=== PATIENT | male | born 1930 | race Caucasian/White ===

== ENCOUNTER 2017-04-22 12:49 | Observation (INO) ==
[2017-04-22] MEDS ORDERED: Ondansetron 4 MG/2 ML VIAL IVP ONE (13:07)
[2017-04-22] MEDS ORDERED: Ibuprofen 600 MG TABLET PO ONE (13:23)
[2017-04-22 13:32] LABS: Bilirubin,Urine Negative (Negative); Blood,Urine Negative (Negative); Clarity,Urine Cloudy (Clear); Color,Urine Yellow (Yellow); Glucose,Urine (UA) Normal (Normal); Ketones,Urine Negative (Negative); Leukocyte Esterase,Urine Negative (Negative); Nitrite,Urine Negative (Negative); PH,Urine 6.5 pH Units (5.0-8.0); Protein,Urine 30 mg/dL (Neg-Trace); Specific Gravity,Urine 1.022 (1.010-1.025); Urobilinogen,Urine Normal (Normal)
[2017-04-22 13:35] LABS: WBC,Urine 0-3 per hpf (0-3)
[2017-04-22 13:43] LABS: Hematocrit 38.7 % (37.5-50.1); Hemoglobin 12.4 g/dL (12.9-16.9); Mean Corpuscular Hemoglobin 28.9 pg (28.0-33.3); Mean Corpuscular Volume 90.2 fL (83.0-100.0); Mean Platelet Volume 10.2 fL (9.4-12.4); Monocytes # 0.3 K/mcL (0.0-1.3); Platelet Count 183 K/mcL (140-400); Red Blood Count 4.29 M/mcL (4.19-5.50); Red Cell Distribution Width 14.5 % (11.5-14.5)
--- NOTE | 2017-04-22 13:50 | Emergency Department Note ---
Disposition Clinical Impression: Nausea and vomiting in adult, Transaminitis, Fever Disposition: Admitted As Inpatient Condition: Fair Referrals: NONE,PCP [Non-Partnered Physician] - Forms: ED Satisfaction Letter General Adult HPI - General Chief complaint: ED Nausea/Vomiting/Diarrhea Stated complaint: NAUSEA, FEVER Source: patient Limitations: no limitations Vital Signs Reviewed: Yes - History of Present Illness HPI Narrative: Patient is an 86-year-old male with a past medical history of lymphoma and congestive heart failure and hepatic stent placed presented to the with nausea, vomiting, fever, and cough. Patient's symptoms began this morning. Patient has not eaten anything since 8 AM and has had continuous nausea and vomiting without throwing up anything. Patient had a maximum temperature of 101F and took Tylenol at 10 AM. Patient was previously sick with similar symptoms couple weeks ago but felt better after vomiting once. has had a cold but no symptoms of nausea or vomiting. Patient is not doing chemotherapy, radiation , immunosuppressants. Patient denies dizziness, changes, diarrhea, rashes, falls. Pain Scale: 0 - Related Data Home Medications Medication Instructions Recorded Confirmed Cholecalciferol (Vitamin D3) 1,000 unit PO DAILY 05/01/15 04/16/17 [Vitamin D3] Cyanocobalamin (B-12) 1,000 mcg PO DAILY 05/01/15 04/16/17 Diltiazem HCl [Diltiazem 24Hr Cd] 180 mg PO QAM 05/01/15 04/16/17 Furosemide [Lasix] 40 mg PO QAM 05/01/15 04/16/17 Metoprolol [Lopressor] 25 mg PO BID 05/01/15 04/16/17 Multivit-Min/FA/Lycopen/Lutein 1 tab PO DAILY 05/01/15 04/16/17 [Centrum Silver Tablet] Omeprazole [PriLOSEC] 20 mg PO DAILY 05/01/15 04/16/17 Sodium Chloride/Aloe Nasal Gel 1 appl NS PRN PRN 02/18/17 04/16/17 [[place] Saline Nasal Gel] Montelukast [Singulair] 10 mg PO DAILY 03/19/17 04/16/17 Atorvastatin [Lipitor] 40 mg PO HS 04/22/17 04/22/17 Polyvinyl Alcohol [Artificial 2 drop OP QID PRN 04/22/17 04/22/17 Tears] Temazepam [Restoril] 7.5 mg PO HS PRN 04/22/17 04/22/17 Allergies Allergy/AdvReac Type Severity Reaction Status Date / Time No Known Allergies Allergy Verified 04/16/17 09:58 Review of Systems: ROS: constitutional fever, denies chills, weakness, dizziness HEENT: denies Headaches, changes in vision Resp: SOB, coughing CV: Denies chest pain, lower extremity edema GI: + nausea, Denies nausea, vomiting, diarrhea, constipation, hematochezia, abdominal pain Skin: rashes, new lesions All systems ED: reviewed and negative except as stated. Review of Systems: As Per HPI Past Medical History - Past Medical History Medical history: Reports: cancer, CHF, coronary artery disease, hyperlipidemia, hypertension, malignancy, RA, valvular heart disease, other Surgical history: Reports: coronary bypass (CABG), heart valve replacement ( Aortic valve), pacemaker/AICD, other (Pacemaker, biliary duct stent, cardiac cath x3 without stents, colonoscopy) Psychiatric history: Reports: no psych history - Social History Smoking Status: Never smoker Smokeless Tobacco Status: No Alcohol use: Reports: none Drug use: Reports: none Physical Exam Constitutional: Alert, in no acute distress, well nourished, well developed. Head: Normocephalic, atraumatic, normal contour and symmetric, no masses, Heart: Normal, regular rate and rhythm, + systolic murmur Lungs: Right basilar crackles, no wheezes, rales, or rhonchi Abdomen: Mild tenderness diffusely, Soft, nondistended and no masses palpable, bowel sounds present and normal, no guarding or rigidity. Extremities: No clubbing, cyanosis, or edema, Skin: Skin pale, warm and dry, no lesions, no rashes, no jaundice Neurologic: Constant tremor in handlesCranial nerves II through XII grossly intact, no focal deficits, strength within normal limits in all extremities Psych: Cooperative with exam, good eye contact, cognitive function intact, judgement good insight good, speech clear, thought process logical, and goal directed - General Limitations: no limitations General appearance: alert, in no apparent distress Course Course Narrative: Patient is an 86-year-old male with a past medical history of lymphoma and congestive heart failure and hepatic stent placed presented to the ED with nausea, vomiting, fever, and cough. Patient had a fever of 100.4F. CBC, BMP, lipase, hepatic panel, UA, CT of abdomen and pelvis, chest x-ray were all obtained. CBC showed a white count of 4.9 and elevated bands of 22. Hepatic panel showed transaminitis with an AST of 116, ALP of 62, alkaline phosphatase 376, total bili of 3.6. CT of the abdomen showed biliary stents in place with no significant change in biliary ductal dilation associated pneumobilia and small pleural effusion at lung bases that Superimposed pneumonia cannot be excluded. Other sources of infection were negative with a negative UA and chest x-ray. Dr. Raines, GI specialist, was called and informed about patient and agreed to consult. He reported that the patient be nothing by mouth and no MRCP at this time. He has decided to do an ERCP for possible obstruction of the hepatic stent. Blood cultures were drawn and Zosyn given. Dr. Ta, the hospitalist was called and admission was accepted. Vital Signs Temperature 100.4 F H 04/22/17 12:51 Pulse Rate 98 04/22/17 12:51 Respiratory Rate 20 04/22/17 12:51 Blood Pressure 157/83 04/22/17 12:51 O2 Sat by Pulse Oximetry 95 04/22/17 12:51 Temperature 100.4 F H 04/22/17 12:51 Pulse Rate 98 04/22/17 12:51 Respiratory Rate 20 04/22/17 12:51 Blood Pressure 157/83 04/22/17 12:51 O2 Sat by Pulse Oximetry 95 04/22/17 12:51 Oxygen Delivery Oxygen Delivery Room Air Medical Decision Making - [facility] Narrative Medical decision making narrative: Patient was found to have transaminitis and a fever. Dr. Raines was called and informed about patient. He is decided to do an ERCP for obstruction of the hepatic stent. Blood cultures were drawn and Zosyn given. Admitted to the hospitalist. - Lab Data Lab results narrative: All Lab Results (24 Hours) 04/22/17 04/22/17 04/22/17 Range/Units 13:20 13:34 13:34 WBC 4.9 (4.3-11.1) K/mcL RBC 4.29 (4.19-5.50) M/mcL Hgb 12.4 L (12.9-16.9) g/dL Hct 38.7 (37.5-50.1) % MCV 90.2 (83.0-100.0) fL MCH 28.9 (28.0-33.3) pg MCHC 32.0 (31.6-35.5) g/dL RDW 14.5 (11.5-14.5) % Plt Count 183 (140-400) K/mcL MPV 10.2 (9.4-12.4) fL Seg Neutrophils % 66.0 % Band Neutrophils % 22.0 H (0-4) % Lymphocytes % 4.0 % Monocytes % 6.0 % Eosinophils % 2.0 % Neutrophils # 4.3 (1.6-8.9) K/mcL Lymphocytes # 0.2 L (0.6-4.6) K/mcL Monocytes # 0.3 (0.0-1.3) K/mcL Eosinophils # 0.1 (0.0-0.6) K/mcL Platelet Estimate Normal (Normal) Immature Plt Fraction 5.0 (1.1-6.1) % Sodium 137 (136-145) mEq/L Potassium 4.2 (3.5-4.5) mEq/L Chloride 104 (98-109) mEq/L Carbon Dioxide 23 (19-29) mEq/L BUN 18 (8-26) mg/dL Creatinine 0.97 (0.72-1.25) mg/dL Est GFR ( Amer) > 60 (> 60) Est GFR (Non-Af Amer) > 60 (> 60) BUN/Creatinine Ratio 19 (6-26) Glucose 92 (70-99) mg/dL Calculated Osmolality 286 (280-300) Calcium 9.5 (8.6-10.8) mg/dL Total Bilirubin 3.6 H (0.2-1.2) mg/dL Direct Bilirubin 2.6 H (0.0-0.5) mg/dL Indirect Bilirubin 1.0 (0.0-1.2) mg/dL AST 116 H (5-34) Units/L ALT 62 H (0-55) Units/L Alkaline Phosphatase 376 H (38-126) Units/L Serum Total Protein 6.7 (6.0-8.3) g/dL Albumin 3.4 L (3.5-5.0) g/dL Globulin 3.3 (2.4-3.5) g/dL Albumin/Globulin Ratio 1.0 L (1.1-2.2) Lipase 54 (8-78) Units/L Urine Color Yellow (Yellow) Urine Clarity Cloudy A (Clear) Urine pH 6.5 (5.0-8.0) pH Units Ur Specific [place] 1.022 (1.010-1.025) Urine Protein 30 H (Neg-Trace) mg/dL Urine Glucose (UA) Normal (Normal) mg/dL Urine Ketones Negative (Negative) mg/dL Urine Blood Negative (Negative) Urine Nitrite Negative (Negative) Urine Bilirubin Negative (Negative) Urine Urobilinogen Normal (Normal) mg/dL Ur Leukocyte Esterase Negative (Negative) Urine Microscopic WBC 0-3 (0-3) per hpf Ur Culture Indicated? NO (NO) Lab Results 04/22/17 Range/Units 13:20 Urine Color Yellow (Yellow) Urine Clarity Cloudy A (Clear) Urine pH 6.5 (5.0-8.0) pH Units Ur Specific [place] 1.022 (1.010-1.025) Urine Protein 30 H (Neg-Trace) mg/dL Urine Glucose (UA) Normal (Normal) mg/dL Urine Ketones Negative (Negative) mg/dL Urine Blood Negative (Negative) Urine Nitrite Negative (Negative) Urine Bilirubin Negative (Negative) Urine Urobilinogen Normal (Normal) mg/dL Ur Leukocyte Esterase Negative (Negative) Urine Microscopic WBC 0-3 (0-3) per hpf Ur Culture Indicated? NO (NO) - Radiology Data Radiology results reviewed: Yes I reviewed the patient's radiology results. Abdomen/Pelvis CT 04/22/17 13:08 IMPRESSION: Biliary stents remain in place with no significant change in biliary ductal dilation associated pneumobilia. Persistent distention of the gallbladder with associated cholelithiasis. No significant inflammatory change appreciated. Pleural and parenchymal changes at the lung bases compatible with atelectasis and small pleural effusion. Superimposed pneumonia cannot be excluded. Large hiatal hernia with a paraesophageal component containing the majority of the stomach. No evidence of obstruction noted. D/ / 04/22/2017 14:22:05 Ken Bai MD / [facility] Interpreting Provider: Ken Bai MD Chest X-Ray 04/22/17 13:22 IMPRESSION: There is chronic blunting of both lateral costophrenic angles which may be related to chronic pleural thickening or effusions. No significant interval change compared to prior. Large hiatal hernia is again seen. D/ / Jaja Zuniga MD / Jaja Zuniga MD Interpreting Provider: Jaja Zuniga MD
[2017-04-22 14:05] LABS: Alanine Aminotransferase 62 Units/L (0-55); Albumin 3.4 g/dL (3.5-5.0); Alkaline Phosphatase 376 Units/L (38-126); Aspartate Amino Transferase 116 Units/L (5-34); BUN/Creatinine Ratio 19 (6-26); Bilirubin,Direct 2.6 mg/dL (0.0-0.5); Bilirubin,Total 3.6 mg/dL (0.2-1.2); Blood Urea Nitrogen 18 mg/dL (8-26); Calcium 9.5 mg/dL (8.6-10.8); Carbon Dioxide 23 mEq/L (19-29); Chloride 104 mEq/L (98-109); Globulin 3.3 g/dL (2.4-3.5); Glucose 92 mg/dL (70-99); Lipase 54 Units/L (8-78); Osmolality,Calculated 286 (280-300); Potassium 4.2 mEq/L (3.5-4.5); Sodium 137 mEq/L (136-145); Total Protein 6.7 g/dL (6.0-8.3); eGFR For African Americans > 60 (> 60); eGFR For Non-African Americans > 60 (> 60)
[2017-04-22 14:27] LABS: Eosinophils # 0.1 K/mcL (0.0-0.6); Lymphocytes # 0.2 K/mcL (0.6-4.6); Neutrophils # 4.3 K/mcL (1.6-8.9); Platelet Estimate Normal (Normal)
--- NOTE | 2017-04-22 14:42 | Emergency Department Note ---
START Narrative - START START: I examined this patient and my medical decision-making was reviewed with the Resident Physician. I agree with the documented findings, disposition and treatment plan as described except to the extent set forth below. 86-year-old male presents with intermittent fevers and chills times one week. History of liver stents secondary to an obstruction. His bilirubin and LFTs are elevated. CT shows some dilatation of the biliary ducts. We will consult with GI and proceed from there.
[2017-04-22] MEDS ORDERED: Piperacillin/Tazobactam 3.375 GM in D5% in Water (Mini-Bag+) 100 ML IVPB ONE (15:40)
[2017-04-22] MEDS ORDERED: Acetaminophen 325 MG TABLET PO PRN (16:52)
[2017-04-22] MEDS ORDERED: Ondansetron 4 MG/2 ML VIAL IVP PRN (16:52)
[2017-04-22] MEDS ORDERED: Naloxone 0.4 MG/ML INJ IVP PRN (16:52)
--- NOTE | 2017-04-22 17:10 | Internal Med History&Physical ---
Date of Encounter: 04/22/17 Time of Encounter: 16:59 Assessment and Plan (1) Obstructive jaundice Current visit: Yes Status: Acute Patient presented with fever, nausea, vomiting. Patient has history of biliary stent placement. Labs revealed elevated LFTs with tbili of 3.6, AST of 116, ALT of 62, and alk phos of 376. CT of abd/pelvis showed biliary stents in place with no change in biliary ductal dilation. Dr. Ruffin of gastroenterology was consulted and plans to take patient this evening for ERCP and stent exchange. Daily LFTs. (2) Nausea and vomiting in adult Current visit: Yes Status: Acute Patient presented with nausea, dry heaves, chills and fever. Reports he's had previous episodes of this that resolved on their own and had associated them with his chemo and or IVIG treatments. Patient has completed CHemo. He has obstructive jaundice and there is concern for possible cholangitis, which is likely cause of patient's N/V Dr. Ruffin plans ERCP with stent exchange. Zosyn IVPB zofran PRN (3) Fever Current visit: Yes Status: Acute Patient presents with nausea, vomiting, chills and fever, with elevated LFTs and history of biliary stent for obstructive jaundice. Patient likely with cholangitis secondary to biliary obstruction. Zosyn IVPB Dr. Ruffin consulted and plans ERCP for stent exchange. Qualifiers: Fever type: unspecified Qualified Code(s): R50.9 - Fever, unspecified (4) Lymphoma Current visit: Yes Status: Chronic Patient reports he has completed chemotherapy and was told he is in remission as of Wednesday. He still gets IVIG periodically. 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 Tripp is a 86 year old male with HTN, HLD, CAD s/p CABG, aortic valve repair , pacemaker, CHF, Lymphoma s/p chemo and now in remission, and biliary stent placement, who presented to the ED with complaints of nausea, vomiting, chills and fever. Patient reports that he's had similar episodes of chills and nausea over the last several weeks, but symptoms usually resolve. He reports today he ate breakfast and was feeling okay, when he had sudden onset of nausea, dry heaves, chills. He denies any dizziness or lightheadedness, chest pain, palpitations. He reports some shortness of breath and cough that has been going on for a week. Evaluation in the ED revealed fever of 100.4, elevated LFTs with AST of 116, ALT of 62, alk phos of 376, and tbili of 3.6. WBC was normal at 4.9 but bands were elevated. UA was negative for infection. CXR did not reveal anything acute. CT abd/pelvis showeed biliary stents in place with no change in biliary ductal dilation. Dr. Ruffin of gastroenterology was consulted and he plans an ERCP for this evening to exchange the biliary stent. He was started on zosyn. On exam, patient appeared mildly jaundiced. Heart had regular rate and rhythm, lungs were clear bilaterally to auscultation. Abdomen soft, non-tender with positive bowel sounds. Past Med Surg Social Fam HX - Past Medical History Medical history: cancer (lymphoma), CHF, coronary artery disease, hyperlipidemia , hypertension, malignancy, RA, valvular heart disease, other Psychiatric history: no psych history - Past Surgical History Surgical History: coronary bypass (CABG), heart valve replacement (Aortic valve) , other (Pacemaker, biliary duct stent, cardiac cath x3 without stents, colonoscopy), pacemaker - Social History Smoking Status: Never smoker Smokeless Tobacco Status: No Alcohol use: none Drug use: none - Family History Mother Adopted: No Family Member Ethnicity: Non- Living Status: Hx Family Cardiac Disorders: Yes Hx Family Cancer: Yes (breast) Hx Family Endocrine Disorder: Yes (DM) Father Living Status: Internal Medicine - H&P: Meds RX: Cholecalciferol (Vitamin D3) [Vitamin D3] 1,000 unit PO DAILY 05/01/15 [ History] RX: Cyanocobalamin (B-12) 1,000 mcg PO DAILY 05/01/15 [History] RX: Diltiazem HCl [Diltiazem 24Hr Cd] 180 mg PO QAM 05/01/15 [History] RX: Furosemide [Lasix] 40 mg PO QAM 05/01/15 [History] RX: Metoprolol [Lopressor] 25 mg PO BID 05/01/15 [History] RX: Multivit-Min/FA/Lycopen/Lutein [[place] Silver Tablet] 1 tab PO DAILY [History] RX: Omeprazole [PriLOSEC] 20 mg PO DAILY 05/01/15 [History] Sodium Chloride/Aloe Nasal Gel [[place] Saline Nasal Gel] 1 spray NS Q6H PRN [History] Montelukast [Singulair] 10 mg PO DAILY 03/19/17 [History] Atorvastatin [Lipitor] 40 mg PO HS 04/22/17 [History] Polyvinyl Alcohol [Artificial Tears] 2 drop OP QID PRN 04/22/17 [History] Temazepam [Restoril] 7.5 mg PO HS PRN 04/22/17 [History] Allergies No Known Allergies Allergy (Verified 04/16/17 09:58) All Systems PM: A 10-system review of systems was performed and is negative for pertinent findings except as documented above in the HPI. - Constitutional Constitutional: chills, fever(s), no night sweats - EENT Eyes: no change in vision, no discharge, no pain, no photophobia Ears: no ear discharge, no ear pain, no tinnitus Nose, mouth and throat: no dysphagia, no nasal discharge, no neck pain, no sore throat - Cardiovascular Cardiovascular ROS IM: dyspnea, no chest pain, no diaphoresis, no lightheadedness, no palpitations, no syncope - Respiratory Respiratory: cough, dyspnea, no wheezing, no excessive phlegm production - Gastrointestinal Gastrointestinal: nausea, vomiting, no abdominal pain, no diarrhea, no hematemesis, no hematochezia, no melena - Musculoskeletal Musculoskeletal ROS IM: no numbness, no tingling - Integumentary Integumentary IM: no rash, no unusual bruising - Neurological Neurological ROS: no confusion, no convulsions, no focal weakness, no numbness, no tingling, no tremor(s) - Hematologic/Lymphatic Hematologic/Lymphatic: no easy bruising - Constitutional Vitals: Temp Pulse Resp BP Pulse Ox 99.4 F 69 20 114/63 93 04/22/17 16:47 04/22/17 15:29 04/22/17 16:47 04/22/17 16:47 04/22/17 15:29 General appearance: Present: A&O X 3, pleasant, no acute distress - Head Head exam: Present: atraumatic, normocephalic - Eye Eye exam: Present: conjuntiva pink, sclera anicteric Additional comments: left pupil reactive. Patient keeps left eye closed mostly and left pupil non- reactive. 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 - Neck Neck exam general surgery: Present: supple, trachea midline. Absent: lymphadenopathy - Respiratory Respiratory exam: Present: CTAB. Absent: accessory muscle use, rales, rhonchi, wheezes - Cardiovascular Cardiovascular exam: Present: RRR, +S1, +S2, systolic murmur. Absent: diastolic murmur, gallop, rubs - GI/Abdominal GI/Abdominal exam: Present: normal bowel sounds, soft, no peritoneal signs. Absent: distended, tenderness - Extremities Exam Extremities exam: Present: warm, radial pulses palpable and symmetrical. Absent : calf tenderness, cyanotic, pedal edema - Neurological Exam Neurological exam: Present: CN II-XII intact, oriented X3, no focal deficits. Absent: facial droop, speech deficit - Skin Skin exam: Present: dry, intact Internal Med - H&P Results - Labs CBC & Chem 7: 04/22/17 13:34 04/22/17 13:34 Labs: All Lab Results (24 Hours) 04/22/17 04/22/17 04/22/17 Range/Units 13:20 13:34 13:34 WBC 4.9 (4.3-11.1) K/mcL RBC 4.29 (4.19-5.50) M/mcL Hgb 12.4 L (12.9-16.9) g/dL Hct 38.7 (37.5-50.1) % MCV 90.2 (83.0-100.0) fL MCH 28.9 (28.0-33.3) pg MCHC 32.0 (31.6-35.5) g/dL RDW 14.5 (11.5-14.5) % Plt Count 183 (140-400) K/mcL MPV 10.2 (9.4-12.4) fL Seg Neutrophils % 66.0 % Band Neutrophils % 22.0 H (0-4) % Lymphocytes % 4.0 % Monocytes % 6.0 % Eosinophils % 2.0 % Neutrophils # 4.3 (1.6-8.9) K/mcL Lymphocytes # 0.2 L (0.6-4.6) K/mcL Monocytes # 0.3 (0.0-1.3) K/mcL Eosinophils # 0.1 (0.0-0.6) K/mcL Platelet Estimate Normal (Normal) Immature Plt Fraction 5.0 (1.1-6.1) % Sodium 137 (136-145) mEq/L Potassium 4.2 (3.5-4.5) mEq/L Chloride 104 (98-109) mEq/L Carbon Dioxide 23 (19-29) mEq/L BUN 18 (8-26) mg/dL Creatinine 0.97 (0.72-1.25) mg/dL Est GFR ( Amer) > 60 (> 60) Est GFR (Non-Af Amer) > 60 (> 60) BUN/Creatinine Ratio 19 (6-26) Glucose 92 (70-99) mg/dL Calculated Osmolality 286 (280-300) Calcium 9.5 (8.6-10.8) mg/dL Total Bilirubin 3.6 H (0.2-1.2) mg/dL Direct Bilirubin 2.6 H (0.0-0.5) mg/dL Indirect Bilirubin 1.0 (0.0-1.2) mg/dL AST 116 H (5-34) Units/L ALT 62 H (0-55) Units/L Alkaline Phosphatase 376 H (38-126) Units/L Serum Total Protein 6.7 (6.0-8.3) g/dL Albumin 3.4 L (3.5-5.0) g/dL Globulin 3.3 (2.4-3.5) g/dL Albumin/Globulin Ratio 1.0 L (1.1-2.2) Lipase 54 (8-78) Units/L Urine Color Yellow (Yellow) Urine Clarity Cloudy A (Clear) Urine pH 6.5 (5.0-8.0) pH Units Ur Specific [place] 1.022 (1.010-1.025) Urine Protein 30 H (Neg-Trace) mg/dL Urine Glucose (UA) Normal (Normal) mg/dL Urine Ketones Negative (Negative) mg/dL Urine Blood Negative (Negative) Urine Nitrite Negative (Negative) Urine Bilirubin Negative (Negative) Urine Urobilinogen Normal (Normal) mg/dL Ur Leukocyte Esterase Negative (Negative) Urine Microscopic WBC 0-3 (0-3) per hpf Ur Culture Indicated? NO (NO) - Diagnostic Studies Chest x-ray Additional comments: Chest X-Ray 04/22/17 13:22 IMPRESSION: There is chronic blunting of both lateral costophrenic angles which may be related to chronic pleural thickening or effusions. No significant interval change compared to prior. Large hiatal hernia is again seen. D/ / Jaja Zuniga MD / Jaja Zuniga MD Interpreting Provider: Jaja Zuniga MD CT scan - abdomen Additional comments: Abdomen/Pelvis CT 04/22/17 13:08 IMPRESSION: Biliary stents remain in place with no significant change in biliary ductal dilation with associated pneumobilia. Persistent distention of the gallbladder with associated cholelithiasis. No significant inflammatory change appreciated. Pleural and parenchymal changes at the lung bases compatible with atelectasis and small pleural effusion. Superimposed pneumonia cannot be excluded. Large hiatal hernia with a paraesophageal component containing the majority of the stomach. No evidence of obstruction noted. D/ / 04/22/2017 14:22:05 Ken Bai MD / [facility] Interpreting Provider: Ken Bai MD
[2017-04-22] MEDS: 0.9 % Sodium Chloride 1,000 ML IVC SCH (17:20)
[2017-04-22] MEDS ORDERED: Ringers Solution, Lactated 1,000 ML IVC SCH (20:45)
--- NOTE | 2017-04-22 20:51 | Anesthesia Evaluation PreOp ---
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: Denies Any Significant HX Other Medical History: Other (Lymphoma....remission) Anesthesia History: No Prior Anesthetic Complications Alcohol Use: none Drug use: none Medications and Allergies Cholecalciferol (Vitamin D3) [Vitamin D3] 1,000 unit PO DAILY 05/01/15 [History] Cyanocobalamin (B-12) 1,000 mcg PO DAILY 05/01/15 [History] Diltiazem HCl [Diltiazem 24Hr Cd] 180 mg PO QAM 05/01/15 [History] Furosemide [Lasix] 40 mg PO QAM 05/01/15 [History] Metoprolol [Lopressor] 25 mg PO BID 05/01/15 [History] Multivit-Min/FA/Lycopen/Lutein [Centrum Silver Tablet] 1 tab PO DAILY 05/01/15 [ History] Omeprazole [PriLOSEC] 20 mg PO DAILY 05/01/15 [History] Sodium Chloride/Aloe Nasal Gel [[place] Saline Nasal Gel] 1 spray NS Q6H PRN [History] Montelukast [Singulair] 10 mg PO DAILY 03/19/17 [History] Atorvastatin [Lipitor] 40 mg PO HS 04/22/17 [History] Polyvinyl Alcohol [Artificial Tears] 2 drop OP QID PRN 04/22/17 [History] Temazepam [Restoril] 7.5 mg PO HS PRN 04/22/17 [History] Allergies No Known Allergies Allergy (Verified 04/16/17 09:58) - Meds/Allergy Pre-op Review Medications Reviewed: Yes Allergies Reviewed: Yes Beta Blockers on Current Med List: Yes Anesthesia Results - Labs 04/22/17 13:34 04/22/17 13:34 - Imaging EKG: report reviewed (AF) Additional studies: LVEF 60% Anesthesia Exam O2 Sat Height 1.7 m Height 1.7 m Weight 81.7 kg Weight 83.915 kg O2 Sat by Pulse Oximetry 94 O2 Sat by Pulse Oximetry 93 O2 Sat by Pulse Oximetry 93 O2 Sat by Pulse Oximetry 94 O2 Sat by Pulse Oximetry 95 Vital Signs Temp Pulse Resp BP Pulse Ox 100.4 F H 98 20 157/83 95 04/22/17 12:51 04/22/17 12:51 04/22/17 12:51 04/22/17 12:51 04/22/17 12:51 Height: 5'7 Weight: 180 lbs NPO (# of Hours): MN Pain Scale: 0 - HEENT Pupil (Motor): Pupils equal, EOMI Mallampati: III Oral Opening: Less than or equal to 3 - FIELD SERVICE TECHNICIAN POULTRY LOC: Oriented FIELD SERVICE TECHNICIAN [employer]LTRY Motor: Normal RUE, Normal LUE, Normal RLE, Normal LLE, Normal Face FIELD SERVICE TECHNICIAN [employer]LTRY Sensory: Normal: RUE, LUE, RLE, LLE, Face - Cardiac Rhythm: Regular Murmur: None JVD: No Carotid Bruit: No - Pulmonary Breath Sounds: bilateral Clear Respiratory Effort: Symmetrical Anesthesia Assess/Plan ASA Score: 3 Modified Gilman Scale for Level of Consciousness: Cooperative, oriented, and tranquil Anesthetic Plan: General Monitoring Plan: Standard Monitors Recovery Plan: PACU (Discussed GA, agrees to proceed)
[2017-04-22] MEDS ORDERED: Lidocaine -MPF 4% 5 ML AMPUL ONE (20:58)
[2017-04-22] MEDS ORDERED: Lidocaine -MPF 2% 2 ML VIAL ONE (20:58)
[2017-04-22] MEDS ORDERED: *HR* Propofol 200 MG/20 ML VIAL IVP ONE (20:58)
[2017-04-22] MEDS ORDERED: Ondansetron 4 MG/2 ML VIAL ONE (20:58)
[2017-04-22] MEDS ORDERED: *HR* FentaNYL (PF) 100 MCG/2 ML VIAL ONE ×2 (20:58→21:58)
[2017-04-22] MEDS ORDERED: *HR* Succinylcholine 200 MG/10 ML VIAL IVP ONE (20:58)
[2017-04-22] MEDS ORDERED: Acetaminophen IV 1,000 MG/100 ML INFUS..BTL ONE (22:14)
--- NOTE | 2017-04-22 23:31 | Anesthesia Evaluation Post Op ---
Date of Encounter: 04/22/17 Time of Encounter: 23:40 - Vital Signs Vital Signs: Vital Signs/O2 Sat/Glucose, Most Current Temp Pulse Resp BP Pulse Ox 04/22/17 23:25 72 16 129/68 94 04/22/17 23:15 81 16 129/80 100 04/22/17 20:20 97.5 F L 71 18 117/71 94 - Lungs Lungs: Clear Ascult./Percussion - Airway Airway: Non-obstructed - Cardiovascular Regular Rate - Mental Status Mental Status: Alert & Oriented, Answers Appropriately - Pain Pain Scale: 0 - Nausea Vomiting Nausea Vomiting: Not Present - Hydration Hydration: NPO - Discharge PostOp Status: Transfer Patient to floor
[2017-04-23] MEDS: Piperacillin/Tazobactam 3.375 GM in D5% in Water (Mini-Bag+) 100 ML IVPB SCH ×3 (00:17→16:06)
--- NOTE | 2017-04-23 00:29 | Event Note ---
Date of Encounter: 04/23/17 Time of Encounter: 00:24 Discussed case with GI Dr Ruffin s/p ERCP with old stent removable. 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 Unable to re-stent. Initial plan to transfer to [facility]. However , [facility] does not take [employer] insurance and patient would have to pay out of pocket - this would incur family huge medical debt. D/w Dr Ruffin again and family options include 1) trial of PTC in the morning and repeat attempt at [facility] vs. 2 ) transfer to [facility] were options presented but also acknowledging that [facility] isn't a tertiary center. Further management pending hospital course. NPO for possible PTC trial in the a.m
[2017-04-23] MEDS: *HR* Heparin 5,000 UNIT/ML VIAL SQ SCH ×2 (05:54→17:44)
[2017-04-23 05:55] LABS: Albumin 2.9 g/dL (3.5-5.0); Albumin/Globulin Ratio 0.9 (1.1-2.2); BUN/Creatinine Ratio 19 (6-26); Bilirubin,Direct 4.1 mg/dL (0.0-0.5); Bilirubin,Indirect 1.3 mg/dL (0.0-1.2); Bilirubin,Total 5.4 mg/dL (0.2-1.2); Blood Urea Nitrogen 20 mg/dL (8-26); Calcium 8.9 mg/dL (8.6-10.8); Carbon Dioxide 25 mEq/L (19-29); Chloride 105 mEq/L (98-109); Globulin 3.1 g/dL (2.4-3.5); Glucose 116 mg/dL (70-99); Osmolality,Calculated 288 (280-300); Potassium 4.2 mEq/L (3.5-4.5); Sodium 137 mEq/L (136-145); eGFR For African Americans > 60 (> 60); eGFR For Non-African Americans > 60 (> 60)
[2017-04-23 05:56] LABS: Basophils % 0.1 %; Eosinophils % 0.4 %; Hematocrit 33.4 % (37.5-50.1); Lymphocytes # 0.2 K/mcL (0.6-4.6); Lymphocytes % 2.8 %; Mean Corpuscular HGB Conc 31.7 g/dL (31.6-35.5); Mean Corpuscular Hemoglobin 28.7 pg (28.0-33.3); Mean Corpuscular Volume 90.5 fL (83.0-100.0); Mean Platelet Volume 11.4 fL (9.4-12.4); Monocytes # 0.9 K/mcL (0.0-1.3); Monocytes % 11.2 %; Platelet Count 158 K/mcL (140-400); Red Blood Count 3.69 M/mcL (4.19-5.50); Red Cell Distribution Width 14.8 % (11.5-14.5); Segmented Neutrophils % 84.5 %
[2017-04-23 06:01] LABS: Hemoglobin 10.6 g/dL (12.9-16.9)
[2017-04-23] MEDS: Cyanocobalamin (B-12) 1,000 MCG TABLET PO SCH (09:55)
[2017-04-23] MEDS: Diltiazem CD (24hr) 180 MG CAPSULE PO SCH (09:55)
[2017-04-23] MEDS: 0.9 % Sodium Chloride 1,000 ML IVC SCH ×2 (09:56→17:48)
--- NOTE | 2017-04-23 11:36 | Gastroenterology Consult Note ---
<Ari Figueroa Hetal - Last Filed: 04/23/17 11:33> Date of Encounter: 04/23/17 Time of Encounter: 10:45 - Assessment and plan (1) Obstructive jaundice Current Visit: Yes Status: Acute Assessment and plan: On admssion TB 3.6, AST 116, ALT 62, Alk phos 376. Today TB 5.4, AST 91, ALT 55 , Alk phos 320. CT A/P with biliary stent remain in place with no significant change in biliary ductal dilation with associated pneumobilia, persistent distention of the gallbladder with cholelithiasis, large hiatal hernia with paraesophageal component containing the majority of the stomach. ERCP completed overnight, biliary stent removed, but was unable to recannulate. Patient to have PTC completed today, then Dr. Ruffin to complete internalization of the stent. Patient will likely need to be referred to [place] for ampullectomy. (2) Nausea and vomiting in adult Current Visit: Yes Status: Acute Assessment and plan: Continue antiemetic and PPI. - Time Spent With Patient Total time spent is greater than 50% in coordination of care (as documented) at patient's floor/unit and/or counseling patient: GI History of Present Illness - Data of Consult Patient: known to practice within the last 3 years Consult date: 04/23/17 Requesting Physician: Bertha Thomason MD - Consult Narrative Reason for consult: Elevated LFTs, Hx biliary stent History of present illness: Mr. Squires is a 86 year old male with PMHx of lymphoma s/p chemo, CHF, CAD, HLD, HTN, and biliary stent placement who presented to the ED with complaints of nausea, vomiting, chills, and fever. Patient reports that he's had similar episodes of chills and nausea over the last several weeks, but symptoms usually resolve. Patient had sudden onset of nausea and dry heaves yesterday after eating breakfast. He denies chest pain, dizziness, lightheadedness melena, or hematochezia. On admssion TB 3.6, AST 116, ALT 62, Alk phos 376. CT A/P with biliary stent remain in place with no significant change in biliary ductal dilation with associated pneumobilia, persistent distention of the gallbladder with cholelithiasis, large hiatal hernia with paraesophageal component containing the majority of the stomach. Procedures: ERCP 07/19/2015 one stent removed in biliary tree to temporary stents were placed in the common bile duct. ERCP 07/02/2014: Localized biliary stricture, s/p dilation, brushings, and stenting. Upper EUS 07/07/2014: Area of heterogenous, hypoechoic parenchyma noted in the head region 2 cm x 2 cm in size, NSAIDs: None Anticoagulation: None Past Med Surg Social Fam HX - Past Medical History Medical history: cancer (lymphoma), CHF, coronary artery disease, hyperlipidemia , hypertension, malignancy, RA, valvular heart disease, other Psychiatric history: no psych history - Past Surgical History Surgical History: coronary bypass (CABG), heart valve replacement (Aortic valve) , other (Pacemaker, biliary duct stent, cardiac cath x3 without stents, colonoscopy), pacemaker - Social History Smoking Status: Never smoker Smokeless Tobacco Status: No Alcohol use: none Drug use: none - Family History Mother Adopted: [place]: cristiano squires Age: 80 Family Member Ethnicity: Non- Living Status: Age at : 80 Cause of : heart disease Hx Family Cardiac Disorders: Yes Hx Family Cancer: Yes (breast) Hx Family Endocrine Disorder: Yes (DM) Father Living Status: - Gastrointestinal Gastrointestinal: Present: as per HPI - Constitutional Constitutional: as per HPI - EENT Eyes: as per HPI Ears: Present: as per HPI Nose, mouth and throat: Present: as per HPI - Cardiovascular Cardiovascular ROS: Present: as per HPI - Respiratory Respiratory IM: Present: as per HPI - Genitourinary Genitourinary: Absent: change in color, Urinary frequency - Neurological ROS Neurological GI: Present: as per HPI - Hematologic/Lymphatic Hematologic/Lymphatic pediatric: Present: as per HPI - Musculoskeletal Musculoskeletal ROS GI: Present: as per HPI - Integumentary Integumentary GI: Present: as per HPI - Psychiatric ROS Psychiatric GI: Present: as per HPI - Endocrine Endocrine IM: Present: as per HPI - Constitutional Vitals: Temp Pulse Resp BP Pulse Ox 97.7 F 75 16 122/72 96 04/23/17 06:34 04/23/17 06:34 04/23/17 06:34 04/23/17 06:34 04/23/17 06:34 General appearance: Present: cooperative, A&O X 3, no acute distress, answers questions appropriately - Head Head exam: Present: atraumatic, normocephalic - Eye Eye exam: Present: normal appearance, sclera anicteric - ENT ENT exam: Present: mucous membranes dry - Neck Neck exam general surgery: Present: normal inspection, trachea midline - Respiratory Respiratory exam: Present: CTAB. Absent: rales, rhonchi - Cardiovascular Cardiovascular exam: Present: RRR, +S1, +S2 - GI/Abdominal GI/Abdominal exam: Present: soft, tenderness (upper abdominal tenderness), no peritoneal signs. Absent: distended, firm, guarding - Rectal Rectal exam: Present: deferred - Extremities Exam Extremities exam: Present: warm - Neurological Exam Neurological exam: Present: no focal deficits - Psychiatric Psychiatric exam: Present: normal affect, normal mood - Skin Skin exam: Present: dry, intact, normal color, warm Results - Labs CBC & Chem 7: 04/23/17 04:53 04/23/17 04:53 Labs: Last Result Calcium 8.9 mg/dL (8.6-10.8) 04/23/17 04:53 Entire Visit Hgb 10.6 g/dL (12.9-16.9) L D 04/23/17 04:53 Hct 33.4 % (37.5-50.1) L 04/23/17 04:53 Total Bilirubin 5.4 mg/dL (0.2-1.2) H 04/23/17 04:53 AST 91 Units/L (5-34) H 04/23/17 04:53 ALT 55 Units/L (0-55) 04/23/17 04:53 Lipase 54 Units/L (8-78) 04/22/17 13:34 - Impressions Impressions Fluoroscopy 04/22/17 21:15 IMPRESSION: Intraprocedural fluoroscopic spot images as above. See separate procedure report for more information. D/ / Korey Glover MD / Korey Glover MD Interpreting Provider: Korey Glover MD Consult Discharge Plan - Plan Referrals: Gissel Escamilla MD [Primary Care Provider] - <Manny Ruffin - Last Filed: 04/23/17 12:39> Date of Encounter: 04/23/17 Time of Encounter: 10:00 - Time Spent With Patient Total time spent is greater than 50% in coordination of care (as documented) at patient's floor/unit and/or counseling patient: GI History of Present Illness - Data of Consult Requesting Physician: Bertha Thomason MD - Consult Narrative History of present illness: Mr. Squires is a 86 year old male - Constitutional Vitals: Temp Pulse Resp BP Pulse Ox 97.8 F 71 16 135/72 96 04/23/17 12:06 04/23/17 12:06 04/23/17 12:06 04/23/17 12:06 04/23/17 12:06 Results - Labs CBC & Chem 7: 04/23/17 04:53 04/23/17 04:53 Labs: Last Result Calcium 8.9 mg/dL (8.6-10.8) 04/23/17 04:53 Entire Visit Hgb 10.6 g/dL (12.9-16.9) L D 04/23/17 04:53 Hct 33.4 % (37.5-50.1) L 04/23/17 04:53 PT 11.6 Seconds (9.4-12.1) 04/23/17 11:26 Total Bilirubin 5.4 mg/dL (0.2-1.2) H 04/23/17 04:53 AST 91 Units/L (5-34) H 04/23/17 04:53 ALT 55 Units/L (0-55) 04/23/17 04:53 Lipase 54 Units/L (8-78) 04/22/17 13:34 - ABG ABG results: PT/INR, D-dimer PT 11.6 Seconds (9.4-12.1) 04/23/17 11:26 - Impressions Impressions Fluoroscopy 04/22/17 21:15 IMPRESSION: Intraprocedural fluoroscopic spot images as above. See separate procedure report for more information. D/ / Korey Glover MD / Korey Glover MD Interpreting Provider: Korey Glover MD - Attending Attestation I examined this patient and my medical decision-making was reviewed with the Resident Physician. I agree with the documented findings, disposition and treatment plan as described except to the extent set forth below. Patient with history of CBD stricture now admitted with the occlusion of the plastic stent that he had placed more than 2 years ago. Per patient he lost follow-up because he had cardiac/cancer issues . 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 Discuss option with the patient including transferred to [facility], as he has Taniya. At this point the plan is to have a PTC done and then internalization of the stent and in the near future referral to [facility] for ampullectomy
[2017-04-23 11:47] LABS: INR 1.1; Prothrombin Time 11.6 Seconds (9.4-12.1)
[2017-04-23] MEDS ORDERED: Heparin 1,000 UNITS/500 mL NS 500 ML ONE (13:05)
[2017-04-23] MEDS ORDERED: 0.9 % Sodium Chloride 500 ML ONE (13:05)
[2017-04-23] MEDS ORDERED: *HR* Midazolam HCl 2 MG/2 ML VIAL IVP PRN (13:40)
[2017-04-23] MEDS: *HR* FentaNYL (PF) 100 MCG/2 ML VIAL IVP PRN ×2 (14:29→14:48)
--- NOTE | 2017-04-23 14:53 | Electrocardiograph Report ---
[address] [address] Test Date: 2017-04-22 Pat Name: Roc Tripp Department: 104 Room: 3A Gender: M [employer] Insulator: AM : 1930 Requested By: Radha Louise Order Number: [id number] Reading MD: Arlette Powell Measurements Intervals [place] Rate: 74 P: -71 CT: 312 QRS: -37 QRSD: 110 T: 79 QT: 399 QTc: 426 Interpretive Statements ELECTRONIC ATRIAL PACEMAKER MARKED LEFT AXIS DEVIATION NONSPECIFIC T-WAVE ABNORMALITY Electronically Signed On 04-23-2017 14:51:40 EDT by Arlette Powell
--- NOTE | 2017-04-23 15:03 | IR Procedure Note ---
Date of procedure: 04/23/17 Consent Obtained: Verbal consent, Written consent Timeout: Correct patient and procedure verified, Correct site verified, Time out performed, Skin prep completed Local anesthetic: Lidocaine 1% Indications: Biliary stricture Procedure Performed: PTC with Int/Ext drain placement Site/Technique: Transhepatic int/ext biliary drain placed Results/Findings: Mild biliary dilatation Estimated blood loss (cc): 2 Complications: None; Tolerated procedure well Post Procedure Treatment Plan: Continue inpatient care
--- NOTE | 2017-04-23 15:07 | Internal Med Progress Note ---
Date of Encounter: 04/23/17 Time of Encounter: 09:30 - Assessment and plan (1) Obstructive jaundice Current Visit: Yes Status: Acute Assessment and plan: ERCP done yesterday and biliary stent was retrieved. Was unable to be cannulated and gastroenterology recommends percutaneous cholecystostomy today. Moderate risk for complications. Continue current management with IV fluids and IV hydration. Pain control symptomatically. (2) Fever Current Visit: Yes Status: Acute Assessment and plan: Patient has not had any further episodes of fever since last night. Likely from obstructive jaundice. Qualifiers: Fever type: unspecified Qualified Code(s): R50.9 - Fever, unspecified (3) Large B-cell lymphoma Current Visit: No Status: Acute Assessment and plan: Continue outpatient follow-up with rheumatology. No acute issues from this condition at this time. (4) Nausea and vomiting in adult Current Visit: Yes Status: Resolved (5) DVT prophylaxis Current Visit: Yes Status: Acute Assessment and plan: Continue subcutaneous heparin - Subjective Interval history: Patient is feeling better today but does have some discomfort in his right upper quadrant. Awaiting percutaneous cholecystostomy that scheduled for later today. No nausea or vomiting. Has been nothing by mouth for pending procedure - Constitutional Vitals: Temp Pulse Resp BP Pulse Ox 97.8 F 69 15 116/62 97 04/23/17 12:06 04/23/17 14:56 04/23/17 14:56 04/23/17 14:56 04/23/17 14:56 General appearance: Present: A&O X 3, pleasant, no acute distress, answers questions appropriately - Eye Eye exam: Present: EOMI, PERRL, scleral icterus - Respiratory Respiratory exam: Present: CTAB. Absent: accessory muscle use, rales, rhonchi, wheezes - Cardiovascular Cardiovascular exam: Present: RRR, +S1, +S2. Absent: diastolic murmur, gallop, rubs, systolic murmur - GI/Abdominal GI/Abdominal exam: Present: normal bowel sounds, soft, tenderness (Right upper quadrant), no peritoneal signs. Absent: distended - Extremities Exam Extremities exam: Present: warm, radial pulses palpable and symmetrical. Absent : calf tenderness, cyanotic, pedal edema - Skin Skin exam: Present: dry, intact Internal Medicine: Result - Labs CBC & Chem 7: 04/23/17 04:53 04/23/17 04:53 Labs: Short CBC 04/23/17 Range/Units 04:53 WBC 8.3 D (4.3-11.1) K/mcL Hgb 10.6 L D (12.9-16.9) g/dL Hct 33.4 L (37.5-50.1) % Plt Count 158 (140-400) K/mcL Neutrophils # 7.0 (1.6-8.9) K/mcL BMP 04/23/17 04:53 Sodium 137 Potassium 4.2 Chloride 105 Carbon Dioxide 25 BUN 20 Creatinine 1.07 Glucose 116 H Calcium 8.9 Liver Function 04/23/17 Range/Units 04:53 Total Bilirubin 5.4 H (0.2-1.2) mg/dL Direct Bilirubin 4.1 H D (0.0-0.5) mg/dL AST 91 H (5-34) Units/L ALT 55 (0-55) Units/L Alkaline Phosphatase 320 H (38-126) Units/L Albumin 2.9 L (3.5-5.0) g/dL - ABG Interpretation ABG results: PT/INR, D-dimer PT 11.6 Seconds (9.4-12.1) 04/23/17 11:26 - Impressions Impressions Fluoroscopy 04/22/17 21:15 IMPRESSION: Intraprocedural fluoroscopic spot images as above. See separate procedure report for more information. D/ / Korey Glover MD / Korey Glover MD Interpreting Provider: Korey Glover MD - VTE Documentation of Mechanical Device: Intermittent pneumatic compression device Consult Discharge Plan - Plan Referrals: Gissel Escamilla MD [Primary Care Provider] -
[2017-04-24] MEDS: Piperacillin/Tazobactam 3.375 GM in D5% in Water (Mini-Bag+) 100 ML IVPB SCH ×3 (00:45→17:41)
[2017-04-24] MEDS: *HR* Heparin 5,000 UNIT/ML VIAL SQ SCH ×2 (06:14→17:41)
[2017-04-24] MEDS: Diltiazem CD (24hr) 180 MG CAPSULE PO SCH (07:33)
[2017-04-24 07:46] LABS: Alanine Aminotransferase 47 Units/L (0-55); Albumin 2.7 g/dL (3.5-5.0); Albumin/Globulin Ratio 0.8 (1.1-2.2); Alkaline Phosphatase 269 Units/L (38-126); Aspartate Amino Transferase 75 Units/L (5-34); BUN/Creatinine Ratio 21 (6-26); Bilirubin,Total 3.7 mg/dL (0.2-1.2); Blood Urea Nitrogen 21 mg/dL (8-26); Calcium 8.5 mg/dL (8.6-10.8); Carbon Dioxide 22 mEq/L (19-29); Chloride 108 mEq/L (98-109); Glucose 102 mg/dL (70-99); Osmolality,Calculated 287 (280-300); Sodium 137 mEq/L (136-145); eGFR For African Americans > 60 (> 60); eGFR For Non-African Americans > 60 (> 60)
[2017-04-24 07:47] LABS: Globulin 3.3 g/dL (2.4-3.5)
[2017-04-24 08:05] LABS: Basophils % 0.2 %; Eosinophils % 0.3 %; Hemoglobin 10.6 g/dL (12.9-16.9); Immature Granulocytes % 1.7 % (0-4)
[2017-04-24 08:11] LABS: Potassium 4.1 mEq/L (3.5-4.5)
[2017-04-24 08:19] LABS: Immature Platelets 7.2 % (1.1-6.1); Lymphocytes # 0.5 K/mcL (0.6-4.6); Lymphocytes % 3.5 %; Mean Corpuscular HGB Conc 32.1 g/dL (31.6-35.5); Mean Corpuscular Hemoglobin 29.4 pg (28.0-33.3); Mean Corpuscular Volume 91.4 fL (83.0-100.0); Mean Platelet Volume 11.6 fL (9.4-12.4); Monocytes % 7.7 %; Neutrophils # 11.1 K/mcL (1.6-8.9); Platelet Count 162 K/mcL (140-400); Red Blood Count 3.61 M/mcL (4.19-5.50); Red Cell Distribution Width 15.2 % (11.5-14.5); Segmented Neutrophils % 86.6 %
[2017-04-24] MEDS: Cyanocobalamin (B-12) 1,000 MCG TABLET PO SCH (09:59)
--- NOTE | 2017-04-24 11:17 | Internal Med Progress Note ---
Date of Encounter: 04/24/17 Time of Encounter: 09:10 - Assessment and plan (1) Obstructive jaundice Current Visit: Yes Status: Acute Assessment and plan: Status post PTC. Doing well currently. Continue supportive care. Will follow gastroenterology recommendations. Most likely patient will be taken for repeat ERCP on Wednesday. Continue IV antibiotics in the meantime. Moderate risk for complications. (2) Fever Current Visit: Yes Status: Acute Assessment and plan: Likely due to obstructive jaundice. Improving. Qualifiers: Fever type: unspecified Qualified Code(s): R50.9 - Fever, unspecified (3) Large B-cell lymphoma Current Visit: No Status: Chronic Assessment and plan: Follow-up outpatient with getting hematology for further management. Patient said to be in remission at this time. (4) Nausea and vomiting in adult Current Visit: Yes Status: Resolved (5) DVT prophylaxis Current Visit: Yes Status: Acute Assessment and plan: Continue subcutaneous heparin - Subjective Interval history: Patient is doing better today. No new episodes of fevers. He did have low- grade fever last evening after his procedure. Tolerating diet well so far. Pain is well controlled. - Constitutional Vitals: Temp Pulse Resp BP Pulse Ox 97.8 F 64 16 130/75 94 04/24/17 06:26 04/24/17 06:26 04/24/17 06:26 04/24/17 06:26 04/24/17 06:26 General appearance: Present: cooperative, A&O X 3, pleasant, no acute distress, answers questions appropriately - Neck Neck exam general surgery: Present: supple, trachea midline. Absent: lymphadenopathy - Respiratory Respiratory exam: Present: CTAB. Absent: accessory muscle use, rales, rhonchi, wheezes - Cardiovascular Cardiovascular exam: Present: RRR, +S1, +S2. Absent: diastolic murmur, gallop, rubs, systolic murmur - GI/Abdominal GI/Abdominal exam: Present: normal bowel sounds, soft, no peritoneal signs. Absent: distended, tenderness Additional comments: Percutaneous cholecystostomy drain in place. Draining biliary fluid. - Extremities Exam Extremities exam: Present: warm, radial pulses palpable and symmetrical. Absent : calf tenderness, cyanotic, pedal edema - Skin Skin exam: Present: dry, intact Additional comments: Jaundice Internal Medicine: Result - Labs CBC & Chem 7: 04/24/17 07:11 04/24/17 07:11 Labs: Short CBC 04/24/17 Range/Units 07:11 WBC 12.8 H D (4.3-11.1) K/mcL Hgb 10.6 L (12.9-16.9) g/dL Hct 33.0 L (37.5-50.1) % Plt Count 162 (140-400) K/mcL Neutrophils # 11.1 H (1.6-8.9) K/mcL BMP 04/24/17 07:11 Sodium 137 Potassium 4.1 Chloride 108 Carbon Dioxide 22 BUN 21 Creatinine 1.01 Glucose 102 H Calcium 8.5 L Liver Function 04/24/17 Range/Units 07:11 Total Bilirubin 3.7 H (0.2-1.2) mg/dL AST 75 H (5-34) Units/L ALT 47 (0-55) Units/L Alkaline Phosphatase 269 H (38-126) Units/L Albumin 2.7 L (3.5-5.0) g/dL - ABG Interpretation ABG results: PT/INR, D-dimer PT 11.6 Seconds (9.4-12.1) 04/23/17 11:26 - Impressions Impressions Catheter Placement 04/23/17 00:00 IMPRESSION: Successful ultrasound and fluoroscopy guided placement of an internal external transhepatic biliary drain through the right hepatic lobe. No immediate complications. D/ / Andrew Johnston MD / Andrew Johnston MD Interpreting Provider: Andrew Johnston MD Cholangiogram 04/23/17 00:00 IMPRESSION: Successful ultrasound and fluoroscopy guided placement of an internal external transhepatic biliary drain through the right hepatic lobe. No immediate complications. D/ / Andrew Johnston MD / Andrew Johnston MD Interpreting Provider: Andrew Johnston MD Guidance Needle Placement Ultrasound 04/23/17 00:00 IMPRESSION: Successful ultrasound and fluoroscopy guided placement of an internal external transhepatic biliary drain through the right hepatic lobe. No immediate complications. D/ / Andrew Johnston MD / Andrew Johnston MD Interpreting Provider: Andrew Johnston MD Percutaneous Drainage 04/23/17 00:00 IMPRESSION: Successful ultrasound and fluoroscopy guided placement of an internal external transhepatic biliary drain through the right hepatic lobe. No immediate complications. D/ / Andrew Johnston MD / Andrew Johnston MD Interpreting Provider: Andrew Johnston MD - VTE Documentation of Mechanical Device: Intermittent pneumatic compression device Consult Discharge Plan - Plan Referrals: Gissel Escamilla MD [Primary Care Provider] -
[2017-04-24] MEDS: 0.9 % Sodium Chloride 1,000 ML IVC SCH (15:00)
[2017-04-25] MEDS: Piperacillin/Tazobactam 3.375 GM in D5% in Water (Mini-Bag+) 100 ML IVPB SCH ×3 (00:33→16:53)
[2017-04-25] MEDS: 0.9 % Sodium Chloride 1,000 ML IVC SCH (03:53)
[2017-04-25] MEDS: *HR* Heparin 5,000 UNIT/ML VIAL SQ SCH ×2 (05:53→16:52)
[2017-04-25 08:52] LABS: Basophils % 0.3 %; Eosinophils # 0.1 K/mcL (0.0-0.6); Eosinophils % 1.6 %; Hematocrit 35.3 % (37.5-50.1); Hemoglobin 11.3 g/dL (12.9-16.9); Immature Granulocytes % 1.3 % (0-4); Lymphocytes # 0.3 K/mcL (0.6-4.6); Lymphocytes % 3.7 %; Mean Corpuscular Hemoglobin 29.6 pg (28.0-33.3); Mean Corpuscular Volume 92.4 fL (83.0-100.0); Mean Platelet Volume 11.1 fL (9.4-12.4); Monocytes # 0.7 K/mcL (0.0-1.3); Neutrophils # 7.6 K/mcL (1.6-8.9); Platelet Count 163 K/mcL (140-400); Red Blood Count 3.82 M/mcL (4.19-5.50); Red Cell Distribution Width 15.4 % (11.5-14.5); Segmented Neutrophils % 85.1 %
[2017-04-25 09:08] LABS: Alanine Aminotransferase 37 Units/L (0-55); Albumin 2.8 g/dL (3.5-5.0); Albumin/Globulin Ratio 0.8 (1.1-2.2); Alkaline Phosphatase 242 Units/L (38-126); Aspartate Amino Transferase 47 Units/L (5-34); BUN/Creatinine Ratio 19 (6-26); Bilirubin,Total 2.1 mg/dL (0.2-1.2); Blood Urea Nitrogen 16 mg/dL (8-26); Calcium 8.5 mg/dL (8.6-10.8); Carbon Dioxide 23 mEq/L (19-29); Chloride 109 mEq/L (98-109); Globulin 3.6 g/dL (2.4-3.5); Glucose 104 mg/dL (70-99); Osmolality,Calculated 289 (280-300); Potassium 4.2 mEq/L (3.5-4.5); Sodium 139 mEq/L (136-145); Total Protein 6.4 g/dL (6.0-8.3); eGFR For African Americans > 60 (> 60); eGFR For Non-African Americans > 60 (> 60)
[2017-04-25] MEDS: Cyanocobalamin (B-12) 1,000 MCG TABLET PO SCH (09:30)
[2017-04-25] MEDS: Diltiazem CD (24hr) 180 MG CAPSULE PO SCH (09:30)
--- NOTE | 2017-04-25 14:25 | Internal Med Progress Note ---
Date of Encounter: 04/25/17 Time of Encounter: 10:50 - Assessment and plan (1) Obstructive jaundice Current Visit: Yes Status: Acute Assessment and plan: Status post percutaneous cholecystostomy. Doing well overall. Bilirubin levels are coming down. Alkaline phosphatase is also coming down. GI following. Continue IV antibiotics. Keep nothing by mouth for planned procedure tomorrow to internalize the stent. (2) Fever Current Visit: Yes Status: Resolved Assessment and plan: Likely from obstructive jaundice and has now resolved Qualifiers: Fever type: unspecified Qualified Code(s): R50.9 - Fever, unspecified (3) Large B-cell lymphoma Current Visit: No Status: Chronic Assessment and plan: Follow-up outpatient with oncology (4) Nausea and vomiting in adult Current Visit: Yes Status: Resolved (5) DVT prophylaxis Current Visit: Yes Status: Acute - Subjective Interval history: Patient continues to improve. Sitting up in chair. Pain is well controlled. No new complaints at this time. - Constitutional Vitals: Temp Pulse Resp BP Pulse Ox 98.1 F 75 15 147/75 96 04/25/17 11:00 04/25/17 11:00 04/25/17 11:00 04/25/17 11:00 04/25/17 11:00 General appearance: Present: cooperative, A&O X 3, pleasant, no acute distress, answers questions appropriately - Eye Eye exam: Present: PERRL, scleral icterus, conjuntiva pink - Neck Neck exam general surgery: Present: supple, trachea midline. Absent: lymphadenopathy - Respiratory Respiratory exam: Present: CTAB. Absent: accessory muscle use, rales, rhonchi, wheezes - Cardiovascular Cardiovascular exam: Present: RRR, +S1, +S2. Absent: diastolic murmur, gallop, rubs, systolic murmur - GI/Abdominal GI/Abdominal exam: Present: normal bowel sounds, soft, no peritoneal signs. Absent: distended, tenderness Additional comments: Cholecystostomy with drain in place - Skin Skin exam: Present: dry, intact Additional comments: Jaundice Internal Medicine: Result - Labs CBC & Chem 7: 04/25/17 08:46 04/25/17 08:46 Labs: Short CBC 04/25/17 Range/Units 08:46 WBC 9.0 (4.3-11.1) K/mcL Hgb 11.3 L (12.9-16.9) g/dL Hct 35.3 L (37.5-50.1) % Plt Count 163 (140-400) K/mcL Neutrophils # 7.6 (1.6-8.9) K/mcL BMP 04/25/17 08:46 Sodium 139 Potassium 4.2 Chloride 109 Carbon Dioxide 23 BUN 16 Creatinine 0.84 Glucose 104 H Calcium 8.5 L Liver Function 04/25/17 Range/Units 08:46 Total Bilirubin 2.1 H (0.2-1.2) mg/dL AST 47 H (5-34) Units/L ALT 37 (0-55) Units/L Alkaline Phosphatase 242 H (38-126) Units/L Albumin 2.8 L (3.5-5.0) g/dL - ABG Interpretation ABG results: PT/INR, D-dimer PT 11.6 Seconds (9.4-12.1) 04/23/17 11:26 - VTE Documentation of Mechanical Device: Intermittent pneumatic compression device Consult Discharge Plan - Plan Referrals: Gissel Escamilla MD [Primary Care Provider] -
[2017-04-26] MEDS: Piperacillin/Tazobactam 3.375 GM in D5% in Water (Mini-Bag+) 100 ML IVPB SCH ×3 (00:13→17:37)
[2017-04-26] MEDS: *HR* Heparin 5,000 UNIT/ML VIAL SQ SCH (05:53)
[2017-04-26] MEDS: Diltiazem CD (24hr) 180 MG CAPSULE PO SCH (08:05)
[2017-04-26] MEDS: Cyanocobalamin (B-12) 1,000 MCG TABLET PO SCH (08:08)
[2017-04-26] MEDS ORDERED: *HR* Propofol 200 MG/20 ML VIAL IVP ONE (08:57)
[2017-04-26] MEDS ORDERED: *HR* Rocuronium Bromide 50 MG/5 ML VIAL IVC ONE (08:57)
[2017-04-26] MEDS ORDERED: Lidocaine -MPF 4% 5 ML AMPUL TP ONE (08:57)
--- NOTE | 2017-04-26 12:51 | Anesthesia Evaluation PreOp ---
Date of Encounter: 04/26/17 Time of Encounter: 12:49 - Past History Planned Operation: ERCP Cardiac History: ME, HTN, Hyperlipidemia, Cardiac Surgery (CABG AVR), Pacemaker/ ICD (Last checked 01/27) Pulmonary History: Denies Any Significant HX EAR SPECIALIST History: Denies Any Significant HX Other Medical History: Other (Lymphoma) Anesthesia History: No Prior Anesthetic Complications, Past Anesthesia (ERCP) Alcohol Use: none Drug use: none Medications and Allergies Cholecalciferol (Vitamin D3) [Vitamin D3] 1,000 unit PO DAILY 05/01/15 [History] Cyanocobalamin (B-12) 1,000 mcg PO DAILY 05/01/15 [History] Diltiazem HCl [Diltiazem 24Hr Cd] 180 mg PO QAM 05/01/15 [History] Furosemide [Lasix] 40 mg PO QAM 05/01/15 [History] Metoprolol [Lopressor] 25 mg PO BID 05/01/15 [History] Multivit-Min/FA/Lycopen/Lutein [Centrum Silver Tablet] 1 tab PO DAILY 05/01/15 [ History] Omeprazole [PriLOSEC] 20 mg PO DAILY 05/01/15 [History] Sodium Chloride/Aloe Nasal Gel [[place] Saline Nasal Gel] 1 spray NS Q6H PRN [History] Montelukast [Singulair] 10 mg PO DAILY 03/19/17 [History] Atorvastatin [Lipitor] 40 mg PO HS 04/22/17 [History] Polyvinyl Alcohol [Artificial Tears] 2 drop OP QID PRN 04/22/17 [History] Temazepam [Restoril] 7.5 mg PO HS PRN 04/22/17 [History] Allergies No Known Allergies Allergy (Verified 04/16/17 09:58) - Meds/Allergy Pre-op Review Medications Reviewed: Yes Allergies Reviewed: Yes Beta Blockers on Current Med List: Yes If Beta Blockers taken, Date/Time (Last Dose taken): 08:05 04/26/2017 Anesthesia Results - Labs 04/25/17 08:46 04/25/17 08:46 Echocardiogram Name: Roc Donny Tripp Date of Study: 07/10/2016 Indications: Evaluate aortic valve Impressions: LVEF 60-65%. Normal LV chamber size and function. Mild concentric left ventricular hypertrophy. Mild left ventricular diastolic dysfunction. Atypical septal motion consistent with post-operative status. Normal right ventricular structure and function. Severely dilated left atrium. Moderately dilated right atrium. Bioprosthetic aortic valve appears well seated in the LVOT. Leaflets were not well visualized. Mild aortic regurgitation. Unclear if valvular or perivalvular. Mean AV gradient 24 mmHg. Correlate with size and type of valve. Moderate mitral annular calcification. Mean MV gradient not obtained, but no apparent significant stenosis by 2D. Mild tricuspid regurgitation. Borderline mild pulmonary hypertension. Estimated RVSP is 35 mmHg. - Imaging EKG: image reviewed (Electronically paced rhythm) Anesthesia Exam O2 Sat Weight 82.2 kg O2 Sat by Pulse Oximetry 98 O2 Sat by Pulse Oximetry 95 O2 Sat by Pulse Oximetry 97 O2 Sat by Pulse Oximetry 96 O2 Sat by Pulse Oximetry 97 O2 Sat by Pulse Oximetry 94 Vital Signs Temp Pulse Resp BP Pulse Ox 100.4 F H 98 20 157/83 95 04/22/17 12:51 04/22/17 12:51 04/22/17 12:51 04/22/17 12:51 04/22/17 12:51 Vital Signs/O2 Sat, Most Current Temp Pulse Resp BP Pulse Ox 98.3 F 69 16 151/74 98 04/26/17 10:24 04/26/17 10:24 04/26/17 10:24 04/26/17 10:24 04/26/17 10:24 Height: 5'7'' Weight: 181# NPO (# of Hours): > 8 hrs Pain Scale: 0 Pain Scale Used: Numeric (1 - 10) - HEENT Pupil (Motor): Pupils equal, EOMI Mallampati: III Teeth: Edentulous Denture Type: Upper: Complete, Lower: Complete Oral Opening: Greater than 3 - EAR SPECIALIST LOC: Oriented EAR SPECIALIST Motor: Normal RUE, Normal LUE, Normal RLE, Normal LLE, Normal Face EAR SPECIALIST Sensory: Normal: RUE, LUE, RLE, LLE, Face - Cardiac Rhythm: Regular Murmur: None JVD: No Carotid Bruit: No - Pulmonary Breath Sounds: bilateral Clear Respiratory Effort: Symmetrical Anesthesia Assess/Plan ASA Score: 3 Modified [place] Scale for Level of Consciousness: Cooperative, oriented, and tranquil Anesthetic Plan: General Autologous Blood: Yes Monitoring Plan: Standard Monitors Recovery Plan: PACU
[2017-04-26] MEDS ORDERED: *HR* FentaNYL (PF) 100 MCG/2 ML VIAL ONE (14:07)
[2017-04-26] MEDS ORDERED: *HR* Promethazine 25 MG/ML VIAL IVP PRN (15:09)
[2017-04-26 15:53] VITALS: BP 155/86
--- NOTE | 2017-04-26 15:58 | Anesthesia Evaluation Post Op ---
Date of Encounter: 04/26/17 Time of Encounter: 15:55 - Vital Signs Vital Signs: Vital Signs/O2 Sat, Most Current Temp Pulse Resp BP Pulse Ox 97.2 F L 65 16 155/86 95 04/26/17 15:50 04/26/17 15:50 04/26/17 15:50 04/26/17 15:50 04/26/17 15:50 - Lungs Lungs: Clear Ascult./Percussion - Airway Airway: Non-obstructed - Cardiovascular Regular Rate, Baseline Rhythm - Mental Status Mental Status: Alert & Oriented, Answers Appropriately - Pain Pain Scale: 0 Pain Scale used: Numeric (1 - 10) - Nausea Vomiting Nausea Vomiting: Not Present - Hydration Hydration: Tolerates oral liquids, Ice chips - Discharge PostOp Status: Transfer Patient to floor
--- NOTE | 2017-04-26 16:09 | Internal Med Progress Note ---
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 Sitting up in chair. Pain is well controlled. No new complaints at this time. - Constitutional Vitals: Temp Pulse Resp BP Pulse Ox 97.2 F L 65 16 155/86 95 04/26/17 15:50 04/26/17 15:50 04/26/17 15:50 04/26/17 15:50 04/26/17 15:50 General appearance: Present: cooperative, A&O X 3, pleasant, no acute distress, answers questions appropriately Internal Medicine: Result - Labs CBC & Chem 7: 04/25/17 08:46 04/25/17 08:46 - ABG Interpretation ABG results: PT/INR, D-dimer PT 11.6 Seconds (9.4-12.1) 04/23/17 11:26 - Impressions Impressions Cath/Invasive Procedure 04/26/17 00:00 IMPRESSION: Unremarkable ERCP images. Please refer to the procedure report for further details. D/ / Jamil Kaminski MD / Jamil Kaminski MD Interpreting Provider: Jamil Kaminski MD - VTE Documentation of Mechanical Device: Intermittent pneumatic compression device Consult Discharge Plan - Plan Referrals: Gissel Escamilla MD [Primary Care Provider] -
--- NOTE | 2017-04-26 16:12 | Discharge Summary ---
Date of Encounter: 04/26/17 Time of Encounter: 16:09 - Discharge Diagnosis (1) Obstructive jaundice Priority: Primary Status: Acute (2) Fever Priority: Secondary Status: Resolved Qualifiers: Fever type: unspecified Qualified Code(s): R50.9 - Fever, unspecified (3) Large B-cell lymphoma Priority: Secondary Status: Chronic (4) Nausea and vomiting in adult Priority: Secondary Status: Resolved (5) DVT prophylaxis Priority: Secondary Status: Acute - Discharge Medications Prescriptions: Amoxicillin/Clavulanate [Augmentin] 875 mg PO BIDWM #14 tablet Home Medications: Cholecalciferol (Vitamin D3) [Vitamin D3] 1,000 unit PO DAILY 05/01/15 [History] Cyanocobalamin (B-12) 1,000 mcg PO DAILY 05/01/15 [History] Diltiazem HCl [Diltiazem 24Hr Cd] 180 mg PO QAM 05/01/15 [History] Furosemide [Lasix] 40 mg PO QAM 05/01/15 [History] Metoprolol [Lopressor] 25 mg PO BID 05/01/15 [History] Multivit-Min/FA/Lycopen/Lutein [Centrum Silver Tablet] 1 tab PO DAILY 05/01/15 [ History] Omeprazole [PriLOSEC] 20 mg PO DAILY 05/01/15 [History] Sodium Chloride/Aloe Nasal Gel [[place] Saline Nasal Gel] 1 spray NS Q6H PRN [History] Montelukast [Singulair] 10 mg PO DAILY 03/19/17 [History] Atorvastatin [Lipitor] 40 mg PO HS 04/22/17 [History] Polyvinyl Alcohol [Artificial Tears] 2 drop OP QID PRN 04/22/17 [History] Temazepam [Restoril] 7.5 mg PO HS PRN 04/22/17 [History] Amoxicillin/Clavulanate [Augmentin] 875 mg PO BIDWM #14 tablet 04/26/17 [Rx] Allergies/Adverse Reactions: Allergies No Known Allergies Allergy (Verified 04/16/17 09:58) Date of admission: 04/22/17 16:13 Primary care physician: Gissel Escamilla Consults: 04/23/17 09:15 Consult to Interventional Radiology [CONS] Routine Consulting Provider: Radiology Interventional Cols Reason for Consult: Recommended PTC by GI for obstructive jaundice / failed ERCP biliary restenting Call Completed: No Discharging clinician: Bertha Thomason Anticipated date of discharge: 04/26/17 - Patient Status Disposition: Home, Self-Care Condition: Good Functional capacity at discharge: independent ambulation Overall status at discharge: patient is back to baseline - Discharge Instructions Follow Up With: Gissel Escamilla MD [Primary Care Provider] - 05/07/17 10:45 am (in 1-2 weeks) Manny Ruffin MD [Partnered Physician] - (in 1-2 weeks WEB REQUEST - OFFICE WILL CALL WITH APPOINTMENT TIME.) - Diet and Activity Activity: increase activity as tolerated Hospital course: Mr. Tripp is a 86 year old male patient with history of lymphoma, hypertension, hyperlipidemia, coronary artery disease and prior biliary stent placement presented to the ER with complaints of nausea or vomiting chills and fever. He did have a signs and features suggestive of acute obstructive jaundice. He was evaluated by gastroenterology and recommended ERCP. During the procedure, his stent was removed but a new stent was unable to be placed. As such patient was recommended percutaneous cholecystostomy. Patient then underwent this procedure and since then he has been doing much better. His obstructive jaundice has completely resolved now. Patient then underwent ERCP again today with replacement of biliary stent. Patient is now stable to be discharged home. He will complete a short course of antibiotics. He will follow up with GI for further management. 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 He will follow up with gastroenterology for this and will be referred to tertiary care center for ampullectomy. - Time Spent with Patient Total time spent providing and/or coordinating discharge services: Greater than 30 minutes (35 min) - Constitutional Vitals: Temp Pulse Resp BP Pulse Ox 97.2 F L 65 16 155/86 95 04/26/17 15:50 04/26/17 15:50 04/26/17 15:50 04/26/17 15:50 04/26/17 15:50 General appearance: Present: cooperative, A&O X 3, pleasant, no acute distress, answers questions appropriately - Respiratory Respiratory exam: Present: CTAB. Absent: accessory muscle use, rales, rhonchi, wheezes - Cardiovascular Cardiovascular exam: Present: RRR, +S1, +S2. Absent: diastolic murmur, gallop, rubs, systolic murmur - GI/Abdominal GI/Abdominal exam: Present: normal bowel sounds, soft, no peritoneal signs. Absent: distended, tenderness - Extremities Exam Extremities exam: Present: warm, radial pulses palpable and symmetrical. Absent : calf tenderness, cyanotic, pedal edema - Neurological Exam Neurological exam: Present: CN II-XII intact, oriented X3, no focal deficits. Absent: facial droop, speech deficit - Skin Skin exam: Present: dry, intact - VTE Documentation of Mechanical Device: Intermittent pneumatic compression device
[2017-04-26] MEDS ORDERED: *HR* Succinylcholine 200 MG/10 ML VIAL IVP ONE (19:11)
[2017-04-26] MEDS ORDERED: Ondansetron 4 MG/2 ML VIAL IVP ONE (19:11)
[2017-04-26] MEDS ORDERED: Lidocaine -MPF 2% 5 ML VIAL INFILT ONE (19:11)
[2017-04-27] MEDS ORDERED: Furosemide 40 MG TABLET PO SCH (09:00)
== END 2017-04-26 19:12 | disposition home or self-care (01) ==
LOC: 3ANU 12:49 → EMEROO 12:49 → 3ANU 16:48
PROVIDERS: ADMIT Internal Medicine Endocrinology, Diabetes & Metabolism; ATTEND Internal Medicine

== ENCOUNTER 2017-05-06 13:39 | Inpatient (IN) ==
--- NOTE | 2017-05-06 13:51 | Emergency Department Note ---
Disposition Clinical Impression: Partial bowel obstruction Back pain Qualifiers: Back pain location: low back pain Chronicity: acute Back pain laterality: unspecified Sciatica presence: unspecified whether sciatica present Qualified Code(s): M54.5 - Low back pain Disposition: Admitted As Inpatient Condition: Good Referrals: Gissel Escamilla MD [Primary Care Provider] - Forms: ED Satisfaction Letter Time of Disposition: 18:32 General Adult HPI - General Chief complaint: ED Back Pain/Injury Stated complaint: BACK PAIN Time Seen by Provider: 05/06/17 13:43 Source: patient, EMS Mode of arrival: EMS Limitations: no limitations Nursing Notes Reviewed: Yes Vital Signs Reviewed: Yes - History of Present Illness HPI Narrative: 86-year-old who states he was hospitalized last week was found to have biliary obstruction with 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 Patient has a history of lymphoma. Bilirubin had climbed. Had a stent apparently it plugged they went and removed the stent and then placed a second stent. Patient states he's had some shaking and back pain and some abdominal pain. Patient states he got up doesn't know if he twisted and caused increased back pain has gotten progressively worse to the point he cannot get out of bed. Onset (ago): day(s) Location: back, abdomen Radiation: non-radiation Pain Severity: moderate Quality: aching Consistency: constant Improves with: nothing Worsens with: movement Associated symptoms: Reports: denies other symptoms Treatments Prior to Arrival: none - Related Data Home Medications Medication Instructions Recorded Confirmed Cholecalciferol (Vitamin D3) 1,000 unit PO DAILY 05/01/15 04/22/17 [Vitamin D3] Cyanocobalamin (B-12) 1,000 mcg PO DAILY 05/01/15 04/22/17 Diltiazem HCl [Diltiazem 24Hr Cd] 180 mg PO QAM 05/01/15 04/22/17 Furosemide [Lasix] 40 mg PO QAM 05/01/15 04/22/17 Metoprolol [Lopressor] 25 mg PO BID 05/01/15 04/22/17 Multivit-Min/FA/Lycopen/Lutein 1 tab PO DAILY 05/01/15 04/22/17 [Centrum Silver Tablet] Omeprazole [PriLOSEC] 20 mg PO DAILY 05/01/15 04/22/17 Sodium Chloride/Aloe Nasal Gel 1 spray NS Q6H PRN 02/18/17 04/22/17 [[place] Saline Nasal Gel] Montelukast [Singulair] 10 mg PO DAILY 03/19/17 04/22/17 Atorvastatin [Lipitor] 40 mg PO HS 04/22/17 04/22/17 Polyvinyl Alcohol [Artificial 2 drop OP QID PRN 04/22/17 04/22/17 Tears] Temazepam [Restoril] 7.5 mg PO HS PRN 04/22/17 04/22/17 Previous Rx's Medication Instructions Recorded Amoxicillin/Clavulanate [Augmentin] 875 mg PO BIDWM #14 tablet 04/26/17 Allergies Allergy/AdvReac Type Severity Reaction Status Date / Time No Known Allergies Allergy Verified 04/16/17 09:58 All systems ED: reviewed and negative except as stated. Constitutional: Denies: fever, chills, weakness, weight change Eyes: Denies: eye pain, eye discharge, vision change ENT ED: Denies: ear pain, throat pain, dental pain, hearing loss, epistaxis, congestion, dysphagia Cardiovascular: Denies: chest pain, palpitations, dyspnea on exertion, edema, syncope Respiratory: Denies: cough, dyspnea, wheezes, hemoptysis, stridor Gastrointestinal: Reports: abdominal pain. Denies: nausea, vomiting, diarrhea, constipation, hematemesis, melena, hematochezia Genitourinary: Denies: urgency, dysuria, frequency, hematuria Musculoskeletal: Reports: back pain. Denies: neck pain, arthralgia, myalgia Integumentary: Denies: rash, abrasion, lesions Neurological: Denies: headache, weakness, numbness, paresthesias, confusion, abnormal gait, vertigo Psychiatric: Denies: anxiety, depression, suicidal thoughts, homicidal thoughts , auditory hallucinations, visual hallucinations Endocrine: Denies: fatigue Hematological/Lymphatic: Denies: easy bleeding, easy bruising Allergic/Immunologic: Denies: facial swelling, urticaria Past Medical History - Past Medical History Medical history: Reports: cancer (lymphoma), CHF, coronary artery disease, hyperlipidemia, hypertension, malignancy, RA, valvular heart disease, other Surgical history: Reports: coronary bypass (CABG), heart valve replacement ( Aortic valve), other (Pacemaker, biliary duct stent, cardiac cath x3 without stents, colonoscopy), pacemaker Psychiatric history: Reports: no psych history - Social History Smoking Status: Never smoker Smokeless Tobacco Status: No Alcohol use: Reports: none Drug use: Reports: none Physical Exam - General Limitations: no limitations General appearance: alert, in no apparent distress - Head Head exam: atraumatic, normocephalic, normal inspection - Eye Eye exam: Present: normal appearance, PERRL, EOMI - ENT ENT exam: normal exam, normal oropharynx, mucous membranes moist - Neck Neck exam: Present: normal inspection, full ROM, trachea midline - Chest Chest inspection: Present: normal inspection, symmetric chest wall rise - Respiratory Respiratory exam: Present: normal lung sounds bilaterally - Cardiovascular Cardiovascular exam: Present: regular rate, normal rhythm, normal heart sounds - Abdominal Exam Abdominal exam: Present: tenderness. Absent: guarding, rebound - Extremities Exam Extremities exam: Present: normal inspection, full ROM. Absent: tenderness, pedal edema - Expanded Lower Extremity Exam Neurovascular/Tendon exam: Present: normal capillary refill. Absent: motor deficit, sensory deficit, tendon deficit Gait: not tested/not observed - Back Exam Back exam: Present: normal inspection, full ROM. Absent: tenderness - Neurological Exam Neurological exam: Present: alert, oriented X3 - Skin Skin exam: Present: warm, dry, intact, normal color Course - Reevaluation(s) Reevaluation #1: 86-year-old comes in with increasing back pain to the point he is having problems getting up and walking but also has some shaking chills and some abdominal discomfort that he had with the previous occlusion of a biliary stent. He admits patient follow his liver functions. He also had findings of a possible partial small bowel obstruction. Consultation obtained with general surgery. Time: 18:29 - Consultations Consultation #1: Discussed with Dr. Ruffin, admit. Time: 17:00 Consultation #2: Discussed with Dr. Pink will see the patient in consult Time: 18:29 Consultation #3: Discussed with Chantal Lopez nurse practitioner, admit Time: 18:32 Vital Signs Temperature 98.4 F 05/06/17 13:41 Pulse Rate 90 05/06/17 13:41 Respiratory Rate 16 05/06/17 13:41 Blood Pressure 156/87 05/06/17 13:41 O2 Sat by Pulse Oximetry 97 05/06/17 13:41 Temperature 98.4 F 05/06/17 13:41 Pulse Rate 83 05/06/17 18:21 Respiratory Rate 18 05/06/17 17:05 Blood Pressure 133/71 05/06/17 18:21 O2 Sat by Pulse Oximetry 95 05/06/17 18:21 Oxygen Delivery Oxygen Delivery Room Air Medical Decision Making - Lab Data Result diagrams: 05/06/17 13:57 05/06/17 13:57 Lab Results 05/06/17 05/06/17 05/06/17 Range/Units 13:57 13:57 13:57 WBC 8.3 (4.3-11.1) K/mcL RBC 4.04 L (4.19-5.50) M/mcL Hgb 11.6 L (12.9-16.9) g/dL Hct 35.8 L (37.5-50.1) % MCV 88.6 (83.0-100.0) fL MCH 28.7 (28.0-33.3) pg MCHC 32.4 (31.6-35.5) g/dL RDW 14.5 (11.5-14.5) % Plt Count 262 (140-400) K/mcL MPV 10.9 (9.4-12.4) fL Immature Gran % 0.4 (0-4) % Seg Neutrophils % 77.7 % Lymphocytes % 6.3 % Monocytes % 14.9 % Eosinophils % 0.5 % Basophils % 0.2 % Neutrophils # 6.4 (1.6-8.9) K/mcL Lymphocytes # 0.5 L (0.6-4.6) K/mcL Monocytes # 1.2 (0.0-1.3) K/mcL Eosinophils # 0.0 (0.0-0.6) K/mcL Basophils # 0.0 (0.0-0.2) K/mcL Sodium 137 (136-145) mEq/L Potassium 4.3 (3.5-4.5) mEq/L Chloride 103 (98-109) mEq/L Carbon Dioxide 24 (19-29) mEq/L BUN 13 (8-26) mg/dL Creatinine 0.85 (0.72-1.25) mg/dL Est GFR ( Amer) > 60 (> 60) Est GFR (Non-Af Amer) > 60 (> 60) BUN/Creatinine Ratio 15 (6-26) Glucose 103 H (70-99) mg/dL Calculated Osmolality 284 (280-300) Calcium 9.4 (8.6-10.8) mg/dL Total Bilirubin 1.2 (0.2-1.2) mg/dL Direct Bilirubin 0.7 H (0.0-0.5) mg/dL Indirect Bilirubin 0.5 (0.0-1.2) mg/dL AST 23 (5-34) Units/L ALT 16 (0-55) Units/L Alkaline Phosphatase 161 H (38-126) Units/L Troponin I 0.00 (0-0.03) ng/mL Serum Total Protein 7.1 (6.0-8.3) g/dL Albumin 3.5 (3.5-5.0) g/dL Globulin 3.6 H (2.4-3.5) g/dL Albumin/Globulin Ratio 1.0 L (1.1-2.2) Amylase 31 (25-125) Units/L Lipase 41 (8-78) Units/L Urine Color (Yellow) Urine Clarity (Clear) Urine pH (5.0-8.0) pH Units Ur Specific Peggs (1.010-1.025) Urine Protein (Neg-Trace) mg/dL Urine Glucose (UA) (Normal) mg/dL Urine Ketones (Negative) mg/dL Urine Blood (Negative) Urine Nitrite (Negative) Urine Bilirubin (Negative) Urine Urobilinogen (Normal) mg/dL Ur Leukocyte Esterase (Negative) Ur Culture Indicated? (NO) 05/06/17 Range/Units 17:10 WBC (4.3-11.1) K/mcL RBC (4.19-5.50) M/mcL Hgb (12.9-16.9) g/dL Hct (37.5-50.1) % MCV (83.0-100.0) fL MCH (28.0-33.3) pg MCHC (31.6-35.5) g/dL RDW (11.5-14.5) % Plt Count (140-400) K/mcL MPV (9.4-12.4) fL Immature Gran % (0-4) % Seg Neutrophils % % Lymphocytes % % Monocytes % % Eosinophils % % Basophils % % Neutrophils # (1.6-8.9) K/mcL Lymphocytes # (0.6-4.6) K/mcL Monocytes # (0.0-1.3) K/mcL Eosinophils # (0.0-0.6) K/mcL Basophils # (0.0-0.2) K/mcL Sodium (136-145) mEq/L Potassium (3.5-4.5) mEq/L Chloride (98-109) mEq/L Carbon Dioxide (19-29) mEq/L BUN (8-26) mg/dL Creatinine (0.72-1.25) mg/dL Est GFR ( Amer) (> 60) Est GFR (Non-Af Amer) (> 60) BUN/Creatinine Ratio (6-26) Glucose (70-99) mg/dL Calculated Osmolality (280-300) Calcium (8.6-10.8) mg/dL Total Bilirubin (0.2-1.2) mg/dL Direct Bilirubin (0.0-0.5) mg/dL Indirect Bilirubin (0.0-1.2) mg/dL AST (5-34) Units/L ALT (0-55) Units/L Alkaline Phosphatase (38-126) Units/L Troponin I (0-0.03) ng/mL Serum Total Protein (6.0-8.3) g/dL Albumin (3.5-5.0) g/dL Globulin (2.4-3.5) g/dL Albumin/Globulin Ratio (1.1-2.2) Amylase (25-125) Units/L Lipase (8-78) Units/L Urine Color Yellow (Yellow) Urine Clarity Clear (Clear) Urine pH 7.0 (5.0-8.0) pH Units Ur Specific Peggs 1.019 (1.010-1.025) Urine Protein Negative (Neg-Trace) mg/dL Urine Glucose (UA) Normal (Normal) mg/dL Urine Ketones Negative (Negative) mg/dL Urine Blood Negative (Negative) Urine Nitrite Negative (Negative) Urine Bilirubin Negative (Negative) Urine Urobilinogen Normal (Normal) mg/dL Ur Leukocyte Esterase Negative (Negative) Ur Culture Indicated? NO (NO) - EKG Data EKG #1 EKG attestation: Yes I reviewed and interpreted this EKG. EKG results narrative: EKG shows a paced rhythm.
[2017-05-06 14:19] LABS: Basophils % 0.2 %; Eosinophils % 0.5 %; Hematocrit 35.8 % (37.5-50.1); Hemoglobin 11.6 g/dL (12.9-16.9); Immature Granulocytes % 0.4 % (0-4); Lymphocytes # 0.5 K/mcL (0.6-4.6); Lymphocytes % 6.3 %; Mean Corpuscular HGB Conc 32.4 g/dL (31.6-35.5); Mean Corpuscular Hemoglobin 28.7 pg (28.0-33.3); Mean Corpuscular Volume 88.6 fL (83.0-100.0); Mean Platelet Volume 10.9 fL (9.4-12.4); Monocytes # 1.2 K/mcL (0.0-1.3); Monocytes % 14.9 %; Neutrophils # 6.4 K/mcL (1.6-8.9); Platelet Count 262 K/mcL (140-400); Red Blood Count 4.04 M/mcL (4.19-5.50); Red Cell Distribution Width 14.5 % (11.5-14.5); Segmented Neutrophils % 77.7 %
[2017-05-06 14:36] LABS: Alanine Aminotransferase 16 Units/L (0-55); Albumin 3.5 g/dL (3.5-5.0); Alkaline Phosphatase 161 Units/L (38-126); Amylase 31 Units/L (25-125); Aspartate Amino Transferase 23 Units/L (5-34); BUN/Creatinine Ratio 15 (6-26); Bilirubin,Direct 0.7 mg/dL (0.0-0.5); Bilirubin,Indirect 0.5 mg/dL (0.0-1.2); Bilirubin,Total 1.2 mg/dL (0.2-1.2); Blood Urea Nitrogen 13 mg/dL (8-26); Calcium 9.4 mg/dL (8.6-10.8); Carbon Dioxide 24 mEq/L (19-29); Chloride 103 mEq/L (98-109); Globulin 3.6 g/dL (2.4-3.5); Glucose 103 mg/dL (70-99); Lipase 41 Units/L (8-78); Osmolality,Calculated 284 (280-300); Potassium 4.3 mEq/L (3.5-4.5); Sodium 137 mEq/L (136-145); Total Protein 7.1 g/dL (6.0-8.3); eGFR For African Americans > 60 (> 60); eGFR For Non-African Americans > 60 (> 60)
[2017-05-06 17:19] LABS: Bilirubin,Urine Negative (Negative); Blood,Urine Negative (Negative); Clarity,Urine Clear (Clear); Color,Urine Yellow (Yellow); Glucose,Urine (UA) Normal (Normal); Ketones,Urine Negative (Negative); Leukocyte Esterase,Urine Negative (Negative); Nitrite,Urine Negative (Negative); Protein,Urine Negative (Neg-Trace); Specific Gravity,Urine 1.019 (1.010-1.025); Urobilinogen,Urine Normal (Normal)
[2017-05-06] MEDS ORDERED: Naloxone 0.4 MG/ML INJ IVP PRN (20:14)
[2017-05-06] MEDS ORDERED: Ondansetron 4 MG/2 ML VIAL IVP PRN (20:14)
--- NOTE | 2017-05-06 20:27 | Internal Med History&Physical ---
<Jean Claude Lassiter - Last Filed: 05/06/17 20:23> Date of Encounter: 05/06/17 Time of Encounter: 20:23 Assessment and Plan (1) Cholangitis Current visit: Yes Status: Suspected Suspected cholangitis. Patient has recent history of cholangitis and was here last week for common bile duct and placement with placement of multiple stents. He comes to [facility] today with chief complaint of low back pain with radiation to RLQ and chills which could be interpreted as rigors. CT of abdomen and pelvis redemonstration of cholelithiasis and pneumobilia. The stent is present in one of the common bile ducts in the normal position in the hepatic duct, however, the additional common bile duct stent has not found any likely dislodged. Consults Gen. 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 Patient denies any traumatic history. However, does admit some bilateral lower extremity weakness. Denies loss of bowel or bladder function. With presentation and recent history to lower back pink related to his likely diagnosis of cholangitis. Pain management includes 2 mg of morphine IV push every 4 hours when necessary. We will consider further imaging if pain worsens. Qualifiers: Back pain location: low back pain Chronicity: acute Back pain laterality : unspecified Sciatica presence: unspecified whether sciatica present Qualified Code(s): M54.5 - Low back pain (3) Partial bowel obstruction Current visit: Yes Status: Acute Some concern on imaging for potential partial bowel obstruction. It does not appear likely at this time. General surgery consult and as per ED report, and there is no immediate surgical concern at this time. The patient is having bowel movements. We will continue to monitor. (4) DVT prophylaxis Current visit: Yes Status: Acute Increased mobility and not stay patient is a high risk for DVT. We will place on Lovenox 40 mg subcutaneous daily. Internal Medicine - H&P: HPI Chief complaint: Low back pain, recent admission for cholangitis with stent placement Admitted From: Home Plans for Post Hospital Care: Home History of present illness: Mr. Tripp is a 86 year old male with a past medical history of lymphoma, CHF, CAD, HLD, HTN, rheumatoid arthritis, COPD, aortic valve replacement, pacer, and recent placement of hepatic and biliary stents one week ago. He presents [facility] with low back pain. He states his low back pain causing difficulty moving his bilateral lower extremity. The back pain began yesterday and is continuous with radiation to RLQ sharp burning pain 8/10. Denies any nausea, vomiting, diarrhea, fevers. Admits to chills, sweats, abdominal pain causing bilateral lower extremity weakness. There is concern for recurrence of cholangitis and CT of abdomen and pelvis in the ED showed redemonstration of cholelithiasis and pneumobilia. There is a common bile duct stent in normal position and movement hepatic duct. However, one of the common bile duct stents is not found and has not passed him about per CT. EGD has consult to Gen. surgery and gastroenterology. He is being admitted to [facility] for further workup, monitoring and evaluation. . Past Med Surg Social Fam HX - Past Medical History Medical history: cancer (lymphoma), CHF, coronary artery disease, hyperlipidemia , hypertension, malignancy, RA, valvular heart disease, other Psychiatric history: no psych history - Past Surgical History Surgical History: coronary bypass (CABG), heart valve replacement (Aortic valve) , other (Pacemaker, biliary duct stent, cardiac cath x3 without stents, colonoscopy), pacemaker - Social History Smoking Status: Never smoker Smokeless Tobacco Status: No Alcohol use: none Drug use: none - Family History Mother Adopted: No Family Member Ethnicity: Non- Living Status: Hx Family Cardiac Disorders: Yes Hx Family Cancer: Yes (breast) Hx Family Endocrine Disorder: Yes (DM) Father Living Status: Internal Medicine - H&P: Meds Cholecalciferol (Vitamin D3) [Vitamin D3] 1,000 unit PO DAILY 05/01/15 [History] Cyanocobalamin (B-12) 1,000 mcg PO DAILY 05/01/15 [History] Diltiazem HCl [Diltiazem 24Hr Cd] 180 mg PO QAM 05/01/15 [History] Furosemide [Lasix] 20 mg PO QAM 05/01/15 [History] Metoprolol [Lopressor] 25 mg PO BID 05/01/15 [History] Multivit-Min/FA/Lycopen/Lutein [Centrum Silver Tablet] 1 tab PO DAILY 05/01/15 [ History] Omeprazole [PriLOSEC] 20 mg PO DAILY 05/01/15 [History] Sodium Chloride/Aloe Nasal Gel [[place] Saline Nasal Gel] 1 spray NS Q6H PRN [History] Atorvastatin [Lipitor] 40 mg PO HS 04/22/17 [History] Polyvinyl Alcohol [Artificial Tears] 2 drop OP QID PRN 04/22/17 [History] 3 Allergy/AdvReac Type Severity Reaction Status Date / Time No Known Allergies Allergy Verified 04/16/17 09:58 All Systems PM: A 10-system review of systems was performed and is negative for pertinent findings except as documented above in the HPI. - Constitutional Constitutional: chills (Began yesterday and has intermittently continued throughout this admission), excessive sweating, weakness (Bilateral lower extremity weakness, associated with back pain began yesterday and continues throughout this admission), no fever(s), no night sweats - EENT Eyes: no change in vision, no discharge, no pain, no photophobia Ears: no ear discharge, no ear pain, no tinnitus Nose, mouth and throat: no dysphagia, no nasal discharge, no neck pain, no sore throat - Cardiovascular Cardiovascular ROS IM: no chest pain, no diaphoresis, no dyspnea, no edema, no lightheadedness, no palpitations, no syncope - Respiratory Respiratory: no cough, no dyspnea, no wheezing, no excessive phlegm production - Gastrointestinal Gastrointestinal: abdominal pain ( right lower quadrant abdominal pain), change in bowel habits (History change in bowel habit, is now having multiple small firm bowel movements daily since original CBD stent placement), no belching, no bloating, no constipation, no diarrhea, no dyspepsia, no hematemesis, no hematochezia, no loose stools, no melena, no nausea, no vomiting - Genitourinary Genitourinary ROS male: no dysuria, no flank pain, no hematuria - Musculoskeletal Musculoskeletal ROS IM: back pain (Lower back pain with radiation around to RLQ) , no numbness, no tingling - Integumentary Integumentary IM: no rash, no unusual bruising - Neurological Neurological ROS: no confusion, no convulsions, no focal weakness, no numbness, no tingling, no tremor(s) - Hematologic/Lymphatic Hematologic/Lymphatic: no easy bruising - Constitutional Vitals: Temp Pulse Resp BP Pulse Ox 98.8 F 75 16 117/71 93 05/06/17 20:21 05/06/17 20:21 05/06/17 20:21 05/06/17 20:21 05/06/17 20:21 General appearance: Present: cooperative, mild distress, A&O X 3, answers questions appropriately - Head Head exam: Present: atraumatic, normocephalic - Eye Eye exam: Present: EOMI, PERRL, conjuntiva pink, sclera anicteric Pupils: Present: PERRL - Neck Neck exam general surgery: Present: supple, trachea midline. Absent: lymphadenopathy - Respiratory Respiratory exam: Present: CTAB. Absent: accessory muscle use, rales, rhonchi, wheezes - Cardiovascular Cardiovascular exam: Present: clicks, RRR, +S1. Absent: diastolic murmur, gallop, rubs, systolic murmur - GI/Abdominal GI/Abdominal exam: Present: normal bowel sounds, soft, no peritoneal signs. Absent: distended, firm, guarding, hepatomegaly, rigid, tenderness Additional comments: Diffuse abdominal pain noted to palpation without rebound in bilateral lower quadrants - Extremities Exam Extremities exam: Present: normal capillary refill, warm, radial pulses palpable and symmetrical. Absent: calf tenderness, cyanotic, pedal edema - Expanded Upper Extremities Exam Upper Arm exam: Present: deformity (As the result of RA in left upper extremity) - Back Exam Back exam: Absent: CVA tenderness (L), CVA tenderness (R), tenderness - Neurological Exam Neurological exam: Present: CN II-XII intact, oriented X3, no focal deficits. Absent: pronater drift, facial droop, speech deficit - Skin Skin exam: Present: dry, intact Internal Med - H&P Results - Labs CBC & Chem 7: 05/06/17 13:57 08/24/17 13:57 - Diagnostic Studies CT scan - abdomen Additional comments: CT abdomen and pelvis exhibits redemonstration of cholelithiasis and pneumobilia. The stent is noted in one of the common bile ducts are normal position and hepatic duct. However, one CBD stent was dislodged and not found. <Mark Cannon - Last Filed: 05/06/17 21:22> Date of Encounter: 05/06/17 Internal Medicine - H&P: HPI History of present illness: Mr. Tripp is a 86 year old male All Systems PM: A 10-system review of systems was performed and is negative for pertinent findings except as documented above in the HPI. - Constitutional Vitals: Temp Pulse Resp BP Pulse Ox 98.8 F 75 16 117/71 93 05/06/17 20:21 05/06/17 20:21 05/06/17 20:21 05/06/17 20:21 05/06/17 20:21 Internal Med - H&P Results - Labs CBC & Chem 7: 05/06/17 13:57 05/06/17 13:57 - Attending Attestation I have personally performed a face to face evaluation on this patient. I have reviewed and agree with the care plan. History and Exam by me shows: 86-year-old gentleman with recent history of biliary obstruction known to Dr. Ruffin of GI status post biliary stenting who presents with chills, rigors, right sided abdominal and back pain. He had biliary interventions recently and had been on PO antibiotics until wednesday. Since after completion of antibiotics he noted acute onset of chills and rigors since in the last 1-2 days with increased back pain along the lower thoracic , lumbar region. The pain was so severe that he had difficulty walking. He denies any trauma to the back and initially thought that he had slept wrong. His lower extremity function is limited by his back pain. Pain described as sharp in quality radiating down to the back. In the ER CT abdomen and pelvis suggests a possible dislodgment/migration of the stents. There was also some concerns for possible small bowel obstruction that occur and he does not appear to exhibit clinical evidence of that. ROS 14 point review of systems reviewed as best as possible given presentation. Pertinent positive or negative as per HPI or otherwise reviewed as negative General - AAO x 3 Psych - Appropriate affect/speech. No agitation Heart - Sinus. RRR. S1 and S2 present. No added HS/murmurs appreciated. No elevated JVD appreciated. Lung - Adequate air entry b/l, No crackes/wheezes appreciated GI - Right side abdominal tenderness. No hepatosplenomegaly/ascites. BS+ - No CVA/suprapubic tenderness or palpable bladder distension Skin - Intact. No rash/petechiae/ecchymosis. Warm extremities MSK - Joints with normal ROM. No joint swellings Neuro - LE power 4/5, limited by back pain. No sensory deficit A/P Possible Biliary Sepsis, suspect subacute cholangitis - early antibiotics and fluids with IV flagyl, cipro - IVF - consult Dr Ruffin given complicated pancreato-biliary course - check LFT, lactate Lower back pain with LE dysfunction 2/2 pain - uncertain but severity concerning if he does not improve while inpatient. CT A /P w/o significant findings to explain severity of symptoms - further assessment pending inpatient course Possible SBO ? Clinically does not appear like SBO - clears for now, monitor for symptoms - AXR in the morning Hold lasix, statin Continue rate agents as able
[2017-05-06] MEDS: *HR* Morphine 2 MG/ML SYRINGE IVP PRN (20:59)
[2017-05-06] MEDS: 0.9 % Sodium Chloride 1,000 ML IVC SCH ×2 (22:35→23:36)
[2017-05-06] MEDS: MetroNIDAZOLE 500 MG/100 ML 500 MG/100 ML BAG IVPB SCH (23:09)
[2017-05-07] MEDS ORDERED: *HR* Morphine 2 MG/ML SYRINGE IVP ONE (00:21)
[2017-05-07 05:04] LABS: Basophils % 0.4 %; Eosinophils # 0.1 K/mcL (0.0-0.6); Eosinophils % 1.6 %; Hematocrit 32.7 % (37.5-50.1); Hemoglobin 10.5 g/dL (12.9-16.9); Immature Granulocytes % 0.5 % (0-4); Lymphocytes # 0.5 K/mcL (0.6-4.6); Mean Corpuscular HGB Conc 32.1 g/dL (31.6-35.5); Mean Corpuscular Hemoglobin 29.2 pg (28.0-33.3); Mean Corpuscular Volume 90.8 fL (83.0-100.0); Mean Platelet Volume 10.6 fL (9.4-12.4); Monocytes % 17.6 %; Platelet Count 212 K/mcL (140-400); Red Cell Distribution Width 14.4 % (11.5-14.5); Segmented Neutrophils % 70.9 %
[2017-05-07 05:21] LABS: Alanine Aminotransferase 10 Units/L (0-55); Albumin 2.8 g/dL (3.5-5.0); Alkaline Phosphatase 133 Units/L (38-126); Amylase 25 Units/L (25-125); Aspartate Amino Transferase 18 Units/L (5-34); BUN/Creatinine Ratio 12 (6-26); Blood Urea Nitrogen 9 mg/dL (8-26); Calcium 8.4 mg/dL (8.6-10.8); Carbon Dioxide 21 mEq/L (19-29); Chloride 109 mEq/L (98-109); Chol/HDL Ratio 4.7 (0-4.9); Cholesterol 131 mg/dL (< 200); Globulin 2.8 g/dL (2.4-3.5); Glucose 93 mg/dL (70-99); HDL Cholesterol 28 mg/dL (40-59); LDL Cholesterol,Calculated 84 mg/dL (0-99); Lipase 26 Units/L (8-78); Osmolality,Calculated 282 (280-300); Potassium 3.7 mEq/L (3.5-4.5); Sodium 137 mEq/L (136-145); Triglycerides 97 mg/dL (< 150); eGFR For African Americans > 60 (> 60); eGFR For Non-African Americans > 60 (> 60)
[2017-05-07 05:22] LABS: Total Protein 5.6 g/dL (6.0-8.3)
[2017-05-07] MEDS: *HR* Enoxaparin 40 MG/0.4 ML SYRINGE SQ SCH (06:35)
[2017-05-07] MEDS: *HR* Morphine 2 MG/ML SYRINGE IVP PRN ×4 (06:36→21:26)
[2017-05-07] MEDS: MetroNIDAZOLE 500 MG/100 ML 500 MG/100 ML BAG IVPB SCH ×3 (06:37→21:26)
[2017-05-07] MEDS: Diltiazem CD (24hr) 180 MG CAPSULE PO SCH (10:06)
--- NOTE | 2017-05-07 11:37 | General Surgery Consult Note ---
Date of Encounter: 05/07/17 Time of Encounter: 10:00 History of Present Illness Consult date: 05/07/17 Reason for consult: hernia (hiatal, with questionable partial obstruction) History of present illness: Roc Tripp is a 86 yo male with recent history of acute obstructive jaundice with placement of hepatic and biliary stents [address] Ruffin, as well as lymphoma, CHF, CAD, COPD, HLD, HTN, RA, aortic valve replacement, and pacemaker. 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 He presented to [facility] with severe back pain, chills, and sweats. He denies nausea , vomiting, diarrhea, anorexia, and fever. He has been tolerating clear liquids since admission. He does state that his last few BMs have been loose, but not diarrhea. His back pain is mostly in the R thoracolumbar region. By the time he decided to come to the hospital (the evening of the day it started) he was unable to bend over to get in the car, so instead had to call an ambulance. He describes the pain as 9/10 in intensity, worsened by movement, and sharp in quality. CT abd/pelv redemonstrated cholelithiasis and pneumobilia with loss of 1 of the 2 biliary stents.. There was decompression of his hiatal hernia with persistent involvement of the proximal to mid duodenum. Contrast was seen to extend into the small bowel. Past Med Surg Social Fam HX - Past Medical History Medical history: cancer (lymphoma), CHF, coronary artery disease, hyperlipidemia , hypertension, malignancy, RA, valvular heart disease, other Psychiatric history: no psych history - Past Surgical History Surgical History: coronary bypass (CABG), heart valve replacement (Aortic valve) , other (Pacemaker, biliary duct stent, cardiac cath x3 without stents, colonoscopy), pacemaker - Social History Smoking Status: Never smoker Smokeless Tobacco Status: No Alcohol use: none Drug use: none - Family History Mother Adopted: No Family Member Ethnicity: Non- Living Status: Age at : 80 Cause of : heart problems Hx Family Cardiac Disorders: Yes Hx Family Cancer: Yes (breast) Hx Family Endocrine Disorder: Yes (DM) Father Living Status: Age at : 98 Medications and Allergies Cholecalciferol (Vitamin D3) [Vitamin D3] 1,000 unit PO DAILY 05/01/15 [History] Cyanocobalamin (B-12) 1,000 mcg PO DAILY 05/01/15 [History] Diltiazem HCl [Diltiazem 24Hr Cd] 180 mg PO QAM 05/01/15 [History] Furosemide [Lasix] 20 mg PO QAM 05/01/15 [History] Metoprolol [Lopressor] 25 mg PO BID 05/01/15 [History] Multivit-Min/FA/Lycopen/Lutein [Centrum Silver Tablet] 1 tab PO DAILY 05/01/15 [ History] Omeprazole [PriLOSEC] 20 mg PO DAILY 05/01/15 [History] Sodium Chloride/Aloe Nasal Gel [[place] Saline Nasal Gel] 1 spray NS Q6H PRN [History] Atorvastatin [Lipitor] 40 mg PO HS 04/22/17 [History] Polyvinyl Alcohol [Artificial Tears] 2 drop OP QID PRN 04/22/17 [History] 3 Allergy/AdvReac Type Severity Reaction Status Date / Time No Known Allergies Allergy Verified 04/16/17 09:58 Review of Systems All systems PM: A 10-system review of systems was performed and is negative for pertinent findings except as documented above in the HPI. - Constitutional as per HPI, chills, excessive sweating, no anorexia, no fever(s) - Gastrointestinal abdominal pain, no constipation, no diarrhea, no dyspepsia, no nausea, no vomiting General Surgery Exam Initial Vital Signs Temp Pulse Resp BP Pulse Ox 98.4 F 90 16 156/87 97 05/06/17 13:41 05/06/17 13:41 05/06/17 13:41 05/06/17 13:41 05/06/17 13:41 - General physical appearance well developed, well nourished, moderate pain, other (shaking chills) - Eyes normal ocular movement - ENT atraumatic, normocephalic - Neck trachea midline - Respiratory normal expansion, normal respiratory effort wheezing: bilateral - Cardiovascular Cardiovascular exam: Present: RRR - Abdomen Abdomen general surgery: Present: bowel sounds present, soft, tender. Absent: guarding, rebound Abdominal Tenderness: Present: diffusely (most of pain is in back) - Musculoskeletal Present: normal posture - Psychiatric Psychiatric general surgery: Present: appropriate, speech is normal Exam Initial Vital Signs Temp Pulse Resp BP Pulse Ox 98.4 F 90 16 156/87 97 05/06/17 13:41 05/06/17 13:41 05/06/17 13:41 05/06/17 13:41 05/06/17 13:41 Results - Labs 05/07/17 04:54 05/07/17 04:54 Abnormal lab results RBC 3.60 M/mcL (4.19-5.50) L 05/07/17 04:54 Hgb 10.5 g/dL (12.9-16.9) L 05/07/17 04:54 Hct 32.7 % (37.5-50.1) L 05/07/17 04:54 Lymphocytes # 0.5 K/mcL (0.6-4.6) L 05/07/17 04:54 POC Glucose 96 (58-89) H 05/07/17 05:30 Calcium 8.4 mg/dL (8.6-10.8) L 05/07/17 04:54 Direct Bilirubin 0.7 mg/dL (0.0-0.5) H 05/06/17 13:57 Alkaline Phosphatase 133 Units/L (38-126) H 05/07/17 04:54 Serum Total Protein 5.6 g/dL (6.0-8.3) L D 05/07/17 04:54 Albumin 2.8 g/dL (3.5-5.0) L 05/07/17 04:54 Albumin/Globulin Ratio 1.0 (1.1-2.2) L 05/07/17 04:54 HDL Cholesterol 28 mg/dL (40-59) L 05/07/17 04:54 Diabetes panel 05/07/17 Range/Units 04:54 Sodium 137 (136-145) mEq/L Potassium 3.7 (3.5-4.5) mEq/L Chloride 109 (98-109) mEq/L Carbon Dioxide 21 (19-29) mEq/L BUN 9 (8-26) mg/dL Creatinine 0.74 (0.72-1.25) mg/dL Glucose 93 (70-99) mg/dL Calcium 8.4 L (8.6-10.8) mg/dL AST 18 (5-34) Units/L ALT 10 (0-55) Units/L Alkaline Phosphatase 133 H (38-126) Units/L Albumin 2.8 L (3.5-5.0) g/dL Triglycerides 97 (< 150) mg/dL HDL Cholesterol 28 L (40-59) mg/dL Calcium panel 05/07/17 Range/Units 04:54 Calcium 8.4 L (8.6-10.8) mg/dL Albumin 2.8 L (3.5-5.0) g/dL Pituitary panel 05/07/17 Range/Units 04:54 Sodium 137 (136-145) mEq/L Potassium 3.7 (3.5-4.5) mEq/L Chloride 109 (98-109) mEq/L Carbon Dioxide 21 (19-29) mEq/L BUN 9 (8-26) mg/dL Creatinine 0.74 (0.72-1.25) mg/dL Glucose 93 (70-99) mg/dL Calcium 8.4 L (8.6-10.8) mg/dL Adrenal panel 05/07/17 Range/Units 04:54 Sodium 137 (136-145) mEq/L Potassium 3.7 (3.5-4.5) mEq/L Chloride 109 (98-109) mEq/L Carbon Dioxide 21 (19-29) mEq/L BUN 9 (8-26) mg/dL Creatinine 0.74 (0.72-1.25) mg/dL Glucose 93 (70-99) mg/dL Calcium 8.4 L (8.6-10.8) mg/dL Total Bilirubin 1.0 (0.2-1.2) mg/dL AST 18 (5-34) Units/L ALT 10 (0-55) Units/L Alkaline Phosphatase 133 H (38-126) Units/L Albumin 2.8 L (3.5-5.0) g/dL All other labs normal. - Imaging CT scan - abdomen: report reviewed ( CT/CT abd pelvis w iv and oral IMPRESSION: 1. Redemonstration of cholelithiasis and pneumobilia. One of the common bile duct stents is in normal position extending into the left hepatic duct. One of the common bile duct stents has been passed and is not identified in the bowel. 2. Interval gastric decompression of the moderate hiatal hernia with persistent hernia involvement of the proximal to mid duodenum with findings that may relate to a low-grade partial obstruction with contrast passing distally into the small bowel. There is mild contrast distention of the distal esophagus. 3. No evidence of complete obstruction, perforation, or abscess. 4. Stable moderate bladder distention with findings that may represent outlet obstruction. D/ / 05/06/2017 17:00:02 Bubba Patton MD / tangela Interpreting Provider: Bubba Patton MD ), image reviewed CT scan - pelvis: report reviewed, image reviewed Consult Discharge Plan - Plan Referrals: Gissel Escamilla MD [Primary Care Provider] -
--- NOTE | 2017-05-07 12:27 | Gastroenterology Consult Note ---
Addendum entered and electronically signed by Ari Figueroa CNP 05/07/17 12 :43: Patient has been referred to Dr. Hopson at [facility] for ampullectomy. Original Note: <Ari Figueroa - Last Filed: 05/07/17 12:24> Date of Encounter: 05/07/17 Time of Encounter: 11:20 - Assessment and plan (1) Cholangitis Current Visit: Yes Status: Suspected Assessment and plan: Not likely cholangitis. LFTs are within normal limits. During last ERCP, only one stent was placed in the CBD . Dr. Ruffin and Dr. Gamez both reviewed imaging. CT A/P mentions the stent in the normal position, and one possible dislodged stent. (2) Back pain Current Visit: Yes Status: Acute Assessment and plan: Management per primary team. Qualifiers: Back pain location: low back pain Chronicity: acute Back pain laterality : unspecified Sciatica presence: unspecified whether sciatica present Qualified Code(s): M54.5 - Low back pain (3) Partial bowel obstruction Current Visit: Yes Status: Acute Assessment and plan: Surgery has been consulted. - Time Spent With Patient Total time spent is greater than 50% in coordination of care (as documented) at patient's floor/unit and/or counseling patient: GI History of Present Illness - Data of Consult Patient: known to practice within the last 3 years Consult date: 05/07/17 Requesting Physician: Bertha Thomason MD - Consult Narrative Reason for consult: CBD stricture with stent History of present illness: Mr. Tripp is a 86 year old male with PMHx of lymphoma s/p chemo, CHF, CAD, HLD, HTN, and biliary stent placement who presented with severe back pain, chills, and sweats. He denies fever, abdominal pain, nausea, vomiting, diarrhea, or constipation. He complains of pain in the lumbar region. CT A/P shows cholelithiasis and pneumobilia, one of the CBD stents in normal position extending into the left hepatic duct. His LFTs are normal. Procedures: ERCP 04/26/2017 Dr. Ruffin: Biliary tree swept and sludge found, PTC catheter was removed, one temporary stent placed in the CBD. Patient to be referred for ampullectomy. ERCP 04/22/2017 with 2 stents removed from the biliary tree, medium-sized periampullary adenoma. ERCP 07/19/2015 one stent removed in biliary tree to temporary stents were placed in the common bile duct. ERCP 07/02/2014: Localized biliary stricture, s/p dilation, brushings, and stenting. Upper EUS 07/07/2014: Area of heterogenous, hypoechoic parenchyma noted in the head region 2 cm x 2 cm in size, NSAIDs: None Anticoagulation: None Past Med Surg Social Fam HX - Past Medical History Medical history: cancer (lymphoma), CHF, coronary artery disease, hyperlipidemia , hypertension, malignancy, RA, valvular heart disease, other Psychiatric history: no psych history - Past Surgical History Surgical History: coronary bypass (CABG), heart valve replacement (Aortic valve) , other (Pacemaker, biliary duct stent, cardiac cath x3 without stents, colonoscopy), pacemaker - Social History Smoking Status: Never smoker Smokeless Tobacco Status: No Alcohol use: none Drug use: none - Family History Mother Adopted: No Family Member Ethnicity: Non- Living Status: Age at : 80 Cause of : heart problems Hx Family Cardiac Disorders: Yes Hx Family Cancer: Yes (breast) Hx Family Endocrine Disorder: Yes (DM) Father Living Status: Age at : 98 - Gastrointestinal Gastrointestinal: Present: as per HPI - Constitutional Constitutional: as per HPI - EENT Eyes: as per HPI Ears: Present: as per HPI Nose, mouth and throat: Present: as per HPI - Cardiovascular Cardiovascular ROS: Present: as per HPI - Respiratory Respiratory IM: Present: as per HPI - Genitourinary Genitourinary: Absent: change in color, Urinary frequency - Neurological ROS Neurological GI: Present: as per HPI - Hematologic/Lymphatic Hematologic/Lymphatic pediatric: Present: as per HPI - Musculoskeletal Musculoskeletal ROS GI: Present: as per HPI - Integumentary Integumentary GI: Present: as per HPI - Psychiatric ROS Psychiatric GI: Present: as per HPI - Endocrine Endocrine IM: Present: as per HPI - Constitutional Vitals: Temp Pulse Resp BP Pulse Ox 97.9 F 98 16 164/75 100 05/07/17 10:29 05/07/17 10:29 05/07/17 10:29 05/07/17 10:29 05/07/17 10:29 General appearance: Present: cooperative, A&O X 3, no acute distress, answers questions appropriately - Head Head exam: Present: atraumatic, normocephalic - Eye Eye exam: Present: normal appearance, sclera anicteric - ENT ENT exam: Present: mucous membranes dry - Neck Neck exam general surgery: Present: normal inspection, trachea midline - Respiratory Respiratory exam: Present: decreased breath sounds, CTAB - Cardiovascular Cardiovascular exam: Present: RRR, +S1, +S2 - GI/Abdominal GI/Abdominal exam: Present: soft, no peritoneal signs. Absent: distended, firm , guarding, tenderness - Rectal Rectal exam: Present: deferred - Extremities Exam Extremities exam: Present: warm - Neurological Exam Neurological exam: Present: no focal deficits - Psychiatric Psychiatric exam: Present: normal affect, normal mood - Skin Skin exam: Present: dry, intact, normal color, warm Results - Labs CBC & Chem 7: 05/07/17 04:54 05/07/17 04:54 Labs: Last Result Calcium 8.4 mg/dL (8.6-10.8) L 05/07/17 04:54 Troponin I 0.00 ng/mL (0-0.03) 05/06/17 13:57 Triglycerides 97 mg/dL (< 150) 05/07/17 04:54 Entire Visit Hgb 10.5 g/dL (12.9-16.9) L 05/07/17 04:54 Hct 32.7 % (37.5-50.1) L 05/07/17 04:54 Total Bilirubin 1.0 mg/dL (0.2-1.2) 05/07/17 04:54 AST 18 Units/L (5-34) 05/07/17 04:54 ALT 10 Units/L (0-55) 05/07/17 04:54 Amylase 25 Units/L (25-125) 05/07/17 04:54 Lipase 26 Units/L (8-78) 05/07/17 04:54 - Impressions Impressions Chest/Abdomen X-ray 05/07/17 06:00 IMPRESSION: Findings suggestive of mild edema with atelectasis versus pneumonia in the right lower lung. There are multiple dilated gas-filled loops of small bowel in the left upper abdomen, likely related to ileus. Contrast from yesterday's study has progressed to the proximal colon. No free air. D/ / Jaja Zuniga MD / Jaja Zuniga MD Interpreting Provider: Jaja Zuniga MD Consult Discharge Plan - Plan Referrals: Gissel Escamilla MD [Primary Care Provider] - <FrancoTellyMichael - Last Filed: 05/07/17 13:27> Date of Encounter: 05/07/17 - Time Spent With Patient Total time spent is greater than 50% in coordination of care (as documented) at patient's floor/unit and/or counseling patient: Mr Tripp comes in complaining of lumbar back pain. His liver enzymes are normal. Had a stent exchanged a couple of days ago without difficulty. Feel back pain is secondary to DJD and not secondary to any GI cause. Please reconsult us prn Thank you very much for allowing us to participate in the care of this patient. Michael Gamez MD 25 - 35 minutes GI History of Present Illness - Data of Consult Requesting Physician: Bertha Thomason MD - Consult Narrative History of present illness: Mr. Tripp is a 86 year old male - Constitutional Vitals: Temp Pulse Resp BP Pulse Ox 97.9 F 98 16 164/75 100 05/07/17 10:29 05/07/17 10:29 05/07/17 10:29 05/07/17 10:29 05/07/17 10:29 Results - Labs CBC & Chem 7: 05/07/17 04:54 05/07/17 04:54 Labs: Last Result Calcium 8.4 mg/dL (8.6-10.8) L 05/07/17 04:54 Troponin I 0.00 ng/mL (0-0.03) 05/06/17 13:57 Triglycerides 97 mg/dL (< 150) 05/07/17 04:54 Entire Visit Hgb 10.5 g/dL (12.9-16.9) L 05/07/17 04:54 Hct 32.7 % (37.5-50.1) L 05/07/17 04:54 Total Bilirubin 1.0 mg/dL (0.2-1.2) 05/07/17 04:54 AST 18 Units/L (5-34) 05/07/17 04:54 ALT 10 Units/L (0-55) 05/07/17 04:54 Amylase 25 Units/L (25-125) 05/07/17 04:54 Lipase 26 Units/L (8-78) 05/07/17 04:54 - Impressions Impressions Chest/Abdomen X-ray 05/07/17 06:00
--- NOTE | 2017-05-07 14:35 | Internal Med Progress Note ---
Date of Encounter: 05/07/17 Time of Encounter: 14:32 - Assessment and plan (1) Acute low back pain Current Visit: Yes Status: Acute Assessment and plan: Patient with severe acute low back pain. Unable to do MRI due to presence of incompatible pacemaker. Lumbar spine CT done and this shows significant scoliosis with diffuse degenerative disc and joint disease and multilevel spondylolisthesis without any acute fracture. There is also severe vertebral canal stenosis at L3-L4 level and multilevel right neural foraminal stenosis. Discussed with pain management and we will evaluate the patient for recommendations. Continue supportive care and pain control. High risk for complications due to use of intravenous narcotic medications. Qualifiers: Back pain laterality: midline Sciatica presence: without sciatica Qualified Code(s): M54.5 - Low back pain (2) CAD (coronary artery disease) Current Visit: No Status: Chronic Assessment and plan: No chest pain. On beta meaghan and statin. Qualifiers: Coronary Disease-Associated Artery/Lesion type: [place] artery [place] vs. transplanted heart: [place] heart Associated angina: without angina Qualified Code(s): I25.10 - Atherosclerotic heart disease of [place] coronary artery without angina pectoris (3) Cholangitis Current Visit: Yes Status: Suspected Assessment and plan: Patient does not have any clinical signs of acute cholangitis. Alkaline phosphatase continues to trend down. Currently on IV antibiotics. Had he has not had any new episodes of fever. If he remains asymptomatic, we will discontinue all antibiotics. Although the CT scan report suggests the loss of one biliary stent, the patient had actually undergone ERCP with removal of both biliary stents followed by percutaneous cholecystostomy. He then underwent repeat ERCP and and removal of cholecystostomy with replacement of single biliary stent during his last hospitalization. (4) Partial bowel obstruction Current Visit: Yes Status: Acute Assessment and plan: Surgery has been consulted and will follow recommendations. Patient does not appear to be having obstruction but rather a ileus. - Subjective Interval history: Patient continues to have severe pain in his lower back that improves after he gets pain medications. Denies any lower extremity weakness or numbness. No bowel or bladder incontinence. No abdominal pain nausea or vomiting. He has not had any further episodes of chills, rigors or fever. - Constitutional Vitals: Temp Pulse Resp BP Pulse Ox 97.9 F 98 16 164/75 100 05/07/17 10:29 05/07/17 10:29 05/07/17 10:29 05/07/17 10:29 05/07/17 10:29 General appearance: Present: cooperative, mild distress, A&O X 3, answers questions appropriately - Respiratory Respiratory exam: Present: CTAB. Absent: accessory muscle use, rales, rhonchi, wheezes - Cardiovascular Cardiovascular exam: Present: RRR, +S1, +S2. Absent: diastolic murmur, gallop, rubs, systolic murmur - GI/Abdominal GI/Abdominal exam: Present: normal bowel sounds, soft, no peritoneal signs. Absent: distended, tenderness - Extremities Exam Extremities exam: Present: warm, radial pulses palpable and symmetrical. Absent : calf tenderness, cyanotic, pedal edema Additional comments: Patient having back pain with straight leg raise on both sides. - Neurological Exam Neurological exam: Present: alert, CN II-XII intact, no focal deficits, strengths equal and symetr throughout. Absent: facial droop, speech deficit - Skin Skin exam: Present: dry, intact Internal Medicine: Result - Labs CBC & Chem 7: 05/07/17 04:54 05/07/17 04:54 Labs: Short CBC 05/07/17 Range/Units 04:54 WBC 5.7 (4.3-11.1) K/mcL Hgb 10.5 L (12.9-16.9) g/dL Hct 32.7 L (37.5-50.1) % Plt Count 212 (140-400) K/mcL Neutrophils # 4.0 (1.6-8.9) K/mcL BMP 05/07/17 04:54 Sodium 137 Potassium 3.7 Chloride 109 Carbon Dioxide 21 BUN 9 Creatinine 0.74 Glucose 93 Calcium 8.4 L Liver Function 05/07/17 Range/Units 04:54 Total Bilirubin 1.0 (0.2-1.2) mg/dL AST 18 (5-34) Units/L ALT 10 (0-55) Units/L Alkaline Phosphatase 133 H (38-126) Units/L Albumin 2.8 L (3.5-5.0) g/dL - Impressions Impressions Chest/Abdomen X-ray 05/07/17 06:00 IMPRESSION: Findings suggestive of mild edema with atelectasis versus pneumonia in the right lower lung. There are multiple dilated gas-filled loops of small bowel in the left upper abdomen, likely related to ileus. Contrast from yesterday's study has progressed to the proximal colon. No free air. D/ / Jaja Zuniga MD / Jaja Zuniga MD Interpreting Provider: Jaja Zuniga MD Lumbar Spine CT 05/07/17 13:00 IMPRESSION: 1. Decreased bone mineral density. 2. Significant scoliosis with diffuse degenerative disc and joint disease and right lateral grade 1 multilevel spondylolisthesis. 3. No acute fracture. 4. Severe multifactorial vertebral canal stenosis at the L3/4 level. 5. Severe multilevel right neural foraminal stenosis. D/ / 05/07/2017 14:10:57 Bubba Patton MD / [place] Interpreting Provider: Bubba Patton MD Consult Discharge Plan - Plan Referrals: Gissel Escamilla MD [Primary Care Provider] -
--- NOTE | 2017-05-07 15:32 | Pain Management Consultation ---
Date of Encounter: 05/07/17 Time of Encounter: 16:07 Assessment and Plan (1) Scoliosis Current Visit: Yes Status: Chronic The patient is having an acute flare of chronic low back pain secondary to long- standing scoliosis, rheumatoid arthritis, and degenerative disc and facet disease. Recommend treating the patient's acute pain symptoms with oral opioid rather than IV formulations of opioid. Recommend low-dose Tylenol with Codeine or hydrocodone formulations as needed. Consider using muscle relaxant along with oral opioid with careful attention to side effects of both opioids and muscle relaxants which are common in this age group. Recommend low doses. I would also recommend that anti-rheumatologic drugs be considered now that he is several months removed from chemotherapy as a treatment for lymphoma. During chemotherapy, the patient's rheumatoid arthritis symptoms were well controlled probably due to the impact on his immune system. The patient should follow up in the [facility] for consideration of treatment for chronic pain. Recommend lumbar and thoracic radiographs in preparation for potential intrathecal pump trial and placement. The patient is not yet aware of intrathecal pump treatment, but this is something that I would like to discuss with him more in-depth in an outpatient setting. The assessment and plan as outlined above was discussed with the patient and/or family members who expressed understanding and agreement. All questions were answered. Qualifiers: Scoliosis type: idiopathic Idiopathic scoliosis type: other Spinal region : thoracolumbar Qualified Code(s): M41.25 - Other idiopathic scoliosis, thoracolumbar region History of Present Illness Chief complaint: back pain HPI: Mr. Tripp is a 86 year old male suffering with pain in the lower back. The pain began approximately 4 or 5 days ago and was so severe that he had to call the ambulance because he was unable to walk. He denies pain in his legs now or in the past. The pain in his back has been present at a low-grade level for the past 30 years. He has long-standing rheumatoid arthritis. He was also recently treated for lymphoma with chemotherapy that precluded him from taking other anti-rheumatologic drugs. He feels the pain in his back now is typically 7/10 while laying in bed and increases to 10/10 with any sort of movement. Again he denies pain in the legs. The pain is described as deep, aching and stabbing. He has not had procedures or taking pain medication much in the past. He states that he is used to pain and takes occasional acetaminophen while at home. He is able to ambulate on his own in his home. He lives with his in their own home. Past Med Surg Social Fam HX - Past Medical History Medical history: cancer (lymphoma), CHF, coronary artery disease, hyperlipidemia , hypertension, malignancy, RA, valvular heart disease, other Psychiatric history: no psych history - Past Surgical History Surgical History: coronary bypass (CABG), heart valve replacement (Aortic valve) , other (Pacemaker, biliary duct stent, cardiac cath x3 without stents, colonoscopy), pacemaker - Social History Smoking Status: Never smoker Smokeless Tobacco Status: No Alcohol use: none Drug use: none - Family History Mother Adopted: No Family Member Ethnicity: Non- Living Status: Age at : 80 Cause of : heart problems Hx Family Cardiac Disorders: Yes Hx Family Cancer: Yes (breast) Hx Family Endocrine Disorder: Yes (DM) Father Living Status: Age at : 98 Medications and Allergies Cholecalciferol (Vitamin D3) [Vitamin D3] 1,000 unit PO DAILY 05/01/15 [History] Cyanocobalamin (B-12) 1,000 mcg PO DAILY 05/01/15 [History] Diltiazem HCl [Diltiazem 24Hr Cd] 180 mg PO QAM 05/01/15 [History] Furosemide [Lasix] 20 mg PO QAM 05/01/15 [History] Metoprolol [Lopressor] 25 mg PO BID 05/01/15 [History] Multivit-Min/FA/Lycopen/Lutein [Centrum Silver Tablet] 1 tab PO DAILY 05/01/15 [ History] Omeprazole [PriLOSEC] 20 mg PO DAILY 05/01/15 [History] Sodium Chloride/Aloe Nasal Gel [[place] Saline Nasal Gel] 1 spray NS Q6H PRN [History] Atorvastatin [Lipitor] 40 mg PO HS 04/22/17 [History] Polyvinyl Alcohol [Artificial Tears] 2 drop OP QID PRN 04/22/17 [History] 3 Allergy/AdvReac Type Severity Reaction Status Date / Time No Known Allergies Allergy Verified 04/16/17 09:58 Review of Systems - Constitutional Constitutional ROS IM: no photophobia, no phonophobia, no daytime sleepiness, no fever(s), no stops breathing during sleep - EENT Nose, mouth and throat: no headache(s), no neck pain, no neck trauma - Cardiovascular Cardiovascular ROS: no chest pain, no leg edema, no lightheadedness - Respiratory Respiratory: no pain on inspiration, no pain with cough - Gastrointestinal Gastrointestinal: no abdominal pain, no constipation, no diarrhea, no heartburn - Genitourinary Genitourinary ROS: no difficulty urinating, no flank pain, no urinary hesitancy - Musculoskeletal Musculoskeletal ROS: no muscle weakness, no numbness, no radiating pain into limb, no tingling - Integumentary Integumentary: no erythema, no lesions, no swelling - Neurological Neurological ROS: no abnormal gait, no behavioral changes, no focal weakness, no radicular pain - Psychiatric Psychiatric general: no anxiety, no confusion, no depression - Hematologic/Lymphatic Hematologic/Lymphatic pediatric: no easy bleeding, no easy bruising Physical Exam Initial Vital Signs Temp Pulse Resp BP Pulse Ox 98.4 F 90 16 156/87 97 05/06/17 13:41 05/06/17 13:41 05/06/17 13:41 05/06/17 13:41 05/06/17 13:41 - Additional Findings EYES:: pupils equal and round, no myosis. SKIN:: no areas of echymoses or petechiae. Rheumatoid nodules positive, large present in left ulnar area. CARDIOVASCULAR:: regular rate and rhythm, no murmurs PULMONARY:: lung hernandez clear to auscultation bilaterally. Quiet, normal respiratory pattern. GASTROINTESTINAL:: active bowel sounds. MUSCULOSKELETAL GAIT:: antalgic. PALPATION:: paraspinous musculature is tender to deep palpation in the lumbar area bilaterally. ROM:: Active flexion and extension are reduced in the lumbar area. Active Rotation is reduced in the lumbar area. STRENGTH:: RIGHT hip flexors: 5/5 :: LEFT hip flexors: 5/5 RIGHT hip adduction 5/5 :: LEFT hip adduction 5/5 RIGHT hip abduction 5/5 :: LEFT hip abduction 5/5 RIGHT knee extension 5/5 :: LEFT knee extension 5/5 RIGHT knee flexion 5/5 :: LEFT knee flexion 5/5 RIGHT ankle dorsiflexion 5/5 :: LEFT ankle dorsiflexion 5/5 RIGHT ankle plantarflexion 5/5 :: LEFT ankle plantarflexion 5/5 RIGHT great toe dorsiflexion 5/5 :: LEFT great toe dorsiflexion 5/5 RIGHT great toe plantarflexion 5/5 :: LEFT great toe plantarflexion 5/5 STRAIGHT LEG RAISE:: LLE is negative at 90 degrees. RLE is negative at 90 degrees. NEUROLOGIC SENSATION:: hypesthesia is not noted in lower extremity dermatomes. SIGNS OF NEUROVASCULAR COMPRESSION Spasticity:: none Atrophy:: not present in UE or LE musculature Fasciculation:: not present in UE or LE musculature PSYCHIATRIC:: ORIENTATION:: awake and alert. INSIGHT:: good awareness of illness. AFFECT:: pleasant. Radiology Images Viewed By Me:: CT scan from 05/07/2017 shows severe scoliosis with although a little degenerative disc disease throughout the lumbar neuraxis. There is diffuse spondylosis. No compression fractures are seen. I have reviewed and agree with information documented in the scribed documentation, ROS, patient medications, allergies, medical history, surgical history, social history, and family history. Results - Labs 05/07/17 04:54 05/07/17 04:54 Abnormal lab results RBC 3.60 M/mcL (4.19-5.50) L 05/07/17 04:54 Hgb 10.5 g/dL (12.9-16.9) L 05/07/17 04:54 Hct 32.7 % (37.5-50.1) L 05/07/17 04:54 Lymphocytes # 0.5 K/mcL (0.6-4.6) L 05/07/17 04:54 POC Glucose 96 (58-89) H 05/07/17 05:30 Calcium 8.4 mg/dL (8.6-10.8) L 05/07/17 04:54 Direct Bilirubin 0.7 mg/dL (0.0-0.5) H 05/06/17 13:57 Alkaline Phosphatase 133 Units/L (38-126) H 05/07/17 04:54 Serum Total Protein 5.6 g/dL (6.0-8.3) L D 05/07/17 04:54 Albumin 2.8 g/dL (3.5-5.0) L 05/07/17 04:54 Albumin/Globulin Ratio 1.0 (1.1-2.2) L 05/07/17 04:54 HDL Cholesterol 28 mg/dL (40-59) L 05/07/17 04:54 Diabetes panel 05/07/17 Range/Units 04:54 Sodium 137 (136-145) mEq/L Potassium 3.7 (3.5-4.5) mEq/L Chloride 109 (98-109) mEq/L Carbon Dioxide 21 (19-29) mEq/L BUN 9 (8-26) mg/dL Creatinine 0.74 (0.72-1.25) mg/dL Glucose 93 (70-99) mg/dL Calcium 8.4 L (8.6-10.8) mg/dL AST 18 (5-34) Units/L ALT 10 (0-55) Units/L Alkaline Phosphatase 133 H (38-126) Units/L Albumin 2.8 L (3.5-5.0) g/dL Triglycerides 97 (< 150) mg/dL HDL Cholesterol 28 L (40-59) mg/dL Calcium panel 05/07/17 Range/Units 04:54 Calcium 8.4 L (8.6-10.8) mg/dL Albumin 2.8 L (3.5-5.0) g/dL Pituitary panel 05/07/17 Range/Units 04:54 Sodium 137 (136-145) mEq/L Potassium 3.7 (3.5-4.5) mEq/L Chloride 109 (98-109) mEq/L Carbon Dioxide 21 (19-29) mEq/L BUN 9 (8-26) mg/dL Creatinine 0.74 (0.72-1.25) mg/dL Glucose 93 (70-99) mg/dL Calcium 8.4 L (8.6-10.8) mg/dL Adrenal panel 05/07/17 Range/Units 04:54 Sodium 137 (136-145) mEq/L Potassium 3.7 (3.5-4.5) mEq/L Chloride 109 (98-109) mEq/L Carbon Dioxide 21 (19-29) mEq/L BUN 9 (8-26) mg/dL Creatinine 0.74 (0.72-1.25) mg/dL Glucose 93 (70-99) mg/dL Calcium 8.4 L (8.6-10.8) mg/dL Total Bilirubin 1.0 (0.2-1.2) mg/dL AST 18 (5-34) Units/L ALT 10 (0-55) Units/L Alkaline Phosphatase 133 H (38-126) Units/L Albumin 2.8 L (3.5-5.0) g/dL All other labs normal. Consult Discharge Plan - Plan Referrals: Gissel Escamilla MD [Primary Care Provider] -
[2017-05-07] MEDS ORDERED: *HR* Acetaminophen w/Cod 300-30 mg 1 TAB TABLET PO PRN (17:00)
[2017-05-07] MEDS: predniSONE 20 MG TABLET PO SCH (19:27)
[2017-05-08] MEDS: *HR* Enoxaparin 40 MG/0.4 ML SYRINGE SQ SCH (05:06)
[2017-05-08] MEDS: MetroNIDAZOLE 500 MG/100 ML 500 MG/100 ML BAG IVPB SCH (05:07)
[2017-05-08] MEDS: *HR* Morphine 2 MG/ML SYRINGE IVP PRN ×3 (05:08→21:26)
[2017-05-08] MEDS: predniSONE 20 MG TABLET PO SCH (09:22)
[2017-05-08] MEDS: Diltiazem CD (24hr) 180 MG CAPSULE PO SCH (09:23)
--- NOTE | 2017-05-08 11:39 | Internal Med Progress Note ---
Date of Encounter: 05/08/17 Time of Encounter: 10:20 - Assessment and plan (1) Acute low back pain Current Visit: Yes Status: Acute Assessment and plan: Acute flare on chronic low back pain related to scoliosis, spondylolisthesis and lumbar spine stenosis along with the rheumatoid arthritis. Patient has been started on prednisone and physical therapy. Recommended placement to inpatient rehabilitation. pressroom worker has been consulted for discharge planning. Continue supportive care. Pain control. Qualifiers: Back pain laterality: midline Sciatica presence: without sciatica Qualified Code(s): M54.5 - Low back pain (2) CAD (coronary artery disease) Current Visit: No Status: Chronic Assessment and plan: Continue current management. No changes to medication regimen Qualifiers: Coronary Disease-Associated Artery/Lesion type: [place] artery [place] vs. transplanted heart: [place] heart Associated angina: without angina Qualified Code(s): I25.10 - Atherosclerotic heart disease of [place] coronary artery without angina pectoris (3) Cholangitis Current Visit: Yes Status: Ruled-out Assessment and plan: No signs of cholangitis. We will stop antibiotics. (4) Partial bowel obstruction Current Visit: Yes Status: Resolved Assessment and plan: No nausea or vomiting. Tolerating diet well. No abdominal pain. - Subjective Interval history: Patient is awake and alert. Sitting up in chair. Was able to ambulate a little with the help of physical therapy. Pain remains significant tenderness lower back. No bowel or bladder incontinence. No lower extremity numbness or weakness. - Constitutional Vitals: Temp Pulse Resp BP Pulse Ox 97.6 F 88 15 146/78 99 05/08/17 07:34 05/08/17 07:34 05/08/17 07:34 05/08/17 07:34 05/08/17 07:34 General appearance: Present: cooperative, mild distress, A&O X 3, answers questions appropriately - Neck Neck exam general surgery: Present: supple, trachea midline. Absent: lymphadenopathy - Respiratory Respiratory exam: Present: CTAB. Absent: accessory muscle use, rales, rhonchi, wheezes - Cardiovascular Cardiovascular exam: Present: RRR, +S1, +S2. Absent: diastolic murmur, gallop, rubs, systolic murmur - Extremities Exam Extremities exam: Present: warm, radial pulses palpable and symmetrical. Absent : calf tenderness, cyanotic, pedal edema - Back Exam Back exam: Present: paraspinal tenderness (Lumbar) - Neurological Exam Neurological exam: Present: alert, oriented X3, no focal deficits, strengths equal and symetr throughout. Absent: facial droop, speech deficit Internal Medicine: Result - Labs CBC & Chem 7: 05/07/17 04:54 05/07/17 04:54 - Impressions Impressions Lumbar Spine CT 05/07/17 13:00 IMPRESSION: 1. Decreased bone mineral density. 2. Significant scoliosis with diffuse degenerative disc and joint disease and right lateral grade 1 multilevel spondylolisthesis. 3. No acute fracture. 4. Severe multifactorial vertebral canal stenosis at the L3/4 level. 5. Severe multilevel right neural foraminal stenosis. D/ / 05/07/2017 14:10:57 Bubba Patton MD / [place] Interpreting Provider: Bubba Patton MD Consult Discharge Plan - Plan Referrals: Gissel Escamilla MD [Primary Care Provider] -
[2017-05-09] MEDS: *HR* Enoxaparin 40 MG/0.4 ML SYRINGE SQ SCH (05:02)
[2017-05-09] MEDS: *HR* Morphine 2 MG/ML SYRINGE IVP PRN (07:39)
[2017-05-09] MEDS: predniSONE 20 MG TABLET PO SCH (08:46)
[2017-05-09] MEDS: Diltiazem CD (24hr) 180 MG CAPSULE PO SCH (08:47)
[2017-05-09] MEDS ORDERED: Ibuprofen 400 MG TABLET PO SCH (10:18)
[2017-05-09] MEDS ORDERED: traMADol 50 MG TABLET PO SCH (11:30)
--- NOTE | 2017-05-09 11:57 | Internal Med Progress Note ---
Date of Encounter: 05/09/17 Time of Encounter: 08:15 - Assessment and plan (1) Acute low back pain Current Visit: Yes Status: Acute Assessment and plan: Improving. We will start patient on scheduled tramadol. He is unable to take NSAIDs because of prior history of epistaxis with NSAIDs. Continue physical therapy. Continue prednisone. We will begin tapering prednisone dosage. Follow up outpatient with rheumatology and pain management. Qualifiers: Back pain laterality: midline Sciatica presence: without sciatica Qualified Code(s): M54.5 - Low back pain (2) CAD (coronary artery disease) Current Visit: No Status: Chronic Assessment and plan: No acute issues. Continue home medications Qualifiers: Coronary Disease-Associated Artery/Lesion type: [place] artery [place] vs. transplanted heart: [place] heart Associated angina: without angina Qualified Code(s): I25.10 - Atherosclerotic heart disease of [place] coronary artery without angina pectoris (3) Partial bowel obstruction Current Visit: Yes Status: Resolved Assessment and plan: Patient has had a bowel movement - Subjective Interval history: Patient is currently sitting up in chair. His pain has improved considerably from when he first came to the hospital. However he does get bouts of intermittently severe low back pain. He has been able to ambulate with help of physical therapy. Denies any other complaints at this time. - Constitutional Vitals: Temp Pulse Resp BP Pulse Ox 98.1 F 83 16 127/86 97 05/09/17 10:04 05/09/17 10:04 05/09/17 10:04 05/09/17 10:04 05/09/17 10:04 General appearance: Present: cooperative, mild distress, A&O X 3, answers questions appropriately - Respiratory Respiratory exam: Present: CTAB. Absent: accessory muscle use, rales, rhonchi, wheezes - Cardiovascular Cardiovascular exam: Present: RRR, +S1, +S2. Absent: diastolic murmur, gallop, rubs, systolic murmur - GI/Abdominal GI/Abdominal exam: Present: normal bowel sounds, soft, no peritoneal signs. Absent: distended, tenderness - Back Exam Back exam: Present: paraspinal tenderness - Neurological Exam Neurological exam: Present: alert, oriented X3, no focal deficits, strengths equal and symetr throughout. Absent: facial droop, speech deficit Internal Medicine: Result - Labs CBC & Chem 7: 05/07/17 04:54 05/07/17 04:54 - Impressions Impressions Lumbar Spine X-Ray 05/08/17 08:12 IMPRESSION: 1. Significant decreased bone mineral density. 2. Stable normal thoracic spine alignment with no acute abnormality. 3. Stable sigmoid scoliotic curvature with significant diffuse degenerative changes. No acute osseous abnormality. D/ / 05/08/2017 12:28:47 Bubba Patton MD / adan Interpreting Provider: Bubba Patton MD Thoracic Spine X-Ray 05/08/17 08:12 IMPRESSION: 1. Significant decreased bone mineral density. 2. Stable normal thoracic spine alignment with no acute abnormality. 3. Stable sigmoid scoliotic curvature with significant diffuse degenerative changes. No acute osseous abnormality. D/ / 05/08/2017 12:28:47 Bubba Patton MD / adan Interpreting Provider: Bubba Patton MD Consult Discharge Plan - Plan Referrals: Gissel Escamilla MD [Primary Care Provider] -
[2017-05-09] MEDS: traMADol 50 MG TABLET PO SCH ×2 (15:56→21:30)
[2017-05-09] MEDS ORDERED: Dextrose Gel 15 GM PO PRN ×2 (19:36)
[2017-05-09] MEDS ORDERED: D5% in Water 1,000 ML IVC PRN (19:36)
[2017-05-09] MEDS ORDERED: *HR* Dextrose 50 % in Water (Syg) 50 ML SYRINGE IVP PRN (19:36)
[2017-05-09] MEDS ORDERED: Insulin LISPRO 300 UNITS/3 ML VIAL SQ SCH (21:00)
[2017-05-09] MEDS: Famotidine 20 MG TABLET PO SCH (21:30)
[2017-05-10] MEDS: *HR* Enoxaparin 40 MG/0.4 ML SYRINGE SQ SCH (05:37)
[2017-05-10] MEDS: Insulin LISPRO 300 UNITS/3 ML VIAL SQ SCH ×2 (07:37→11:40)
[2017-05-10] MEDS: traMADol 50 MG TABLET PO SCH ×2 (07:38→14:11)
[2017-05-10] MEDS: predniSONE 20 MG TABLET PO SCH (07:38)
[2017-05-10] MEDS: Diltiazem CD (24hr) 180 MG CAPSULE PO SCH (07:39)
[2017-05-10] MEDS: Famotidine 20 MG TABLET PO SCH (07:39)
[2017-05-10] MEDS ORDERED: Cholecalciferol (D-3) 1,000 UNIT TABLET PO SCH (09:00)
[2017-05-10] MEDS ORDERED: Furosemide 20 MG TABLET PO SCH (09:00)
[2017-05-10] MEDS ORDERED: Cyanocobalamin (B-12) 1,000 MCG TABLET PO SCH (09:00)
--- NOTE | 2017-05-10 09:02 | Electrocardiograph Report ---
[address] [address] Test Date: 2017-05-06 Pat Name: Webster Qasim Department: [place] Room: [facility] Gender: M Upholstery Tech: : 1930 Requested By: Bertha Thomason Order Number: [id number] Reading MD: Pipe Greer MD Measurements Intervals [place] Rate: 72 P: 241 MT: 332 QRS: -42 QRSD: 110 T: -1 QT: 379 QTc: 403 Interpretive Statements ELECTRONIC ATRIAL PACEMAKER MARKED LEFT AXIS DEVIATION BASELINE ARTIFACT Electronically Signed On 05-10-2017 9:00:43 EDT by Pipe Greer MD
[2017-05-10] MEDS: *HR* Morphine 2 MG/ML SYRINGE IVP PRN (09:03)
[2017-05-10 11:35] VITALS: BP 136/74
--- NOTE | 2017-05-10 12:44 | Discharge Summary ---
Date of Encounter: 05/10/17 Time of Encounter: 12:39 - Discharge Diagnosis (1) Acute low back pain Priority: Primary Status: Acute Qualifiers: Back pain laterality: midline Sciatica presence: without sciatica Qualified Code(s): M54.5 - Low back pain (2) CAD (coronary artery disease) Priority: Secondary Status: Chronic Qualifiers: Coronary Disease-Associated Artery/Lesion type: [place] artery [place] vs. transplanted heart: [place] heart Associated angina: without angina Qualified Code(s): I25.10 - Atherosclerotic heart disease of [place] coronary artery without angina pectoris (3) Partial bowel obstruction Priority: Secondary Status: Resolved - Discharge Medications Prescriptions: Acetaminophen w/Cod 300-30 mg [Tylenol w/Codeine #3] 1 tab PO Q4HR PRN #14 tab PRN Reason: Moderate pain predniSONE [PredniSONE] 50 mg PO DAILY 15 Days Tramadol HCl [Ultram] 50 mg PO TID #30 tab Home Medications: Cholecalciferol (Vitamin D3) [Vitamin D3] 1,000 unit PO DAILY 05/01/15 [History] Cyanocobalamin (B-12) 1,000 mcg PO DAILY 05/01/15 [History] Diltiazem HCl [Diltiazem 24Hr Cd] 180 mg PO QAM 05/01/15 [History] Furosemide [Lasix] 20 mg PO QAM 05/01/15 [History] Metoprolol [Lopressor] 25 mg PO BID 05/01/15 [History] Multivit-Min/FA/Lycopen/Lutein [Centrum Silver Tablet] 1 tab PO DAILY 05/01/15 [ History] Omeprazole [PriLOSEC] 20 mg PO DAILY 05/01/15 [History] Sodium Chloride/Aloe Nasal Gel [[place] Saline Nasal Gel] 1 spray NS Q6H PRN [History] Atorvastatin [Lipitor] 40 mg PO HS 04/22/17 [History] Polyvinyl Alcohol [Artificial Tears] 2 drop OP QID PRN 04/22/17 [History] Acetaminophen w/Cod 300-30 mg [Tylenol w/Codeine #3] 1 tab PO Q4HR PRN #14 tab 05/10/17 [Rx] Docusate [Colace] 100 mg PO BID PRN 05/10/17 [Rx] Tramadol HCl [Ultram] 50 mg PO TID #30 tab 05/10/17 [Rx] predniSONE [PredniSONE] 50 mg PO DAILY 15 Days 05/10/17 [Rx] Allergies/Adverse Reactions: 3 Allergy/AdvReac Type Severity Reaction Status Date / Time No Known Allergies Allergy Verified 04/16/17 09:58 Procedures/tests Complete & Pending: Procedures Performed prior 72 hours Category Date Time Status CT lumbar spine wo con [CT] Routine Cat Scan 05/07/17 13:00 Completed Date of admission: 05/06/17 20:14 Primary care physician: Gissel Escamilla Consults: 05/07/17 14:34 Consult to Pain Management [CONS] Routine Consulting Provider: Pain Mgt Interventional [place] Reason for Consult: Severe Low back pain Time Notified: 14:35 Call Completed: Yes 05/08/17 08:11 Consult to Occupational Therapy [CONS] Routine Comment: Evaluate, develop and implement POC Reason for Consult: Severe back pain Consult to Physical Therapy [CONS] Routine Comment: Evaluate, develop and implement POC Reason for Consult: Severe back pain 05/08/17 08:12 Consult to Chair And Couch Maker [CONS] Routine Reason for SW Consult: DC planning Discharging clinician: Bertha Thomason Anticipated date of discharge: 05/10/17 - Patient Status Disposition: Transfer SNF Condition: Good Functional capacity at discharge: independent ambulation Overall status at discharge: patient is progressing back to baseline - Discharge Instructions Follow Up With: Ottoniel Pink DO [Partnered Physician] - Wes Cohen DO [Partnered Physician] - (QUIRINO) Gissel Escamilla MD [Primary Care Provider] - (in 1-2 weeks) Sonny Reynolds DO [Partnered Physician] - (in 1-2 weeks) - Diet and Activity Activity: increase activity as tolerated Diet: low fat, low cholesterol, low salt diet Hospital course: Mr. 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 The pain was severe enough that he was not able to ambulate. He did not have any focal weakness or numbness in his legs. No bowel or bladder incontinence. He was hospitalized here and treated with pain medications to control his pain better. He then underwent CT scan of the lumbar spine which showed significant scoliosis with diffuse degenerative disc and joint disease with multi-factorial vertebral canal stenosis and multilevel right neural foraminal stenosis. Pain management was consulted for recommendations to treat the patient's pain. They recommended outpatient evaluation for possible intrathecal pain pump. In the meantime recommended treating his rheumatoid arthritis. Patient had been treated for rheumatoid arthritis but had stopped taking medications for it when he started and Rituxan for lymphoma. He completed his last treatment with Rituxan in December or January. Since then he has not been on any medication for his rheumatoid arthritis. As such he was started on prednisone here. He will complete a prednisone taper and will follow up with rheumatology as outpatient for further management of his rheumatoid arthritis. Initially there was also concern for cholangitis but this was ruled out. CT scan of the abdomen and pelvis also showed some features suggestive of partial small bowel obstruction. However with this was most likely ileus as patient did not have any abdominal pain and has been passing flatus and has had bowel movements without any issues. He was evaluated by physical therapy and recommended placement to skilled rehabilitation. Patient will be discharged today and will follow up with his primary care provider in addition to pain management and rheumatology as outpatient. - Time Spent with Patient Total time spent providing and/or coordinating discharge services: Greater than 30 minutes (40 min) - Constitutional Vitals: Temp Pulse Resp BP Pulse Ox 97.3 F L 74 18 136/74 98 05/10/17 11:32 05/10/17 11:32 05/10/17 11:32 05/10/17 11:32 05/10/17 11:32 General appearance: Present: cooperative, mild distress, A&O X 3, answers questions appropriately - Respiratory Respiratory exam: Present: CTAB. Absent: accessory muscle use, rales, rhonchi, wheezes - Cardiovascular Cardiovascular exam: Present: RRR, +S1, +S2. Absent: diastolic murmur, gallop, rubs, systolic murmur - GI/Abdominal GI/Abdominal exam: Present: normal bowel sounds, soft, no peritoneal signs. Absent: distended, tenderness - Back Exam Back exam: Present: paraspinal tenderness
--- NOTE | 2017-05-10 12:47 | Physician Discharge Referral ---
ExtendedCare Referral Info Provider in Charge after Transfer: PCP Institutional Level of Care: Skilled - Diagnosis (1) Acute low back pain Priority: Primary Status: Acute (2) CAD (coronary artery disease) Priority: Secondary Status: Chronic (3) Partial bowel obstruction Priority: Secondary Status: Resolved Prognosis: Fair Aware of Diagnosis: Patient Aware of Prognosis: Patient - Transfer Medications Prescriptions: Acetaminophen w/Cod 300-30 mg [Tylenol w/Codeine #3] 1 tab PO Q4HR PRN #14 tab PRN Reason: Moderate pain predniSONE [PredniSONE] 50 mg PO DAILY 15 Days Tramadol HCl [Ultram] 50 mg PO TID #30 tab Home Medications: Cholecalciferol (Vitamin D3) [Vitamin D3] 1,000 unit PO DAILY 05/01/15 [History] Cyanocobalamin (B-12) 1,000 mcg PO DAILY 05/01/15 [History] Diltiazem HCl [Diltiazem 24Hr Cd] 180 mg PO QAM 05/01/15 [History] Furosemide [Lasix] 20 mg PO QAM 05/01/15 [History] Metoprolol [Lopressor] 25 mg PO BID 05/01/15 [History] Multivit-Min/FA/Lycopen/Lutein [Centrum Silver Tablet] 1 tab PO DAILY 05/01/15 [ History] Omeprazole [PriLOSEC] 20 mg PO DAILY 05/01/15 [History] Sodium Chloride/Aloe Nasal Gel [[place] Saline Nasal Gel] 1 spray NS Q6H PRN [History] Atorvastatin [Lipitor] 40 mg PO HS 04/22/17 [History] Polyvinyl Alcohol [Artificial Tears] 2 drop OP QID PRN 04/22/17 [History] Acetaminophen w/Cod 300-30 mg [Tylenol w/Codeine #3] 1 tab PO Q4HR PRN #14 tab 05/10/17 [Rx] Docusate [Colace] 100 mg PO BID PRN 05/10/17 [Rx] Tramadol HCl [Ultram] 50 mg PO TID #30 tab 05/10/17 [Rx] predniSONE [PredniSONE] 50 mg PO DAILY 15 Days 05/10/17 [Rx] Allergies/Adverse Reactions: 3 Allergy/AdvReac Type Severity Reaction Status Date / Time No Known Allergies Allergy Verified 04/16/17 09:58 - Respiratory Orders Smoking Cessation: Smoking cessation has been advised. For more information, call the [place] Tobacco Quit Line at 4-212-MUMP-NOW. - Ancillary Orders May consult with Dentist, Environmental Control Administrator, Process Safety Engineering Technologist PRN - Advance Directives Code Status: Full Code - Mobility Orders Ambulate (per PT) - Rehabiliation Orders Rehab Potential: Fair Rehab Orders: Evaluation for Physical Therapy, Evaluation for Occupational Therapy CERTIFICATION: I certify that the transfer of the above named patient to an Extended Care Facility is necessary for the continuing treatment of the diagnosis listed. The above information is true and accurate reflection of patient's current condition. Confidential - Redisclosure prohibited without a patient's written consent.
== END 2017-05-10 16:37 | DRG 392 ==
LOC: EMEROO 13:39 → 3NENU 13:39
PROVIDERS: ADMIT Nurse Practitioner; ATTEND Internal Medicine

== ENCOUNTER 2017-06-03 15:54 | Inpatient (IN) ==
[2017-06-03] MEDS ORDERED: Ondansetron 4 MG/2 ML VIAL IVP ONE (16:29)
[2017-06-03] MEDS ORDERED: *HR* HYDROmorphone (PF) 1 MG/ML SYRINGE IVP ONE (16:29)
--- NOTE | 2017-06-03 16:32 | Emergency Department Note ---
Disposition Clinical Impression: Frail elderly, Lumbago with sciatica, DJD (degenerative joint disease), lumbar , UTI (urinary tract infection), Ataxia, Anemia, Uncontrolled pain Disposition: Admitted As Inpatient Referrals: Gissel Escamilla MD [Primary Care Provider] - Forms: ED Satisfaction Letter General Adult HPI - General Chief complaint: ED Back Pain/Injury Stated complaint: Back Pain X 4 weeks Source: EMS Limitations: age - History of Present Illness HPI Narrative: 86-year-old male reports emergency department complaining of lower back pain worse on the left. The patient has known lumbar disease and has been admitted to the hospital recently and recently placed in a rehabilitation center for pain control and general rehabilitation. The patient states he was in the hospital and morphine was very helpful for him. In the rehabilitation facility he was given a prescription for oxycodone 5 mg 2 tablets every 4 hours as needed. He reports he discharged from from the rehabilitation facility because they did not know what to do. The patient had a recent spinal injection complains of persistent lower back pain. There is an element of constipation reported. The patient denies abdominal pain or vomiting. No trauma no weakness or numbness legs no acute bowel or bladder dysfunction apart from constipated complaints. The patient has sciatica on the left side. He denies chest pain or shortness of breath is currently not anticoagulated. The patient has a history of lymphoma but no history of spinal cancer. Recent CT abdomen and pelvis and lumbar spine were obtained. The patient's recently been evaluated for cholangitis and was in the hospital about a month ago. There is no history of jaundice and icterus or acute abdominal pain. The patient is unable to get up and ambulate ambulate secondary to his pain. Pain Scale: 8 - Related Data Home Medications Medication Instructions Recorded Confirmed Cholecalciferol (Vitamin D3) 1,000 unit PO DAILY 05/01/15 05/06/17 [Vitamin D3] Cyanocobalamin (B-12) 1,000 mcg PO DAILY 05/01/15 05/06/17 Diltiazem HCl [Diltiazem 24Hr Cd] 180 mg PO QAM 05/01/15 05/06/17 Furosemide [Lasix] 20 mg PO QAM 05/01/15 05/06/17 Metoprolol [Lopressor] 25 mg PO BID 05/01/15 05/06/17 Multivit-Min/FA/Lycopen/Lutein 1 tab PO DAILY 05/01/15 05/06/17 [Centrum Silver Tablet] Omeprazole [PriLOSEC] 20 mg PO DAILY 05/01/15 05/06/17 Sodium Chloride/Aloe Nasal Gel 1 spray NS Q6H PRN 02/18/17 05/06/17 [[place] Saline Nasal Gel] Atorvastatin [Lipitor] 40 mg PO HS 04/22/17 05/06/17 Polyvinyl Alcohol [Artificial 2 drop OP QID PRN 04/22/17 05/06/17 Tears] Previous Rx's Medication Instructions Recorded Acetaminophen w/Cod 300-30 mg 1 tab PO Q4HR PRN #14 tab 05/10/17 [Tylenol w/Codeine #3] Docusate [Colace] 100 mg PO BID PRN 05/10/17 Tramadol HCl [Ultram] 50 mg PO TID #30 tab 05/10/17 predniSONE [PredniSONE] 50 mg PO DAILY 15 Days tab 05/10/17 Allergies Allergy/AdvReac Type Severity Reaction Status Date / Time No Known Allergies Allergy Verified 04/16/17 09:58 All systems ED: reviewed and negative except as stated. Past Medical History - Past Medical History Medical history: Reports: cancer, CHF, coronary artery disease, hyperlipidemia, hypertension, malignancy, RA, valvular heart disease, other Surgical history: Reports: coronary bypass (CABG), heart valve replacement ( Aortic valve), other (Pacemaker, biliary duct stent, cardiac cath x3 without stents, colonoscopy), pacemaker Psychiatric history: Reports: no psych history - Social History Smoking Status: Never smoker Smokeless Tobacco Status: No Alcohol use: Reports: none Drug use: Reports: none Physical Exam - General Limitations: age General appearance: alert, in no apparent distress - Head Head exam: atraumatic, normocephalic, normal inspection - Eye Eye exam: Present: normal appearance, PERRL, EOMI. Absent: scleral icterus, conjunctival injection, nystagmus, miosis, mydriasis, periorbital swelling - ENT ENT exam: normal exam, normal oropharynx, mucous membranes moist, TM's normal bilaterally, normal external ear exam - Neck Neck exam: Present: normal inspection, full ROM, trachea midline. Absent: tenderness, meningismus - Chest Chest inspection: Present: symmetric chest wall rise. Absent: tenderness - Respiratory Respiratory exam: Present: normal lung sounds bilaterally. Absent: respiratory distress, wheezes, accessory muscle use, prolonged expiratory phase - Cardiovascular Cardiovascular exam: Present: regular rate, normal rhythm, normal heart sounds - Abdominal Exam Abdominal exam: Present: soft, Non-Tender, normal bowel sounds. Absent: tenderness, distention, guarding, rebound, rigidity, trauma, pulsatile mass - Extremities Exam Extremities exam: Present: normal inspection, full ROM, normal capillary refill. Absent: tenderness, pedal edema, joint swelling, calf tenderness - Expanded Lower Extremity Exam Neurovascular/Tendon exam: Present: normal capillary refill. Absent: motor deficit, sensory deficit, tendon deficit, extremity cold to touch, pallor - Back Exam Back exam: Present: normal inspection, full ROM, tenderness, straight leg raise (L). Absent: CVA tenderness (L), vertebral tenderness, straight leg raise (R) - Neurological Exam Neurological exam: Present: alert, oriented X3, CN II-XII intact. Absent: motor sensory deficit - Psychiatric Psychiatric exam: Present: normal affect, normal mood - Skin Skin exam: Present: warm, dry, intact, normal color. Absent: rash, cyanosis, diaphoresis, erythema, pallor, mottled Course Vital Signs Temperature 97.6 F 06/03/17 15:57 Pulse Rate 77 06/03/17 15:57 Respiratory Rate 18 06/03/17 15:57 Blood Pressure 123/67 06/03/17 15:57 O2 Sat by Pulse Oximetry 98 06/03/17 15:57 Temperature 97.6 F 06/03/17 15:57 Pulse Rate 64 06/03/17 18:40 Respiratory Rate 18 06/03/17 18:40 Blood Pressure 142/63 06/03/17 18:40 O2 Sat by Pulse Oximetry 98 06/03/17 18:40 Oxygen Delivery Oxygen Delivery Room Air Medical Decision Making - [facility] Narrative Medical decision making narrative: The patient is elderly, has had recent injections for his back pain, and demonstrates an element of sciatica and lumbago, he has been taking oxycodone 10 mg every 4 hours and has uncontrolled pain. The patient's recent CT scan of the abdomen pelvis demonstrated no aneurysm. Recent CT lumbar spine demonstrate degenerative changes. The patient had a straight catheter urine in the ED which showed marked abnormalities, he also has a notably elevated CRP. The patient has been weak and unable to walk at home and his reports she cannot take care of him in this condition. Based on the patient's uncontrolled pain, as well as apparent significant UTI, age, and ataxia secondary to pain, with notable lumbar disc disease, I thought it would be appropriate to admit the patient to the hospital. I discussed the case with the hospitalist on-call who is accepted the patient to their care. Pain therapy and antibiotics were given in the ED. The patient is currently stable pending admission. - Lab Data Lab results reviewed: Yes I reviewed the patient's lab results. Result diagrams: 06/03/17 16:54 06/03/17 16:54 Lab Results 06/03/17 06/03/17 06/03/17 Range/Units 16:47 16:54 16:54 WBC 7.3 (4.3-11.1) K/mcL RBC 4.09 L (4.19-5.50) M/mcL Hgb 11.8 L (12.9-16.9) g/dL Hct 35.6 L (37.5-50.1) % MCV 87.0 (83.0-100.0) fL MCH 28.9 (28.0-33.3) pg MCHC 33.1 (31.6-35.5) g/dL RDW 14.6 H (11.5-14.5) % Plt Count 161 (140-400) K/mcL MPV 9.7 (9.4-12.4) fL Immature Gran % 0.7 (0-4) % Seg Neutrophils % 81.5 % Lymphocytes % 3.6 % Monocytes % 13.8 % Eosinophils % 0.4 % Basophils % 0.0 % Neutrophils # 5.9 (1.6-8.9) K/mcL Lymphocytes # 0.3 L (0.6-4.6) K/mcL Monocytes # 1.0 (0.0-1.3) K/mcL Eosinophils # 0.0 (0.0-0.6) K/mcL Basophils # 0.0 (0.0-0.2) K/mcL Sodium 136 (136-145) mEq/L Potassium 3.6 (3.5-4.5) mEq/L Chloride 104 (98-109) mEq/L Carbon Dioxide 21 (19-29) mEq/L BUN 16 (8-26) mg/dL Creatinine 0.87 (0.72-1.25) mg/dL Est GFR ( Amer) > 60 (> 60) Est GFR (Non-Af Amer) > 60 (> 60) BUN/Creatinine Ratio 18 (6-26) Glucose 129 H (70-99) mg/dL Calculated Osmolality 285 (280-300) Lactic Acid 2.3 H (0.5-2.2) mmol/L Calcium 9.3 (8.6-10.8) mg/dL Total Bilirubin 1.0 (0.2-1.2) mg/dL Direct Bilirubin 0.5 (0.0-0.5) mg/dL Indirect Bilirubin 0.5 (0.0-1.2) mg/dL AST 12 (5-34) Units/L ALT 11 (0-55) Units/L Alkaline Phosphatase 72 (38-126) Units/L C-Reactive Protein (Less than 5) mg/L Serum Total Protein 5.7 L (6.0-8.3) g/dL Albumin 2.8 L (3.5-5.0) g/dL Globulin 2.9 (2.4-3.5) g/dL Albumin/Globulin Ratio 1.0 L (1.1-2.2) Lipase 27 (8-78) Units/L Urine Color (Yellow) Urine Clarity (Clear) Urine pH (5.0-8.0) pH Units Ur Specific [place] (1.010-1.025) Urine Protein (Neg-Trace) mg/dL Urine Glucose (UA) (Normal) mg/dL Urine Ketones (Negative) mg/dL Urine Blood (Negative) Urine Nitrite (Negative) Urine Bilirubin (Negative) Urine Urobilinogen (Normal) mg/dL Ur Leukocyte Esterase (Negative) Urine Microscopic RBC (0-3) per hpf Urine Microscopic WBC (0-3) per hpf Ur Squamous Epith Cells (None-Few) per lpf Urine Bacteria (None-Few) per hpf Ur Culture Indicated? (NO) 06/03/17 06/03/17 Range/Units 16:54 17:43 WBC (4.3-11.1) K/mcL RBC (4.19-5.50) M/mcL Hgb (12.9-16.9) g/dL Hct (37.5-50.1) % MCV (83.0-100.0) fL MCH (28.0-33.3) pg MCHC (31.6-35.5) g/dL RDW (11.5-14.5) % Plt Count (140-400) K/mcL MPV (9.4-12.4) fL Immature Gran % (0-4) % Seg Neutrophils % % Lymphocytes % % Monocytes % % Eosinophils % % Basophils % % Neutrophils # (1.6-8.9) K/mcL Lymphocytes # (0.6-4.6) K/mcL Monocytes # (0.0-1.3) K/mcL Eosinophils # (0.0-0.6) K/mcL Basophils # (0.0-0.2) K/mcL Sodium (136-145) mEq/L Potassium (3.5-4.5) mEq/L Chloride (98-109) mEq/L Carbon Dioxide (19-29) mEq/L BUN (8-26) mg/dL Creatinine (0.72-1.25) mg/dL Est GFR ( Amer) (> 60) Est GFR (Non-Af Amer) (> 60) BUN/Creatinine Ratio (6-26) Glucose (70-99) mg/dL Calculated Osmolality (280-300) Lactic Acid (0.5-2.2) mmol/L Calcium (8.6-10.8) mg/dL Total Bilirubin (0.2-1.2) mg/dL Direct Bilirubin (0.0-0.5) mg/dL Indirect Bilirubin (0.0-1.2) mg/dL AST (5-34) Units/L ALT (0-55) Units/L Alkaline Phosphatase (38-126) Units/L C-Reactive Protein 49 H (Less than 5) mg/L Serum Total Protein (6.0-8.3) g/dL Albumin (3.5-5.0) g/dL Globulin (2.4-3.5) g/dL Albumin/Globulin Ratio (1.1-2.2) Lipase (8-78) Units/L Urine Color Yellow (Yellow) Urine Clarity Turbid A (Clear) Urine pH 7.5 (5.0-8.0) pH Units Ur Specific [place] 1.012 (1.010-1.025) Urine Protein Negative (Neg-Trace) mg/dL Urine Glucose (UA) Normal (Normal) mg/dL Urine Ketones Negative (Negative) mg/dL Urine Blood Small H (Negative) Urine Nitrite Positive A (Negative) Urine Bilirubin Negative (Negative) Urine Urobilinogen Normal (Normal) mg/dL Ur Leukocyte Esterase Large H (Negative) Urine Microscopic RBC 0-3 (0-3) per hpf Urine Microscopic WBC TNTC H (0-3) per hpf Ur Squamous Epith Cells Few (None-Few) per lpf Urine Bacteria Moderate H (None-Few) per hpf Ur Culture Indicated? YES A (NO) - Radiology Data Radiology results reviewed: Yes I reviewed the patient's radiology results.
[2017-06-03 17:00] LABS: Eosinophils % 0.4 %; Hematocrit 35.6 % (37.5-50.1); Hemoglobin 11.8 g/dL (12.9-16.9); Immature Granulocytes % 0.7 % (0-4); Lymphocytes # 0.3 K/mcL (0.6-4.6); Lymphocytes % 3.6 %; Mean Corpuscular HGB Conc 33.1 g/dL (31.6-35.5); Mean Corpuscular Hemoglobin 28.9 pg (28.0-33.3); Mean Platelet Volume 9.7 fL (9.4-12.4); Monocytes % 13.8 %; Neutrophils # 5.9 K/mcL (1.6-8.9); Platelet Count 161 K/mcL (140-400); Red Blood Count 4.09 M/mcL (4.19-5.50); Red Cell Distribution Width 14.6 % (11.5-14.5); Segmented Neutrophils % 81.5 %
[2017-06-03 17:22] LABS: Alanine Aminotransferase 11 Units/L (0-55); Albumin 2.8 g/dL (3.5-5.0); Alkaline Phosphatase 72 Units/L (38-126); Aspartate Amino Transferase 12 Units/L (5-34); BUN/Creatinine Ratio 18 (6-26); Bilirubin,Direct 0.5 mg/dL (0.0-0.5); Bilirubin,Indirect 0.5 mg/dL (0.0-1.2); Blood Urea Nitrogen 16 mg/dL (8-26); Calcium 9.3 mg/dL (8.6-10.8); Carbon Dioxide 21 mEq/L (19-29); Chloride 104 mEq/L (98-109); Globulin 2.9 g/dL (2.4-3.5); Glucose 129 mg/dL (70-99); Lipase 27 Units/L (8-78); Osmolality,Calculated 285 (280-300); Potassium 3.6 mEq/L (3.5-4.5); Sodium 136 mEq/L (136-145); Total Protein 5.7 g/dL (6.0-8.3); eGFR For African Americans > 60 (> 60); eGFR For Non-African Americans > 60 (> 60)
[2017-06-03 17:53] LABS: Bilirubin,Urine Negative (Negative); Blood,Urine Small (Negative); Clarity,Urine Turbid (Clear); Color,Urine Yellow (Yellow); Glucose,Urine (UA) Normal (Normal); Ketones,Urine Negative (Negative); Leukocyte Esterase,Urine Large (Negative); Nitrite,Urine Positive (Negative); PH,Urine 7.5 pH Units (5.0-8.0); Protein,Urine Negative (Neg-Trace); Specific Gravity,Urine 1.012 (1.010-1.025); Urobilinogen,Urine Normal (Normal)
[2017-06-03 18:00] LABS: Squamous Epithelial Cell,Urine Few per lpf (None-Few); WBC,Urine TNTC per hpf (0-3)
[2017-06-03 18:01] LABS: Bacteria,Urine Moderate per hpf (None-Few); RBC,Urine 0-3 per hpf (0-3)
[2017-06-03] MEDS ORDERED: 0.9 % Sodium Chloride 1,000 ML IVC ONE ×2 (18:27→19:20)
[2017-06-03] MEDS ORDERED: diazePAM 5 MG TABLET PO PRN (21:33)
[2017-06-03] MEDS ORDERED: Naloxone 0.4 MG/ML INJ IVP PRN (21:33)
[2017-06-03] MEDS ORDERED: Ondansetron 4 MG/2 ML VIAL IVP PRN (21:33)
[2017-06-03] MEDS ORDERED: *HR* HYDROmorphone (PF) 1 MG/ML SYRINGE IVP PRN (21:33)
[2017-06-03] MEDS ORDERED: Artificial Tears SOLN 15 ML BOTTLE OP PRN (21:35)
[2017-06-03] MEDS: Sennosides/Docusate Sodium TABLET PO SCH (22:09)
--- NOTE | 2017-06-03 22:09 | Internal Med History&Physical ---
Date of Encounter: 06/03/17 Time of Encounter: 21:03 Assessment and Plan (1) Intractable low back pain Current visit: Yes Status: Acute CT L-spine from 05/07/17: 1. Decreased bone mineral density. 2. Significant scoliosis with diffuse degenerative disc and joint disease and right lateral grade 1 multilevel spondylolisthesis. 3. No acute fracture. 4. Severe multifactorial vertebral canal stenosis at the L3/4 level. 5. Severe multilevel right neural foraminal stenosis. Continue pain control Valium prn Consult with Dr. Cobb requested PT/OT when able pt reported of constipation, added laxative support Unable to obtain MRI due to PPM (2) UTI (urinary tract infection) Current visit: Yes Status: Acute continue IV Ceftriaxone f/u urine culture Qualifiers: Urinary tract infection type: site unspecified Hematuria presence: without hematuria Qualified Code(s): N39.0 - Urinary tract infection, site not specified (3) CAD (coronary artery disease) Current visit: No Status: Chronic no signs of acute angina present continue home medications Qualifiers: Coronary Disease-Associated Artery/Lesion type: [place] artery [place] vs. transplanted heart: [place] heart Associated angina: without angina Qualified Code(s): I25.10 - Atherosclerotic heart disease of [place] coronary artery without angina pectoris (4) HTN (hypertension) Current visit: No Status: Chronic BP within acceptable range continue home medications Qualifiers: Hypertension type: essential hypertension Qualified Code(s): I10 - Essential (primary) hypertension (5) Hyperlipidemia Current visit: No Status: Chronic continue home meds Qualifiers: Hyperlipidemia type: unspecified Qualified Code(s): E78.5 - Hyperlipidemia , unspecified (6) Rheumatoid arthritis Current visit: No Status: Chronic continue home meds Qualifiers: Rheumatoid arthritis location: multiple sites Rheumatoid factor presence: unspecified presence Qualified Code(s): M06.9 - Rheumatoid arthritis, unspecified (7) DVT prophylaxis Current visit: No Status: Acute Heparin SQ Internal Medicine - H&P: HPI Chief complaint: back pain Admitted From: Home Plans for Post Hospital Care: Home History of present illness: Mr. 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 He states he has had this lower back pain for the last 6 weeks and is undergoing outpatient management with Dr. Reynolds, however he woke up this morning with excruciating lower back pain due to which he was unable to even walk which prompted his visit to the ER. He has been taking pain medications as per Dr. Reynolds's recommendations but has not had any relief. Denies any neurological deficits, no loss of bladder or bowel function reported. He is resting in bed and states he is comfortable if he lays flat on his back and does not move, however even with the slightest movement, he is in excruciating pain. Denies any urinary symptoms however noted to have positive UA concerning for UTI. Denies any recent falls or trauma. Denies any headache, chest pain, sob, abd pain, n/v, fever, or chills. Social history: Never smoker, denies any alcohol use Code status: Full code Past Med Surg Social Fam HX - Past Medical History Medical history: cancer, CHF, coronary artery disease, hyperlipidemia, hypertension, malignancy, RA, valvular heart disease, other Psychiatric history: no psych history - Past Surgical History Surgical History: coronary bypass (CABG), heart valve replacement, other, pacemaker - Social History Smoking Status: Never smoker Smokeless Tobacco Status: No Alcohol use: none Drug use: none - Family History Mother Adopted: No Family Member Ethnicity: Non- Living Status: Hx Family Cardiac Disorders: Yes Hx Family Cancer: Yes (breast) Hx Family Endocrine Disorder: Yes (DM) Father Living Status: Internal Medicine - H&P: Meds Cholecalciferol (Vitamin D3) [Vitamin D3] 1,000 unit PO DAILY 05/01/15 [History] Cyanocobalamin (B-12) 1,000 mcg PO DAILY 05/01/15 [History] Diltiazem HCl [Diltiazem 24Hr Cd] 180 mg PO QAM 05/01/15 [History] Furosemide [Lasix] 40 mg PO QAM 05/01/15 [History] Metoprolol [Lopressor] 25 mg PO BID 05/01/15 [History] Multivit-Min/FA/Lycopen/Lutein [[place] Silver Tablet] 1 tab PO DAILY 05/01/15 [ History] Omeprazole [PriLOSEC] 20 mg PO DAILY 05/01/15 [History] Sodium Chloride/Aloe Nasal Gel [[place] Saline Nasal Gel] 1 spray NS Q6H PRN [History] Atorvastatin [Lipitor] 40 mg PO HS 04/22/17 [History] Polyvinyl Alcohol [Artificial Tears] 2 drop OP QID PRN 04/22/17 [History] Docusate [Colace] 100 mg PO BID PRN 05/10/17 [Rx] Lactulose [Lactulose] 30 gm PO DAILY 06/03/17 [History] OxyCODONE Immed Rel [Roxicodone 5 MG] 10 mg PO Q4H PRN 06/03/17 [History] 3 Allergy/AdvReac Type Severity Reaction Status Date / Time No Known Allergies Allergy Verified 04/16/17 09:58 All Systems PM: A 10-system review of systems was performed and is negative for pertinent findings except as documented above in the HPI. - Constitutional Constitutional: as per HPI - Constitutional Vitals: Temp Pulse Resp BP Pulse Ox 97.7 F 94 17 139/79 99 06/03/17 21:34 06/03/17 21:34 06/03/17 21:34 06/03/17 21:34 06/03/17 21:34 General appearance: Present: cooperative, A&O X 3, pleasant, no acute distress, answers questions appropriately - Head Head exam: Present: atraumatic, normocephalic - Eye Eye exam: Present: conjuntiva pink, sclera anicteric Additional comments: ptosis of right eye right eye blindness - Respiratory Respiratory exam: Present: CTAB. Absent: respiratory distress, wheezes - Cardiovascular Cardiovascular exam: Present: RRR, +S1, +S2. Absent: diastolic murmur, gallop, rubs, systolic murmur - GI/Abdominal GI/Abdominal exam: Present: normal bowel sounds, soft, no peritoneal signs. Absent: distended, tenderness - Extremities Exam Extremities exam: Present: warm, radial pulses palpable and symmetrical. 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
[2017-06-03] MEDS: MethylPREDNISolone 40 MG/ML VIAL IVP SCH (22:11)
[2017-06-04] MEDS: *HR* Morphine 2 MG/ML SYRINGE IVP PRN ×4 (00:19→22:56)
[2017-06-04] MEDS: *HR* Heparin 5,000 UNIT/ML VIAL SQ SCH ×2 (06:51→17:17)
[2017-06-04 06:54] LABS: Hematocrit 38.1 % (37.5-50.1); Hemoglobin 12.7 g/dL (12.9-16.9); Lymphocytes # 0.2 K/mcL (0.6-4.6); Mean Corpuscular HGB Conc 33.3 g/dL (31.6-35.5); Mean Corpuscular Hemoglobin 29.2 pg (28.0-33.3); Mean Corpuscular Volume 87.6 fL (83.0-100.0); Platelet Count 157 K/mcL (140-400); Red Blood Count 4.35 M/mcL (4.19-5.50); Red Cell Distribution Width 14.6 % (11.5-14.5)
[2017-06-04 07:08] LABS: BUN/Creatinine Ratio 19 (6-26); Blood Urea Nitrogen 16 mg/dL (8-26); Carbon Dioxide 19 mEq/L (19-29); Chloride 105 mEq/L (98-109); Glucose 159 mg/dL (70-99); Magnesium 1.9 mg/dL (1.6-2.6); Osmolality,Calculated 291 (280-300); Phosphorous 2.9 mg/dL (2.3-4.7); Sodium 138 mEq/L (136-145); eGFR For African Americans > 60 (> 60); eGFR For Non-African Americans > 60 (> 60)
[2017-06-04 08:07] LABS: Monocytes # 0.3 K/mcL (0.0-1.3)
[2017-06-04 08:08] LABS: Platelet Estimate Normal (Normal)
[2017-06-04] MEDS ORDERED: Lactulose 200 GM/300 ML (for enema) RC SCH (09:00)
[2017-06-04] MEDS: Cyanocobalamin (B-12) 1,000 MCG TABLET PO SCH (09:02)
[2017-06-04] MEDS: Diltiazem CD (24hr) 180 MG CAPSULE PO SCH (09:02)
[2017-06-04] MEDS: Cholecalciferol (D-3) 1,000 UNIT TABLET PO SCH (09:02)
[2017-06-04] MEDS: Furosemide 40 MG TABLET PO SCH (09:02)
[2017-06-04] MEDS: MethylPREDNISolone 40 MG/ML VIAL IVP SCH ×2 (09:02→22:01)
[2017-06-04] MEDS: Sennosides/Docusate Sodium TABLET PO SCH ×2 (09:02→20:37)
[2017-06-04] MEDS: Lactulose Oral Soln 20 GM/30 ML UDC PO SCH (09:02)
--- NOTE | 2017-06-04 14:36 | Pain Management Consultation ---
Date of Encounter: 06/04/17 Time of Encounter: 14:34 Assessment and Plan (1) Scoliosis Current Visit: No Status: Chronic It seems that the patient is having an acute on chronic exacerbation of chronic low back pain most likely related to a myofascial cascade of pain that is probably related to the needle insertion for the lateral branch blocks. While the patient does not have julio spasm on examination, he is having intense pain across the lumbar region. Recommend transitioning from IV opioid to oral opioid. Recommend low-dose tramadol or Vicodin on an as-needed basis. Also strongly recommend Flexeril 10 mg 3 times a day when necessary to control low back pain. Strongly recommend physical therapy consultation and continued physical therapy and ambulation as a primary treatment to control low back pain. Do not recommend discharge on oral opioid as long as pain in low back is declining as it should after this exacerbation for the past few days. No evidence to suggest that any other intervention should be attempted at this point. The assessment and plan as outlined above was discussed with the patient and/or family members who expressed understanding and agreement. All questions were answered. Qualifiers: Scoliosis type: idiopathic Idiopathic scoliosis type: other Spinal region : thoracolumbar Qualified Code(s): M41.25 - Other idiopathic scoliosis, thoracolumbar region History of Present Illness Chief complaint: low back pain HPI: Mr. Tripp is a 86 year old male who is having acute on chronic low back pain. The pain is centered in his lumbar area. He is pointing to that area. The injection site is below this area. He describes the pain as a sharp 10/10 sensation that does not radiate into the lower limbs. It has been this intense for the past 4 days. The injection did not alleviate pain in any way for even a short amount of time. The severe pain began the day that he had the diagnostic lateral branch block. He has been having increased pain with standing and walking. Lying down flat causes the pain to reduce. He started to have bowel movements both last night and this morning which were significant. He denies constipation at this point, but the past 3 days did involve an element of constipation. He also understands that he is being treated for a urinary tract infection. Past Med Surg Social Fam HX - Past Medical History Medical history: cancer, CHF, coronary artery disease, hyperlipidemia, hypertension, malignancy, RA, valvular heart disease, other Psychiatric history: no psych history - Past Surgical History Surgical History: coronary bypass (CABG), heart valve replacement, other, pacemaker - Social History Smoking Status: Never smoker Smokeless Tobacco Status: No Alcohol use: none Drug use: none - Family History Mother Adopted: No Family Member Ethnicity: Non- Living Status: Hx Family Cardiac Disorders: Yes Hx Family Cancer: Yes (breast) Hx Family Endocrine Disorder: Yes (DM) Father Living Status: Medications and Allergies Cholecalciferol (Vitamin D3) [Vitamin D3] 1,000 unit PO DAILY 05/01/15 [History] Cyanocobalamin (B-12) 1,000 mcg PO DAILY 05/01/15 [History] Diltiazem HCl [Diltiazem 24Hr Cd] 180 mg PO QAM 05/01/15 [History] Furosemide [Lasix] 40 mg PO QAM 05/01/15 [History] Metoprolol [Lopressor] 25 mg PO BID 05/01/15 [History] Multivit-Min/FA/Lycopen/Lutein [Centrum Silver Tablet] 1 tab PO DAILY 05/01/15 [ History] Omeprazole [PriLOSEC] 20 mg PO DAILY 05/01/15 [History] Sodium Chloride/Aloe Nasal Gel [[place] Saline Nasal Gel] 1 spray NS Q6H PRN [History] Atorvastatin [Lipitor] 40 mg PO HS 04/22/17 [History] Polyvinyl Alcohol [Artificial Tears] 2 drop OP QID PRN 04/22/17 [History] Docusate [Colace] 100 mg PO BID PRN 05/10/17 [Rx] Lactulose [Lactulose] 30 gm PO DAILY 06/03/17 [History] OxyCODONE Immed Rel [Roxicodone 5 MG] 10 mg PO Q4H PRN 06/03/17 [History] 3 Allergy/AdvReac Type Severity Reaction Status Date / Time No Known Allergies Allergy Verified 04/16/17 09:58 Review of Systems - Constitutional Constitutional ROS IM: no photophobia, no phonophobia, no daytime sleepiness, no fever(s), no stops breathing during sleep - EENT Nose, mouth and throat: no headache(s), no neck pain, no neck trauma - Cardiovascular Cardiovascular ROS: no chest pain, no leg edema, no lightheadedness - Respiratory Respiratory: no pain on inspiration, no pain with cough - Gastrointestinal Gastrointestinal: constipation, no abdominal pain, no diarrhea, no heartburn - Genitourinary Genitourinary ROS: no difficulty urinating, no flank pain, no urinary hesitancy - Musculoskeletal Musculoskeletal ROS: no muscle weakness, no numbness, no radiating pain into limb, no tingling left: elbow pain - Integumentary Integumentary: no erythema, no lesions, no swelling - Neurological Neurological ROS: no abnormal gait, no behavioral changes, no focal weakness, no radicular pain - Psychiatric Psychiatric general: no anxiety, no confusion, no depression - Hematologic/Lymphatic Hematologic/Lymphatic pediatric: no easy bleeding, no easy bruising Physical Exam Initial Vital Signs Temp Pulse Resp BP Pulse Ox 97.6 F 77 18 123/67 98 06/03/17 15:57 06/03/17 15:57 06/03/17 15:57 06/03/17 15:57 06/03/17 15:57 - Additional Findings EYES:: pupils equal and round, no myosis. SKIN:: no areas of echymoses or petechiae CARDIOVASCULAR:: regular rate and rhythm, no murmurs PULMONARY:: lung hernandez clear to auscultation bilaterally. Quiet, normal respiratory pattern. GASTROINTESTINAL:: active bowel sounds. MUSCULOSKELETAL GAIT:: antalgic, but able INSPECTION:: no erythema or swelling at the injection site over the posterior sacrum PALPATION:: paraspinous musculature is tender to deep palpation in the lumbar area bilaterally. ROM:: Active flexion and extension are reduced in the lumbar area. Active Rotation is reduced in the lumbar area. Facet loading positions (extension with sidebending and rotation) are positive in the lumbar area. STRENGTH:: RIGHT hip flexors: 5/5 :: LEFT hip flexors: 5/5 RIGHT hip adduction 5/5 :: LEFT hip adduction 5/5 RIGHT hip abduction 5/5 :: LEFT hip abduction 5/5 RIGHT knee extension 5/5 :: LEFT knee extension 5/5 RIGHT knee flexion 5/5 :: LEFT knee flexion 5/5 RIGHT ankle dorsiflexion 5/5 :: LEFT ankle dorsiflexion 5/5 RIGHT ankle plantarflexion 5/5 :: LEFT ankle plantarflexion 5/5 RIGHT great toe dorsiflexion 5/5 :: LEFT great toe dorsiflexion 5/5 RIGHT great toe plantarflexion 5/5 :: LEFT great toe plantarflexion 5/5 STRAIGHT LEG RAISE:: LLE is negative at 120 degrees. RLE is negative at 120 degrees. NEUROLOGIC SENSATION:: hypesthesia is not noted in lower extremity dermatomes. SIGNS OF NEUROVASCULAR COMPRESSION Clonus: none found bilateral with passive ROM at ankle joint Spasticity:: none Atrophy:: not present in UE or LE musculature Fasciculation:: not present in UE or LE musculature PSYCHIATRIC:: ORIENTATION:: awake and alert. INSIGHT:: good awareness of illness. AFFECT:: pleasant. Radiology Images Viewed By Me:: April 2017 lumbar radiograph shows severe scoliosis and advanced spondylosis at all lumbar levels. I have reviewed and agree with information documented in the scribed documentation, ROS, patient medications, allergies, medical history, surgical history, social history, and family history. Results - Labs 06/04/17 06:46 06/04/17 06:46 Abnormal lab results Hgb 12.7 g/dL (12.9-16.9) L 06/04/17 06:46 RDW 14.6 % (11.5-14.5) H 06/04/17 06:46 Lymphocytes # 0.2 K/mcL (0.6-4.6) L 06/04/17 06:46 Glucose 159 mg/dL (70-99) H 06/04/17 06:46 C-Reactive Protein 49 mg/L (Less than 5) H 06/03/17 16:54 Serum Total Protein 5.7 g/dL (6.0-8.3) L 06/03/17 16:54 Albumin 2.8 g/dL (3.5-5.0) L 06/03/17 16:54 Albumin/Globulin Ratio 1.0 (1.1-2.2) L 06/03/17 16:54 Urine Clarity Turbid (Clear) A 06/03/17 17:43 Urine Blood Small (Negative) H 06/03/17 17:43 Urine Nitrite Positive (Negative) A 06/03/17 17:43 Ur Leukocyte Esterase Large (Negative) H 06/03/17 17:43 Urine Microscopic WBC TNTC per hpf (0-3) H 06/03/17 17:43 Urine Bacteria Moderate per hpf (None-Few) H 06/03/17 17:43 Ur Culture Indicated? YES (NO) A 06/03/17 17:43 Diabetes panel 06/04/17 Range/Units 06:46 Sodium 138 (136-145) mEq/L Potassium 4.0 (3.5-4.5) mEq/L Chloride 105 (98-109) mEq/L Carbon Dioxide 19 (19-29) mEq/L BUN 16 (8-26) mg/dL Creatinine 0.84 (0.72-1.25) mg/dL Glucose 159 H (70-99) mg/dL Calcium 9.0 (8.6-10.8) mg/dL Calcium panel 06/04/17 Range/Units 06:46 Calcium 9.0 (8.6-10.8) mg/dL Phosphorus 2.9 (2.3-4.7) mg/dL Pituitary panel 06/04/17 Range/Units 06:46 Sodium 138 (136-145) mEq/L Potassium 4.0 (3.5-4.5) mEq/L Chloride 105 (98-109) mEq/L Carbon Dioxide 19 (19-29) mEq/L BUN 16 (8-26) mg/dL Creatinine 0.84 (0.72-1.25) mg/dL Glucose 159 H (70-99) mg/dL Calcium 9.0 (8.6-10.8) mg/dL Adrenal panel 06/04/17 Range/Units 06:46 Sodium 138 (136-145) mEq/L Potassium 4.0 (3.5-4.5) mEq/L Chloride 105 (98-109) mEq/L Carbon Dioxide 19 (19-29) mEq/L BUN 16 (8-26) mg/dL Creatinine 0.84 (0.72-1.25) mg/dL Glucose 159 H (70-99) mg/dL Calcium 9.0 (8.6-10.8) mg/dL All other labs normal. Consult Discharge Plan - Plan Referrals: Gissel Escamilla MD [Primary Care Provider] -
--- NOTE | 2017-06-04 16:47 | Internal Med Progress Note ---
Date of Encounter: 06/04/17 Time of Encounter: 09:10 - Assessment and plan (1) Intractable low back pain Current Visit: Yes Status: Acute Assessment and plan: Acute on chronic low back pain. Discussed and consulted pain management. We will follow their recommendations. Also consult physical therapy. Pain control. Moderate risk for complications (2) CAD (coronary artery disease) Current Visit: No Status: Chronic Qualifiers: Coronary Disease-Associated Artery/Lesion type: [place] artery [place] vs. transplanted heart: [place] heart Associated angina: without angina Qualified Code(s): I25.10 - Atherosclerotic heart disease of [place] coronary artery without angina pectoris (3) DVT prophylaxis Current Visit: No Status: Acute (4) HTN (hypertension) Current Visit: No Status: Chronic Assessment and plan: Continue Cardizem and Lopressor. Well controlled this morning Qualifiers: Hypertension type: essential hypertension Qualified Code(s): I10 - Essential (primary) hypertension (5) Rheumatoid arthritis Current Visit: No Status: Chronic Assessment and plan: Not on any disease modifying agents at this time. Would recommend follow-up with rheumatology as outpatient. Started on intravenous steroids for pain management. Qualifiers: Rheumatoid arthritis location: multiple sites Rheumatoid factor presence: unspecified presence Qualified Code(s): M06.9 - Rheumatoid arthritis, unspecified (6) UTI (urinary tract infection) Current Visit: Yes Status: Acute Assessment and plan: Urine positive for WBC and leukocyte esterase. Will follow culture results. Continue ceftriaxone Qualifiers: Urinary tract infection type: site unspecified Hematuria presence: without hematuria Qualified Code(s): N39.0 - Urinary tract infection, site not specified (7) Chronic congestive heart failure Current Visit: No Status: Chronic Assessment and plan: Patient with history of diastolic dysfunction. Continue Lasix. Not in acute exacerbation. Qualifiers: Congestive heart failure type: diastolic Qualified Code(s): I50.32 - Chronic diastolic (congestive) heart failure - Subjective Interval history: Patient sitting up in bed. Complains of low back pain which is gets worse with any kind of movement. Denies any bowel or bladder incontinence. No focal weakness or numbness in lower extremities. - Constitutional Vitals: Temp Pulse Resp BP Pulse Ox 98.6 F 79 16 141/75 96 06/04/17 15:39 06/04/17 15:39 06/04/17 15:39 06/04/17 15:39 06/04/17 15:39 General appearance: Present: cooperative, A&O X 3, pleasant, no acute distress, answers questions appropriately - Eye Eye exam: Present: EOMI, PERRL, conjuntiva pink, sclera anicteric - Neck Neck exam general surgery: Present: supple, trachea midline. Absent: lymphadenopathy - Respiratory Respiratory exam: Present: CTAB. Absent: accessory muscle use, rales, rhonchi, wheezes - Cardiovascular Cardiovascular exam: Present: RRR, +S1, +S2. Absent: diastolic murmur, gallop, rubs, systolic murmur - GI/Abdominal GI/Abdominal exam: Present: normal bowel sounds, soft, no peritoneal signs. Absent: distended, tenderness - Extremities Exam Extremities exam: Present: warm, radial pulses palpable and symmetrical. Absent : calf tenderness, cyanotic, pedal edema - Back Exam Back exam: Present: normal inspection, paraspinal tenderness. Absent: tenderness, vertebral tenderness - Neurological Exam Neurological exam: Present: alert, oriented X3, no focal deficits. Absent: facial droop, speech deficit - Skin Skin exam: Present: dry, intact Internal Medicine: Result - Labs CBC & Chem 7: 06/04/17 06:46 06/04/17 06:46 Labs: Short CBC 06/04/17 Range/Units 06:46 WBC 5.5 (4.3-11.1) K/mcL Hgb 12.7 L (12.9-16.9) g/dL Hct 38.1 (37.5-50.1) % Plt Count 157 (140-400) K/mcL Neutrophils # 5.0 (1.6-8.9) K/mcL BMP 06/04/17 06:46 Sodium 138 Potassium 4.0 Chloride 105 Carbon Dioxide 19 BUN 16 Creatinine 0.84 Glucose 159 H Calcium 9.0 Consult Discharge Plan - Plan Referrals: Gissel Escamilla MD [Primary Care Provider] -
[2017-06-05] MEDS: *HR* Heparin 5,000 UNIT/ML VIAL SQ SCH ×2 (05:33→16:28)
[2017-06-05] MEDS: Sennosides/Docusate Sodium TABLET PO SCH ×2 (08:00→20:51)
[2017-06-05] MEDS: Cyanocobalamin (B-12) 1,000 MCG TABLET PO SCH (08:00)
[2017-06-05] MEDS: Cholecalciferol (D-3) 1,000 UNIT TABLET PO SCH (08:00)
[2017-06-05] MEDS: Diltiazem CD (24hr) 180 MG CAPSULE PO SCH (08:00)
[2017-06-05] MEDS: traMADol 50 MG TABLET PO PRN ×2 (08:00→16:28)
[2017-06-05] MEDS: Furosemide 40 MG TABLET PO SCH (08:00)
[2017-06-05] MEDS: Lactulose Oral Soln 20 GM/30 ML UDC PO SCH ×2 (08:02→13:32)
[2017-06-05] MEDS: MethylPREDNISolone 40 MG/ML VIAL IVP SCH ×2 (08:43→20:51)
[2017-06-05] MEDS: *HR* Morphine 2 MG/ML SYRINGE IVP PRN (08:46)
--- NOTE | 2017-06-05 12:52 | Internal Med Progress Note ---
Date of Encounter: 06/05/17 Time of Encounter: 11:35 - Assessment and plan (1) Intractable low back pain Current Visit: Yes Status: Acute Assessment and plan: Appreciate pain management input. Pain believed to be due to myofascial cascade of pain most likely related to needle insertion for lateral branch blocks. We will continue current pain medication regimen as patient has not had any significant improvement since coming in. Has been placed on Flexeril and tramadol orally. High risk for complications due to intravenous narcotic pain medication use. (2) CAD (coronary artery disease) Current Visit: No Status: Chronic Assessment and plan: Continue home medications. No chest pain Qualifiers: Coronary Disease-Associated Artery/Lesion type: [place] artery [place] vs. transplanted heart: [place] heart Associated angina: without angina Qualified Code(s): I25.10 - Atherosclerotic heart disease of [place] coronary artery without angina pectoris (3) HTN (hypertension) Current Visit: No Status: Chronic Qualifiers: Hypertension type: essential hypertension Qualified Code(s): I10 - Essential (primary) hypertension (4) Rheumatoid arthritis Current Visit: No Status: Chronic Qualifiers: Rheumatoid arthritis location: multiple sites Rheumatoid factor presence: unspecified presence Qualified Code(s): M06.9 - Rheumatoid arthritis, unspecified (5) UTI (urinary tract infection) Current Visit: Yes Status: Acute Assessment and plan: No positive cultures yet. Continue ceftriaxone. Qualifiers: Urinary tract infection type: site unspecified Hematuria presence: without hematuria Qualified Code(s): N39.0 - Urinary tract infection, site not specified (6) Chronic congestive heart failure Current Visit: No Status: Chronic Assessment and plan: No acute issues. Continue oral Lasix Qualifiers: Congestive heart failure type: diastolic Qualified Code(s): I50.32 - Chronic diastolic (congestive) heart failure (7) DVT prophylaxis Current Visit: No Status: Acute Assessment and plan: On subcutaneous heparin - Subjective Interval history: Patient is currently lying in bed. He does have significant low back pain with any kind of movement. Symptoms have not really improved much. Denies any bowel or bladder incontinence or focal lower extremity weakness or numbness. - Constitutional Vitals: Temp Pulse Resp BP Pulse Ox 98.4 F 78 16 152/70 98 06/05/17 12:07 06/05/17 12:07 06/05/17 12:07 06/05/17 12:07 06/05/17 12:07 General appearance: Present: cooperative, A&O X 3, pleasant, no acute distress, answers questions appropriately - Neck Neck exam general surgery: Present: supple, trachea midline. Absent: lymphadenopathy - Respiratory Respiratory exam: Present: CTAB. Absent: accessory muscle use, rales, rhonchi, wheezes - Cardiovascular Cardiovascular exam: Present: RRR, +S1, +S2. Absent: diastolic murmur, gallop, rubs, systolic murmur - GI/Abdominal GI/Abdominal exam: Present: normal bowel sounds, soft, no peritoneal signs. Absent: distended, tenderness - Neurological Exam Neurological exam: Present: alert, CN II-XII intact, oriented X3, no focal deficits. Absent: facial droop, speech deficit - Skin Skin exam: Present: dry, intact Internal Medicine: Result - Labs CBC & Chem 7: 06/04/17 06:46 06/04/17 06:46 Consult Discharge Plan - Plan Referrals: Gissel Escamilla MD [Primary Care Provider] -
[2017-06-06] MEDS: traMADol 50 MG TABLET PO PRN ×2 (05:07→16:17)
[2017-06-06] MEDS: *HR* Heparin 5,000 UNIT/ML VIAL SQ SCH ×2 (05:07→16:18)
[2017-06-06] MEDS: Furosemide 40 MG TABLET PO SCH (09:40)
[2017-06-06] MEDS: Diltiazem CD (24hr) 180 MG CAPSULE PO SCH (09:40)
[2017-06-06] MEDS: Sennosides/Docusate Sodium TABLET PO SCH ×2 (09:40→19:59)
[2017-06-06] MEDS: Cyanocobalamin (B-12) 1,000 MCG TABLET PO SCH (09:40)
[2017-06-06] MEDS: Cholecalciferol (D-3) 1,000 UNIT TABLET PO SCH (09:40)
[2017-06-06] MEDS: MethylPREDNISolone 40 MG/ML VIAL IVP SCH (09:40)
[2017-06-06] MEDS: Lactulose Oral Soln 20 GM/30 ML UDC PO SCH (09:42)
[2017-06-06] MEDS: *HR* Morphine 2 MG/ML SYRINGE IVP PRN ×3 (09:53→19:05)
--- NOTE | 2017-06-06 14:44 | Internal Med Progress Note ---
Date of Encounter: 06/06/17 Time of Encounter: 11:30 - Assessment and plan (1) Intractable low back pain Current Visit: Yes Status: Acute Assessment and plan: Appears to be slightly improved today. Will continue current pain management. Encouraged use of oral medications and use intravenous narcotic medications only when pain is not controlled with oral medications. Continue physical therapy. Physical therapy recommends patient go to inpatient rehabilitation. We will consult social studies department chair to make arrangements for this. (2) CAD (coronary artery disease) Current Visit: No Status: Chronic Assessment and plan: No chest pain at this time. Qualifiers: Coronary Disease-Associated Artery/Lesion type: [place] artery [place] vs. transplanted heart: [place] heart Associated angina: without angina Qualified Code(s): I25.10 - Atherosclerotic heart disease of [place] coronary artery without angina pectoris (3) HTN (hypertension) Current Visit: Yes Status: Chronic Assessment and plan: Blood pressure is currently elevated. Continue Cardizem and metoprolol. We will increase metoprolol dosage. Qualifiers: Hypertension type: essential hypertension Qualified Code(s): I10 - Essential (primary) hypertension (4) Rheumatoid arthritis Current Visit: No Status: Chronic Assessment and plan: Follow-up with rheumatology. Qualifiers: Rheumatoid arthritis location: multiple sites Rheumatoid factor presence: unspecified presence Qualified Code(s): M06.9 - Rheumatoid arthritis, unspecified (5) UTI (urinary tract infection) Current Visit: Yes Status: Acute Assessment and plan: Urine culture positive for staph epidermidis. Most likely contaminant. Complete 5 day antibiotic course. Qualifiers: Urinary tract infection type: site unspecified Hematuria presence: without hematuria Qualified Code(s): N39.0 - Urinary tract infection, site not specified (6) Chronic congestive heart failure Current Visit: No Status: Chronic Assessment and plan: Continue Lasix Qualifiers: Congestive heart failure type: diastolic Qualified Code(s): I50.32 - Chronic diastolic (congestive) heart failure (7) DVT prophylaxis Current Visit: No Status: Acute Assessment and plan: On subcutaneous heparin - Subjective Interval history: Patient reports that the pain in his low back is somewhat better today. He has not required intravenous narcotic medications since last night. Currently working with physical therapy in bed. Ambulated with the help of the therapist earlier. - Constitutional Vitals: Temp Pulse Resp BP Pulse Ox 97.8 F 82 16 154/82 95 06/06/17 13:51 06/06/17 13:51 06/06/17 13:51 06/06/17 13:51 06/06/17 13:51 General appearance: Present: cooperative, mild distress, A&O X 3, pleasant, answers questions appropriately - Respiratory Respiratory exam: Present: CTAB. Absent: accessory muscle use, rales, rhonchi, wheezes - Cardiovascular Cardiovascular exam: Present: RRR, +S1, +S2. Absent: diastolic murmur, gallop, rubs, systolic murmur - GI/Abdominal GI/Abdominal exam: Present: normal bowel sounds, soft, no peritoneal signs. Absent: distended, tenderness - Extremities Exam Extremities exam: Present: warm, radial pulses palpable and symmetrical. Absent : calf tenderness, cyanotic, pedal edema - Skin Skin exam: Present: dry, intact Internal Medicine: Result - Labs CBC & Chem 7: 06/04/17 06:46 06/04/17 06:46 Consult Discharge Plan - Plan Referrals: Gissel Escamilla MD [Primary Care Provider] -
[2017-06-06] MEDS: Nitrofurantoin (BID) 100 MG CAPSULE PO SCH (16:17)
[2017-06-07] MEDS: *HR* Heparin 5,000 UNIT/ML VIAL SQ SCH ×2 (05:35→18:17)
[2017-06-07] MEDS: traMADol 50 MG TABLET PO PRN ×2 (07:48→14:24)
[2017-06-07] MEDS: Lactulose Oral Soln 20 GM/30 ML UDC PO SCH (07:49)
[2017-06-07] MEDS: Sennosides/Docusate Sodium TABLET PO SCH ×2 (07:49→20:45)
[2017-06-07] MEDS: Nitrofurantoin (BID) 100 MG CAPSULE PO SCH ×2 (07:49→18:14)
[2017-06-07] MEDS: Cyanocobalamin (B-12) 1,000 MCG TABLET PO SCH (07:49)
[2017-06-07] MEDS: Diltiazem CD (24hr) 180 MG CAPSULE PO SCH (07:49)
[2017-06-07] MEDS: Cholecalciferol (D-3) 1,000 UNIT TABLET PO SCH (07:49)
[2017-06-07] MEDS: Furosemide 40 MG TABLET PO SCH (07:49)
[2017-06-07] MEDS ORDERED: predniSONE 20 MG TABLET PO SCH (09:00)
--- NOTE | 2017-06-07 17:29 | Rheumatology Consult Note ---
Date of Encounter: 06/07/17 Time of Encounter: 12:30 Rheumatology Assess and Plan (1) Rheumatoid arthritis of multiple sites without rheumatoid factor Current Visit: Yes Status: Acute This patient has a history of CCP positive, nodular rheumatoid arthritis. His disease has been in clinical remission due to frequent infusions of Rituximab for his underlying B-cell lymphoma. Last infusion 04/29 per oncology note. - His exam today is negative for synovitis - He has Rituximab likely in his system for 6-12 months - I do not see evidence of active rheumatoid arthritis today; his back pain is doubtful to be related to rheumatoid arthritis both by location and symptoms. - From a rheumatology perspective, no need for prednisone for RA; history of recent lymphoma may prohibit certain DMARDS - Would reevaluate as an outpatient for further management; patient questions answered and he was in agreement. - I am seeing him in a month and he is aware of how to get in touch with the office if needed (2) Intractable low back pain Current Visit: Yes Status: Acute Continues to have very severe back pain affecting his ambulation. Imaging shows multiple abnormalities though not responsive to medications or procedures he reports. He has worked with pain management and plans are to go to inpatient rehabilition. I do not believe this is due to an inflammatory arthritis. 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 Tripp is a 86 year old male with PMH of seropositive, nodular RA, B cell lymphoma, hypertension, diastolic heart failure, secondary sjogrens who presents to [facility] with intractable back pain. This patient states that he has been having 5 or so weeks of severe back pain from his low abdomen radiating down to his back. He has had a series of GI and interventional radiology procedures that have not altered his pain. He states the pain is constant, worse with movement and has improved with nothing. He has had evaluation and interentions by pain management without any response. He has been placed on pain medication without a response. He has been placed on prednisone without a response. Lumbar CT showed degenerative disc disease, severe canal stenosis and foraminal stenosis. In regards to his rheumatoid arthritis, he has been in clinical remission now due to his repeated rituximab infusions. His last infusion by oncology for his lymphoma was ~ 3 months ago. He reports he has had no return to peripheral joint pain and denies any swelling. Reports oncology is going to be giving him IVIG. Treated for UTI. CRP 49. Past Med Surg Social Fam HX - Past Medical History Medical history: cancer, CHF, coronary artery disease, hyperlipidemia, hypertension, malignancy, RA, valvular heart disease, other Psychiatric history: no psych history - Past Surgical History Surgical History: coronary bypass (CABG), heart valve replacement, other, pacemaker - Social History Smoking Status: Never smoker Smokeless Tobacco Status: No Alcohol use: none Drug use: none - Family History Mother Adopted: No Family Member Ethnicity: Non- Living Status: Hx Family Cardiac Disorders: Yes Hx Family Cancer: Yes (breast) Hx Family Endocrine Disorder: Yes (DM) Father Living Status: Medications and Allergies Cholecalciferol (Vitamin D3) [Vitamin D3] 1,000 unit PO DAILY 05/01/15 [History] Cyanocobalamin (B-12) 1,000 mcg PO DAILY 05/01/15 [History] Diltiazem HCl [Diltiazem 24Hr Cd] 180 mg PO QAM 05/01/15 [History] Furosemide [Lasix] 40 mg PO QAM 05/01/15 [History] Metoprolol [Lopressor] 25 mg PO BID 05/01/15 [History] Multivit-Min/FA/Lycopen/Lutein [Centrum Silver Tablet] 1 tab PO DAILY 05/01/15 [ History] Omeprazole [PriLOSEC] 20 mg PO DAILY 05/01/15 [History] Sodium Chloride/Aloe Nasal Gel [[place] Saline Nasal Gel] 1 spray NS Q6H PRN [History] Atorvastatin [Lipitor] 40 mg PO HS 04/22/17 [History] Polyvinyl Alcohol [Artificial Tears] 2 drop OP QID PRN 04/22/17 [History] Docusate [Colace] 100 mg PO BID PRN 05/10/17 [Rx] Lactulose [Lactulose] 30 gm PO DAILY 06/03/17 [History] OxyCODONE Immed Rel [Roxicodone 5 MG] 10 mg PO Q4H PRN 06/03/17 [History] 3 Allergy/AdvReac Type Severity Reaction Status Date / Time No Known Allergies Allergy Verified 04/16/17 09:58 All Systems Review: General - no recent weight loss, weight gain, fatigue or fevers Eyes - no redness, loss of vision, dryness/itching/foreign body sensation ENT - no dryness of mouth, oral ulcerations, nasal ulcerations, sore throat Cardiovascular - no chest pain, palpitations, lightheadedness, syncope Respiratory - no shortness of breath, difficulty breathing at night, pleuritic chest pain and no cough Gastrointestinal - no nausea, vomiting, diarrhea, bloating, black/tarry stools, blood in stools or heartburn Genitourinary - no pain on urination, hematuria, frothy urine or ulcerations. Musculoskeletal - no morning stiffness, joint swelling, muscle aches, tendon/ ligament swelling or tenderness and+ severe back pain Integumentary - no easy bruising, rashes, hives, photosensitivity, skin thickening, alopecia, color changes of hands. + nodules. Neurological - no muscle weakness or paresthesias Hematologic/lymphatic - no tender or swollen glands, history of anemia or blood clots Rheumatology Exam Vital Signs, Last 4 Hours Temp Pulse Resp BP Pulse Ox 06/07/17 16:19 97.9 F 78 18 133/82 97 Exam: General - Alert and oriented x 3, no acute distress and appears in mild distress HEENT - Conjunctiva clear, Male patterned hair thinning, no facial rash, no nasal or oral mucosal lesions/ulcerations Heme/Lymph - No cervical or supraclavicular lymph node enlargement or tenderness. No pallor. Heart - S1S2 regular in rate and rhythm without murmurs, clicks or rubs. No peripheral edema. Radial pulses equal and strong Lungs - Unlabored breathing, clear to auscultation bilaterally without wheezes or crackles; no decrease in chest expansion Abdomen - Soft, nontender, nondistended. Unable to palpate any hepatosplenomegaly Skin - No clubbing, erythema, petichiae, malar rash, telangiectasias, digital ulcers. Large nodules on extensor surface of elbows. Neurological - Gait antalgic and using a walker, muscle strength 5/5 in all four extremities but exam limited due to back pain Musculoskeletal - ROM limited due to back pain, no synovitis, no joint tenderness, Rheumatology Results 06/04/17 06:46 06/04/17 06:46 All other labs normal. Consult Discharge Plan - Plan Referrals: Gissel Escamilla MD [Primary Care Provider] -
--- NOTE | 2017-06-07 17:47 | Internal Med Progress Note ---
Date of Encounter: 06/07/17 Time of Encounter: 16:00 - Assessment and plan (1) Intractable low back pain Current Visit: Yes Status: Acute Assessment and plan: Continues to have intractable low back pain. Will stop tramadol place patient on Roxicodone. His medication to be used short-term pain. Continues IV morphine if this does not control his pain. Continue physical therapy. Recommend placement to inpatient rehabilitation. attraction worker looking into this. Discussed about further imaging options with radiology. They did not recommend doing a CT myelogram. Will obtain lumbar spine CT instead to look for any acute process that is contributing to worsening pain. (2) CAD (coronary artery disease) Current Visit: No Status: Chronic Qualifiers: Coronary Disease-Associated Artery/Lesion type: [place] artery [place] vs. transplanted heart: [place] heart Associated angina: without angina Qualified Code(s): I25.10 - Atherosclerotic heart disease of [place] coronary artery without angina pectoris (3) HTN (hypertension) Current Visit: Yes Status: Chronic Assessment and plan: Intermittently elevated likely due to pain. Metoprolol dosage increased to 50 mg by mouth twice a day. Qualifiers: Hypertension type: essential hypertension Qualified Code(s): I10 - Essential (primary) hypertension (4) Rheumatoid arthritis Current Visit: No Status: Chronic Assessment and plan: Consulted rheumatology. We will follow the recommendations. Per discussion with rheumatology they do not believe the patient's low back pain is related to his rheumatoid arthritis. Qualifiers: Rheumatoid arthritis location: multiple sites Rheumatoid factor presence: unspecified presence Qualified Code(s): M06.9 - Rheumatoid arthritis, unspecified (5) UTI (urinary tract infection) Current Visit: Yes Status: Acute Assessment and plan: Urine culture growing staph epidermidis. Although this is most likely contaminant, given his age, we will treat with short 3 day course of Macrobid to which it is sensitive per microbiology results. Qualifiers: Urinary tract infection type: site unspecified Hematuria presence: without hematuria Qualified Code(s): N39.0 - Urinary tract infection, site not specified (6) Chronic congestive heart failure Current Visit: No Status: Chronic Assessment and plan: Continue Lasix. Not in acute exacerbation Qualifiers: Congestive heart failure type: diastolic Qualified Code(s): I50.32 - Chronic diastolic (congestive) heart failure (7) DVT prophylaxis Current Visit: No Status: Acute - Subjective Interval history: Patient continues to have low back pain which seemed to improve last night but has not worsened since this morning. No bowel or bladder incontinence. No lower extremity weakness. He does report some radiation down to his right hip. No loss of sensation. - Constitutional Vitals: Temp Pulse Resp BP Pulse Ox 97.9 F 78 18 133/82 97 06/07/17 16:19 06/07/17 16:19 06/07/17 16:19 06/07/17 16:19 06/07/17 16:19 General appearance: Present: cooperative, mild distress, A&O X 3, pleasant, answers questions appropriately - Neck Neck exam general surgery: Present: supple, trachea midline. Absent: lymphadenopathy - Respiratory Respiratory exam: Present: CTAB. Absent: accessory muscle use, rales, rhonchi, wheezes - Cardiovascular Cardiovascular exam: Present: RRR, +S1, +S2. Absent: diastolic murmur, gallop, rubs, systolic murmur - GI/Abdominal GI/Abdominal exam: Present: normal bowel sounds, soft, no peritoneal signs. Absent: distended, tenderness - Extremities Exam Extremities exam: Present: full ROM, warm, radial pulses palpable and symmetrical. Absent: calf tenderness, cyanotic, pedal edema - Neurological Exam Neurological exam: Present: alert, CN II-XII intact, oriented X3, no focal deficits, strengths equal and symetr throughout. Absent: facial droop, speech deficit Internal Medicine: Result - Labs CBC & Chem 7: 06/04/17 06:46 06/04/17 06:46 Consult Discharge Plan - Plan Referrals: Gissel Escamilla MD [Primary Care Provider] -
[2017-06-07] MEDS: *HR* OxyCODONE Immed Rel 5 MG TABLET PO PRN (18:13)
[2017-06-08] MEDS: *HR* OxyCODONE Immed Rel 5 MG TABLET PO PRN ×5 (00:19→21:45)
[2017-06-08] MEDS: *HR* Heparin 5,000 UNIT/ML VIAL SQ SCH ×2 (04:49→17:37)
[2017-06-08] MEDS: Furosemide 40 MG TABLET PO SCH (09:29)
[2017-06-08] MEDS: Cholecalciferol (D-3) 1,000 UNIT TABLET PO SCH (09:29)
[2017-06-08] MEDS: Cyanocobalamin (B-12) 1,000 MCG TABLET PO SCH (09:30)
[2017-06-08] MEDS: Diltiazem CD (24hr) 180 MG CAPSULE PO SCH (09:31)
[2017-06-08] MEDS: Lactulose Oral Soln 20 GM/30 ML UDC PO SCH (09:31)
[2017-06-08] MEDS: Nitrofurantoin (BID) 100 MG CAPSULE PO SCH ×2 (09:34→16:39)
[2017-06-08] MEDS: Sennosides/Docusate Sodium TABLET PO SCH (09:34)
[2017-06-08] MEDS ORDERED: Ketorolac 30 MG/ML VIAL IVP ONE (16:17)
[2017-06-09] MEDS: *HR* Morphine 2 MG/ML SYRINGE IVP PRN ×2 (05:11→17:41)
[2017-06-09] MEDS: *HR* Heparin 5,000 UNIT/ML VIAL SQ SCH ×2 (06:34→19:40)
[2017-06-09] MEDS: Diltiazem CD (24hr) 180 MG CAPSULE PO SCH (09:48)
[2017-06-09] MEDS: Cyanocobalamin (B-12) 1,000 MCG TABLET PO SCH (09:48)
[2017-06-09] MEDS: Cholecalciferol (D-3) 1,000 UNIT TABLET PO SCH (09:49)
[2017-06-09] MEDS: Lactulose Oral Soln 20 GM/30 ML UDC PO SCH (09:49)
[2017-06-09] MEDS: *HR* OxyCODONE Immed Rel 5 MG TABLET PO PRN ×2 (09:49→14:59)
[2017-06-09] MEDS: Nitrofurantoin (BID) 100 MG CAPSULE PO SCH ×2 (09:49→17:40)
[2017-06-09] MEDS: Furosemide 40 MG TABLET PO SCH (09:49)
--- NOTE | 2017-06-09 19:37 | Internal Med Progress Note ---
Date of Encounter: 06/09/17 Time of Encounter: 13:30 - Assessment and plan (1) Intractable low back pain Current Visit: Yes Status: Acute Assessment and plan: Pain adjusted by Pain Management,currently in pain but tolerable. Discussed with patient complexity of his back problems make complete pain resolution highly unlikely. Plan is to continue PT and possibly inpatient rehab (2) Lumbago with sciatica Current Visit: Yes Status: Acute Assessment and plan: as above Qualifiers: Chronicity: acute Back pain laterality: midline Sciatica laterality: bilateral sciatica Qualified Code(s): M54.42 - Lumbago with sciatica, left side; M54.41 - Lumbago with sciatica, right side (3) Rheumatoid arthritis of multiple sites without rheumatoid factor Current Visit: Yes Status: Chronic Assessment and plan: evaluated by Rheumatology. Less likely source of patient's intractable acute on chronic back pain. - Subjective Interval history: Able to sit up in chair today. Evaluated by Ortho today. Continuing plan of PT - Constitutional Vitals: Temp Pulse Resp BP Pulse Ox 97.6 F 75 20 101/67 98 06/09/17 19:00 06/09/17 19:00 06/09/17 19:00 06/09/17 19:00 06/09/17 19:00 General appearance: Present: cooperative, mild distress, A&O X 3, pleasant, answers questions appropriately Exam: - Neck Neck exam general surgery: Present: supple, trachea midline. Absent: lymphadenopathy - Respiratory Respiratory exam: Present: CTAB. Absent: accessory muscle use, rales, rhonchi, wheezes - Cardiovascular Cardiovascular exam: Present: RRR, +S1, +S2. Absent: diastolic murmur, gallop, rubs, systolic murmur - GI/Abdominal GI/Abdominal exam: Present: normal bowel sounds, soft, no peritoneal signs. Absent: distended, tenderness - Extremities Exam Extremities exam: Present: full ROM, warm, radial pulses palpable and symmetrical. Absent: calf tenderness, cyanotic, pedal edema - Neurological Exam Neurological exam: Present: alert, CN II-XII intact, oriented X3, no focal deficits, strengths equal and symetr throughout. Absent: facial droop, speech deficit Internal Medicine: Result - Labs CBC & Chem 7: 06/04/17 06:46 06/04/17 06:46 - Impressions Impressions Lumbar Spine CT 06/07/17 16:00 IMPRESSION: Severe dextroconvex scoliosis of the lumbar spine with severe multilevel disc degenerative changes. Moderate to severe canal narrowing at L3-4 with bilateral foraminal narrowing. Multilevel facet arthritis. D/ / 06/07/2017 18:26:56 Carlton Martines MD / froy Interpreting Provider: Carlton Martines MD Consult Discharge Plan - Plan Referrals: Gissel Escamilla MD [Primary Care Provider] -
[2017-06-10] MEDS: *HR* OxyCODONE Immed Rel 5 MG TABLET PO PRN ×2 (06:12→17:25)
[2017-06-10] MEDS: *HR* Heparin 5,000 UNIT/ML VIAL SQ SCH ×3 (06:13→17:31)
[2017-06-10] MEDS: Diltiazem CD (24hr) 180 MG CAPSULE PO SCH (09:54)
[2017-06-10] MEDS: Nitrofurantoin (BID) 100 MG CAPSULE PO SCH ×2 (09:54→17:25)
[2017-06-10] MEDS: Cholecalciferol (D-3) 1,000 UNIT TABLET PO SCH (09:54)
[2017-06-10] MEDS: Lactulose Oral Soln 20 GM/30 ML UDC PO SCH (09:54)
[2017-06-10] MEDS: Cyanocobalamin (B-12) 1,000 MCG TABLET PO SCH (09:54)
[2017-06-10] MEDS: Furosemide 40 MG TABLET PO SCH (09:54)
[2017-06-10 11:27] VITALS: BP 108/70
--- NOTE | 2017-06-10 12:48 | Spine Progress Note ---
Date of Encounter: 06/10/17 Time of Encounter: 08:05 - Assessment and Plan (1) Degenerative scoliosis in adult patient Current Visit: Yes Status: Chronic On examination the patient is lying in bed in some distress secondary to back pain. He is neurovascularly intact with regard to his bilateral upper and lower extremities. His hips move symmetrically. He has no clonus. He has limitation with forward flexion and extension of his lumbar spine. CT scan of the lumbar spine dated 06/07/2017 reveals a severe dextroscoliosis of the lumbar spine. There is multilevel severe degenerative changes including disc space height loss, lateral listhesis, and [id number] proximal mentation of some vertebrae. There is at least moderate stenosis at L3-4. Assessment: 1) lumbar degenerative scoliosis 2) lumbar stenosis Plan: The patient has no interest in surgical intervention which would require a long lumbar decompressive instrumented fusion. He is on a continuous nonoperative treatments as outlined by Dr. Reynolds on an outpatient basis. He is going to continue analgesics and mobilization as tolerated with physical therapy. Subjective Principal diagnosis: Degenerative scoliosis, back pain Interval history: Mr. clarke is an 86-year-old gentleman has had a one-week history of severe low back pain. There is no significant radicular component into the lower extremities. Pain is worsened with activities. He denies any bowel bladder symptomatology, focal weakness in the lower extremity, fevers or chills. He was admitted for control of his intractable pain. We are asked to see regarding additional treatment options. He is being followed by Dr. Sonny Reynolds in interventional pain management who recently did an ablation procedure which exacerbated patient symptomatology. There were no further recommendations besides supportive and analgesic care by Dr. Reynolds. Objective Vital signs: Vital Signs Temp Pulse Resp BP Pulse Ox 06/10/17 11:26 98.9 F 80 15 108/70 95 06/10/17 07:45 99.2 F 74 15 100/67 98 06/09/17 23:24 98.0 F 83 18 123/71 96 06/09/17 19:00 97.6 F 75 20 101/67 98 06/09/17 16:07 99.4 F 76 15 128/63 97 Intake and Output 06/09/17 06/10/17 06/10/17 23:59 07:59 15:59 Intake Total 800 / 800 300 / 300 840 / 840 Balance 800 / 800 300 / 300 840 / 840 Intake: Oral 800 / 800 300 / 300 840 / 840 Other: Meal Breakfast Percent of Meal Consumed 100% # Voids 2 2 - Labs CBC & BMP: 06/04/17 06:46 06/04/17 06:46 Labs: Abnormal lab results Hgb 12.7 g/dL (12.9-16.9) L 06/04/17 06:46 RDW 14.6 % (11.5-14.5) H 06/04/17 06:46 Lymphocytes # 0.2 K/mcL (0.6-4.6) L 06/04/17 06:46 Glucose 159 mg/dL (70-99) H 06/04/17 06:46 C-Reactive Protein 49 mg/L (Less than 5) H 06/03/17 16:54 Serum Total Protein 5.7 g/dL (6.0-8.3) L 06/03/17 16:54 Albumin 2.8 g/dL (3.5-5.0) L 06/03/17 16:54 Albumin/Globulin Ratio 1.0 (1.1-2.2) L 06/03/17 16:54 Urine Clarity Turbid (Clear) A 06/03/17 17:43 Urine Blood Small (Negative) H 06/03/17 17:43 Urine Nitrite Positive (Negative) A 06/03/17 17:43 Ur Leukocyte Esterase Large (Negative) H 06/03/17 17:43 Urine Microscopic WBC TNTC per hpf (0-3) H 06/03/17 17:43 Urine Bacteria Moderate per hpf (None-Few) H 06/03/17 17:43 Ur Culture Indicated? YES (NO) A 06/03/17 17:43 Consult Discharge Plan - Plan Additional Instructions: Please go to nearest emergency room for chest pain, shortness of breath, any new or worsening symptoms. Followup with Dr. Reynolds in pain management on Wednesday June 14, 2017 @ 2:20pm. Referrals: Sonny Reynolds DO [Partnered Physician] - 06/14/17 2:20 pm Gissel Escamilla MD [Primary Care Provider] -
--- NOTE | 2017-06-10 16:38 | Discharge Summary ---
Date of Encounter: 06/11/17 Time of Encounter: 16:29 - Discharge Diagnosis (1) Intractable low back pain Priority: Primary Status: Acute (2) Lumbago with sciatica Priority: Secondary Status: Acute Qualifiers: Chronicity: acute Back pain laterality: midline Sciatica laterality: bilateral sciatica Qualified Code(s): M54.42 - Lumbago with sciatica, left side; M54.41 - Lumbago with sciatica, right side (3) Rheumatoid arthritis of multiple sites without rheumatoid factor Priority: Secondary Status: Chronic - Discharge Medications Prescriptions: RX: Cyclobenzaprine [Flexeril] 10 mg PO TID PRN #90 tablet PRN Reason: Spasms RX: Sennosides/Docusate Sodium [Senna Plus] 2 each PO BID #60 tablet Home Medications: RX: Cholecalciferol (Vitamin D3) [Vitamin D3] 1,000 unit PO DAILY 05/01/15 [ History] RX: Cyanocobalamin (B-12) 1,000 mcg PO DAILY 05/01/15 [History] RX: Diltiazem HCl [Diltiazem 24Hr Cd] 180 mg PO QAM 05/01/15 [History] RX: Furosemide [Lasix] 40 mg PO QAM 05/01/15 [History] RX: Metoprolol [Lopressor] 25 mg PO BID 05/01/15 [History] RX: Multivit-Min/FA/Lycopen/Lutein [[place] Silver Tablet] 1 tab PO DAILY [History] RX: Omeprazole [PriLOSEC] 20 mg PO DAILY 05/01/15 [History] RX: Sodium Chloride/Aloe Nasal Gel [[place] Saline Nasal Gel] 1 spray NS Q6H PRN 04/29 [History] RX: Atorvastatin [Lipitor] 40 mg PO HS 04/22/17 [History] RX: Polyvinyl Alcohol [Artificial Tears] 2 drop OP QID PRN 04/22/17 [History] RX: Lactulose 30 gm PO DAILY 06/03/17 [History] RX: OxyCODONE Immed Rel [Roxicodone 5 MG] 10 mg PO Q4H PRN 06/03/17 [History] RX: Cholecalciferol (D-3) [Vitamin D] 1,000 unit PO DAILY tablet 06/10/17 [Rx] RX: Cyclobenzaprine [Flexeril] 10 mg PO TID PRN #90 tablet 06/10/17 [Rx] RX: Sennosides/Docusate Sodium [Senna Plus] 2 each PO BID #60 tablet 06/10/17 [ Rx] Allergies/Adverse Reactions: 3 Allergy/AdvReac Type Severity Reaction Status Date / Time No Known Allergies Allergy Verified 04/16/17 09:58 Procedures/tests Complete & Pending: Procedures Performed prior 72 hours Category Date Time Status CT lumbar spine wo con [CT] Stat Cat Scan 06/07/17 16:00 Completed Date of admission: 06/05/17 12:50 Primary care physician: Gissel Escamilla Consults: 06/06/17 10:53 Consult to Field Counsel [CONS] Routine Reason for SW Consult: evaluate for discharge needs. 06/07/17 08:29 Consult to Physician [CONS] Routine Consulting Provider: Wes Cohen Reason for Consult: RA Time Notified: 08:29 Call Completed: Yes 06/09/17 07:19 Consult to Orthopedic Surgery [CONS] Routine Consulting Provider: Justin Cobb Jr Reason for Consult: Intractible back pain Call Completed: Yes Discharging clinician: Nasra Whitfield - Patient Status Disposition: Home Health Service Condition: Fair Functional capacity at discharge: uses cane/walker Overall status at discharge: patient is progressing back to baseline - Discharge Instructions Follow Up With: Sonny Reynolds DO [Partnered Physician] - 06/14/17 2:20 pm Gissel Escamilla MD [Primary Care Provider] - Additional Instructions: Please go to nearest emergency room for chest pain, shortness of breath, any new or worsening symptoms. Followup with Dr. Reynolds in pain management on Wednesday June 14, 2017 @ 2:20pm. - Diet and Activity Activity: as per physical therapy Diet: advance to your usual diet Interval History: Mr. 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 He states he has had this lower back pain for the last 6 weeks and is undergoing outpatient management with Dr. Reynolds, however he woke up this morning with excruciating lower back pain due to which he was unable to even walk which prompted his visit to the ER. He has been taking pain medications as per Dr. Reynolds's recommendations but has not had any relief. Denies any neurological deficits, no loss of bladder or bowel function reported. He is resting in bed and states he is comfortable if he lays flat on his back and does not move, however even with the slightest movement, he is in excruciating pain. Denies any urinary symptoms however noted to have positive UA concerning for UTI. Denies any recent falls or trauma. Denies any headache, chest pain, sob, abd pain, n/v, fever, or chills. Hospital course: PT/OT was consulted for therapy. He was given morphine for breakthrough pain. Pain Management was consulted for medication adjustment. Flexeril was added for back spasms. Patient feels his pain was not controlled despite this. Ortho Surg was consulted and noted physical therapy and current treatment is best option given his situation. He did complain of constipation from opiates. It was noted by nursing that he did have BM. A digital rectal exam was done at bedside and no impaction was found. A KUB showed gas patterns but no stool burdens. He was continued on Lactulose and Docusate was changed to Senna plus. He was discharged home with home health. - Time Spent with Patient Total time spent providing and/or coordinating discharge services: - Constitutional Vitals: Temp Pulse Resp BP Pulse Ox 98.9 F 80 15 108/70 95 06/10/17 11:26 06/10/17 11:26 06/10/17 11:26 06/10/17 11:26 06/10/17 11:26 Exam: General appearance: Present: cooperative, mild distress, A&O X 3, pleasant, answers questions appropriately - Respiratory Respiratory exam: Present: CTAB. Absent: accessory muscle use, rales, rhonchi, wheezes - Cardiovascular Cardiovascular exam: Present: RRR, +S1, +S2. Absent: diastolic murmur, gallop, rubs, systolic murmur - GI/Abdominal GI/Abdominal exam: Present: normal bowel sounds, soft, no peritoneal signs. Absent: distended, tenderness - Extremities Exam Extremities exam: Present: warm, radial pulses palpable and symmetrical. Absent : calf tenderness, cyanotic, pedal edema - Skin Skin exam: Present: dry, intact
--- NOTE | 2017-06-10 16:53 | Physician Discharge Referral ---
Home Health/Hosp Referral Info Transfer to: Home Health Provider in Charge Post Discharge: PCP - Diagnosis (1) Intractable low back pain Priority: Primary Status: Acute (2) Lumbago with sciatica Priority: Secondary Status: Acute (3) Rheumatoid arthritis of multiple sites without rheumatoid factor Priority: Secondary Status: Chronic - Respiratory Orders None Smoking Cessation: Smoking cessation has been advised. For more information, call the [place] Tobacco Quit Line at 6-115-OFZM-NOW. - Diet/Nutrition Diet/Nutrition Orders: Regular, Cardiac - Activity Activity Orders: Walker - Services Needed Following services are medically necessary services: Nursing, Home Health Aide, Physical Therapy, Occupational Therapy, Med Social Work - Transfer Medications Prescriptions: Cyclobenzaprine [Flexeril] 10 mg PO TID PRN #90 tablet PRN Reason: Spasms Sennosides/Docusate Sodium [Senna Plus] 2 each PO BID #60 tablet Home Medications: Cholecalciferol (Vitamin D3) [Vitamin D3] 1,000 unit PO DAILY 05/01/15 [History] Cyanocobalamin (B-12) 1,000 mcg PO DAILY 05/01/15 [History] Diltiazem HCl [Diltiazem 24Hr Cd] 180 mg PO QAM 05/01/15 [History] Furosemide [Lasix] 40 mg PO QAM 05/01/15 [History] Metoprolol [Lopressor] 25 mg PO BID 05/01/15 [History] Multivit-Min/FA/Lycopen/Lutein [Centrum Silver Tablet] 1 tab PO DAILY 05/01/15 [ History] Omeprazole [PriLOSEC] 20 mg PO DAILY 05/01/15 [History] Sodium Chloride/Aloe Nasal Gel [[place] Saline Nasal Gel] 1 spray NS Q6H PRN [History] Atorvastatin [Lipitor] 40 mg PO HS 04/22/17 [History] Polyvinyl Alcohol [Artificial Tears] 2 drop OP QID PRN 04/22/17 [History] Lactulose 30 gm PO DAILY 06/03/17 [History] OxyCODONE Immed Rel [Roxicodone 5 MG] 10 mg PO Q4H PRN 06/03/17 [History] Cholecalciferol (D-3) [Vitamin D] 1,000 unit PO DAILY tablet 06/10/17 [Rx] Cyanocobalamin (B-12) [Vitamin B12] 1,000 mcg PO DAILY tablet 06/10/17 [Rx] Cyclobenzaprine [Flexeril] 10 mg PO TID PRN #90 tablet 06/10/17 [Rx] Sennosides/Docusate Sodium [Senna Plus] 2 each PO BID #60 tablet 06/10/17 [Rx] Allergies/Adverse Reactions: 3 Allergy/AdvReac Type Severity Reaction Status Date / Time No Known Allergies Allergy Verified 04/16/17 09:58 Certification: Further, I certify that my clinical findings support that this patient is homebound (i.e. absences from home require considerable and taxing effort and are for medical reasons or yarsani services or infrequently or short duration when for other reasons) because: Homebound Reason: Patient requires assistance of a person or device to safely leave home, Leaving home requires considerable and taxing effort due to condition Attestation: My signature below is to certify that this patient is under my care and that I, or nurse practitioner, or a physician's cataloging assistant working with me, has a face-to -face encounter with this patient.
== END 2017-06-10 18:35 | disposition home health service (06) | DRG 552 ==
LOC: 3NENU 15:54 → EMEROO 15:54 → 3NENU 20:23 → SUATTDRO 06-05 12:50
PROVIDERS: ADMIT Internal Medicine; ATTEND Student in an Organized Health Care Education/Training Program

== ENCOUNTER 2017-12-11 15:16 | Observation (INO) ==
[2017-12-11] MEDS ORDERED: Phenylephrine Nasal 0.5% 15 ML BOTTLE NS ONE (15:31)
[2017-12-11 15:53] LABS: Bilirubin,Urine Negative (Negative); Blood,Urine Negative (Negative); Clarity,Urine Clear (Clear); Color,Urine Yellow (Yellow); Glucose,Urine (UA) Normal (Normal); Ketones,Urine Negative (Negative); Leukocyte Esterase,Urine Negative (Negative); Nitrite,Urine Negative (Negative); Protein,Urine Negative (Neg-Trace); Specific Gravity,Urine 1.012 (1.010-1.025); Urobilinogen,Urine Normal (Normal)
[2017-12-11 15:56] LABS: Hematocrit 35.3 % (37.5-50.1); Hemoglobin 11.3 g/dL (12.9-16.9); Immature Platelets 2.5 % (1.1-6.1); Mean Corpuscular Hemoglobin 28.5 pg (28.0-33.3); Mean Corpuscular Volume 88.9 fL (83.0-100.0); Mean Platelet Volume 9.9 fL (9.4-12.4); Platelet Count 305 K/mcL (140-400); Red Blood Count 3.97 M/mcL (4.19-5.50); Red Cell Distribution Width 14.9 % (11.5-14.5)
[2017-12-11 16:21] LABS: Basophils # 0.1 K/mcL (0.0-0.2); Lymphocytes # 0.8 K/mcL (0.6-4.6); Monocytes # 0.6 K/mcL (0.0-1.3); Neutrophils # 3.4 K/mcL (1.6-8.9); Platelet Estimate Normal (Normal); Reactive Lymphocytes Present (Not Present); Troponin I < 0.03 ng/mL (< 0.04)
[2017-12-11 16:36] LABS: Alanine Aminotransferase 7 Units/L (7-52); Albumin 3.7 g/dL (3.5-5.7); Albumin/Globulin Ratio 1.4 (1.1-2.2); Alkaline Phosphatase 99 Units/L (34-104); Aspartate Amino Transferase 20 Units/L (13-39); BUN/Creatinine Ratio 21 (6-26); Bilirubin,Total 0.5 mg/dL (0.3-1.0); Blood Urea Nitrogen 16 mg/dL (8-23); Calcium 9.2 mg/dL (8.6-10.3); Carbon Dioxide 27 mEq/L (23-29); Chloride 100 mEq/L (98-107); Globulin 2.7 g/dL (2.4-3.5); Glucose 101 mg/dL (70-105); Osmolality,Calculated 279 (280-300); Potassium 3.9 mEq/L (3.5-5.1); Sodium 134 mEq/L (136-145); Total Protein 6.4 g/dL (6.4-8.9); eGFR For African Americans > 60 (> 60); eGFR For Non-African Americans > 60 (> 60)
[2017-12-11] MEDS ORDERED: Furosemide 40 MG/4 ML VIAL IVP ONE (16:51)
[2017-12-11] MEDS ORDERED: Acetaminophen 325 MG TABLET PO PRN (21:20)
[2017-12-11] MEDS ORDERED: Naloxone 0.4 MG/ML INJ IVP PRN (21:20)
[2017-12-11] MEDS: *HR* OxyCODONE Immed Rel 5 MG TABLET PO PRN (22:22)
--- NOTE | 2017-12-12 00:56 | Internal Med History&Physical ---
Date of Encounter: 12/11/17 Time of Encounter: 19:00 Assessment and Plan (1) CHF exacerbation Current visit: Yes Status: Acute Previous echo shows LVEF 60-65%. Patient has elevated BNP, shortness of breath , exertional intolerance, chest x-ray shows pulmonary edema. Consider CHF exacerbation, diastolic. - Continue cardiac monitoring - Place patient on Lasix 40 mg IV daily - Fluid restriction - Repeat echo Qualifiers: Heart failure type: diastolic Qualified Code(s): I50.33 - Acute on chronic diastolic (congestive) heart failure (2) Weakness Current visit: Yes Status: Acute Patient reported weakness. Etiology is undetermined. Probably due to CHF. - Consul PTOT for evaluation (3) Excessive body weight loss Current visit: Yes Status: Acute Patient reported 40 pounds weight loss over last 4 months. Etiology is undetermined. Patient has history of lymphoma. Patient also complained decreased appetite. - Plan CT scan for chest and abdominal - Consul oncology - Consul dietitian for nutrition evaluation and the supplement (4) Hearing loss Current visit: Yes Status: Acute Patient was referred to ENT by PCP. Continue follow-up as outpatient Qualifiers: Hearing loss type: unspecified Laterality: left Qualified Code(s): H91.92 - Unspecified hearing loss, left ear (5) DVT prophylaxis Current visit: Yes Status: Acute Heparin subcutaneously (6) Lymphoma Current visit: No Status: Chronic Patient has finished the chemotherapy. 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 Tripp is a 87 year old male with a history of rheumatoid arthritis, hypertension, S/P aortic valve replacement, lymphoma, right eye blind, presented to ER for generalized weakness and the shortness of breath for about 1 week. Patient denies a chest pain. Patient denies a fever, cough, nausea, diarrhea, or urination symptoms. Patient complaining of left sided hearing loss for about 2 weeks. Patient has lost about 40 pounds over last 4 months. Patient has decreased appetite for several months. Patient denies night sweating. Patient can lay flat for sleep but does have exertional intolerance. In the emergency room, patient was found elevated BNP, chest x-ray shows pulmonary congestion. Patient was admitted for CHF exacerbation. Past Med Surg Social Fam HX - Past Medical History Medical history: cancer, CHF, coronary artery disease, hyperlipidemia, hypertension, malignancy, RA, valvular heart disease, other Psychiatric history: no psych history - Past Surgical History Surgical History: coronary bypass (CABG), heart valve replacement, other, pacemaker - Social History Smoking Status: Never smoker Smokeless Tobacco Status: No Alcohol use: none Drug use: none - Family History Mother Adopted: No Family Member Ethnicity: Non- Living Status: Hx Family Cardiac Disorders: Yes Hx Family Cancer: Yes Hx Family Endocrine Disorder: Yes (DM) Father Living Status: Internal Medicine - H&P: Meds Cholecalciferol (Vitamin D3) [Vitamin D3] 1,000 unit PO DAILY 05/01/15 [History] Cyanocobalamin (B-12) 1,000 mcg PO DAILY 05/01/15 [History] Diltiazem HCl [Diltiazem 24Hr Cd] 180 mg PO QAM 05/01/15 [History] Furosemide [Lasix] 40 mg PO QAM 05/01/15 [History] Metoprolol [Lopressor] 50 mg PO BID 05/01/15 [History] Multivit-Min/FA/Lycopen/Lutein [Centrum Silver Tablet] 1 tab PO DAILY 05/01/15 [ History] Omeprazole [PriLOSEC] 20 mg PO DAILY 05/01/15 [History] Atorvastatin [Lipitor] 40 mg PO HS 04/22/17 [History] OxyCODONE Immed Rel [Roxicodone 5 MG] 20 mg PO Q4H PRN 06/03/17 [History] fentaNYL [Fentanyl] 100 mcg TP Q72H 12/11/17 [History] 3 Allergy/AdvReac Type Severity Reaction Status Date / Time No Known Allergies Allergy Verified 12/11/17 17:16 All Systems PM: A 10-system review of systems was performed and is negative for pertinent findings except as documented above in the HPI. - Constitutional Vitals: Temp Pulse Resp BP Pulse Ox 97.9 F 80 17 119/67 95 12/12/17 00:16 12/12/17 00:16 12/12/17 00:16 12/12/17 00:16 12/12/17 00:16 General appearance: Present: A&O X 3, no acute distress, answers questions appropriately - Head Head exam: Present: atraumatic, normocephalic - Eye Eye exam: Present: PERRL, conjuntiva pink, sclera anicteric Pupils: Present: PERRL - Neck Neck exam general surgery: Present: supple, trachea midline. Absent: lymphadenopathy - Respiratory Respiratory exam: Present: CTAB. Absent: accessory muscle use, rales, rhonchi, wheezes - Cardiovascular Cardiovascular exam: Present: RRR, +S1, +S2. Absent: diastolic murmur, gallop, rubs, systolic murmur - GI/Abdominal GI/Abdominal exam: Present: normal bowel sounds, soft, no peritoneal signs. Absent: distended, tenderness - Extremities Exam Extremities exam: Present: warm, radial pulses palpable and symmetrical. Absent : calf tenderness, cyanotic, pedal edema - Neurological Exam Neurological exam: Present: CN II-XII intact, oriented X3, no focal deficits. Absent: pronater drift, facial droop, speech deficit - Skin Skin exam: Present: dry, intact Internal Med - H&P Results - Labs CBC & Chem 7: 12/11/17 15:45 12/11/17 15:45
[2017-12-12] MEDS: *HR* Heparin 5,000 UNIT/ML VIAL SQ SCH ×2 (05:08→18:37)
[2017-12-12 05:29] LABS: Basophils % 0.2 %; Eosinophils # 0.1 K/mcL (0.0-0.6); Eosinophils % 2.7 %; Hematocrit 31.7 % (37.5-50.1); Hemoglobin 10.2 g/dL (12.9-16.9); Immature Granulocytes % 0.2 % (0-4); Lymphocytes # 0.8 K/mcL (0.6-4.6); Lymphocytes % 18.3 %; Mean Corpuscular HGB Conc 32.2 g/dL (31.6-35.5); Mean Corpuscular Hemoglobin 27.9 pg (28.0-33.3); Mean Corpuscular Volume 86.6 fL (83.0-100.0); Mean Platelet Volume 10.5 fL (9.4-12.4); Monocytes % 22.5 %; Neutrophils # 2.5 K/mcL (1.6-8.9); Platelet Count 227 K/mcL (140-400); Red Blood Count 3.66 M/mcL (4.19-5.50); Red Cell Distribution Width 15.2 % (11.5-14.5); Segmented Neutrophils % 56.1 %
[2017-12-12 05:48] LABS: BUN/Creatinine Ratio 23 (6-26); Blood Urea Nitrogen 16 mg/dL (8-23); Carbon Dioxide 30 mEq/L (23-29); Chloride 100 mEq/L (98-107); Glucose 95 mg/dL (70-105); Magnesium 1.8 mg/dL (1.6-2.6); Osmolality,Calculated 285 (280-300); Potassium 3.4 mEq/L (3.5-5.1); Sodium 137 mEq/L (136-145); eGFR For African Americans > 60 (> 60); eGFR For Non-African Americans > 60 (> 60)
[2017-12-12 05:57] LABS: Platelet Estimate Normal (Normal)
[2017-12-12] MEDS ORDERED: *HR* FentaNYL PATCH 100 MCG PATCH TD SCH (09:00)
[2017-12-12] MEDS: Multivit/Ca/Min/Fe/FA 1 TAB TABLET PO SCH (11:37)
[2017-12-12] MEDS: Cholecalciferol (D-3) 1,000 UNIT TABLET PO SCH (11:37)
[2017-12-12] MEDS: Diltiazem CD (24hr) 180 MG CAPSULE PO SCH (11:37)
[2017-12-12] MEDS: Cyanocobalamin (B-12) 1,000 MCG TABLET PO SCH (11:37)
[2017-12-12] MEDS: Furosemide 40 MG/4 ML VIAL IVP SCH (11:37)
--- NOTE | 2017-12-12 14:33 | Internal Med Progress Note ---
Date of Encounter: 12/12/17 Time of Encounter: 12:25 - Assessment and plan (1) CHF exacerbation Current Visit: Yes Status: Acute Assessment and plan: Clinically improving will continue IV lasix 40 q daily monitor I/Os fluid restriction diet f/u 2D echo will continue to closely monitor Qualifiers: Heart failure type: diastolic Qualified Code(s): I50.33 - Acute on chronic diastolic (congestive) heart failure (2) Hypokalemia Current Visit: Yes Status: Acute Assessment and plan: K supplemented will continue to monitor electrolytes and replace as needed (3) Acute sinusitis Current Visit: Yes Status: Acute Assessment and plan: CT head findings concerning for Acute sinusitis Pt currently undergoing treatment as outpatient for the above, will continue ( Augmentin) Qualifiers: Sinusitis location: unspecified location Recurrence: not specified as recurrent Qualified Code(s): J01.90 - Acute sinusitis, unspecified (4) DVT prophylaxis Current Visit: Yes Status: Acute Assessment and plan: Heparin SQ (5) Excessive body weight loss Current Visit: Yes Status: Acute Assessment and plan: Given history of lymphoma, concern for underlying malignancy given weight loss history will obtain oncology evaluation CT abd pelvis reported distended gallbladder and biliary stent in place, pt denies any abd pain or discomfort, will defer GI consult as outpatient (6) Lymphoma Current Visit: No Status: Chronic Qualifiers: Lymphoma type: non-Hodgkin Non-Hodgkin lymphoma type: B-cell B-cell lymphoma type: diffuse large B-cell Lymphoma site: multiple regions Qualified Code(s): 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 Resting in bed and reports of improvement in breathing compared to previous day. States he has had unintentional weight loss of 40 lbs over the last four months despite having a good appetite. He has history of lymphoma and has finished chemotherapy. Denies any chest pain, palpitations at this time. - Constitutional Vitals: Temp Pulse Resp BP Pulse Ox 97.4 F L 82 18 146/71 98 12/12/17 11:25 12/12/17 11:25 12/12/17 11:25 12/12/17 11:25 12/12/17 11:25 General appearance: Present: A&O X 3, no acute distress, answers questions appropriately - Head Head exam: Present: atraumatic, normocephalic - Eye Eye exam: Present: conjuntiva pink, sclera anicteric - Respiratory Respiratory exam: Absent: respiratory distress, wheezes (bibasilar crackles ) - Cardiovascular Cardiovascular exam: Present: RRR, +S1, +S2. Absent: diastolic murmur, gallop, rubs, systolic murmur - GI/Abdominal GI/Abdominal exam: Present: normal bowel sounds, soft, no peritoneal signs. Absent: distended, tenderness - Extremities Exam Extremities exam: Present: warm, radial pulses palpable and symmetrical. Absent : calf tenderness, pedal edema - Neurological Exam Neurological exam: Present: alert, oriented X3 - Psychiatric Psychiatric exam: Present: normal affect, normal mood Internal Medicine: Result - Labs CBC & Chem 7: 12/12/17 04:17 12/12/17 04:17 Labs: Short CBC 12/12/17 Range/Units 04:17 WBC 4.5 (4.3-11.1) K/mcL Hgb 10.2 L (12.9-16.9) g/dL Hct 31.7 L (37.5-50.1) % Plt Count 227 (140-400) K/mcL Neutrophils # 2.5 (1.6-8.9) K/mcL BMP 12/12/17 04:17 Sodium 137 Potassium 3.4 L Chloride 100 Carbon Dioxide 30 H BUN 16 Creatinine 0.71 Glucose 95 Calcium 9.0 - Impressions Impressions Abdomen/Pelvis CT 12/11/17 21:28 IMPRESSION: No significant change since prior study. Massively distended urinary bladder. Distended gallbladder. Biliary stent in place. Large hiatal hernia. D/ / Ari Díaz MD / Ari Díaz MD Interpreting Provider: Ari Díaz MD Chest CT 12/11/17 21:28 IMPRESSION: No acute process or evidence to suggest recurrent lymphoma. D/ / Mike Swenson MD / Mike Swenson MD Interpreting Provider: Mike Swenson MD Consult Discharge Plan - Plan Referrals: Gissel Escamilla MD [Primary Care Provider] -
[2017-12-12] MEDS: *HR* OxyCODONE Immed Rel 5 MG TABLET PO PRN (18:36)
--- NOTE | 2017-12-12 20:34 | Emergency Department Note ---
Disposition Clinical Impression: Congestive heart failure Qualifiers: Heart failure type: unspecified Heart failure chronicity: acute on chronic Qualified Code(s): I50.9 - Heart failure, unspecified Disposition: Admitted As Inpatient General Adult HPI - General Chief complaint: ED Shortness of Breath/Dyspnea Stated complaint: VIKY Time Seen by Provider: 12/11/17 15:21 Source: patient, EMS Limitations: no limitations Nursing Notes Reviewed: Yes Vital Signs Reviewed: Yes - History of Present Illness HPI Narrative: 87-year-old male presents with concern for dyspnea as well as increasing abdominal girth. History of congestive heart failure. Reports increasing weight gain as well as difficulty buckling his belt over the past several days. He is not hypoxic and has no overt tachypnea on arrival. Presents in no acute distress. General: No acute distress HEENT: Pupils equal and reactive to light, extraoccular muscle movement is normal, TMS are clear bilaterally. Heart: RRR, No murmor rub or gallop Lungs: Diminished and some dysuria for with Rales bibasilar ABD: Soft with concern for underlying ascites Extremities: No cyanosis, clubbing or edema Neuro: CN 2-12 in tact, no focal deficit. strength 5/5. Medical decision making Findings consistent with congestive heart failure exacerbation. We will met for possible paracentesis as well as ongoing diuresis and medical maximization. Pain Scale: 0 - Related Data Home Medications Medication Instructions Recorded Confirmed Cholecalciferol (Vitamin D3) 1,000 unit PO DAILY 05/01/15 12/11/17 [Vitamin D3] Cyanocobalamin (B-12) 1,000 mcg PO DAILY 05/01/15 12/11/17 Diltiazem HCl [Diltiazem 24Hr Cd] 180 mg PO QAM 05/01/15 12/11/17 Furosemide [Lasix] 40 mg PO QAM 05/01/15 12/11/17 Metoprolol [Lopressor] 50 mg PO BID 05/01/15 12/11/17 Multivit-Min/FA/Lycopen/Lutein 1 tab PO DAILY 05/01/15 12/11/17 [Centrum Silver Tablet] Omeprazole [PriLOSEC] 20 mg PO DAILY 05/01/15 12/11/17 Atorvastatin [Lipitor] 40 mg PO HS 04/22/17 12/11/17 fentaNYL [Fentanyl] 100 mcg TP Q72H 12/11/17 12/11/17 OxyCODONE Immed Rel [Roxicodone 30 30 mg PO Q6H PRN 12/12/17 12/12/17 MG] Allergies Allergy/AdvReac Type Severity Reaction Status Date / Time No Known Allergies Allergy Verified 12/11/17 17:16 All systems ED: reviewed and negative except as stated. Past Medical History - Past Medical History Medical history: Reports: cancer, CHF, coronary artery disease, hyperlipidemia, hypertension, malignancy, RA, valvular heart disease, other Surgical history: Reports: coronary bypass (CABG), heart valve replacement, other, pacemaker Psychiatric history: Reports: no psych history - Social History Smoking Status: Never smoker Smokeless Tobacco Status: No Alcohol use: Reports: none Drug use: Reports: none Physical Exam - General Limitations: no limitations General appearance: alert, in no apparent distress Course Vital Signs Temperature 97.4 F L 12/11/17 15:22 Pulse Rate 84 12/11/17 15:22 Respiratory Rate 16 12/11/17 15:22 Blood Pressure 139/81 12/11/17 15:22 O2 Sat by Pulse Oximetry 100 12/11/17 15:22 Temperature 98.3 F 12/12/17 19:36 Pulse Rate 81 12/12/17 19:36 Respiratory Rate 17 12/12/17 19:36 Blood Pressure 121/70 12/12/17 19:36 O2 Sat by Pulse Oximetry 96 12/12/17 19:36 Oxygen Delivery Oxygen Delivery Room Air Medical Decision Making - Lab Data Result diagrams: 12/12/17 04:17 12/12/17 04:17 Lab Results 12/11/17 12/11/17 12/11/17 Range/Units 15:44 15:45 15:45 WBC 4.9 (4.3-11.1) K/mcL RBC 3.97 L (4.19-5.50) M/mcL Hgb 11.3 L (12.9-16.9) g/dL Hct 35.3 L (37.5-50.1) % MCV 88.9 (83.0-100.0) fL MCH 28.5 (28.0-33.3) pg MCHC 32.0 (31.6-35.5) g/dL RDW 14.9 H (11.5-14.5) % Plt Count 305 (140-400) K/mcL MPV 9.9 (9.4-12.4) fL Seg Neutrophils % 70.0 % Lymphocytes % 16.0 % Monocytes % 12.0 % Basophils % 2.0 % Neutrophils # 3.4 (1.6-8.9) K/mcL Lymphocytes # 0.8 (0.6-4.6) K/mcL Monocytes # 0.6 (0.0-1.3) K/mcL Basophils # 0.1 (0.0-0.2) K/mcL Reactive Lymphocytes Present A (Not Present) Platelet Estimate Normal (Normal) Immature Plt Fraction 2.5 (1.1-6.1) % Sodium 134 L (136-145) mEq/L Potassium 3.9 (3.5-5.1) mEq/L Chloride 100 (98-107) mEq/L Carbon Dioxide 27 (23-29) mEq/L BUN 16 (8-23) mg/dL Creatinine 0.78 (0.70-1.30) mg/dL Est GFR ( Amer) > 60 (> 60) Est GFR (Non-Af Amer) > 60 (> 60) BUN/Creatinine Ratio 21 (6-26) Glucose 101 (70-105) mg/dL Calculated Osmolality 279 L (280-300) Calcium 9.2 (8.6-10.3) mg/dL Total Bilirubin 0.5 (0.3-1.0) mg/dL AST 20 (13-39) Units/L ALT 7 (7-52) Units/L Alkaline Phosphatase 99 (34-104) Units/L Troponin I < 0.03 (< 0.04) ng/mL B-Natriuretic Peptide (Less than 100) pg/mL Serum Total Protein 6.4 (6.4-8.9) g/dL Albumin 3.7 (3.5-5.7) g/dL Globulin 2.7 (2.4-3.5) g/dL Albumin/Globulin Ratio 1.4 (1.1-2.2) Urine Color Yellow (Yellow) Urine Clarity Clear (Clear) Urine pH 7.0 (5.0-8.0) pH Units Ur Specific Gould 1.012 (1.010-1.025) Urine Protein Negative (Neg-Trace) mg/dL Urine Glucose (UA) Normal (Normal) mg/dL Urine Ketones Negative (Negative) mg/dL Urine Blood Negative (Negative) Urine Nitrite Negative (Negative) Urine Bilirubin Negative (Negative) Urine Urobilinogen Normal (Normal) mg/dL Ur Leukocyte Esterase Negative (Negative) Ur Culture Indicated? NO (NO) 12/11/17 Range/Units 15:45 WBC (4.3-11.1) K/mcL RBC (4.19-5.50) M/mcL Hgb (12.9-16.9) g/dL Hct (37.5-50.1) % MCV (83.0-100.0) fL MCH (28.0-33.3) pg MCHC (31.6-35.5) g/dL RDW (11.5-14.5) % Plt Count (140-400) K/mcL MPV (9.4-12.4) fL Seg Neutrophils % % Lymphocytes % % Monocytes % % Basophils % % Neutrophils # (1.6-8.9) K/mcL Lymphocytes # (0.6-4.6) K/mcL Monocytes # (0.0-1.3) K/mcL Basophils # (0.0-0.2) K/mcL Reactive Lymphocytes (Not Present) Platelet Estimate (Normal) Immature Plt Fraction (1.1-6.1) % Sodium (136-145) mEq/L Potassium (3.5-5.1) mEq/L Chloride (98-107) mEq/L Carbon Dioxide (23-29) mEq/L BUN (8-23) mg/dL Creatinine (0.70-1.30) mg/dL Est GFR ( Amer) (> 60) Est GFR (Non-Af Amer) (> 60) BUN/Creatinine Ratio (6-26) Glucose (70-105) mg/dL Calculated Osmolality (280-300) Calcium (8.6-10.3) mg/dL Total Bilirubin (0.3-1.0) mg/dL AST (13-39) Units/L ALT (7-52) Units/L Alkaline Phosphatase (34-104) Units/L Troponin I (< 0.04) ng/mL B-Natriuretic Peptide 413 H (Less than 100) pg/mL Serum Total Protein (6.4-8.9) g/dL Albumin (3.5-5.7) g/dL Globulin (2.4-3.5) g/dL Albumin/Globulin Ratio (1.1-2.2) Urine Color (Yellow) Urine Clarity (Clear) Urine pH (5.0-8.0) pH Units Ur Specific Gould (1.010-1.025) Urine Protein (Neg-Trace) mg/dL Urine Glucose (UA) (Normal) mg/dL Urine Ketones (Negative) mg/dL Urine Blood (Negative) Urine Nitrite (Negative) Urine Bilirubin (Negative) Urine Urobilinogen (Normal) mg/dL Ur Leukocyte Esterase (Negative) Ur Culture Indicated? (NO)
[2017-12-13 03:59] LABS: Basophils % 0.2 %; Eosinophils # 0.1 K/mcL (0.0-0.6); Eosinophils % 2.8 %; Hematocrit 32.2 % (37.5-50.1); Hemoglobin 10.4 g/dL (12.9-16.9); Immature Granulocytes % 0.5 % (0-4); Lymphocytes # 0.8 K/mcL (0.6-4.6); Lymphocytes % 18.7 %; Mean Corpuscular HGB Conc 32.3 g/dL (31.6-35.5); Mean Corpuscular Hemoglobin 28.4 pg (28.0-33.3); Mean Platelet Volume 10.6 fL (9.4-12.4); Monocytes % 24.6 %; Platelet Count 219 K/mcL (140-400); Red Blood Count 3.66 M/mcL (4.19-5.50); Red Cell Distribution Width 15.1 % (11.5-14.5); Segmented Neutrophils % 53.2 %
[2017-12-13 04:07] LABS: Neutrophils # 2.2 K/mcL (1.6-8.9)
[2017-12-13 04:19] LABS: BUN/Creatinine Ratio 20 (6-26); Blood Urea Nitrogen 16 mg/dL (8-23); Carbon Dioxide 29 mEq/L (23-29); Chloride 101 mEq/L (98-107); Glucose 97 mg/dL (70-105); Magnesium 1.9 mg/dL (1.6-2.6); Osmolality,Calculated 283 (280-300); Phosphorous 3.6 mg/dL (2.7-4.5); Potassium 4.1 mEq/L (3.5-5.1); Sodium 136 mEq/L (136-145); eGFR For African Americans > 60 (> 60); eGFR For Non-African Americans > 60 (> 60)
[2017-12-13 04:26] LABS: Platelet Estimate Normal (Normal)
[2017-12-13] MEDS: *HR* OxyCODONE Immed Rel 5 MG TABLET PO PRN (05:56)
[2017-12-13] MEDS: *HR* Heparin 5,000 UNIT/ML VIAL SQ SCH ×2 (05:57→18:13)
[2017-12-13] MEDS: Cholecalciferol (D-3) 1,000 UNIT TABLET PO SCH (09:05)
[2017-12-13] MEDS: Multivit/Ca/Min/Fe/FA 1 TAB TABLET PO SCH (09:05)
[2017-12-13] MEDS: Diltiazem CD (24hr) 180 MG CAPSULE PO SCH (09:05)
[2017-12-13] MEDS: Cyanocobalamin (B-12) 1,000 MCG TABLET PO SCH (09:05)
[2017-12-13] MEDS: Furosemide 40 MG/4 ML VIAL IVP SCH (09:05)
--- NOTE | 2017-12-13 12:49 | Internal Med Progress Note ---
Date of Encounter: 12/13/17 Time of Encounter: 12:47 - Assessment and plan (1) CHF exacerbation Current Visit: Yes Status: Acute Assessment and plan: Clinically improving will continue IV lasix 40 q daily monitor I/Os, daily weights fluid restriction diet 2D echo reported LVEF of 60-65%, indeterminate diastolic function, mild concentric LVH, mild bioprosthetic aortic regurgitation, borderline evidence for aortic valve prosthetic stenosis, mild mitral regurgitation, moderate mitral stenosis, moderate tricuspid regurgitation, mild pulmonary hypertension will continue to closely monitor Qualifiers: Heart failure type: diastolic Qualified Code(s): I50.33 - Acute on chronic diastolic (congestive) heart failure (2) Hypokalemia Current Visit: Yes Status: Resolved Assessment and plan: resolved will continue to monitor electrolytes and replace as needed (3) Acute sinusitis Current Visit: Yes Status: Acute Assessment and plan: CT head findings concerning for Acute sinusitis Pt currently undergoing treatment as outpatient for the above, will continue ( Augmentin) Qualifiers: Sinusitis location: unspecified location Recurrence: not specified as recurrent Qualified Code(s): J01.90 - Acute sinusitis, unspecified (4) DVT prophylaxis Current Visit: Yes Status: Acute Assessment and plan: Heparin SQ (5) Excessive body weight loss Current Visit: Yes Status: Acute Assessment and plan: Given history of lymphoma, concern for underlying malignancy given weight loss history awaiting oncology evaluation CT abd pelvis reported distended gallbladder and biliary stent in place, pt denies any abd pain or discomfort, will defer GI consult as outpatient (6) Lymphoma Current Visit: No Status: Chronic Qualifiers: Lymphoma type: non-Hodgkin Non-Hodgkin lymphoma type: B-cell B-cell lymphoma type: diffuse large B-cell Lymphoma site: multiple regions Qualified Code(s): 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 Pt reports of feeling very weak, improvement in respiratory status but continues to feel short of breath with exertion. States he feels congested in both of his ears which is consistent with CT head findings of acute sinusitis. Pt requiring assistance to get out of bed to chair. Awaiting physical therapy evaluation. Awaiting oncology evaluation. - Constitutional Vitals: Temp Pulse Resp BP Pulse Ox 98.1 F 67 16 115/72 96 12/13/17 11:03 12/13/17 11:03 12/13/17 11:03 12/13/17 11:03 12/13/17 11:03 General appearance: Present: A&O X 3, no acute distress, answers questions appropriately - Head Head exam: Present: atraumatic, normocephalic - Eye Eye exam: Present: conjuntiva pink, sclera anicteric - Respiratory Respiratory exam: Absent: respiratory distress, wheezes (scattered rales) - Cardiovascular Cardiovascular exam: Present: RRR, +S1, +S2. Absent: diastolic murmur, gallop, rubs, systolic murmur - GI/Abdominal GI/Abdominal exam: Present: normal bowel sounds, soft, no peritoneal signs. Absent: distended, tenderness - Extremities Exam Extremities exam: Present: warm, radial pulses palpable and symmetrical. Absent : calf tenderness, pedal edema, tenderness - Neurological Exam Neurological exam: Present: alert, oriented X3 Internal Medicine: Result - Labs CBC & Chem 7: 12/13/17 02:47 12/13/17 02:47 Labs: Short CBC 12/13/17 Range/Units 02:47 WBC 4.2 L (4.3-11.1) K/mcL Hgb 10.4 L (12.9-16.9) g/dL Hct 32.2 L (37.5-50.1) % Plt Count 219 (140-400) K/mcL Neutrophils # 2.2 (1.6-8.9) K/mcL BMP 12/13/17 02:47 Sodium 136 Potassium 4.1 Chloride 101 Carbon Dioxide 29 BUN 16 Creatinine 0.79 Glucose 97 Calcium 9.0 - Impressions Impressions Echocardiogram 12/12/17 21:29 Impressions: LVEF 60-65%. Indeterminate diastolic function. Mild concentric left ventricular hypertrophy. Atypical septal motion consistent with post-operative status. RV is mildly dilated with normal function. Mild bioprosthetic aortic regurgitation, possibly paravalvular. Borderline evidence for aortic valve prosthetic stenosis. Mild mitral regurgitation. Moderate mitral stenosis. Moderate tricuspid regurgitation. Mild pulmonary hypertension by TR gradient, 39 mmHg. IVC is not well visualized. Left Ventricular Wall Motion: Rest Echo Findings All wall segments showed normal motion. Findings: Study Quality * Technically adequate exam. ECG Findings * Paced rhythm. Intermittent [place] conduction. Left Ventricle * LVEF 60-65%. * Indeterminate diastolic function. * Mild concentric left ventricular hypertrophy. * Atypical septal motion consistent with post-operative status. Right Ventricle * RV is mildly dilated with normal function. Left Atrium * Severely dilated left atrium. Right Atrium * Moderately dilated right atrium. Aortic Valve * Bioprosthetic valve not well visualized. * Mild aortic regurgitation, possibly paravalvular. * Borderline evidence for prosthetic stenosis. PV 3m/s, MG 18 mmHg, DVI 0.3, EOA 1.2cm2 Mitral Valve * Leaflet morphology not well visualized. * Dense mitral annular calcification * Mild mitral regurgitation. * Moderate mitral stenosis. MG 5 mmHg at 80 bpm Tricuspid Valve * Tricuspid valve not well visualized. * Moderate tricuspid regurgitation. Pulmonic Valve * Pulmonic valve is not well visualized. * No pulmonic stenosis. * Trace pulmonic regurgitation. Pulmonary Artery * Pulmonary artery not well visualized. Aorta * Not well visualized. Pericardium * There is no pericardial effusion present. Device lead * A device lead was visualized in the right atrium and right ventricle. Interatrial Septum * No evidence of PFO by color Doppler. IVC * The IVC is not well evaluated. Consult Discharge Plan - Plan Referrals: Gissel Escamilla MD [Primary Care Provider] - (web request sent on 12/13/17)
--- NOTE | 2017-12-13 14:11 | Oncology Inp Consult Note ---
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 IPI score:4 which is associated with an overall adverse prognosis.) Received Rituxan maintenance May 2015 to February 2017. He received 4 cycles of R mini-CHOP combination regimen from 02/15-04/19/15. Stopped after 4 cycles due to intolerance. MUGA scans 05/07/15 showed EF 53%. He has had no prior evidence of lymphoma recurrence. He has had a stable right middle lobe nodule since 01/07/2016, reviewed in tumor board in August 2017, recommended to continue to monitor. This nodule appears to continue to be stable on most recent CT chest exam. Admitted with CHF exacerbation and generalized weakness. 2D echo reported LVEF of 60-65%, indeterminate diastolic function, mild concentric LVH, mild bioprosthetic aortic regurgitation, borderline evidence for aortic valve prosthetic stenosis, mild mitral regurgitation, moderate mitral stenosis, moderate tricuspid regurgitation, mild pulmonary hypertension. He does follow with cardiology. He does report recent unintended weight loss despite normal appetite of about 40 pounds over the past 4-6 months. He denies other B symptoms such as fever, chills or night sweats. CT chest/abdomen/pelvis 12/11/2017 with no sign of lymphoma recurrence. No significant change since prior study. CBC unremarkable, mild anemia. Recommend RD consult and continued monitoring with [facility]. He was given an appointment card today for follow up with Dr. Franklin and OPERATIONS REPRESENTATIVE in about 3 weeks. Massively distended urinary bladder as shown on abdominal CT-recommend outpatient urology follow up. 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 IPI score:4 which is associated with an overall adverse prognosis.) He received 4 cycles of R mini-CHOP combination regimen from 02/15-04/19/15. Stopped after 4 cycles due to intolerance. MUGA scans 05/07/15 showed EF 53%. He has most recently been admitted for CHF exacerbation. He has severe valvular heart disease and is established with a cardiology. He had a percutaneous repair of cardiac septal defect. He is being diuresed and on strict I&O. Oncology consulted due to concern over report of recent weight loss. Past Med Surg Social Fam HX - Past Medical History Medical history: cancer, CHF, coronary artery disease, hyperlipidemia, hypertension, malignancy, RA, valvular heart disease, other Psychiatric history: no psych history - Past Surgical History Surgical History: coronary bypass (CABG), heart valve replacement, other, pacemaker - Social History Smoking Status: Never smoker Smokeless Tobacco Status: No Alcohol use: none Drug use: none - Family History Mother Adopted: No Family Member Ethnicity: Non- Living Status: Hx Family Cardiac Disorders: Yes Hx Family Cancer: Yes Hx Family Endocrine Disorder: Yes (DM) Father Living Status: Medications and Allergies Cholecalciferol (Vitamin D3) [Vitamin D3] 1,000 unit PO DAILY 05/01/15 [History] Cyanocobalamin (B-12) 1,000 mcg PO DAILY 05/01/15 [History] Diltiazem HCl [Diltiazem 24Hr Cd] 180 mg PO QAM 05/01/15 [History] Furosemide [Lasix] 40 mg PO QAM 05/01/15 [History] Metoprolol [Lopressor] 50 mg PO BID 05/01/15 [History] Multivit-Min/FA/Lycopen/Lutein [Centrum Silver Tablet] 1 tab PO DAILY 05/01/15 [ History] Omeprazole [PriLOSEC] 20 mg PO DAILY 05/01/15 [History] Atorvastatin [Lipitor] 40 mg PO HS 04/22/17 [History] fentaNYL [Fentanyl] 100 mcg TP Q72H 12/11/17 [History] OxyCODONE Immed Rel [Roxicodone 30 MG] 30 mg PO Q6H PRN 12/12/17 [History] Amoxicillin/Clavulanate [Augmentin] 875 mg PO BIDWM #13 tablet 12/14/17 [Rx] 3 Allergy/AdvReac Type Severity Reaction Status Date / Time No Known Allergies Allergy Verified 12/11/17 17:16 Constitutional: Present: fatigue, weakness, weight loss. Absent: anorexia, chills, fever(s), frequent falls, headache(s), night sweats Eyes: Absent: change in vision Nose, mouth and throat: Present: dysphagia Cardiovascular: Absent: chest pain, irregular heart rhythm Respiratory: Present: dyspnea on exertion. Absent: cough Gastrointestinal: Absent: abdominal pain, hematemesis, hematochezia, melena, nausea, vomiting Additional comments: denies urgency, hesitancy or frequency, denies hematuria Musculoskeletal: Present: muscle weakness Integumentary: Absent: wounds Neurological: Absent: focal weakness, frequent falls Hematologic/Lymphatic: Present: as per HPI Oncology - Exam - Constitutional Vitals: Temp Pulse Resp BP Pulse Ox 98.1 F 67 16 115/72 96 12/13/17 11:03 12/13/17 11:03 12/13/17 11:03 12/13/17 11:03 12/13/17 11:03 General appearance: cooperative, no acute distress, no febrile - Head Head exam: Present: atraumatic - ENT ENT exam: Present: mucous membranes moist - Respiratory Respiratory exam: Present: CTAB. Absent: respiratory distress - Cardiovascular Cardiovascular exam: Present: RRR, +S1, +S2 - GI/Abdominal GI/Abdominal exam: Present: normal bowel sounds, soft. Absent: tenderness - Extremities Exam Extremities exam: Present: normal inspection. Absent: calf tenderness - Neurological Exam Neurological exam: Present: alert, oriented X3, no focal deficits, strengths equal and symetr throughout - Psychiatric Psychiatric exam: Present: normal affect, normal mood - Skin Skin exam: Present: dry, normal color, warm Oncology - Results Labs: Short CBC 12/13/17 Range/Units 02:47 WBC 4.2 L (4.3-11.1) K/mcL Hgb 10.4 L (12.9-16.9) g/dL Hct 32.2 L (37.5-50.1) % Plt Count 219 (140-400) K/mcL Neutrophils # 2.2 (1.6-8.9) K/mcL BMP 12/13/17 02:47 Sodium 136 Potassium 4.1 Chloride 101 Carbon Dioxide 29 BUN 16 Creatinine 0.79 Glucose 97 Calcium 9.0 Consult Discharge Plan - Plan Instructions: Heart Failure (DC) Additional Instructions: Please follow up with your primary care physician within five days after your discharge from the hospital. Please follow up with cardiology and oncology within two to three weeks after your discharge from the hospital. Please continue lasix 40mg once a day. Please continue oral antibiotics (Augmentin) twice a day as prescribed for 6 more days. Please resume all other home medications as prescribed by your primary care physician. Please keep your ENT appointment as scheduled and follow up with them as per your scheduled appointment time Referrals: Barry Henriquez Jr, CNP [Advanced Practice Nurse] - 01/03/18 9:30 am Adam Romero CNP [Advanced Practice Nurse] - 12/28/17 7:45 am Gissel Escamilla MD [Primary Care Provider] - 12/20/17 1:45 pm () Prescriptions: Amoxicillin/Clavulanate [Augmentin] 875 mg PO BIDWM #13 tablet
--- NOTE | 2017-12-13 14:42 | Electrocardiograph Report ---
[address] [address] Test Date: 2017-12-11 Pat Name: [place] Qasim Department: 102 Room: 2A12 Gender: M Portrait Artist: [facility] : 1930 Requested By: Angeli Kingston Order Number: [id number] Reading MD: iPpe Greer Measurements Intervals [place] Rate: 80 P: 264 VA: 148 QRS: -75 QRSD: 179 T: 97 QT: 441 QTc: 476 Interpretive Statements ELECTRONIC ATRIAL PACEMAKER ELECTRONIC VENTRICULAR PACEMAKER Electronically Signed On 12-13-2017 14:40:47 EDT by Pipe Greer
[2017-12-14] MEDS: *HR* OxyCODONE Immed Rel 15 MG TABLET PO PRN ×2 (00:40→08:24)
[2017-12-14 04:25] LABS: Basophils % 0.2 %; Eosinophils # 0.1 K/mcL (0.0-0.6); Eosinophils % 2.5 %; Hemoglobin 10.3 g/dL (12.9-16.9); Immature Granulocytes % 0.5 % (0-4); Lymphocytes # 0.8 K/mcL (0.6-4.6); Lymphocytes % 17.7 %; Mean Corpuscular HGB Conc 32.2 g/dL (31.6-35.5); Mean Corpuscular Hemoglobin 28.3 pg (28.0-33.3); Mean Corpuscular Volume 87.9 fL (83.0-100.0); Monocytes % 22.3 %; Neutrophils # 2.5 K/mcL (1.6-8.9); Nucleated Red Blood Cells 1.1 /100 WBC (0); Platelet Count 221 K/mcL (140-400); Red Blood Count 3.64 M/mcL (4.19-5.50); Red Cell Distribution Width 15.1 % (11.5-14.5); Segmented Neutrophils % 56.8 %
[2017-12-14 04:44] LABS: BUN/Creatinine Ratio 30 (6-26); Blood Urea Nitrogen 26 mg/dL (8-23); Calcium 9.1 mg/dL (8.6-10.3); Carbon Dioxide 29 mEq/L (23-29); Chloride 103 mEq/L (98-107); Glucose 108 mg/dL (70-105); Magnesium 1.8 mg/dL (1.6-2.6); Osmolality,Calculated 291 (280-300); Phosphorous 4.3 mg/dL (2.7-4.5); Potassium 4.3 mEq/L (3.5-5.1); Sodium 138 mEq/L (136-145); eGFR For African Americans > 60 (> 60); eGFR For Non-African Americans > 60 (> 60)
[2017-12-14 05:20] LABS: Platelet Estimate Normal (Normal)
[2017-12-14] MEDS: *HR* Heparin 5,000 UNIT/ML VIAL SQ SCH (05:33)
[2017-12-14] MEDS: Cholecalciferol (D-3) 1,000 UNIT TABLET PO SCH (08:21)
[2017-12-14] MEDS: Diltiazem CD (24hr) 180 MG CAPSULE PO SCH (08:21)
[2017-12-14] MEDS: Cyanocobalamin (B-12) 1,000 MCG TABLET PO SCH (08:21)
[2017-12-14] MEDS: Multivit/Ca/Min/Fe/FA 1 TAB TABLET PO SCH (08:21)
[2017-12-14] MEDS ORDERED: Furosemide 40 MG TABLET PO SCH (09:00)
--- NOTE | 2017-12-14 10:51 | Discharge Summary ---
- NOTES TO OUTPATIENT PROVIDER Notes to Outpatient Provider: Pt will need outpatient work up for unintentional weight loss with oncology. Date of Encounter: 12/14/17 Time of Encounter: 10:35 - Discharge Diagnosis (1) CHF exacerbation Priority: Primary Status: Acute Qualifiers: Heart failure type: diastolic Qualified Code(s): I50.33 - Acute on chronic diastolic (congestive) heart failure (2) Hypokalemia Priority: Secondary Status: Resolved (3) Acute sinusitis Priority: Secondary Status: Acute Qualifiers: Sinusitis location: unspecified location Recurrence: not specified as recurrent Qualified Code(s): J01.90 - Acute sinusitis, unspecified (4) DVT prophylaxis Priority: Secondary Status: Acute (5) Excessive body weight loss Priority: Secondary Status: Acute (6) Lymphoma Priority: Secondary Status: Chronic Qualifiers: Lymphoma type: non-Hodgkin Non-Hodgkin lymphoma type: B-cell B-cell lymphoma type: diffuse large B-cell Lymphoma site: multiple regions Qualified Code(s): 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 Tripp is a 87 year old male with PMH of rheumatoid arthritis, CHF, HTN, s/p aortic valve replacement, lymphoma, right eye blindness who was admitted for shortness of breath secondary to CHF exacerbation. He also reported of unintentional weight loss of 40lbs due to which oncology evaluation was requested. He was started on IV diuresis to which he responded well. He also reported of difficulty with his hearing and headache with congestion, imaging studies were consistent with acute sinusitis, for which he was started on Augmentin. He was evaluated by oncology and no inpatient work up was recommended. He was evaluated by physical therapy and home health was recommended. At this time pt is back to his baseline respiratory status. Denies any shortness of breath and reports of improvement of his symptoms since hospitalization. He will be discharged to home with follow up with pcp, oncology , and cardiology. Pt demonstrates understanding of his diagnosis and agrees with this discharge care and plan. Discharge discussed with: patient, nurse, case management - Time Spent with Patient Total time spent providing and/or coordinating discharge services: - Discharge Medications Prescriptions: Amoxicillin/Clavulanate [Augmentin] 875 mg PO BIDWM #13 tablet Home Medications: Cholecalciferol (Vitamin D3) [Vitamin D3] 1,000 unit PO DAILY 05/01/15 [History] Cyanocobalamin (B-12) 1,000 mcg PO DAILY 05/01/15 [History] Diltiazem HCl [Diltiazem 24Hr Cd] 180 mg PO QAM 05/01/15 [History] Furosemide [Lasix] 40 mg PO QAM 05/01/15 [History] Metoprolol [Lopressor] 50 mg PO BID 05/01/15 [History] Multivit-Min/FA/Lycopen/Lutein [Centrum Silver Tablet] 1 tab PO DAILY 05/01/15 [ History] Omeprazole [PriLOSEC] 20 mg PO DAILY 05/01/15 [History] Atorvastatin [Lipitor] 40 mg PO HS 04/22/17 [History] fentaNYL [Fentanyl] 100 mcg TP Q72H 12/11/17 [History] OxyCODONE Immed Rel [Roxicodone 30 MG] 30 mg PO Q6H PRN 12/12/17 [History] Amoxicillin/Clavulanate [Augmentin] 875 mg PO BIDWM #13 tablet 12/14/17 [Rx] Allergies/Adverse Reactions: 3 Allergy/AdvReac Type Severity Reaction Status Date / Time No Known Allergies Allergy Verified 12/11/17 17:16 Date of admission: 12/11/17 17:16 Primary care physician: Gissel Escamilla Consults: 12/11/17 21:23 Consult to Physical Therapy [CONS] Routine Comment: Evaluate, develop and implement POC Reason for Consult: weakness Does patient have active BEDREST order?: No Is patient medically & hemodynamically stable?: Yes 12/11/17 21:26 Consult to Nutrition [CONS] Routine Comment: Consulting Provider: NUTRITION Reason for Dietary Consult: PO Supplementation 12/11/17 21:27 Consult to Oncology [CONS] Routine Consulting Provider: [facility] Reason for Consult: Hx of lymphoma. Weight loss Call Completed: Yes Discharging clinician: Angeli Kingston Anticipated date of discharge: 12/14/17 - Constitutional Vitals: Temp Pulse Resp BP Pulse Ox 97.8 F 72 17 116/58 100 12/14/17 07:06 12/14/17 07:06 12/14/17 07:06 12/14/17 07:06 12/14/17 08:27 General appearance: Present: A&O X 3, no acute distress, answers questions appropriately - Head Head exam: Present: atraumatic, normocephalic - Respiratory Respiratory exam: Absent: rales, respiratory distress, wheezes (equal air entry bilaterally ) - Cardiovascular Cardiovascular exam: Present: RRR, +S1, +S2. Absent: diastolic murmur, gallop, rubs, systolic murmur - GI/Abdominal GI/Abdominal exam: Present: normal bowel sounds, soft, no peritoneal signs. Absent: distended, tenderness - Extremities Exam Extremities exam: Present: warm, radial pulses palpable and symmetrical. Absent : calf tenderness, pedal edema - Neurological Exam Neurological exam: Present: oriented X3 - Psychiatric Psychiatric exam: Present: normal affect, normal mood - Patient Status Disposition: Home Health Service Condition: Good Functional capacity at discharge: uses cane/walker Overall status at discharge: patient is back to baseline - Discharge Instructions Follow Up With: Gissel Escamilla MD [Primary Care Provider] - 12/20/17 1:45 pm () Forms: ED Satisfaction Letter Additional Instructions: Please follow up with your primary care physician within five days after your discharge from the hospital. Please follow up with cardiology and oncology within two to three weeks after your discharge from the hospital. Please continue lasix 40mg once a day. Please continue oral antibiotics (Augmentin) twice a day as prescribed for 6 more days. Please resume all other home medications as prescribed by your primary care physician. Please keep your ENT appointment as scheduled and follow up with them as per your scheduled appointment time - Diet and Activity Activity: as per physical therapy Diet: low fat, low cholesterol, low salt diet
--- NOTE | 2017-12-14 11:09 | Physician Discharge Referral ---
Home Health/Hosp Referral Info Transfer to: Home Health Provider in Charge Post Discharge: PCP - Diagnosis (1) CHF exacerbation Priority: Primary Status: Acute (2) Hypokalemia Priority: Secondary Status: Resolved (3) Acute sinusitis Priority: Secondary Status: Acute (4) DVT prophylaxis Priority: Secondary Status: Acute (5) Excessive body weight loss Priority: Secondary Status: Acute (6) Lymphoma Priority: Secondary Status: Chronic (7) Rheumatoid arthritis Priority: Secondary Status: Chronic (8) Weakness Priority: Secondary Status: Acute - Respiratory Orders Smoking Cessation: Smoking cessation has been advised. For more information, call the [place] Tobacco Quit Line at 7-882-WAQH-NOW. - Services Needed Following services are medically necessary services: Nursing, Home Health Aide, Physical Therapy, Occupational Therapy - Transfer Medications Prescriptions: Amoxicillin/Clavulanate [Augmentin] 875 mg PO BIDWM #13 tablet Home Medications: Cholecalciferol (Vitamin D3) [Vitamin D3] 1,000 unit PO DAILY 05/01/15 [History] Cyanocobalamin (B-12) 1,000 mcg PO DAILY 05/01/15 [History] Diltiazem HCl [Diltiazem 24Hr Cd] 180 mg PO QAM 05/01/15 [History] Furosemide [Lasix] 40 mg PO QAM 05/01/15 [History] Metoprolol [Lopressor] 50 mg PO BID 05/01/15 [History] Multivit-Min/FA/Lycopen/Lutein [Centrum Silver Tablet] 1 tab PO DAILY 05/01/15 [ History] Omeprazole [PriLOSEC] 20 mg PO DAILY 05/01/15 [History] Atorvastatin [Lipitor] 40 mg PO HS 04/22/17 [History] fentaNYL [Fentanyl] 100 mcg TP Q72H 12/11/17 [History] OxyCODONE Immed Rel [Roxicodone 30 MG] 30 mg PO Q6H PRN 12/12/17 [History] Amoxicillin/Clavulanate [Augmentin] 875 mg PO BIDWM #13 tablet 12/14/17 [Rx] Allergies/Adverse Reactions: 3 Allergy/AdvReac Type Severity Reaction Status Date / Time No Known Allergies Allergy Verified 12/11/17 17:16 Certification: Further, I certify that my clinical findings support that this patient is homebound (i.e. absences from home require considerable and taxing effort and are for medical reasons or spiritism services or infrequently or short duration when for other reasons) because: Homebound Reason: Patient requires assistance of a person or device to safely leave home Attestation: My signature below is to certify that this patient is under my care and that I, or nurse practitioner, or a physician's social science research assistant working with me, has a face-to -face encounter with this patient.
[2017-12-14 11:13] VITALS: BP 112/61
== END 2017-12-14 14:10 | disposition home health service (06) ==
LOC: 2ANU 15:16 → EMEROO 15:16 → 2ANU 17:50 → SUATTDRO 21:20
PROVIDERS: ADMIT Internal Medicine; ATTEND Internal Medicine

== ENCOUNTER 2018-07-02 07:00 | Observation (INO) ==
--- NOTE | 2018-07-02 07:12 | Emergency Department Note ---
Disposition Clinical Impression: Congestive heart failure Qualifiers: Heart failure type: unspecified Heart failure chronicity: unspecified Qualified Code(s): I50.9 - Heart failure, unspecified Dyspnea Qualifiers: Dyspnea type: unspecified Qualified Code(s): R06.00 - Dyspnea, unspecified Disposition: Admitted As Inpatient Condition: Fair General Adult HPI - General Stated complaint: Breathing Problem Time Seen by Provider: 07/02/18 07:07 Source: patient, EMS Limitations: no limitations Nursing Notes Reviewed: Yes Vital Signs Reviewed: Yes - History of Present Illness HPI Narrative: 87-year-old male with a history of lymphoma, CAD with stents and pacemaker, CHF presents with shortness breath. Patient stated he woke up this morning with severe shortness of breath. No chest pain. No cough. His O2 sat was 90 in room air when ambulance came. Patient reported similar episodes twice a couple weeks ago. Patient was giving 2 breath treatment in ambulance. Patient stated the symptoms are not getting any better. Pt is on Lasix. Patient never smoked. No history of COPD. Onset (ago): hour(s) (4) Location: chest - Related Data Home Medications Medication Instructions Recorded Confirmed Diltiazem HCl [Diltiazem 24Hr Cd] 180 mg PO QAM 05/01/15 07/02/18 fentaNYL [Fentanyl] 100 mcg TP Q72H 12/11/17 07/02/18 OxyCODONE Immed Rel [Roxicodone 30 30 mg PO Q6H PRN 12/12/17 07/02/18 MG] Cholecalciferol (Vitamin D3) 1,000 unit PO DAILY 07/02/18 07/02/18 [Vitamin D] Cyanocobalamin (Vitamin B-12) 1,000 mcg PO DAILY 07/02/18 07/02/18 [Vitamin B-12] Docusate [Colace] 100 mg PO BID PRN 07/02/18 07/02/18 Furosemide [Lasix] 20 mg PO DAILY 07/02/18 07/02/18 Lactulose 15 - 45 ml PO DAILY 07/02/18 07/02/18 Metoprolol Tartrate 50 mg PO BID 07/02/18 07/02/18 Omeprazole [PriLOSEC] 20 mg PO DAILY 07/02/18 07/02/18 predniSONE [PredniSONE] 10 mg PO DAILY 07/02/18 07/02/18 Allergies Allergy/AdvReac Type Severity Reaction Status Date / Time No Known Allergies Allergy Verified 04/06/18 11:04 Constitutional: Denies: fever, chills Eyes: Denies: eye pain, eye discharge ENT ED: Denies: ear pain Cardiovascular: Denies: chest pain Respiratory: Reports: dyspnea Gastrointestinal: Denies: abdominal pain, nausea Genitourinary: Denies: urgency, dysuria Musculoskeletal: Denies: back pain, neck pain Integumentary: Denies: rash, abrasion Neurological: Denies: headache, weakness Psychiatric: Denies: anxiety, depression Endocrine: Denies: fatigue, heat or cold intolerance Hematological/Lymphatic: Denies: easy bleeding, easy bruising Allergic/Immunologic: Denies: facial swelling, urticaria Past Medical History - Past Medical History Medical history: Reports: cancer, CHF, coronary artery disease, hyperlipidemia, hypertension, malignancy, RA, valvular heart disease, other Surgical history: Reports: coronary bypass (CABG), heart valve replacement, other, pacemaker Psychiatric history: Reports: no psych history - Social History Smoking Status: Never smoker Smokeless Tobacco Status: No Alcohol use: Reports: none Drug use: Reports: none Physical Exam - General Limitations: no limitations General appearance: alert - Head Head exam: atraumatic - Eye Eye exam: Present: normal appearance. Absent: scleral icterus, conjunctival injection - ENT ENT exam: normal exam - Neck Neck exam: Present: normal inspection, full ROM, trachea midline - Chest Chest inspection: Present: normal inspection - Respiratory Respiratory exam: Present: wheezes - Cardiovascular Cardiovascular exam: Present: regular rate - Abdominal Exam Abdominal exam: Present: soft - Expanded Lower Extremity Exam Ankle exam: Present: swelling (mild bilateral ankle swelling) Neurovascular/Tendon exam: Present: normal capillary refill - Back Exam Back exam: Present: normal inspection, full ROM - Neurological Exam Neurological exam: Present: alert, oriented X3 - Psychiatric Psychiatric exam: Present: normal affect, normal mood - Skin Skin exam: Present: warm, dry Course Vital Signs Temperature 98.4 F 07/02/18 07:13 Pulse Rate 71 07/02/18 07:13 Respiratory Rate 22 07/02/18 07:13 Blood Pressure 162/88 07/02/18 07:13 O2 Sat by Pulse Oximetry 95 07/02/18 07:13 Temperature 97.7 F 07/02/18 11:08 Pulse Rate 78 07/02/18 11:08 Respiratory Rate 16 07/02/18 11:08 Blood Pressure 161/78 07/02/18 11:08 O2 Sat by Pulse Oximetry 91 07/02/18 11:08 Oxygen Delivery Oxygen Delivery Nasal Cannula Medical Decision Making - [facility] Narrative Medical decision making narrative: 87 year old male with history of lymphoma, CHF, CAD with stents and pacemaker presents with shortness of breath since this morning. Pt's O2 sat was 90 in room air. No improvement with two set of breath treatment. Physical exam: Afebrile, on oxygen 2 L, mild wheezing in left upper lung, mild bilateral ankle swelling. D-dimer 1644 elevated, Chest x-ray: Pulmonary edema with small pleural effusions. CTA ruled out PE. Impression: dyspnea, congestive heart failure. Pt is given diuretics in ER. Spoke with Hospitalist. Pt is accepted for observa tion. Dr. Ceja saw the patient and agrees the above plan. - Lab Data Result diagrams: 07/02/18 07:35 07/02/18 07:35 Lab Results 07/02/18 07/02/18 07/02/18 Range/Units 07:35 07:35 07:35 WBC 6.6 (4.3-11.1) K/mcL RBC 3.99 L (4.19-5.50) M/mcL Hgb 11.2 L (12.9-16.9) g/dL Hct 34.0 L (37.5-50.1) % MCV 85.2 (83.0-100.0) fL MCH 28.1 (28.0-33.3) pg MCHC 32.9 (31.6-35.5) g/dL RDW 14.0 (11.5-14.5) % Plt Count 207 (140-400) K/mcL MPV 10.0 (9.4-12.4) fL Immature Gran % 0.5 (0-4) % Seg Neutrophils % 72.5 % Lymphocytes % 10.2 % Monocytes % 16.0 % Eosinophils % 0.6 % Basophils % 0.2 % Neutrophils # 4.8 (1.6-8.9) K/mcL Lymphocytes # 0.7 (0.6-4.6) K/mcL Monocytes # 1.1 (0.0-1.3) K/mcL Eosinophils # 0.0 (0.0-0.6) K/mcL Basophils # 0.0 (0.0-0.2) K/mcL D-Dimer 1644 H (0-500) ng/mLFEU Sodium 135 L (136-145) mEq/L Potassium 4.2 (3.5-5.1) mEq/L Chloride 104 (98-107) mEq/L Carbon Dioxide 23 (23-29) mEq/L BUN 13 (8-23) mg/dL Creatinine 0.86 (0.70-1.30) mg/dL Est GFR ( Amer) > 60 (> 60) Est GFR (Non-Af Amer) > 60 (> 60) BUN/Creatinine Ratio 15 (6-26) Glucose 116 H (70-105) mg/dL Calculated Osmolality 281 (280-300) Calcium 9.0 (8.6-10.3) mg/dL Total Bilirubin 0.9 (0.3-1.0) mg/dL AST 33 (13-39) Units/L ALT 11 (7-52) Units/L Alkaline Phosphatase 77 (34-104) Units/L Troponin I < 0.03 (< 0.04) ng/mL B-Natriuretic Peptide (Less than 100) pg/mL Serum Total Protein 6.0 L (6.4-8.9) g/dL Albumin 3.7 (3.5-5.7) g/dL Globulin 2.3 L (2.4-3.5) g/dL Albumin/Globulin Ratio 1.6 (1.1-2.2) 07/02/18 Range/Units 07:35 WBC (4.3-11.1) K/mcL RBC (4.19-5.50) M/mcL Hgb (12.9-16.9) g/dL Hct (37.5-50.1) % MCV (83.0-100.0) fL MCH (28.0-33.3) pg MCHC (31.6-35.5) g/dL RDW (11.5-14.5) % Plt Count (140-400) K/mcL MPV (9.4-12.4) fL Immature Gran % (0-4) % Seg Neutrophils % % Lymphocytes % % Monocytes % % Eosinophils % % Basophils % % Neutrophils # (1.6-8.9) K/mcL Lymphocytes # (0.6-4.6) K/mcL Monocytes # (0.0-1.3) K/mcL Eosinophils # (0.0-0.6) K/mcL Basophils # (0.0-0.2) K/mcL D-Dimer (0-500) ng/mLFEU Sodium (136-145) mEq/L Potassium (3.5-5.1) mEq/L Chloride (98-107) mEq/L Carbon Dioxide (23-29) mEq/L BUN (8-23) mg/dL Creatinine (0.70-1.30) mg/dL Est GFR ( Amer) (> 60) Est GFR (Non-Af Amer) (> 60) BUN/Creatinine Ratio (6-26) Glucose (70-105) mg/dL Calculated Osmolality (280-300) Calcium (8.6-10.3) mg/dL Total Bilirubin (0.3-1.0) mg/dL AST (13-39) Units/L ALT (7-52) Units/L Alkaline Phosphatase (34-104) Units/L Troponin I (< 0.04) ng/mL B-Natriuretic Peptide 588 H (Less than 100) pg/mL Serum Total Protein (6.4-8.9) g/dL Albumin (3.5-5.7) g/dL Globulin (2.4-3.5) g/dL Albumin/Globulin Ratio (1.1-2.2) - Radiology Data Radiology results reviewed: Yes I reviewed the patient's radiology results. CT/CT angio chest IMPRESSION: 1. No findings of pulmonary embolism. 2. Interstitial pulmonary edema in the setting of mild to moderate cardiomegaly and increased trace bilateral pleural effusions, suggesting congestive heart failure. 3. New patchy peribronchovascular groundglass in the right upper and right middle lobes likely representing alveolar edema. Pneumonia could appear similar. 4. Suspected right heart dysfunction given reflux of the contrast bolus. 5. Moderate to severe bronchial wall thickening most likely due to pulmonary vascular congestion. Superimposed reactive airways disease or bronchitis are not excluded. D/ / Ari Lomeli MD / Ari Lomeli MD Interpreting Provider: Ari Lomeli MD
[2018-07-02 07:50] LABS: Basophils % 0.2 %; Eosinophils % 0.6 %; Hemoglobin 11.2 g/dL (12.9-16.9); Immature Granulocytes % 0.5 % (0-4); Lymphocytes # 0.7 K/mcL (0.6-4.6); Lymphocytes % 10.2 %; Mean Corpuscular HGB Conc 32.9 g/dL (31.6-35.5); Mean Corpuscular Hemoglobin 28.1 pg (28.0-33.3); Mean Corpuscular Volume 85.2 fL (83.0-100.0); Monocytes # 1.1 K/mcL (0.0-1.3); Neutrophils # 4.8 K/mcL (1.6-8.9); Platelet Count 207 K/mcL (140-400); Red Blood Count 3.99 M/mcL (4.19-5.50); Segmented Neutrophils % 72.5 %
[2018-07-02 08:11] LABS: Troponin I < 0.03 ng/mL (< 0.04)
[2018-07-02 08:12] LABS: Alanine Aminotransferase 11 Units/L (7-52); Albumin 3.7 g/dL (3.5-5.7); Albumin/Globulin Ratio 1.6 (1.1-2.2); Alkaline Phosphatase 77 Units/L (34-104); Aspartate Amino Transferase 33 Units/L (13-39); BUN/Creatinine Ratio 15 (6-26); Bilirubin,Total 0.9 mg/dL (0.3-1.0); Blood Urea Nitrogen 13 mg/dL (8-23); Carbon Dioxide 23 mEq/L (23-29); Chloride 104 mEq/L (98-107); Globulin 2.3 g/dL (2.4-3.5); Glucose 116 mg/dL (70-105); Osmolality,Calculated 281 (280-300); Potassium 4.2 mEq/L (3.5-5.1); Sodium 135 mEq/L (136-145); eGFR For Non-African Americans > 60 (> 60)
[2018-07-02] MEDS ORDERED: Isovue-370 500 ML INFUS..BTL IV ONE (08:19)
--- NOTE | 2018-07-02 08:28 | Emergency Department Note ---
Disposition Clinical Impression: Congestive heart failure Qualifiers: Heart failure type: unspecified Heart failure chronicity: acute on chronic Qualified Code(s): I50.9 - Heart failure, unspecified Dyspnea Qualifiers: Dyspnea type: unspecified dyspnea Qualified Code(s): R06.00 - Dyspnea, uns pecified Disposition: Admitted As Inpatient Condition: Fair Time of Disposition: 12:57 General Adult HPI - General Chief complaint: ED Shortness of Breath/Dyspnea Stated complaint: Breathing Problem Time Seen by Provider: 07/02/18 07:07 Source: patient, EMS Limitations: no limitations - History of Present Illness Location: chest - Related Data Home Medications Medication Instructions Recorded Confirmed Diltiazem HCl [Diltiazem 24Hr Cd] 180 mg PO QAM 05/01/15 04/06/18 fentaNYL [Fentanyl] 100 mcg TP Q72H 12/11/17 04/06/18 OxyCODONE Immed Rel [Roxicodone 30 30 mg PO Q6H PRN 12/12/17 04/06/18 MG] Cholecalciferol (Vitamin D3) 1,000 unit PO DAILY 07/02/18 07/02/18 [Vitamin D] Cyanocobalamin (Vitamin B-12) 1,000 mcg PO DAILY 07/02/18 07/02/18 [Vitamin B-12] Docusate [Colace] 100 mg PO BID PRN 07/02/18 07/02/18 Furosemide [Lasix] 20 mg PO DAILY 07/02/18 07/02/18 Lactulose 15 - 45 ml PO DAILY 07/02/18 07/02/18 Metoprolol Tartrate 50 mg PO BID 07/02/18 07/02/18 Omeprazole [PriLOSEC] 20 mg PO DAILY 07/02/18 07/02/18 predniSONE [PredniSONE] 10 mg PO DAILY 07/02/18 07/02/18 Allergies Allergy/AdvReac Type Severity Reaction Status Date / Time No Known Allergies Allergy Verified 04/06/18 11:04 Past Medical History - Past Medical History Medical history: Reports: cancer, CHF, coronary artery disease, hyperlipidemia, hypertension, malignancy, RA, valvular heart disease, other Surgical history: Reports: coronary bypass (CABG), heart valve replacement, other, pacemaker Psychiatric history: Reports: no psych history - Social History Smoking Status: Never smoker Smokeless Tobacco Status: No Alcohol use: Reports: none Drug use: Reports: none Physical Exam - General Limitations: no limitations Course Vital Signs Temperature 98.4 F 07/02/18 07:13 Pulse Rate 71 07/02/18 07:13 Respiratory Rate 22 07/02/18 07:13 Blood Pressure 162/88 07/02/18 07:13 O2 Sat by Pulse Oximetry 95 07/02/18 07:13 Temperature 97.7 F 07/02/18 11:08 Pulse Rate 78 07/02/18 11:08 Respiratory Rate 16 07/02/18 11:08 Blood Pressure 161/78 07/02/18 11:08 O2 Sat by Pulse Oximetry 91 07/02/18 11:08 Oxygen Delivery Oxygen Delivery Nasal Cannula Medical Decision Making - Lab Data Result diagrams: 07/02/18 07:35 07/02/18 07:35 Lab Results 07/02/18 07/02/18 07/02/18 Range/Units 07:35 07:35 07:35 WBC 6.6 (4.3-11.1) K/mcL RBC 3.99 L (4.19-5.50) M/mcL Hgb 11.2 L (12.9-16.9) g/dL Hct 34.0 L (37.5-50.1) % MCV 85.2 (83.0-100.0) fL MCH 28.1 (28.0-33.3) pg MCHC 32.9 (31.6-35.5) g/dL RDW 14.0 (11.5-14.5) % Plt Count 207 (140-400) K/mcL MPV 10.0 (9.4-12.4) fL Immature Gran % 0.5 (0-4) % Seg Neutrophils % 72.5 % Lymphocytes % 10.2 % Monocytes % 16.0 % Eosinophils % 0.6 % Basophils % 0.2 % Neutrophils # 4.8 (1.6-8.9) K/mcL Lymphocytes # 0.7 (0.6-4.6) K/mcL Monocytes # 1.1 (0.0-1.3) K/mcL Eosinophils # 0.0 (0.0-0.6) K/mcL Basophils # 0.0 (0.0-0.2) K/mcL D-Dimer 1644 H (0-500) ng/mLFEU Sodium 135 L (136-145) mEq/L Potassium 4.2 (3.5-5.1) mEq/L Chloride 104 (98-107) mEq/L Carbon Dioxide 23 (23-29) mEq/L BUN 13 (8-23) mg/dL Creatinine 0.86 (0.70-1.30) mg/dL Est GFR ( Amer) > 60 (> 60) Est GFR (Non-Af Amer) > 60 (> 60) BUN/Creatinine Ratio 15 (6-26) Glucose 116 H (70-105) mg/dL Calculated Osmolality 281 (280-300) Calcium 9.0 (8.6-10.3) mg/dL Phosphorus (2.7-4.5) mg/dL Magnesium (1.6-2.6) mg/dL Total Bilirubin 0.9 (0.3-1.0) mg/dL AST 33 (13-39) Units/L ALT 11 (7-52) Units/L Alkaline Phosphatase 77 (34-104) Units/L Troponin I < 0.03 (< 0.04) ng/mL B-Natriuretic Peptide (Less than 100) pg/mL Serum Total Protein 6.0 L (6.4-8.9) g/dL Albumin 3.7 (3.5-5.7) g/dL Globulin 2.3 L (2.4-3.5) g/dL Albumin/Globulin Ratio 1.6 (1.1-2.2) 07/02/18 07/02/18 07/02/18 Range/Units 07:35 10:59 10:59 WBC (4.3-11.1) K/mcL RBC (4.19-5.50) M/mcL Hgb (12.9-16.9) g/dL Hct (37.5-50.1) % MCV (83.0-100.0) fL MCH (28.0-33.3) pg MCHC (31.6-35.5) g/dL RDW (11.5-14.5) % Plt Count (140-400) K/mcL MPV (9.4-12.4) fL Immature Gran % (0-4) % Seg Neutrophils % % Lymphocytes % % Monocytes % % Eosinophils % % Basophils % % Neutrophils # (1.6-8.9) K/mcL Lymphocytes # (0.6-4.6) K/mcL Monocytes # (0.0-1.3) K/mcL Eosinophils # (0.0-0.6) K/mcL Basophils # (0.0-0.2) K/mcL D-Dimer (0-500) ng/mLFEU Sodium (136-145) mEq/L Potassium (3.5-5.1) mEq/L Chloride (98-107) mEq/L Carbon Dioxide (23-29) mEq/L BUN (8-23) mg/dL Creatinine (0.70-1.30) mg/dL Est GFR ( Amer) (> 60) Est GFR (Non-Af Amer) (> 60) BUN/Creatinine Ratio (6-26) Glucose (70-105) mg/dL Calculated Osmolality (280-300) Calcium (8.6-10.3) mg/dL Phosphorus 3.3 (2.7-4.5) mg/dL Magnesium 2.0 (1.6-2.6) mg/dL Total Bilirubin (0.3-1.0) mg/dL AST (13-39) Units/L ALT (7-52) Units/L Alkaline Phosphatase (34-104) Units/L Troponin I < 0.03 (< 0.04) ng/mL B-Natriuretic Peptide 588 H (Less than 100) pg/mL Serum Total Protein (6.4-8.9) g/dL Albumin (3.5-5.7) g/dL Globulin (2.4-3.5) g/dL Albumin/Globulin Ratio (1.1-2.2) Critical Care Time Critical Care Time: Yes Total Critical Care Time: 35 Attestation: Critical care performed: Time is exclusive of separately billable procedures. Time includes: direct patient care, patient reassessment, coordination of patient care, interpretation of data (laboratory data, radiology data, and respiratory data), review of patient's medical records, medical consultation and documentation of patient care. Procedures included in critical care time: Procedures excluded from critical care time: Attestation Statement - Attestation Attestation: For this encounter, I have reviewed the DIRECTOR STYLE or PA documentation, treatment plan, and medical decision making; and I have had face to face time with this patient. Patient presents to the etiology complaint shortness of breath and leg pain. He arrives from home. Complains of leg swelling extensive cardiac history. On exam he is in no distress. He is satting 90 on room air. Rails. Symmetric 1- 2+ lower extremity edema. Plan. Patient presented in CHF. Labs troponin and BNP. Diuresis and likely admission. Pulmonary edema. Diuresis and admission.. Chest X-Ray 07/02/18 07:22 IMPRESSION: Pulmonary edema with small pleural effusions. D/ / Davidson Mckeon MD / Davidson Mckeon MD Interpreting Provider: Davidson Mckeon MD Chest CTA 07/02/18 08:19 IMPRESSION: 1. No findings of pulmonary embolism. 2. Interstitial pulmonary edema in the setting of mild to moderate cardiomegaly and increased trace bilateral pleural effusions, suggesting congestive heart failure. 3. New patchy peribronchovascular groundglass in the right upper and right middle lobes likely representing alveolar edema. Pneumonia could appear similar. 4. Suspected right heart dysfunction given reflux of the contrast bolus. 5. Moderate to severe bronchial wall thickening most likely due to pulmonary vascular congestion. Superimposed reactive airways disease or bronchitis are not excluded. D/ / Ari Lomeli MD / Ari Lomeli MD Interpreting Provider: Ari Lomeli MD
[2018-07-02] MEDS ORDERED: Furosemide 20 MG/2 ML VIAL IVP ONE (09:24)
[2018-07-02] MEDS ORDERED: Furosemide 40 MG/4 ML VIAL IVP ONE (09:29)
[2018-07-02] MEDS ORDERED: Naloxone 0.4 MG/ML INJ IVP PRN (10:04)
[2018-07-02] MEDS ORDERED: Furosemide 40 MG/4 ML VIAL IVP SCH (10:15)
[2018-07-02 11:44] LABS: Phosphorous 3.3 mg/dL (2.7-4.5)
[2018-07-02] MEDS: traMADol 50 MG TABLET PO PRN (12:16)
[2018-07-02] MEDS ORDERED: predniSONE 20 MG TABLET PO SCH (12:30)
[2018-07-02] MEDS ORDERED: *HR* FentaNYL PATCH 75 MCG PATCH TD SCH (12:45)
--- NOTE | 2018-07-02 12:51 | Internal Med History&Physical ---
Addendum entered and electronically signed by Nancy Dunbar CNP 07/02/18 20:15: Addendum entered and electronically signed by Orlin Turner MD 16:53: Patient seen and evaluated at bedside. He reported generalized pain. reports that the shortness of breath has improved. denies chest pain, nausea or vomiting. Reported feeling cold. Physical exam: General: AAOx4, mild distress due to cold and generalized body aches. Heart: RRR, normal S2S2, no murmur, rubs or gallops Chest: minimal crackles and rales at the bases b/l, no wheezing. Abd: Soft, non distended or tender. NABS in all 4 quadrants Extr: no edema, strength 5/5 in the upper and lower extr Neuro: CN II-XII intact. rest of the physical exam unremarkable Assessment and Plan 1. CHF exacerbation 2. Pneumonia 3. CAD s/p stent 4. Hx of lymphoma. 5. VTE prophylaxis 6. HTN Plan will start patient on empiric antibiotics patient with possible pneumonia on CTA PE r/o doppler US of the lower extr to r/o DVT Nebs PRN started on Soul-medrol 40mg/IV BID will give one dose of vancomycin blood culture Hem&Onc consult stand by [facility] will repeat TTE as patient with Hx of Aortic valve replacement. heparin 5000 units SubQ BID Serial trops. Tramadol 50mg/PO Q6HR PRN for pain control. rapid flu test furosemide 40mg/IV BID fluid restriction to 1.5 litters a day daily weight. strict intake and output. Addendum entered and electronically signed by Nancy Dunbar CNP 07/02/18 14:00: Assessment and Plan: CHF: will start on Lasix 40 mg IVP daily, continue with oxygen @ 2 LMP/NC, continue home medications for lipids, hypertension Monitor VS , Continue to monitor with telemetry Obtain Cardiology consult Obtain BLOSSOM and Venous doppler bilat lower ext . Fluid restriction of 1.5 L daily Pneumonia: Start on IVBP ATB of Azithromycin and Rocephin daily Pulmonolgy consult Obtain POC rapid flu test Lymphoma: Oncology consult Chronic pain Continue current home pain medications of Fentanyl and Oxycodone Original Note: Date of Encounter: 07/02/18 Time of Encounter: 12:10 Internal Medicine - H&P: HPI Chief complaint: shotness of breath, worsing , unable to breath. Admitted From: Emergency Dept Plans for Post Hospital Care: Home History of present illness: Mr. Tripp is a 87 year old male whom was admitted from the emergency room for increased dyspnea, shortness of breath, from home. Reports he lives at home, and was becoming harder and harder to get his breath over the past few days. PMX is positive for Lymphoma, with most recent chemo therapy through the cancer center. He states that he is to follow up with the center next wednesday for review of his most recent bone scan and CT scan to see if he is to continue with treatments. Positive hx for for CHF, pneumonia, CAD, with pacemaker and stents , RA, Anemia, HTN, and chronic back pain. ROS: continues with severe dyspnea with oxygen on @ 2LPM/NC, CC of chronic back pain, and "hurting all over". Currently has Fentanyl patch in place of mid back. Placed at home yesterday. Changes every 72 hours . Mild abdominal pain, reports last BM 2 days ago, uses laxatives, stool softners, and Lactulose on daily basis Denies current chest pain, nausea, vomiting, constipation or diarrhea, swelling of feet or legs. Current home medications include: Cardizem, Docusate, Lasix, Omeprazole, Metoprolol, prednisone (most recently decreased from 20 mg daily to 10 mg daily), Lactulose, Percocet 5/325mg , and Fentanyl 75mg q72h patch. Chest x-ray was reviewed and positive for pulominary edema with small pleural effusions. CT Chest : IMPRESSION: 1. No findings of pulmonary embolism. 2. Interstitial pulmonary edema in the setting of mild to moderate cardiomegaly and increased trace bilateral pleural effusions, suggesting congestive heart failure. 3. New patchy peribronchovascular groundglass in the right upper and right middle lobes likely representing alveolar edema. Pneumonia could appear similar. 4. Suspected right heart dysfunction given reflux of the contrast bolus. 5. Moderate to severe bronchial wall thickening most likely due to pulmonary vascular congestion. Superimposed reactive airways disease or bronchitis are not excluded. It was decided to admit this patient for treatment of CHF, and penumonia. Past Med Surg Social Fam HX - Past Medical History Source: patient Medical history: cancer, CHF, coronary artery disease, hyperlipidemia, hypertension, malignancy, RA, valvular heart disease, other Additional medical history: lymphoma Psychiatric history: no psych history - Past Surgical History Surgical History: coronary bypass (CABG), heart valve replacement, other, pacemaker Additional surgical history: aortic valve replacement - Social History Smoking Status: Never smoker Smokeless Tobacco Status: No Alcohol use: none Drug use: none - Family History Mother Adopted: No Family Member Ethnicity: Non- Living Status: Hx Family Cardiac Disorders: Yes Hx Family Cancer: Yes Hx Family Endocrine Disorder: Yes (DM) Father Living Status: Internal Medicine - H&P: Meds Diltiazem HCl [Diltiazem 24Hr Cd] 180 mg PO QAM 05/01/15 [History] fentaNYL [Fentanyl] 100 mcg TP Q72H 12/11/17 [History] OxyCODONE Immed Rel [Roxicodone 30 MG] 30 mg PO Q6H PRN 12/12/17 [History] Cholecalciferol (Vitamin D3) [Vitamin D] 1,000 unit PO DAILY 07/02/18 [History] Cyanocobalamin (Vitamin B-12) [Vitamin B-12] 1,000 mcg PO DAILY 07/02/18 [History] Docusate [Colace] 100 mg PO BID PRN 07/02/18 [History] Furosemide [Lasix] 20 mg PO DAILY 07/02/18 [History] Lactulose 15 - 45 ml PO DAILY 07/02/18 [History] Metoprolol Tartrate 50 mg PO BID 07/02/18 [History] Omeprazole [PriLOSEC] 20 mg PO DAILY 07/02/18 [History] predniSONE [PredniSONE] 10 mg PO DAILY 07/02/18 [History] Allergy/AdvReac Type Severity Reaction Status Date / Time No Known Allergies Allergy Verified 04/06/18 11:04 All Systems PM: A 10-system review of systems was performed and is negative for pertinent findings except as documented above in the HPI. - Constitutional Constitutional: weakness Additional comments: uses walker to ambulate at home - EENT Additional comments: right eye lid with proptosis and remains closed Ears: decreased hearing Nose, mouth and throat: no dysphagia, no nasal discharge, no neck pain, no sore throat - Breasts Breasts: as per HPI - Cardiovascular Cardiovascular ROS IM: as per HPI - Respiratory Respiratory: dyspnea, dyspnea on exertion, wheezing, pain on inspiration, chest congestion - Gastrointestinal Gastrointestinal: bloating - Genitourinary Genitourinary ROS male: as per HPI - Musculoskeletal Musculoskeletal ROS IM: arthralgias, back pain, joint swelling, myalgias, stiffness Additional comments: large deformity of soft tissue swelling left elbow - Neurological Neurological ROS: as per HPI - Psychiatric Psychiatric: as per HPI - Endocrine Endocrine IM: as per HPI - Hematologic/Lymphatic Hematologic/Lymphatic: as per HPI - Allergic/Immunologic Allergic/Immunologic: as per HPI - Constitutional Vitals: Temp Pulse Resp BP Pulse Ox 97.7 F 78 16 161/78 91 07/02/18 11:08 07/02/18 11:08 07/02/18 11:08 07/02/18 11:08 07/02/18 11:08 General appearance: Present: cooperative, mild distress, A&O X 3, pleasant, answers questions appropriately Exam: as above - Head Head exam: Present: atraumatic, normocephalic - Eye Additional comments: right eye lid proptosis remains closed, - Neck Neck exam general surgery: Present: supple, trachea midline. Absent: lymphadenopathy - Respiratory Respiratory exam: Present: accessory muscle use, prolonged expiratory phase, rales, rhonchi, wheezes Additional comments: diminished breath sounds all hernandez - Cardiovascular Cardiovascular exam: Present: RRR Additional comments: pacemaker left upper chest wall - GI/Abdominal GI/Abdominal exam: Present: diminished bowel sounds, distended, firm - Extremities Exam Extremities exam: Present: warm, radial pulses palpable and symmetrical. Absent: calf tenderness, cyanotic, pedal edema - Back Exam Back exam: Present: normal inspection (pain patch present mid thoracic spine ) - Neurological Exam Neurological exam: Present: CN II-XII intact, oriented X3, strengths equal and symetr throughout - Psychiatric Psychiatric exam: Present: normal affect, normal mood - Skin Skin exam: Present: warm (old brusing anterior tibia well healing ) Internal Med - H&P Results - Labs CBC & Chem 7: 07/02/18 07:35 07/02/18 07:35 Labs: Short CBC 07/02/18 Range/Units 07:35 WBC 6.6 (4.3-11.1) K/mcL Hgb 11.2 L (12.9-16.9) g/dL Hct 34.0 L (37.5-50.1) % Plt Count 207 (140-400) K/mcL Neutrophils # 4.8 (1.6-8.9) K/mcL BMP 07/02/18 07:35 Sodium 135 L Potassium 4.2 Chloride 104 Carbon Dioxide 23 BUN 13 Creatinine 0.86 Glucose 116 H Calcium 9.0 Cardiac Enzymes 07/02/18 07/02/18 Range/Units 07:35 10:59 Troponin I < 0.03 < 0.03 (< 0.04) ng/mL Liver Function 07/02/18 Range/Units 07:35 Total Bilirubin 0.9 (0.3-1.0) mg/dL AST 33 (13-39) Units/L ALT 11 (7-52) Units/L Alkaline Phosphatase 77 (34-104) Units/L Albumin 3.7 (3.5-5.7) g/dL - Pulse Oximetry Interpretation Digit-Finger O2 Sat by Pulse Oximetry: 91 Additional comments: with oxygen on @ 2LPM - Impressions ITS Impressions Chest X-Ray 07/02/18 07:22 IMPRESSION: Pulmonary edema with small pleural effusions. D/ / Davidson Mckeon MD / Davidson Mckeon MD Interpreting Provider: Davidson Mckeon MD Chest CTA 07/02/18 08:19 IMPRESSION: 1. No findings of pulmonary embolism. 2. Interstitial pulmonary edema in the setting of mild to moderate cardiomegaly and increased trace bilateral pleural effusions, suggesting congestive heart failure. 3. New patchy peribronchovascular groundglass in the right upper and right middle lobes likely representing alveolar edema. Pneumonia could appear similar. 4. Suspected right heart dysfunction given reflux of the contrast bolus. 5. Moderate to severe bronchial wall thickening most likely due to pulmonary vascular congestion. Superimposed reactive airways disease or bronchitis are not excluded. D/ / Ari Lomeli MD / Ari Lomeli MD Interpreting Provider: Ari Lomeli MD - Time Spent With Patient Total time spent is greater than 50% in coordination of care (as documented) at patient's floor/unit and/or counseling patient:
[2018-07-02] MEDS: cefTRIAXone 1,000 MG in Water for inj. (sterile) 20 ML 10 ML IVP SCH (15:52)
[2018-07-02] MEDS: Azithromycin 250 MG in D5% in Water 250 ML IVPB SCH (15:54)
[2018-07-02] MEDS ORDERED: Ipratropium/Albuterol Neb 3 ML IH PRN (16:09)
[2018-07-02] MEDS: MethylPREDNISolone 40 MG/ML VIAL IVP SCH (17:29)
[2018-07-02] MEDS: *HR* OxyCODONE/APAP 5/325 TABLET PO PRN (17:30)
[2018-07-02] MEDS: *HR* Heparin 5,000 UNIT/ML VIAL SQ SCH (17:30)
[2018-07-02] MEDS ORDERED: *HR* Heparin 5,000 UNIT/ML VIAL SQ SCH (18:00)
[2018-07-02] MEDS: Lactulose Oral Soln 20 GM/30 ML UDC PO SCH (20:44)
[2018-07-03 04:10] LABS: Hematocrit 34.8 % (37.5-50.1); Hemoglobin 11.5 g/dL (12.9-16.9); Mean Corpuscular Hemoglobin 27.9 pg (28.0-33.3); Mean Corpuscular Volume 84.5 fL (83.0-100.0); Mean Platelet Volume 9.9 fL (9.4-12.4); Platelet Count 228 K/mcL (140-400); Red Blood Count 4.12 M/mcL (4.19-5.50); Red Cell Distribution Width 13.7 % (11.5-14.5)
[2018-07-03 04:29] LABS: BUN/Creatinine Ratio 22 (6-26); Blood Urea Nitrogen 15 mg/dL (8-23); Calcium 8.9 mg/dL (8.6-10.3); Carbon Dioxide 24 mEq/L (23-29); Chloride 104 mEq/L (98-107); Glucose 150 mg/dL (70-105); Osmolality,Calculated 288 (280-300); Potassium 3.8 mEq/L (3.5-5.1); Sodium 137 mEq/L (136-145); eGFR For Non-African Americans > 60 (> 60)
[2018-07-03] MEDS: *HR* Heparin 5,000 UNIT/ML VIAL SQ SCH ×2 (05:54→17:56)
[2018-07-03] MEDS: MethylPREDNISolone 40 MG/ML VIAL IVP SCH (05:54)
[2018-07-03] MEDS: cefTRIAXone 1,000 MG in Water for inj. (sterile) 20 ML 10 ML IVP SCH (08:50)
[2018-07-03] MEDS: *HR* OxyCODONE/APAP 5/325 TABLET PO PRN ×2 (08:51→17:56)
[2018-07-03] MEDS: Furosemide 40 MG/4 ML VIAL IVP SCH (08:51)
[2018-07-03] MEDS: Diltiazem CD (24hr) 180 MG CAPSULE PO SCH (08:51)
--- NOTE | 2018-07-03 10:13 | Event Note ---
Date of Encounter: 07/03/18 Time of Encounter: 10:00 I was contacted by the hospitalist service to direct which it regards to his history of lymphoma for which he is on active surveillance under the care of my partner, Dr. Franklin. He underwent CT imaging June 28 which was to review the reviewed this coming Wednesday. Hospitalist asked me to review imaging and convey results to the patient. I did review imaging with the patient stated that there is no evidence of active lymphoma. I will arrange for follow-up with Dr. Franklin and 2-3 weeks. No need for any change in therapy from an oncologic perspective.
[2018-07-03] MEDS: Azithromycin 250 MG in D5% in Water 250 ML IVPB SCH (13:12)
[2018-07-03] MEDS: traMADol 50 MG TABLET PO PRN ×2 (13:12→20:37)
--- NOTE | 2018-07-03 15:16 | Internal Med Progress Note ---
Hospitalist Progress Note - Encounter Date of Encounter: 07/03/18 Time of Encounter: 15:24 - Subjective Interval History: patient seen and evaluated at bedside reports that his respiratory status has improved but still reports that he does not feel like himself. reports that his symptoms started after he got the flu shot. Denies chest pain, nausea, vomiting or abdominal pain, but reports generalized bodily aches. - Exam Vitals: Temp Pulse Resp BP Pulse Ox 98.2 F 83 14 126/69 96 07/03/18 14:40 07/03/18 14:40 07/03/18 14:40 07/03/18 14:40 07/03/18 14:40 Exam: General: Alert and oriented x4. IN mild distress due to generalized pain. Skin: Normal color, no rash, no lesions. HEENT: EOM, pupils equal, round and reactive. Cardiovascular: RRR, Normal S1 & S2, no rubs, murmurs or gallops. Lungs: Clear to auscultation bilaterally, no wheezes or crackles. Abdomen: Soft, non-tender, no rigidity. Extremities: no edema or tenderness, no joint swelling. tophi at the left elbow. Neurological: Normal cognition and motor skills. Rest of the physical exam is non contributory - Assessment and Plan (1) Congestive heart failure Current Visit: Yes Status: Acute Assessment and Plan: total balance negative 400 mls. Plan Strict intake and output On a bb Daily weight Water restriction to 1.5 L a day On furosemide 40mg/IV daily (2) Pulmonary hypertension Current Visit: Yes Status: Chronic Assessment and Plan: Moderate Pulm HNT careful with diuresis. (3) Back pain Current Visit: No Status: Chronic Assessment and Plan: Continue pain control. Patient with a fentanyl patch. On percocet 5/325mg/po Q6HR (4) Pneumonia Current Visit: No Status: Acute Assessment and Plan: radigraphic evidence of possible pneumonia will continue IV antibiotics for at least 3-5 days. blood culture no growth, pending final report. (5) Anemia Current Visit: No Status: Chronic Assessment and Plan: Possible anemia of chronic disease in the setting of patient Hx of lymphoma (6) CAD (coronary artery disease) Current Visit: No Status: Chronic Assessment and Plan: We will start patient on aspirin 81 mg by mouth daily. (7) HTN (hypertension) Current Visit: No Status: Chronic Assessment and Plan: Blood pressure has been well-controlled. Continue the diltiazem, and metoprolol. (8) Large B-cell lymphoma Current Visit: No Status: Chronic Assessment and Plan: outpatient Hem&Onc follow up (9) Rheumatoid arthritis Current Visit: No Status: Chronic Assessment and Plan: plan; esr CRP outpatient So[facility] follow up. - Time Spent with Patient Total time spent is greater than 50% in coordination of care (as documented) at patient's floor/unit and/or counseling patient: Internal Medicine: Result - Labs CBC & Chem 7: 07/03/18 03:57 07/03/18 03:57 Labs: Short CBC 07/03/18 Range/Units 03:57 WBC 4.0 L (4.3-11.1) K/mcL Hgb 11.5 L (12.9-16.9) g/dL Hct 34.8 L (37.5-50.1) % Plt Count 228 (140-400) K/mcL BMP 07/03/18 03:57 Sodium 137 Potassium 3.8 Chloride 104 Carbon Dioxide 24 BUN 15 Creatinine 0.68 L Glucose 150 H Calcium 8.9 Cardiac Enzymes 07/02/18 Range/Units 16:10 Troponin I < 0.03 (< 0.04) ng/mL - ABG Interpretation ABG results: PT/INR, D-dimer D-Dimer 1644 ng/mLFEU (0-500) H 07/02/18 07:35 - Impressions Impressions Echocardiogram 07/02/18 10:07 Impressions: LVEF 55%. Indeterminate diastolic function. Mild concentric left ventricular hypertrophy. Atypical septal motion consistent with paced rhythm. Mildy dilated RV. Overall function is normal. Severe bi-atrial enlargement. Bioprosthetic aortic valve not well visualized. 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 Moderate mitral stenosis, MG 7 mmHg at 72 bpm. Mild-moderate mitral regurgitation. Moderate tricuspid regurgitation. Mild-moderate pulmonic regurgitation. Moderate pulmonary hypertension. Consult Discharge Plan - Plan Referrals: NONE,PCP [Primary Care Provider] - (1) Congestive heart failure Qualifiers: Heart failure type: combined systolic and diastolic Heart failure chronicity: unspecified Qualified Code(s): I50.40 - Unspecified combined systolic (congestive) and diastolic (congestive) heart failure (3) Back pain Qualifiers: Back pain location: low back pain Chronicity: acute Back pain laterality: unspecified Sciatica presence: unspecified whether sciatica present Qualified Code(s): M54.5 - Low back pain (4) Pneumonia Qualifiers: Pneumonia type: due to unspecified organism Laterality: right Lung location: unspecified part of lung Qualified Code(s): J18.9 - Pneumonia, unspecified orga nism (5) Anemia Qualifiers: Anemia type: unspecified type Qualified Code(s): D64.9 - Anemia, unspecified (6) CAD (coronary artery disease) Qualifiers: Coronary Disease-Associated Artery/Lesion type: [place] artery [place] vs. transplanted heart: [place] heart Associated angina: without angina Qualified Code(s): I25.10 - Atherosclerotic heart disease of [place] coronary artery without angina pectoris (7) HTN (hypertension) Qualifiers: Hypertension type: essential hypertension Qualified Code(s): I10 - Essential (primary) hypertension (9) Rheumatoid arthritis Qualifiers: Rheumatoid arthritis location: multiple sites Rheumatoid factor presence: unspecified presence Qualified Code(s): M06.9 - Rheumatoid arthritis, unspecified
[2018-07-03] MEDS: Lactulose Oral Soln 20 GM/30 ML UDC PO SCH (20:37)
[2018-07-04] MEDS: *HR* Heparin 5,000 UNIT/ML VIAL SQ SCH (05:32)
[2018-07-04] MEDS: *HR* OxyCODONE/APAP 5/325 TABLET PO PRN (05:43)
[2018-07-04] MEDS ORDERED: Aspirin Enteric Coated 81 MG Tablet PO SCH (09:00)
[2018-07-04] MEDS: Diltiazem CD (24hr) 180 MG CAPSULE PO SCH (09:31)
[2018-07-04] MEDS: Furosemide 40 MG/4 ML VIAL IVP SCH (09:32)
[2018-07-04] MEDS: cefTRIAXone 1,000 MG in Water for inj. (sterile) 20 ML 10 ML IVP SCH (09:32)
[2018-07-04 10:33] VITALS: BP 135/77
--- NOTE | 2018-07-04 12:12 | Discharge Summary ---
- NOTES TO OUTPATIENT PROVIDER Notes to Outpatient Provider: Follow-up with your primary care doctor within a week of hospital discharge. Orders not resulted at time of discharge: Pending orders 07/02/18 17:26 Culture,Blood [BC] Stat Date of Encounter: 07/04/18 Time of Encounter: 12:08 - Discharge Diagnosis (1) Congestive heart failure Priority: Primary Status: Resolved Qualifiers: Heart failure type: combined systolic and diastolic Heart failure chronicity: unspecified Qualified Code(s): I50.40 - Unspecified combined systolic (congestive) and diastolic (congestive) heart failure (2) Pulmonary hypertension Priority: Secondary Status: Chronic (3) Back pain Priority: Secondary Status: Chronic Qualifiers: Back pain location: low back pain Chronicity: acute Back pain laterality: unspecified Sciatica presence: unspecified whether sciatica present Qualified Code(s): M54.5 - Low back pain (4) Pneumonia Priority: Secondary Status: Acute Assessment and Plan: Possible pneumonia/bronchitis. Qualifiers: Pneumonia type: due to unspecified organism Laterality: right Lung location: unspecified part of lung Qualified Code(s): J18.9 - Pneumonia, unspecified organism (5) Anemia Priority: Secondary Status: Chronic Qualifiers: Anemia type: unspecified type Qualified Code(s): D64.9 - Anemia, unspecified (6) CAD (coronary artery disease) Priority: Secondary Status: Chronic Qualifiers: Coronary Disease-Associated Artery/Lesion type: [place] artery [place] vs. transplanted heart: [place] heart Associated angina: without angina Qualified Code(s): I25.10 - Atherosclerotic heart disease of [place] coronary artery without angina pectoris (7) HTN (hypertension) Priority: Secondary Status: Chronic Qualifiers: Hypertension type: essential hypertension Qualified Code(s): I10 - Essential (primary) hypertension (8) Large B-cell lymphoma Priority: Secondary Status: Chronic (9) Rheumatoid arthritis Priority: Secondary Status: Chronic Qualifiers: Rheumatoid arthritis location: multiple sites Rheumatoid factor presence: unspecified presence Qualified Code(s): M06.9 - Rheumatoid arthritis, unspecified Hospital course: Mr. Tripp is a 87 year old male past medical history significant for CHF, coronary artery disease, hyperlipidemia, hypertension, lymphoma, RA, valvular heart disease and pulmonary hypertension. Patient presented to the emergency room complaining of shortness of breath. Patient admitted to the hospital due to CHF exacerbation, PE ruled out by CTA. CT of the chest had finding just if of pneumonia/bronchitis. Patient treated with empirically with IV antibiotics, IV diuresis. Patient's acute symptoms resolved, patient is hemodynamically stable to be discharged home. Patient continued to report chronic generalized body ache. Discharge discussed with: patient - Time Spent with Patient Total time spent providing and/or coordinating discharge services: Greater than 30 minutes - Discharge Medications Prescriptions: Amoxicillin/Clavulanate [Augmentin] 875 mg PO BIDWM 3 Days #6 tablet Home Medications: Diltiazem HCl [Diltiazem 24Hr Cd] 180 mg PO QAM 05/01/15 [History] fentaNYL [Fentanyl] 100 mcg TP Q72H 12/11/17 [History] OxyCODONE Immed Rel [Roxicodone 30 MG] 30 mg PO Q6H PRN 12/12/17 [History] Cholecalciferol (Vitamin D3) [Vitamin D3] 1,000 unit PO DAILY 07/02/18 [History] Cyanocobalamin (Vitamin B-12) [Vitamin B-12] 1,000 mcg PO DAILY 07/02/18 [History] Docusate [Colace] 100 mg PO BID PRN 07/02/18 [History] Furosemide [Lasix] 20 mg PO DAILY 07/02/18 [History] Lactulose 15 - 45 ml PO DAILY 07/02/18 [History] Metoprolol Tartrate 50 mg PO BID 07/02/18 [History] Omeprazole [PriLOSEC] 20 mg PO DAILY 07/02/18 [History] predniSONE [PredniSONE] 10 mg PO DAILY 07/02/18 [History] Amoxicillin/Clavulanate [Augmentin] 875 mg PO BIDWM 3 Days #6 tablet 07/04/18 [Rx] Allergies/Adverse Reactions: Allergy/AdvReac Type Severity Reaction Status Date / Time No Known Allergies Allergy Verified 04/06/18 11:04 Date of admission: 07/02/18 10:02 Primary care physician: PCP NONE - Constitutional Vitals: Temp Pulse Resp BP Pulse Ox 97.8 F 89 16 135/77 95 07/04/18 10:22 07/04/18 10:22 07/04/18 10:22 07/04/18 10:22 07/04/18 10:22 General appearance: Present: cooperative, mild distress, A&O X 3, pleasant, answers questions appropriately Exam: General: Alert and oriented x4. IN mild distress due to chronic generalized pain. Cardiovascular: RRR, Normal S1 & S2, no rubs, murmurs or gallops. Lungs: Clear to auscultation bilaterally, no wheezes or crackles. Abdomen: Soft, non-tender, no rigidity. NABS in all 4 quadrants Extremities: no edema. tophi at the left elbow. Neurological: Normal. CN II-XII intact. Rest of the physical exam is non contributory - Patient Status Disposition: Home Health Service Condition: Good Functional capacity at discharge: uses cane/walker Overall status at discharge: patient is back to baseline - Discharge Instructions Follow Up With: NONE,PCP [Primary Care Provider] - - Diet and Activity Activity: resume usual activities as tolerated Diet: advance to your usual diet, low salt diet
[2018-07-04] MEDS: Azithromycin 250 MG in D5% in Water 250 ML IVPB SCH (12:34)
--- NOTE | 2018-07-05 17:10 | Electrocardiograph Report ---
[place] [id number] Test Date: 2018-07-02 Pat Name: Roc Tripp Department: [id number] Room: 3A14 Gender: M Nurse Navigator: : 1930 Requested By: Parveen Maza Order Number: [id number] Reading MD: Yuan Powell Measurements Intervals [place] Rate: 77 P: [place]: QRS: 41 QRSD: 139 T: 241 QT: 476 QTc: 593 Interpretive Statements Afib/flut and V-paced complexes No further rhythm analysis attempted due to paced rhythm Electronically Signed On 07-05-2018 17:09:03 EDT by Yuan Powell
== END 2018-07-04 13:52 | disposition home health service (06) ==
LOC: EMEROOARM 07:00 → 3ANU 07:00
PROVIDERS: ADMIT Internal Medicine; ATTEND Internal Medicine

== ENCOUNTER 2018-07-09 12:48 | Inpatient (IN) ==
--- NOTE | 2018-07-09 13:01 | Emergency Department Note ---
Disposition Clinical Impression: Acute occlusion of artery of upper extremity Disposition: Admitted As Inpatient Condition: Serious Weakness HPI - General Chief complaint: ED Weakness Stated complaint: weakness Time Seen by Provider: 07/09/18 12:55 Nursing Notes Reviewed: Yes Vital Signs Reviewed: Yes - History of Present Illness HPI Narrative: Patient with significant past medical history of B cell lymphoma, CHF, coronary artery disease, hyperlipidemia, hypertension, lymphoma, RA, valvular heart disease and pulmonary hypertension who presents the emergency department with concern for right arm and hand weakness/numbness. Patient was a recent admit one week ago for CHF exacerbation. He states the symptoms began this morning and has been feeling numb so he called EMS. Otherwise denies any headache, visual changes, slurred speech, leg numbness or weakness, chest pain, shortness of breath. He is not on any blood thinners. He has never had a stroke or heart attack in the past. - Related Data Home Medications Medication Instructions Recorded Confirmed RX: Diltiazem HCl [Diltiazem 24Hr 180 mg PO QAM 05/01/15 07/09/18 Cd] RX: fentaNYL [Fentanyl] 100 mcg TP Q72H 12/11/17 07/09/18 RX: OxyCODONE Immed Rel 30 mg PO Q6H PRN 12/12/17 07/09/18 [Roxicodone 30 MG] RX: Cholecalciferol (Vitamin D3) 1,000 unit PO DAILY 07/02/18 07/09/18 [Vitamin D3] RX: Cyanocobalamin (Vitamin B-12) 1,000 mcg PO DAILY 07/02/18 07/09/18 [Vitamin B-12] RX: Docusate [Colace] 100 mg PO BID PRN 07/02/18 07/09/18 RX: Furosemide [Lasix] 20 mg PO DAILY 07/02/18 07/09/18 RX: Lactulose 15 - 45 ml PO DAILY 07/02/18 07/09/18 RX: Metoprolol Tartrate 50 mg PO BID 07/02/18 07/09/18 RX: Omeprazole [PriLOSEC] 20 mg PO DAILY 07/02/18 07/09/18 RX: predniSONE [PredniSONE] 10 mg PO DAILY 07/02/18 07/09/18 Allergies Allergy/AdvReac Type Severity Reaction Status Date / Time No Known Allergies Allergy Verified 04/06/18 11:04 All systems ED: reviewed and negative except as stated. Review of Systems: As Per HPI Past Medical History - Past Medical History Source: patient, old records reviewed Medical history: Reports: cancer, CHF, coronary artery disease, hyperlipidemia, hypertension, malignancy, RA, valvular heart disease, other Surgical history: Reports: coronary bypass (CABG), heart valve replacement, other, pacemaker Psychiatric history: Reports: no psych history - Social History Smoking Status: Never smoker Smokeless Tobacco Status: No Alcohol use: Reports: none Drug use: Reports: none Physical Exam - General General appearance: alert, in no apparent distress - Head Head exam: atraumatic, normocephalic - Eye Eye exam: Present: PERRL, other (Right eye blindness) - Neck Neck exam: Present: normal inspection, full ROM, trachea midline - Chest Chest inspection: Present: normal inspection, other (Port-A-Cath in right upper chest with pacemaker in left upper chest) - Respiratory Respiratory exam: Present: normal lung sounds bilaterally. Absent: respiratory distress, wheezes, stridor - Cardiovascular Cardiovascular exam: Present: regular rate, normal rhythm, systolic murmur - Abdominal Exam Abdominal exam: Present: soft, Non-Tender, normal bowel sounds. Absent: guarding, rigidity - Expanded Upper Extremity Exam Elbow exam: Present: deformity (Left elbow with significant nodular deformity ov erlying left olecranon). Absent: crepitus Hand exam: Present: normal inspection (Bilaterally), full ROM. Absent: tenderness Neurosensory exam: Normal: radial nerve, ulnar nerve, median nerve Vascular exam: Normal: radial pulse, ulnar pulse (Weak 1+ bilaterally) - Neurological Exam Neurological exam: Present: alert, oriented X3, CN II-XII intact - Expanded Neurological Exam Patient oriented to: Present: person, place, time Speech: Present: fluid speech Cranial nerves: EOM function (II, III, IV, ): Normal, facial sensation (V): Normal, facial palsy (VII): Normal, gag reflex (IX): Normal, spinal accessory function (XI): Normal, tongue deviation (XII): Normal Motor strength - LUE: 5/5 Motor strength - RUE: 5/5 Motor strength - LLE: 5/5 Motor strength - RLE: 5/5 Other motor function: [place] strength 5 out of 5 bilaterally upper extremities Upper motor neuron exam: karina neglect: Absent bilaterally, pronator drift: Absent bilaterally, sensory extinction: Absent bilaterally Sensory exam upper extremity: light touch: Normal Sensory exam lower extremity: light touch: Normal Coma Scale Eye Opening: Spontaneous Coma Scale Motor Response: Obeys Commands Coma Scale Verbal Response: Oriented Coma Scale Total: 15 - Psychiatric Psychiatric exam: Present: normal affect, normal mood - Skin Skin exam: Present: warm, dry, intact Course - Reevaluation(s) Reevaluation #1: Called to the patient's room as daughter who is now present is concerned about the color of his right upper extremity. Upon inspection the patient's right hand is now cold with no palpable radial or ulnar pulses. Doppler placed without ability to locate pulses distally. Brachial pulses are intact and strong. Vascular surgery consulted and will obtain CTA upper extremity. Time: 14:00 Reevaluation #2: Discussed case with Dr. Chew, vascular surgeon who recommmends CTA chest to rule out dissection Time: 14:14 Reevaluation #3: Discussed case with radiologist who recommends arterial US of RUE as the contrast did not reach the distal RUE. Time: 15:24 - Consultations Consultation #1: Vascular surgery in to see patient. Patient to remain nothing by mouth. We will obtain type and screen prior to surgery. Time: 15:48 Vital Signs Temperature 97.8 F 07/09/18 12:57 Pulse Rate 72 07/09/18 12:57 Respiratory Rate 15 07/09/18 12:57 Blood Pressure 151/67 07/09/18 12:57 O2 Sat by Pulse Oximetry 100 07/09/18 12:57 Temperature 97.8 F 07/09/18 12:57 Pulse Rate 70 07/09/18 14:08 Respiratory Rate 16 07/09/18 14:08 Blood Pressure 140/79 07/09/18 14:08 O2 Sat by Pulse Oximetry 98 07/09/18 14:08 Oxygen Delivery Oxygen Delivery Nasal Cannula Weakness - MDM Narrative Medical decision making narrative: Patient is an 87-year-old male who on initial presentation concerning for stroke but upon presentation he is neurovascularly intact without gross neural deficits. His right upper extremity does not display weakness or decreased pulses on initial presentation though he has subjective decreased sensation. Initial workup included CBC, BMP, PT/INR, CT head and chest x-ray. After brief time period, patient's daughter arrived and alerted the nurse to his right arm becoming pale. Upon repeat examination the patient's right arm is pulseless distally, cold, and pale. Vascular surgery contacted immediately who recommended CTA chest to rule out aortic dissection. CTA chest and right upper extremity revealed no acute aortic dissection and indeterminate whether there is a right upper extremity arterial occlusion due to radiologists inability to have contrast get past brachial artery in time. Vascular surgery came to evaluate the patient and determined the patient to be a candidate for emergent embolectomy of the right upper extremity and was taken to surgery emergently. The patient departed the ED in stable but critical condition. - Medical Records Medical records reviewed: Yes I reviewed the patient's medical records. - Lab Data Lab results reviewed: Yes I reviewed the patient's lab results. Result diagrams: 07/09/18 13:37 07/09/18 13:37 Lab Results 07/09/18 07/09/18 07/09/18 Range/Units 13:37 13:37 16:33 WBC 6.3 D (4.3-11.1) K/mcL RBC 3.97 L (4.19-5.50) M/mcL Hgb 10.9 L (12.9-16.9) g/dL Hct 35.3 L (37.5-50.1) % MCV 88.9 (83.0-100.0) fL MCH 27.5 L (28.0-33.3) pg MCHC 30.9 L (31.6-35.5) g/dL RDW 13.7 (11.5-14.5) % Plt Count 261 (140-400) K/mcL MPV 9.7 (9.4-12.4) fL Immature Gran % 0.5 (0-4) % Seg Neutrophils % 73.1 % Lymphocytes % 6.6 % Monocytes % 17.5 % Eosinophils % 2.1 % Basophils % 0.2 % Neutrophils # 4.6 (1.6-8.9) K/mcL Lymphocytes # 0.4 L (0.6-4.6) K/mcL Monocytes # 1.1 (0.0-1.3) K/mcL Eosinophils # 0.1 (0.0-0.6) K/mcL Basophils # 0.0 (0.0-0.2) K/mcL Sodium 139 (136-145) mEq/L Potassium 3.9 (3.5-5.1) mEq/L Chloride 102 (98-107) mEq/L Carbon Dioxide 27 (23-29) mEq/L BUN 16 (8-23) mg/dL Creatinine 0.80 (0.70-1.30) mg/dL Est GFR ( Amer) > 60 (> 60) Est GFR (Non-Af Amer) > 60 (> 60) BUN/Creatinine Ratio 20 (6-26) Glucose 92 (70-105) mg/dL Calculated Osmolality 289 (280-300) Calcium 9.0 (8.6-10.3) mg/dL Total Bilirubin 0.6 (0.3-1.0) mg/dL AST 16 (13-39) Units/L ALT 7 (7-52) Units/L Alkaline Phosphatase 54 (34-104) Units/L Troponin I < 0.03 (< 0.04) ng/mL Serum Total Protein 6.0 L (6.4-8.9) g/dL Albumin 3.3 L (3.5-5.7) g/dL Globulin 2.7 (2.4-3.5) g/dL Albumin/Globulin Ratio 1.2 (1.1-2.2) Urine Color Yellow (Yellow) Urine Clarity Clear (Clear) Urine pH 6.5 (5.0-8.0) pH Units Ur Specific [place] > 1.030 H (1.010-1.025) Urine Protein Negative (Neg-Trace) mg/dL Urine Glucose (UA) Normal (Normal) mg/dL Urine Ketones Negative (Negative) mg/dL Urine Blood Negative (Negative) Urine Nitrite Negative (Negative) Urine Bilirubin Negative (Negative) Urine Urobilinogen Normal (Normal) mg/dL Ur Leukocyte Esterase Small H (Negative) Urine Microscopic RBC 3-5 H (0-3) per hpf Urine Microscopic WBC 3-5 H (0-3) per hpf Ur Squamous Epith Cells Many H (None-Few) per lpf Urine Bacteria None Seen (None-Few) per hpf Hyaline Casts None Seen (None-Few) per lpf Ur Culture Indicated? NO. A (NO) - Radiology Data Radiology results reviewed: Yes I reviewed the patient's radiology results. - EKG Data EKG attestation: Yes I reviewed and interpreted this EKG. EKG results narrative: Ventricularly paced rate of 79. QRS 168 QT 442 QTC 507. When compared with previous on 07/02/18 there is no significant difference. NIH Stroke Scale - Level of Consciousness LOC: Alert - LOC Questions LOC Questions: Answers both correctly - LOC Commands LOC Commands: Performs both correctly - Best Gaze Best Gaze: Normal - Visual Visual: No visual loss - Facial Palsy Facial Palsy: Normal - Motor Arms Motor Arm-Left: No drift for 10 seconds Motor Arm-Right: No drift for 10 seconds - Motor Legs Motor Leg-Left: No drift for 5 seconds Motor Leg-Right: No drift for 5 seconds - Limb Ataxia Limb Ataxia: Absent of affected limb too weak to perform exam - Sensory Sensory: Normal - Best Language Best Language: No aphasia - Dysarthria Dysarthria: Normal - Extinction and Inattention Extinction and Inattention: Normal - NIHSS Total Score NIHSS Total Score: 0
--- NOTE | 2018-07-09 13:24 | Emergency Department Note ---
Disposition Clinical Impression: TIA (transient ischemic attack) Disposition: Still a Patient Forms: ED Satisfaction Letter General Adult HPI - General Chief complaint: ED Weakness Stated complaint: weakness Time Seen by Provider: 07/09/18 12:55 Source: patient Limitations: no limitations - History of Present Illness HPI Narrative: Attestation note: Patient was seen with the emergency medicine resident/nurse practitioner/physician medical office assistant instructor/transitional resident/medical student: Dr. PETER COLLIER I have personally performed a face to face evaluation on this patient. I have reviewed and agree with history and physical examination patient management and disposition. Briefly the salient points of the case are as follows: A 7-year-old male brought in for reports of unilateral weakness/stroke alert. Patient's last known well was 7 AM. No prior history of CVA or T I O. The patient was complaining of some right upper extremity forearm weakness his NIH was 0 there was no lateralizing signs he is blind in his left eye and has a droop as well. Patient has no dysphonia or dysarthria at this time is awake alert afebrile with stable vitals. Patient getting noncontrast head CT EKG screening labs. Admission anticipated. Disposition pending Pain Scale: 6 - Related Data Home Medications Medication Instructions Recorded Confirmed Diltiazem HCl [Diltiazem 24Hr Cd] 180 mg PO QAM 05/01/15 07/02/18 fentaNYL [Fentanyl] 100 mcg TP Q72H 12/11/17 07/02/18 OxyCODONE Immed Rel [Roxicodone 30 30 mg PO Q6H PRN 12/12/17 07/02/18 MG] Cholecalciferol (Vitamin D3) 1,000 unit PO DAILY 07/02/18 07/02/18 [Vitamin D3] Cyanocobalamin (Vitamin B-12) 1,000 mcg PO DAILY 07/02/18 07/02/18 [Vitamin B-12] Docusate [Colace] 100 mg PO BID PRN 07/02/18 07/02/18 Furosemide [Lasix] 20 mg PO DAILY 07/02/18 07/02/18 Lactulose 15 - 45 ml PO DAILY 07/02/18 07/02/18 Metoprolol Tartrate 50 mg PO BID 07/02/18 07/02/18 Omeprazole [PriLOSEC] 20 mg PO DAILY 07/02/18 07/02/18 predniSONE [PredniSONE] 10 mg PO DAILY 07/02/18 07/02/18 Allergies Allergy/AdvReac Type Severity Reaction Status Date / Time No Known Allergies Allergy Verified 04/06/18 11:04 Past Medical History - Past Medical History Medical history: Reports: cancer, CHF, coronary artery disease, hyperlipidemia, hypertension, malignancy, RA, valvular heart disease, other Surgical history: Reports: coronary bypass (CABG), heart valve replacement, other, pacemaker Psychiatric history: Reports: no psych history - Social History Smoking Status: Never smoker Smokeless Tobacco Status: No Alcohol use: Reports: none Drug use: Reports: none Physical Exam - General Limitations: no limitations General appearance: alert Course Vital Signs Temperature 97.8 F 07/09/18 12:57 Pulse Rate 72 07/09/18 12:57 Respiratory Rate 15 07/09/18 12:57 Blood Pressure 151/67 07/09/18 12:57 O2 Sat by Pulse Oximetry 100 07/09/18 12:57 Temperature 97.8 F 07/09/18 12:57 Pulse Rate 72 07/09/18 12:57 Respiratory Rate 15 07/09/18 12:57 Blood Pressure 151/67 07/09/18 12:57 O2 Sat by Pulse Oximetry 100 07/09/18 12:57 Oxygen Delivery Oxygen Delivery Room Air
[2018-07-09 13:49] LABS: Basophils % 0.2 %; Eosinophils # 0.1 K/mcL (0.0-0.6); Eosinophils % 2.1 %; Hematocrit 35.3 % (37.5-50.1); Hemoglobin 10.9 g/dL (12.9-16.9); Immature Granulocytes % 0.5 % (0-4); Lymphocytes # 0.4 K/mcL (0.6-4.6); Lymphocytes % 6.6 %; Mean Corpuscular HGB Conc 30.9 g/dL (31.6-35.5); Mean Corpuscular Hemoglobin 27.5 pg (28.0-33.3); Mean Corpuscular Volume 88.9 fL (83.0-100.0); Mean Platelet Volume 9.7 fL (9.4-12.4); Monocytes # 1.1 K/mcL (0.0-1.3); Monocytes % 17.5 %; Neutrophils # 4.6 K/mcL (1.6-8.9); Platelet Count 261 K/mcL (140-400); Red Blood Count 3.97 M/mcL (4.19-5.50); Red Cell Distribution Width 13.7 % (11.5-14.5); Segmented Neutrophils % 73.1 %
[2018-07-09] MEDS ORDERED: Isovue-370 500 ML INFUS..BTL IV ONE ×2 (14:01→14:14)
[2018-07-09 14:14] LABS: Alanine Aminotransferase 7 Units/L (7-52); Albumin 3.3 g/dL (3.5-5.7); Albumin/Globulin Ratio 1.2 (1.1-2.2); Alkaline Phosphatase 54 Units/L (34-104); Aspartate Amino Transferase 16 Units/L (13-39); BUN/Creatinine Ratio 20 (6-26); Bilirubin,Total 0.6 mg/dL (0.3-1.0); Blood Urea Nitrogen 16 mg/dL (8-23); Carbon Dioxide 27 mEq/L (23-29); Chloride 102 mEq/L (98-107); Globulin 2.7 g/dL (2.4-3.5); Glucose 92 mg/dL (70-105); Osmolality,Calculated 289 (280-300); Potassium 3.9 mEq/L (3.5-5.1); Sodium 139 mEq/L (136-145); Troponin I < 0.03 ng/mL (< 0.04); eGFR For Non-African Americans > 60 (> 60)
--- NOTE | 2018-07-09 16:43 | Vascular/Endovascular H&P ---
Date of Encounter: 07/09/18 Time of Encounter: 15:30 Assessment and Plan (1) Arterial occlusion Current Visit: Yes Status: Acute The patient right brachial radial ulnar occlusion likely secondary to arterial femoral embolism. He has sensory and motor neurologic deficits involving the right hand and wrist. Right upper extremity thromboembolectomy is recommended. The risks, benefits and alternatives were discussed and all questions were answered. He expressed understanding wishes to proceed. The patient was informed that long-term anticoagulant is recommended to reduce his risk of recurrent thromboembolic events in the future. (2) CAD (coronary artery disease) Current Visit: Yes Status: Chronic Qualifiers: Coronary Disease-Associated Artery/Lesion type: [place] artery [place] vs. transplanted heart: [place] heart Associated angina: without angina Qualified Code(s): I25.10 - Atherosclerotic heart disease of [place] coronary artery without angina pectoris (3) Chronic congestive heart failure Current Visit: Yes Status: Chronic Qualifiers: Qualified Code(s): I50.32 - Chronic diastolic (congestive) heart failure (4) HTN (hypertension) Current Visit: Yes Status: Chronic The patient was counseled regarding atherosclerotic risk factor reduction. Qualifiers: Hypertension type: essential hypertension Qualified Code(s): I10 - Essential (primary) hypertension (5) Hyperlipidemia Current Visit: No Status: Chronic Qualifiers: Hyperlipidemia type: unspecified Qualified Code(s): E78.5 - Hyperlipidemia, unspecified History of Present Illness Chief complaint: Right hand pain and weakness HPI: Mr. Tripp is a 87 year old male with history of congestive heart failure, coronary artery disease, hyperlipidemia, hypertension and lymphoma. The patient presented to the emergency room with complaints of right arm hand pain weakness and paresthesias. Initially there was concern for a vascular accident. However on clinical exam the patient was noted to have a pulseless right upper extremity. Vascular surgery was then consulted for further evaluation. The patient denies any palpitations or fevers or chills. He denies any chest pain or shortness of breath. He reports that he has a pacemaker in place. He does states he is previously prescribed Eliquis but did not take it due to a history of nosebleeds. Past Med Surg Social Fam HX - Past Medical History Medical history: cancer, CHF, coronary artery disease, hyperlipidemia, hypertension, malignancy, RA, valvular heart disease, other Additional medical history: lymphoma Psychiatric history: no psych history - Past Surgical History Surgical History: coronary bypass (CABG), heart valve replacement, other, pacemaker Additional surgical history: aortic valve replacement - Social History Smoking Status: Never smoker Smokeless Tobacco Status: No Alcohol use: none Drug use: none - Family History Mother Adopted: No Family Member Ethnicity: Non- Living Status: Hx Family Cardiac Disorders: Yes Hx Family Cancer: Yes Hx Family Endocrine Disorder: Yes (DM) Father Living Status: Medications and Allergies Diltiazem HCl [Diltiazem 24Hr Cd] 180 mg PO QAM 05/01/15 [History] fentaNYL [Fentanyl] 100 mcg TP Q72H 12/11/17 [History] OxyCODONE Immed Rel [Roxicodone 30 MG] 30 mg PO Q6H PRN 12/12/17 [History] Cholecalciferol (Vitamin D3) [Vitamin D3] 1,000 unit PO DAILY 07/02/18 [History] Cyanocobalamin (Vitamin B-12) [Vitamin B-12] 1,000 mcg PO DAILY 07/02/18 [History] Docusate [Colace] 100 mg PO BID PRN 07/02/18 [History] Furosemide [Lasix] 20 mg PO DAILY 07/02/18 [History] Lactulose 15 - 45 ml PO DAILY 07/02/18 [History] Metoprolol Tartrate 50 mg PO BID 07/02/18 [History] Omeprazole [PriLOSEC] 20 mg PO DAILY 07/02/18 [History] predniSONE [PredniSONE] 10 mg PO DAILY 07/02/18 [History] Allergy/AdvReac Type Severity Reaction Status Date / Time No Known Allergies Allergy Verified 04/06/18 11:04 All Systems Review: The remainder of the systems were reviewed and are negative - Constitutional Constitutional: no chills, no fever(s) - Cardiovascular Cardiovascular: no chest pain at rest, no chest pain with exertion, no dyspnea at rest, no dyspnea on exertion - Neurological Neurological: no abnormal speech, no dizziness, no syncope Exam Vital Signs, Last 4 Hours Temp Pulse Resp BP Pulse Ox 07/09/18 14:08 70 16 140/79 98 07/09/18 13:41 74 18 149/73 97 07/09/18 12:57 97.8 F 72 15 151/67 100 General: Present: Conversant, No Apparent Distress HEENT: Present: Trachea midline, Pupils equal Neck: Absent: JVD, Lymphadenopathy, Left Carotid bruit, Right Carotid bruit Cardiac: Present: Reg Rate and Rhythm, Normal S1 and S2 Lungs: Present: Normal Breath Sounds Neuro: Present: Alert and responsive, Other (Mild right hand weakness and paresthesias, motor and sensory otherwise intact) Abdomen: Present: Soft Vascular: Present: Capillary refill delayed (In the right hand), Pulse, normal (Except for right radial and ulnar, no signals present). Absent: Cyanosis, Edema Skin: Present: No rashes noted on visualized skin Results 07/09/18 13:37 07/09/18 13:37 Lab Results, Last 24 hours 07/09/18 07/09/18 13:37 13:37 WBC 6.3 D Hgb 10.9 L Hct 35.3 L Plt Count 261 Sodium 139 Potassium 3.9 Chloride 102 Carbon Dioxide 27 BUN 16 Creatinine 0.80 Glucose 92 Calcium 9.0 Total Bilirubin 0.6 AST 16 ALT 7 Alkaline Phosphatase 54 Troponin I < 0.03 - Imaging / Other Tests CT/CTA: report reviewed, image reviewed (Occluded distal right brachial radial and ulnar arteries)
[2018-07-09 16:54] LABS: Bilirubin,Urine Negative (Negative); Blood,Urine Negative (Negative); Clarity,Urine Clear (Clear); Color,Urine Yellow (Yellow); Glucose,Urine (UA) Normal (Normal); Ketones,Urine Negative (Negative); Leukocyte Esterase,Urine Small (Negative); Nitrite,Urine Negative (Negative); PH,Urine 6.5 pH Units (5.0-8.0); Protein,Urine Negative (Neg-Trace); Specific Gravity,Urine > 1.030 (1.010-1.025); Urobilinogen,Urine Normal (Normal)
[2018-07-09 16:57] LABS: Bacteria,Urine None Seen per hpf (None-Few); Hyaline Casts,Urine None Seen per lpf (None-Few); Squamous Epithelial Cell,Urine Many per lpf (None-Few)
[2018-07-09] MEDS ORDERED: Vancomycin 1,000 MG VIAL ONE (17:19)
[2018-07-09] MEDS ORDERED: Heparin 1,000 UNITS/500 mL 1,500 ML ONE (17:19)
[2018-07-09] MEDS ORDERED: Bupivacaine/EPI 1:200k 0.25%PF 30 ML VIAL ONE (17:19)
[2018-07-09] MEDS ORDERED: ceFAZolin 2,000 MG in Water for inj. (sterile) 20 ML 10 ML IVP ONE (17:21)
[2018-07-09] MEDS ORDERED: *HR* Midazolam HCl 2 MG/2 ML VIAL ONE (17:47)
[2018-07-09] MEDS ORDERED: *HR* FentaNYL (PF) 100 MCG/2 ML VIAL ONE (17:47)
--- NOTE | 2018-07-09 17:52 | Anesthesia Evaluation PreOp ---
Date of Encounter: 07/09/18 Time of Encounter: 17:50 - Past History Planned Operation: RUE thrombectomy Cardiac History: CHF, HTN, Hyperlipidemia, Cardiac Surgery (AV replacement), Pacemaker/ICD (pacemaker), Other (Aortic stenosis involving prosthetic valve, mod mitral stenosis) Pulmonary History: Other (pneumonia last week) Other Medical History: Denies Any Significant HX Anesthesia History: No Prior Anesthetic Complications Alcohol Use: none Drug use: none Medications and Allergies Diltiazem HCl [Diltiazem 24Hr Cd] 180 mg PO QAM 05/01/15 [History] fentaNYL [Fentanyl] 100 mcg TP Q72H 12/11/17 [History] OxyCODONE Immed Rel [Roxicodone 30 MG] 30 mg PO Q6H PRN 12/12/17 [History] Cholecalciferol (Vitamin D3) [Vitamin D3] 1,000 unit PO DAILY 07/02/18 [History] Cyanocobalamin (Vitamin B-12) [Vitamin B-12] 1,000 mcg PO DAILY 07/02/18 [History] Docusate [Colace] 100 mg PO BID PRN 07/02/18 [History] Furosemide [Lasix] 20 mg PO DAILY 07/02/18 [History] Lactulose 15 - 45 ml PO DAILY 07/02/18 [History] Metoprolol Tartrate 50 mg PO BID 07/02/18 [History] Omeprazole [PriLOSEC] 20 mg PO DAILY 07/02/18 [History] predniSONE [PredniSONE] 10 mg PO DAILY 07/02/18 [History] Allergy/AdvReac Type Severity Reaction Status Date / Time No Known Allergies Allergy Verified 04/06/18 11:04 - Meds/Allergy Pre-op Review Medications Reviewed: Yes Allergies Reviewed: Yes Beta Blockers on Current Med List: Yes Anesthesia Results - Labs 07/09/18 13:37 07/09/18 13:37 - Imaging EKG: report reviewed, image reviewed (Afib/flut and V-paced complexes No further rhythm analysis attempted due to paced rhythm) Additional studies: 2018 TTE: Impressions: LVEF 55%. Indeterminate diastolic function. Mild concentric left ventricular hypertrophy. Atypical septal motion consistent with paced rhythm. Mildy dilated RV. Overall function is normal. Severe bi-atrial enlargement. Bioprosthetic aortic valve not well visualized. 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 Moderate mitral stenosis, MG 7 mmHg at 72 bpm. Mild-moderate mitral regurgitation. Moderate tricuspid regurgitation. Mild-moderate pulmonic regurgitation. Moderate pulmonary hypertension. Anesthesia Exam Last Vital Signs Temp 97.8 F 07/09/18 12:57 Pulse 70 07/09/18 14:08 Resp 16 07/09/18 14:08 BP 140/79 07/09/18 14:08 Pulse Ox 98 07/09/18 14:08 Weight: 69 kg NPO (# of Hours): < 3 hours (small cracker) - HEENT Pupil (Motor): Pupils equal, EOMI Mallampati: II Teeth: Edentulous Oral Opening: Greater than 3 - ACTIVITY LEADER LOC: Oriented - Cardiac Rhythm: Regular Murmur: Systolic - Pulmonary Breath Sounds: bilateral Clear Respiratory Effort: Symmetrical Anesthesia Assess/Plan ASA Score: 4, E Modified Deb Scale for Level of Consciousness: Cooperative, oriented, and tranquil Anesthetic Plan: General (plan B), MAC (plan A) Monitoring Plan: Standard Monitors, A-Line (+/-) Recovery Plan: ICU Anes Supervising Prov Stmt: Family prefers light sedation, even though risk of aspiration with NPO status is increased. Meal was very light (one small cracker almost 3 hours ago). Due to aortic and mitral stenosis and potential for increased cardiovascular complications with general anesthesia, and after discussion with Dr. Rahman regarding using mostly local anesthesia, a plan A of very light sedation (or none) versus plan B of general anesthesia with arterial line was decided upon. Patient is agreeable and understands the risk and benefit to both. Pacemaker interrogation is not performed due to emergency status (threat to limb - RUE).
[2018-07-09] MEDS ORDERED: *HR* Heparin 5,000 UNIT/ML VIAL SQ SCH (18:00)
[2018-07-09] MEDS ORDERED: *HR* Heparin 5,000 UNIT/ML VIAL ONE (19:03)
--- NOTE | 2018-07-09 20:07 | Operative Note ---
Date of procedure: 07/09/18 Pre-op diagnosis: Acute right upper extremity ischemia Post-op diagnosis: same Procedure: Right upper extremity thrombectomy with 4-Stateless Tiarra and 3-Stateless Tiarra embolus to be catheters. Complications: None Anesthesia: local, IV sedation Surgeon: Justin Rahman Was there an library media assistant present: No Estimated blood loss (cc): 25 Specimen: Right upper extremity thrombus Condition: stable Disposition: PACU Procedure in Detail: Indications: The patient is an 87-year-old male with a history of atrial fibrillation who presented to the emergency room with a cool and pulseless right upper extremity. He underwent CT angiogram which revealed occlusion of his distal brachial artery as well as his radial ulnar artery. Emergent revascularization was recommended to reduce his risk of limb loss. Procedure: The patient was identified in the preoperative area. The risks, benefits and alternatives were discussed and all questions were answered. The patient was then taken to the operating room and placed in the supine position on the operating table. After induction of monitored anesthesia care he was cleaned and draped in normal sterile fashion. Local anesthetic was infused just proximal to the antecubital fossa. Transverse incision was made overlying the brachial artery proximal to the antecubital fossa. Through a process of blunt sharp and electrocautery dissection the subcutaneous tissue was traversed and the brachial artery was dissected circumferentially and surrounded with vessel loops proximally and distally the dissection was carried down to the radial and ulnar branches. Vessel loops were passed around these vessels as well. The patient received 5000 units of heparin intravenously. After waiting adequate time for the heparin to circulate, the vessels were occluded. A transverse arteriotomy was made into the brachial artery. Well organized thrombus was identified. A 4-Stateless Tiarra electric catheter was passed proximally into the brachial artery inflated and then withdrawn. Significant fresh thrombus was removed and then appears pulsatile antegrade flow was noted. 2 additional passes were performed and no additional thrombus was retrieved. The vessel was flushed with heparinized saline and then reoccluded. A 3-Stateless Tiarra embolectomy catheter was then passed distally into the radial and ulnar arteries separately. Well organized chronic thrombus was retrieved from each vessel. Additional thrombus was retrieved on additional passes. The balloon was passed all the way down to the wrist. After 2 negative passes retrograde flow was noted from the vessels. The vessels were flushed with heparinized saline and then reoccluded. The transverse arteriotomy was reapproximated with a running 6-0 Prolene. Thrombin and Gelfoam were used to aid in hemostasis. Flow was restored in the vessels and polyphasic radial and ulnar signals were identified. Meticulous hemostasis was obtained throughout the wound with electrocautery. The wound was irrigated with antibiotic containing saline. The wound was then reapproximated with layer of 2-0 Vicryl followed by 2 layers of 3-0 Vicryl and then a layer of 3-0 Monocryl in the skin. A sterile dressing was applied. The patient was then taken to the recovery room in stable condition.
--- NOTE | 2018-07-09 20:25 | Anesthesia Evaluation Post Op ---
Date of Encounter: 07/09/18 Time of Encounter: 20:25 - Vital Signs Vital Signs: Vital Signs/O2 Sat/Glucose, Most Current Temp Pulse Resp BP Pulse Ox 07/09/18 19:52 97.8 F 86 18 133/79 94 07/09/18 19:12 71 18 130/67 95 07/09/18 19:02 75 18 131/73 95 - Lungs Lungs: Clear Ascult./Percussion - Airway Airway: Non-obstructed - Cardiovascular Regular Rate - Mental Status Mental Status: Alert & Oriented, Answers Appropriately - Pain Pain Scale: 0 - Nausea Vomiting Nausea Vomiting: Not Present - Hydration Hydration: Ice chips - Discharge PostOp Status: Transfer Patient to floor
[2018-07-09] MEDS ORDERED: *HR* OxyCODONE Immed Rel 5 MG TABLET PO PRN (20:49)
[2018-07-09] MEDS ORDERED: *HR* Heparin 5,000 UNIT/ML VIAL IVP PRN ×2 (20:49)
[2018-07-09] MEDS ORDERED: Naloxone 0.4 MG/ML INJ IVP PRN (20:49)
[2018-07-09] MEDS ORDERED: Heparin 25,000 UNIT/500 ML D5W 25,000 UNIT/500 ML BAG IVC SCH (20:49)
[2018-07-09] MEDS ORDERED: *HR* FentaNYL PATCH 100 MCG PATCH TD SCH (20:49)
[2018-07-09] MEDS ORDERED: *HR* HYDROcodone/Acet 5/325 mg TABLET PO PRN (20:49)
[2018-07-09] MEDS ORDERED: Ondansetron 4 MG/2 ML VIAL IVP PRN (20:49)
[2018-07-09] MEDS ORDERED: Acetaminophen 325 MG TABLET PO PRN (20:49)
[2018-07-09 21:02] LABS: Hematocrit 31.9 % (37.5-50.1); Mean Corpuscular HGB Conc 31.3 g/dL (31.6-35.5); Mean Corpuscular Hemoglobin 27.6 pg (28.0-33.3); Mean Corpuscular Volume 88.1 fL (83.0-100.0); Mean Platelet Volume 10.4 fL (9.4-12.4); Platelet Count 248 K/mcL (140-400); Red Blood Count 3.62 M/mcL (4.19-5.50); Red Cell Distribution Width 13.9 % (11.5-14.5)
[2018-07-09 21:10] LABS: Heparin anti-factor XA UFH 0.75 IU/mL (0.30-0.70); INR 1.1; Prothrombin Time 12.5 Seconds (9.4-12.1)
[2018-07-10] MEDS ORDERED: Furosemide 20 MG TABLET PO SCH (09:00)
[2018-07-10] MEDS ORDERED: predniSONE 10 MG TABLET PO SCH (09:00)
[2018-07-10] MEDS ORDERED: Cholecalciferol (D-3) 1,000 UNIT TABLET PO SCH (09:00)
[2018-07-10] MEDS ORDERED: Cyanocobalamin (B-12) 1,000 MCG TABLET PO SCH (09:00)
[2018-07-10] MEDS ORDERED: Diltiazem CD (24hr) 180 MG CAPSULE PO SCH (09:00)
--- NOTE | 2018-07-10 11:20 | Discharge Summary ---
Orders not resulted at time of discharge: Pending orders 07/09/18 12:58 ECG 12 lead ECG [ECG] Stat 07/09/18 19:39 Surgical Pathology [PTH] Routine Date of Encounter: 07/10/18 Time of Encounter: 12:00 - Discharge Diagnosis (1) Arterial occlusion Priority: Primary Status: Acute Comments: Patient is postoperative day #1 after right upper extremity thrombectomy. His wound is healing well and there is no evidence of hematoma. He has a palpable radial pulse and his motor and sensory exam are normal. He will be discharged today. (2) CAD (coronary artery disease) Priority: Secondary Status: Chronic Qualifiers: Coronary Disease-Associated Artery/Lesion type: [place] artery [place] vs. transplanted heart: [place] heart Associated angina: without angina Qualified Code(s): I25.10 - Atherosclerotic heart disease of [place] coronary artery without angina pectoris (3) HTN (hypertension) Priority: Secondary Status: Chronic Qualifiers: Hypertension type: essential hypertension Qualified Code(s): I10 - Essential (primary) hypertension (4) Hyperlipidemia Priority: Secondary Status: Chronic Qualifiers: Hyperlipidemia type: unspecified Qualified Code(s): E78.5 - Hyperlipidemia, unspecified (5) Large B-cell lymphoma Priority: Secondary Status: Chronic (6) Chronic diastolic (congestive) heart failure Priority: Secondary Status: Chronic (7) Chronic disease anemia Priority: Secondary Status: Chronic Comments: The patient has chronic disease anemia. He is hemodynamically stable without evidence of ongoing blood loss. - Hospital Course Hospital course: Mr. Tripp is a 87 year old male with a history of coronary artery disease, atrial fibrillation, lymphoma, hypertension, chronic heart failure, COPD, hyperlipidemia and hypertension who presented with acute onset right upper extremity pain and weakness. He is found have a right brachial, radial and ulnar occlusion. He was admitted on 07/09/2018. His and taken to the operating room where he underwent a right upper extremity thromboembolectomy. He tolerated the procedure well. On postoperative day #1 he was healing well. He was neurologically intact. He had a palpable radial pulse in his wound was healing well. He was started on Eliquis 2.5 mg twice daily. He was discharged home in stable condition without complications on postoperative day #1. - Time Spent with Patient Total time spent providing and/or coordinating discharge services: - Discharge Medications Prescriptions: Apixaban [Eliquis] 2.5 mg PO BID #60 tablet Home Medications: Diltiazem HCl [Diltiazem 24Hr Cd] 180 mg PO QAM 05/01/15 [History] fentaNYL [Fentanyl] 100 mcg TP Q72H 12/11/17 [History] OxyCODONE Immed Rel [Roxicodone 30 MG] 30 mg PO Q6H PRN 12/12/17 [History] Cholecalciferol (Vitamin D3) [Vitamin D3] 1,000 unit PO DAILY 07/02/18 [History] Cyanocobalamin (Vitamin B-12) [Vitamin B-12] 1,000 mcg PO DAILY 07/02/18 [History] Docusate [Colace] 100 mg PO BID PRN 07/02/18 [History] Furosemide [Lasix] 20 mg PO DAILY 07/02/18 [History] Lactulose 15 - 45 ml PO DAILY 07/02/18 [History] Metoprolol Tartrate 50 mg PO BID 07/02/18 [History] Omeprazole [PriLOSEC] 20 mg PO DAILY 07/02/18 [History] predniSONE [PredniSONE] 10 mg PO DAILY 07/02/18 [History] Apixaban [Eliquis] 2.5 mg PO BID #60 tablet 07/10/18 [Rx] Allergies/Adverse Reactions: Allergy/AdvReac Type Severity Reaction Status Date / Time No Known Allergies Allergy Verified 04/06/18 11:04 Date of admission: 07/09/18 16:39 Primary care physician: PCP NONE Procedure(s) Performed: Right upper extremity thrombectomy Discharging clinician: Justin Rahman Anticipated date of discharge: 07/10/18 Exam Vital Signs, Last 4 Hours Temp Pulse Resp BP Pulse Ox 07/10/18 08:28 96.9 F L 71 18 135/70 97 General: Present: Conversant, No Apparent Distress Cardiac: Present: Normal S1 and S2 Lungs: Present: Normal Breath Sounds Neuro: Present: Alert and responsive, No focal deficits noted Abdomen: Present: Soft Vascular: Present: Pulse, normal (Right radial pulse palpable), Surgical incisions (Incision healing well, no erythema, no hematoma) Skin: Present: No rashes noted on visualized skin - Patient Status Disposition: Home, Self-Care Condition: Good Functional capacity at discharge: independent ambulation Overall status at discharge: patient is back to baseline - Discharge Instructions Follow Up With: Justin Rahman MD [Partnered Physician] - (1 month.) Gissel Escamilla MD [Partnered Physician] - (Within 7 days of discharge.) Additional Instructions: May remove bandage and shower on 07/11/2018. Wash wound gently and pat to dry. Call Dr. Rahman at [phone] with questions or concerns. - Diet and Activity Activity: increase activity as tolerated Diet: advance to your usual diet - VTE Reasons for not Prescribing Prophylaxis: Not indicated-Anticoagulated or INR therapeutic Documentation of Mechanical Device: Intermittent pneumatic compression device Deep Vein Thrombosis/Pulmonary Embolism Present on Admission: No
[2018-07-10] MEDS ORDERED: Apixaban 5 MG TABLET PO SCH (11:30)
[2018-07-10 12:10] VITALS: BP 145/88
--- NOTE | 2018-07-15 18:10 | Electrocardiograph Report ---
[address] [address] Test Date: 2018-07-09 Pat Name: Roc Tripp Department: EXAM3 Room: 2N06 Gender: M Continuous Improvement Facilitator: : 1930 Requested By: Pauly Wen Order Number: [id number] Reading MD: Albaro Lebron Measurements Intervals Landing Rate: 79 P: GA: QRS: -77 QRSD: 168 T: 101 QT: 442 QTc: 507 Interpretive Statements Afib/flutter and ventricular-paced rhythm No further analysis attempted due to paced rhythm Electronically Signed On 07-15-2018 18:08:44 EDT by Albaro Lebron
== END 2018-07-10 13:35 | disposition home or self-care (01) | DRG 253 ==
LOC: EMEROOARM 12:48 → ICNU 16:39 → 2NNU 19:44
PROVIDERS: ADMIT Surgery; ATTEND Surgery

== ENCOUNTER 2018-08-29 12:51 | Inpatient (IN) ==
--- NOTE | 2018-08-29 13:07 | Emergency Department Note ---
Disposition Clinical Impression: Congestive heart failure, Pneumonia, Cerebrovascular disease, UTI (urinary tract infection), Cardiac pacemaker in situ, Frail elderly, Confusion, Overdose of opiate or related narcotic, Anemia, Lactic acidosis, Large B-cell lymphoma Disposition: Admitted As Inpatient Referrals: NONE,PCP [Primary Care Provider] - General Adult HPI - General Stated complaint: SOB Time Seen by Provider: 08/29/18 13:05 - History of Present Illness HPI Narrative: 87-year-old male sent in from the senior care for concerns regarding altered mental status, poor responsiveness and difficulty breathing. There is no history of trauma. The patient is unable to give a meaningful history due to clinical status. 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 He also takes OxyContin as a pain medication. No reports of chest pain abdominal pain vomiting or bleeding are reported. There is no history of acute neurologic change syncope or fever. No rashes or any other acute complaints reported. The patient has a history of CAD CHF and malignancy. - Related Data Home Medications Medication Instructions Recorded Confirmed Diltiazem HCl [Diltiazem 24Hr Cd] 180 mg PO QAM 05/01/15 07/28/18 fentaNYL [Fentanyl] 100 mcg TP Q72H 12/11/17 07/28/18 OxyCODONE Immed Rel [Roxicodone 30 30 mg PO Q6H 12/12/17 07/28/18 MG] Cholecalciferol (Vitamin D3) 1,000 unit PO DAILY 07/02/18 07/28/18 [Vitamin D3] Cyanocobalamin (Vitamin B-12) 1,000 mcg PO DAILY 07/02/18 07/28/18 [Vitamin B-12] Furosemide [Lasix] 20 mg PO DAILY 07/02/18 07/28/18 Lactulose 15 - 45 ml PO DAILY PRN 07/02/18 07/28/18 Metoprolol Tartrate 50 mg PO BID 07/02/18 07/28/18 Omeprazole [PriLOSEC] 20 mg PO DAILY 07/02/18 07/28/18 Polyethylene Glycol 3350 [MiraLAX] 17 gm PO DAILY 07/28/18 07/28/18 Allergies Allergy/AdvReac Type Severity Reaction Status Date / Time No Known Allergies Allergy Verified 04/06/18 11:04 Limitations: ROS unobtainable due to patients medical condition Past Medical History - Past Medical History Medical history: Reports: cancer, CHF, coronary artery disease, hyperlipidemia, hypertension, malignancy, RA, valvular heart disease, other Surgical history: Reports: coronary bypass (CABG), heart valve replacement, other, pacemaker Psychiatric history: Reports: no psych history - Social History Smoking Status: Never smoker Smokeless Tobacco Status: No Alcohol use: Reports: none Drug use: Reports: none Physical Exam - General Limitations: altered mental status General appearance: lethargic (Arousable to sternal rub and can follow simple commands if highly stimulated.) - Head Head exam: atraumatic, normocephalic, normal inspection - Eye Eye exam: Present: mydriasis. Absent: normal appearance (Right eye a chronic corneal lesion, left pupil constricted), scleral icterus, periorbital swelling - ENT ENT exam: normal exam, normal oropharynx, mucous membranes moist, TM's normal bilaterally, normal external ear exam - Neck Neck exam: Present: normal inspection, full ROM, trachea midline - Chest Chest inspection: Present: symmetric chest wall rise. Absent: tenderness - Respiratory Respiratory exam: Present: prolonged expiratory phase. Absent: respiratory distress, wheezes, stridor - Cardiovascular Cardiovascular exam: Present: regular rate, normal rhythm - Abdominal Exam Abdominal exam: Present: soft, Non-Tender, normal bowel sounds. Absent: tenderness, distention, guarding, rebound, rigidity, trauma - Extremities Exam Extremities exam: Present: normal inspection, full ROM, normal capillary refill. Absent: tenderness, pedal edema, joint swelling, calf tenderness - Back Exam Back exam: Present: normal inspection, full ROM. Absent: tenderness, CVA tenderness (R), CVA tenderness (L) - Neurological Exam Neurological exam: Present: alert (Alert and arousable to sternal rub and can follow basic commands), CN II-XII intact, motor sensory deficit (Right upper and right lower extremity flaccidity chronic per history left upper extremity shows good muscle tone and the patient can squeeze and grab, left lower external s hows good muscle tone,) - Skin Skin exam: Present: warm, dry, intact, normal color. Absent: rash, cyanosis, diaphoresis, erythema, pallor, mottled Course Vital Signs Temperature 98.7 F 08/29/18 12:59 Pulse Rate 77 12/17/18 12:59 Respiratory Rate 19 08/29/18 12:59 Blood Pressure 97/63 08/29/18 12:59 O2 Sat by Pulse Oximetry 96 08/29/18 12:59 Temperature 98.7 F 08/29/18 12:59 Pulse Rate 84 08/29/18 16:38 Respiratory Rate 24 08/29/18 16:38 Blood Pressure 107/61 08/29/18 16:38 O2 Sat by Pulse Oximetry 93 08/29/18 16:38 Oxygen Delivery Oxygen Delivery Nasal Cannula Medical Decision Making - MDM Narrative Medical decision making narrative: The patient was nearly obtunded on arrival, Narcan was given and he became more alert and somewhat agitated. The patient progressed to increasing levels of alertness. The patient's female relative came in and gave us more history regarding the patient's usual status. She reports the patient is usually not agitated much more alert than on his presentation. The patient has leukocytosis, chest x-ray changes suggestive CHF and/or superimposed pneumonia. Urinalysis is abnormal. Blood cultures were sent. IV Levaquin was given. The patient was initially slightly hypotensive IV fluid was given and his pressure did rise into the 130s systolic. The patient's EKG shows a paced rhythm. Mild hyperglycemia. Initial lactic acidosis 4.1 resolved after 500 mL normal saline to 1.5. The patient appears to be stable. The patient's fentanyl patch was removed, narcotics effect likely contributed to mental status alteration. Based on the patient's multiple comorbidities including prior CVA, apparent CHF and/or pneumonitis, elevated white count, abnormal urinalysis, likely narcotics sedation effect, I thought it would be appropriate to admit the patient to the hospital. I consulted with the hospitalist on-call who has accepted the patient to their care. The patient does not necessarily meet sepsis criteria and judicious hydration is advised secondary to multiple comorbidities including CHF. - Lab Data Lab results reviewed: Yes I reviewed the patient's lab results. Result diagrams: 08/29/18 13:52 08/29/18 13:52 Lab Results 08/29/18 08/29/18 08/29/18 Range/Units 13:52 13:52 13:52 WBC 19.0 H (4.3-11.1) K/mcL RBC 4.04 L (4.19-5.50) M/mcL Hgb 10.3 L (12.9-16.9) g/dL Hct 35.0 L (37.5-50.1) % MCV 86.6 (83.0-100.0) fL MCH 25.5 L (28.0-33.3) pg MCHC 29.4 L (31.6-35.5) g/dL RDW 15.3 H (11.5-14.5) % Plt Count 289 (140-400) K/mcL MPV 10.2 (9.4-12.4) fL Immature Gran % 0.8 (0-4) % Seg Neutrophils % 93.8 % Lymphocytes % 1.8 % Monocytes % 3.4 % Eosinophils % 0.1 % Basophils % 0.1 % Neutrophils # 17.8 H (1.6-8.9) K/mcL Lymphocytes # 0.3 L (0.6-4.6) K/mcL Monocytes # 0.7 (0.0-1.3) K/mcL Eosinophils # 0.0 (0.0-0.6) K/mcL Basophils # 0.0 (0.0-0.2) K/mcL PT 12.7 H (9.4-12.1) Seconds INR 1.1 APTT 28.1 (26.0-36.0) Seconds Sodium 151 H (136-145) mEq/L Potassium 3.5 (3.5-5.1) mEq/L Chloride 114 H (98-107) mEq/L Carbon Dioxide 24 (23-29) mEq/L BUN 32 H (8-23) mg/dL Creatinine 0.70 (0.70-1.30) mg/dL Est GFR ( Amer) > 60 (> 60) Est GFR (Non-Af Amer) > 60 (> 60) BUN/Creatinine Ratio 46 H (6-26) Glucose 156 H (70-105) mg/dL Calculated Osmolality 322 H (280-300) Lactic Acid (0.5-2.2) mmol/L Calcium 8.5 L (8.6-10.3) mg/dL Total Bilirubin 0.7 (0.3-1.0) mg/dL Direct Bilirubin 0.2 (0.0-0.2) mg/dL Indirect Bilirubin 0.5 (0.0-1.2) mg/dL AST 34 (13-39) Units/L ALT 27 (7-52) Units/L Alkaline Phosphatase 93 (34-104) Units/L Troponin I 0.03 (< 0.04) ng/mL C-Reactive Protein 227 H (Less than 10) mg/L B-Natriuretic Peptide (Less than 100) pg/mL Serum Total Protein 5.5 L (6.4-8.9) g/dL Albumin 2.9 L (3.5-5.7) g/dL Globulin 2.6 (2.4-3.5) g/dL Albumin/Globulin Ratio 1.1 (1.1-2.2) Urine Color (Yellow) Urine Clarity (Clear) Urine pH (5.0-8.0) pH Units Ur Specific [place] (1.010-1.025) Urine Protein (Neg-Trace) mg/dL Urine Glucose (UA) (Normal) mg/dL Urine Ketones (Negative) mg/dL Urine Blood (Negative) Urine Nitrite (Negative) Urine Bilirubin (Negative) Urine Urobilinogen (Normal) mg/dL Ur Leukocyte Esterase (Negative) Urine Microscopic RBC (0-3) per hpf Urine Microscopic WBC (0-3) per hpf Ur Squamous Epith Cells (None-Few) per lpf Calcium Oxalate Crystal Urine Bacteria (None-Few) per hpf Hyaline Casts (None-Few) per lpf Ur Culture Indicated? (NO) 08/29/18 08/29/18 08/29/18 Range/Units 13:52 13:52 15:40 WBC (4.3-11.1) K/mcL RBC (4.19-5.50) M/mcL Hgb (12.9-16.9) g/dL Hct (37.5-50.1) % MCV (83.0-100.0) fL MCH (28.0-33.3) pg MCHC (31.6-35.5) g/dL RDW (11.5-14.5) % Plt Count (140-400) K/mcL MPV (9.4-12.4) fL Immature Gran % (0-4) % Seg Neutrophils % % Lymphocytes % % Monocytes % % Eosinophils % % Basophils % % Neutrophils # (1.6-8.9) K/mcL Lymphocytes # (0.6-4.6) K/mcL Monocytes # (0.0-1.3) K/mcL Eosinophils # (0.0-0.6) K/mcL Basophils # (0.0-0.2) K/mcL PT (9.4-12.1) Seconds INR APTT (26.0-36.0) Seconds Sodium (136-145) mEq/L Potassium (3.5-5.1) mEq/L Chloride (98-107) mEq/L Carbon Dioxide (23-29) mEq/L BUN (8-23) mg/dL Creatinine (0.70-1.30) mg/dL Est GFR ( Amer) (> 60) Est GFR (Non-Af Amer) (> 60) BUN/Creatinine Ratio (6-26) Glucose (70-105) mg/dL Calculated Osmolality (280-300) Lactic Acid 4.1 H* (0.5-2.2) mmol/L Calcium (8.6-10.3) mg/dL Total Bilirubin (0.3-1.0) mg/dL Direct Bilirubin (0.0-0.2) mg/dL Indirect Bilirubin (0.0-1.2) mg/dL AST (13-39) Units/L ALT (7-52) Units/L Alkaline Phosphatase (34-104) Units/L Troponin I (< 0.04) ng/mL C-Reactive Protein (Less than 10) mg/L B-Natriuretic Peptide 407 H (Less than 100) pg/mL Serum Total Protein (6.4-8.9) g/dL Albumin (3.5-5.7) g/dL Globulin (2.4-3.5) g/dL Albumin/Globulin Ratio (1.1-2.2) Urine Color Red A (Yellow) Urine Clarity Turbid A (Clear) Urine pH 6.0 (5.0-8.0) pH Units Ur Specific [place] 1.027 H (1.010-1.025) Urine Protein 100 H (Neg-Trace) mg/dL Urine Glucose (UA) Normal (Normal) mg/dL Urine Ketones Negative (Negative) mg/dL Urine Blood Large H (Negative) Urine Nitrite Negative (Negative) Urine Bilirubin Negative (Negative) Urine Urobilinogen Normal (Normal) mg/dL Ur Leukocyte Esterase Large H (Negative) Urine Microscopic RBC TNTC H (0-3) per hpf Urine Microscopic WBC TNTC H (0-3) per hpf Ur Squamous Epith Cells Many H (None-Few) per lpf Calcium Oxalate Crystal Present Urine Bacteria Many H (None-Few) per hpf Hyaline Casts Few (None-Few) per lpf Ur Culture Indicated? NO. A (NO) 08/29/18 Range/Units 15:43 WBC (4.3-11.1) K/mcL RBC (4.19-5.50) M/mcL Hgb (12.9-16.9) g/dL Hct (37.5-50.1) % MCV (83.0-100.0) fL MCH (28.0-33.3) pg MCHC (31.6-35.5) g/dL RDW (11.5-14.5) % Plt Count (140-400) K/mcL MPV (9.4-12.4) fL Immature Gran % (0-4) % Seg Neutrophils % % Lymphocytes % % Monocytes % % Eosinophils % % Basophils % % Neutrophils # (1.6-8.9) K/mcL Lymphocytes # (0.6-4.6) K/mcL Monocytes # (0.0-1.3) K/mcL Eosinophils # (0.0-0.6) K/mcL Basophils # (0.0-0.2) K/mcL PT (9.4-12.1) Seconds INR APTT (26.0-36.0) Seconds Sodium (136-145) mEq/L Potassium (3.5-5.1) mEq/L Chloride (98-107) mEq/L Carbon Dioxide (23-29) mEq/L BUN (8-23) mg/dL Creatinine (0.70-1.30) mg/dL Est GFR ( Amer) (> 60) Est GFR (Non-Af Amer) (> 60) BUN/Creatinine Ratio (6-26) Glucose (70-105) mg/dL Calculated Osmolality (280-300) Lactic Acid 1.5 (0.5-2.2) mmol/L Calcium (8.6-10.3) mg/dL Total Bilirubin (0.3-1.0) mg/dL Direct Bilirubin (0.0-0.2) mg/dL Indirect Bilirubin (0.0-1.2) mg/dL AST (13-39) Units/L ALT (7-52) Units/L Alkaline Phosphatase (34-104) Units/L Troponin I (< 0.04) ng/mL C-Reactive Protein (Less than 10) mg/L B-Natriuretic Peptide (Less than 100) pg/mL Serum Total Protein (6.4-8.9) g/dL Albumin (3.5-5.7) g/dL Globulin (2.4-3.5) g/dL Albumin/Globulin Ratio (1.1-2.2) Urine Color (Yellow) Urine Clarity (Clear) Urine pH (5.0-8.0) pH Units Ur Specific [place] (1.010-1.025) Urine Protein (Neg-Trace) mg/dL Urine Glucose (UA) (Normal) mg/dL Urine Ketones (Negative) mg/dL Urine Blood (Negative) Urine Nitrite (Negative) Urine Bilirubin (Negative) Urine Urobilinogen (Normal) mg/dL Ur Leukocyte Esterase (Negative) Urine Microscopic RBC (0-3) per hpf Urine Microscopic WBC (0-3) per hpf Ur Squamous Epith Cells (None-Few) per lpf Calcium Oxalate Crystal Urine Bacteria (None-Few) per hpf Hyaline Casts (None-Few) per lpf Ur Culture Indicated? (NO) - Radiology Data Radiology results reviewed: Yes I reviewed the patient's radiology results.
[2018-08-29 14:04] LABS: Basophils % 0.1 %; Eosinophils % 0.1 %; Hemoglobin 10.3 g/dL (12.9-16.9); Immature Granulocytes % 0.8 % (0-4); Lymphocytes # 0.3 K/mcL (0.6-4.6); Lymphocytes % 1.8 %; Mean Corpuscular HGB Conc 29.4 g/dL (31.6-35.5); Mean Corpuscular Hemoglobin 25.5 pg (28.0-33.3); Mean Corpuscular Volume 86.6 fL (83.0-100.0); Mean Platelet Volume 10.2 fL (9.4-12.4); Monocytes # 0.7 K/mcL (0.0-1.3); Monocytes % 3.4 %; Neutrophils # 17.8 K/mcL (1.6-8.9); Platelet Count 289 K/mcL (140-400); Red Blood Count 4.04 M/mcL (4.19-5.50); Red Cell Distribution Width 15.3 % (11.5-14.5); Segmented Neutrophils % 93.8 %
[2018-08-29 14:27] LABS: Troponin I 0.03 ng/mL (< 0.04)
[2018-08-29 14:33] LABS: INR 1.1; Prothrombin Time 12.7 Seconds (9.4-12.1)
[2018-08-29 14:35] LABS: Activated Partial Thrombo Time 28.1 Seconds (26.0-36.0)
[2018-08-29] MEDS ORDERED: Levofloxacin 750 MG/150 ML 750 MG/150 ML BAG IVPB ONE (14:39)
[2018-08-29 14:47] LABS: Alanine Aminotransferase 27 Units/L (7-52); Albumin 2.9 g/dL (3.5-5.7); Albumin/Globulin Ratio 1.1 (1.1-2.2); Alkaline Phosphatase 93 Units/L (34-104); Aspartate Amino Transferase 34 Units/L (13-39); BUN/Creatinine Ratio 46 (6-26); Bilirubin,Direct 0.2 mg/dL (0.0-0.2); Bilirubin,Indirect 0.5 mg/dL (0.0-1.2); Bilirubin,Total 0.7 mg/dL (0.3-1.0); Blood Urea Nitrogen 32 mg/dL (8-23); C-Reactive Protein 227 mg/L (Less than 10); Calcium 8.5 mg/dL (8.6-10.3); Carbon Dioxide 24 mEq/L (23-29); Chloride 114 mEq/L (98-107); Globulin 2.6 g/dL (2.4-3.5); Glucose 156 mg/dL (70-105); Osmolality,Calculated 322 (280-300); Potassium 3.5 mEq/L (3.5-5.1); Sodium 151 mEq/L (136-145); Total Protein 5.5 g/dL (6.4-8.9); eGFR For Non-African Americans > 60 (> 60)
[2018-08-29] MEDS ORDERED: 0.9 % Sodium Chloride 500 ML IVC ONE (15:09)
[2018-08-29 15:53] LABS: Bilirubin,Urine Negative (Negative); Blood,Urine Large (Negative); Clarity,Urine Turbid (Clear); Color,Urine Red (Yellow); Glucose,Urine (UA) Normal (Normal); Ketones,Urine Negative (Negative); Leukocyte Esterase,Urine Large (Negative); Nitrite,Urine Negative (Negative); Protein,Urine 100 mg/dL (Neg-Trace); Specific Gravity,Urine 1.027 (1.010-1.025); Urobilinogen,Urine Normal (Normal)
[2018-08-29 15:56] LABS: Bacteria,Urine Many per hpf (None-Few); RBC,Urine TNTC per hpf (0-3); Squamous Epithelial Cell,Urine Many per lpf (None-Few); WBC,Urine TNTC per hpf (0-3)
[2018-08-29 16:14] LABS: Calcium Oxalate Crystals,Urine Present; Hyaline Casts,Urine Few per lpf (None-Few)
[2018-08-29 17:24] LABS: ABG Base Excess 3 mEq/L (-2 to 3); ABG HCO3 27 mEq/L (21-27); ABG Oxygen Saturation 94 % (95-98); ABG PCO2 34 mmHg (35-45); ABG PO2 64 mmHg (85-104); ABG TCO2 28 mEq/L (20-26)
[2018-08-29] MEDS ORDERED: Naloxone 0.4 MG/ML INJ IVP PRN ×2 (17:40→18:13)
[2018-08-29] MEDS ORDERED: Acetaminophen 325 MG TABLET PO PRN (17:40)
[2018-08-29] MEDS ORDERED: traMADol 50 MG TABLET PO PRN (17:40)
--- NOTE | 2018-08-29 17:50 | Internal Med History&Physical ---
Date of Encounter: 08/29/18 Time of Encounter: 17:47 Internal Medicine - H&P: HPI Admitted From: Long-term Nursing Facility Plans for Post Hospital Care: Transfer [facility] History of present illness: 87-year-old male sent in from the intermediate for concerns regarding altered mental status, poor responsiveness and difficulty breathing. There is no history of trauma. The patient is unable to give a meaningful history due to clinical status. 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 He also takes OxyContin as a pain medication. No reports of chest pain abdominal pain vomiting or bleeding are reported. There is no history of acute neurologic change syncope or fever. No rashes or any other acute complaints reported. The patient has a history of CAD CHF and malignancy. His BP was low upon arrival, he received 1000 ml bolus and BP improved to 130s. His mental status has also improved.CXR showed pulmonary edema and possible pneumonia. He received one dose of Levaquin. Due to the possible sepsis and infection, he will be admitted for further evaluation and treatment. Past Med Surg Social Fam HX - Past Medical History Medical history: cancer, CHF, coronary artery disease, hyperlipidemia, hypertension, malignancy, RA, valvular heart disease, other Additional medical history: lymphoma Psychiatric history: no psych history - Past Surgical History Surgical History: coronary bypass (CABG), heart valve replacement, other, pacemaker Additional surgical history: aortic valve replacement, liver stents, right arm thrombectomy - Social History Smoking Status: Never smoker Smokeless Tobacco Status: No Alcohol use: none Drug use: none - Family History Mother Adopted: No Family Member Ethnicity: Non- Living Status: Hx Family Cardiac Disorders: Yes Hx Family Cancer: Yes Hx Family Endocrine Disorder: Yes (DM) Father Living Status: Internal Medicine - H&P: Meds Diltiazem HCl [Diltiazem 24Hr Cd] 180 mg PO QAM 05/01/15 [History] fentaNYL [Fentanyl] 100 mcg TP Q72H 12/11/17 [History] OxyCODONE Immed Rel [Roxicodone 30 MG] 30 mg PO Q6H 12/12/17 [History] Cholecalciferol (Vitamin D3) [Vitamin D3] 1,000 unit PO DAILY 07/02/18 [History] Cyanocobalamin (Vitamin B-12) [Vitamin B-12] 1,000 mcg PO DAILY 07/02/18 [History] Furosemide [Lasix] 20 mg PO DAILY 07/02/18 [History] Lactulose 15 - 45 ml PO DAILY PRN 07/02/18 [History] Metoprolol Tartrate 50 mg PO BID 07/02/18 [History] Omeprazole [PriLOSEC] 20 mg PO DAILY 07/02/18 [History] Polyethylene Glycol 3350 [MiraLAX] 17 gm PO DAILY 07/28/18 [History] Allergy/AdvReac Type Severity Reaction Status Date / Time No Known Allergies Allergy Verified 04/06/18 11:04 All Systems PM: A 10-system review of systems was performed and is negative for pertinent findings except as documented above in the HPI. Review of systems: REVIEW OF SYSTEMS: CONSTITUTIONAL: No weight loss, fever, chills, weakness or fatigue. HEENT: Eyes: No visual loss, blurred vision, double vision or yellow sclerae. Ears, Nose, Throat: No hearing loss, sneezing, congestion, runny nose or sore throat. SKIN: No rash or itching. CARDIOVASCULAR: No chest pain, chest pressure or chest discomfort. No palpitations or edema. RESPIRATORY: No shortness of breath, cough or sputum. GASTROINTESTINAL: No anorexia, nausea, vomiting or diarrhea. No abdominal pain or blood. GENITOURINARY: No dysuria, urgency, or frequency. NEUROLOGICAL: see HPI. MUSCULOSKELETAL: No muscle, back pain, joint pain or stiffness. HEMATOLOGIC: No anemia, bleeding or bruising. LYMPHATICS: No enlarged nodes. No history of splenectomy. PSYCHIATRIC: No history of depression or anxiety. ENDOCRINOLOGIC: No reports of sweating, cold or heat intolerance. No polyuria or polydipsia. - Constitutional Vitals: Temp Pulse Resp BP Pulse Ox 98.7 F 84 24 107/61 93 08/29/18 12:59 08/29/18 16:38 08/29/18 16:38 08/29/18 16:38 08/29/18 16:38 General appearance: Present: cooperative, A&O X 3, answers questions appropria tely Exam: PHYSICAL EXAMINATION: GENERAL APPEARANCE: The patient is alert, oriented and in no acute distress. HEENT: Head is normocephalic. The sinuses are nontender. Pupils are equal and reactive. The nares are patent. Oropharynx clear without lesions. NECK: Supple without lymphadenopathy. HEART: Regular rate and rhythm. LUNGS: No crackles or wheezes are heard. ABDOMEN: Soft, nontender, nondistended with good bowel sounds heard. Inguinal area is normal. EXTREMITIES: Without cyanosis, clubbing or edema. NEUROLOGICAL: left-sided hemiplegia, aphasia. SKIN: Warm and dry without any rash. Internal Med - H&P Results - Labs CBC & Chem 7: 08/29/18 13:52 08/29/18 13:52 Labs: Short CBC 08/29/18 Range/Units 13:52 WBC 19.0 H (4.3-11.1) K/mcL Hgb 10.3 L (12.9-16.9) g/dL Hct 35.0 L (37.5-50.1) % Plt Count 289 (140-400) K/mcL Neutrophils # 17.8 H (1.6-8.9) K/mcL BMP 08/29/18 13:52 Sodium 151 H Potassium 3.5 Chloride 114 H Carbon Dioxide 24 BUN 32 H Creatinine 0.70 Glucose 156 H Calcium 8.5 L Cardiac Enzymes 08/29/18 Range/Units 13:52 Troponin I 0.03 (< 0.04) ng/mL Liver Function 08/29/18 Range/Units 13:52 Total Bilirubin 0.7 (0.3-1.0) mg/dL Direct Bilirubin 0.2 (0.0-0.2) mg/dL AST 34 (13-39) Units/L ALT 27 (7-52) Units/L Alkaline Phosphatase 93 (34-104) Units/L Albumin 2.9 L (3.5-5.7) g/dL Urine 08/29/18 Range/Units 15:40 Urine Color Red A (Yellow) Urine Clarity Turbid A (Clear) Urine pH 6.0 (5.0-8.0) pH Units Ur Specific Hasty 1.027 H (1.010-1.025) Urine Protein 100 H (Neg-Trace) mg/dL Urine Glucose (UA) Normal (Normal) mg/dL - ABG Interpretation ABG results: 08/29/18 17:20 ABG pH 7.50 H ABG pCO2 34 L ABG pO2 64 L ABG HCO3 27 ABG Total CO2 28 H ABG O2 Saturation 94 L ABG Base Excess 3 - Impressions ITS Impressions Chest X-Ray 08/29/18 13:08 IMPRESSION: Interstitial and hazy opacities are present bilaterally suggestive of interstitial pulmonary edema or pneumonia appearing similar compared to prior. Short-term follow-up could be helpful for further evaluation. D/ / Asad Ochoa / Asad Ochoa Interpreting Provider: Asad Ochoa Head CT 08/29/18 15:14 IMPRESSION: No acute intracranial abnormality. Evolving extensive left MCA territory infarct. No acute hemorrhage. D/ / Ashu Mehta MD / Ashu Mehta MD Interpreting Provider: Ashu Mehta MD - Assessment and plan (1) Altered mental status Current Visit: Yes Status: Acute Assessment and plan: 87 year old male presented with mental status change. He is intermediate resident. was found to be agitated today and more sleepy. Low BP upon arrival. Lab showed leukocytosis elevated Na and Cl, CXR showed possible PNA and pulmonary edema. UA showed possible UTI. - Mental status improved after received IVF and Narcan. Received one dose of Levaquin. - Several possible etiologies which could cause confusion including dehydration, acid-base disturbance, and infection. - sebastián give 500 ml D5 water in lieu of Hx of CHF, may repeat if Na still high. Hold home lasix in lieu of low BP, may resume lasix of volume overload is an issue. - Pending blood and urine Cx, treat PNA and UTI with Zosyn and Vanco. - ABG showed alkolosis with hypoxia. Pending d-dimer. Check doppler to both legs to r/o DVT, if PE was suspected, may need further imaging to confirm. Closely monitoring. repeat in am. Qualifiers: Altered mental status type: unspecified Qualified Code(s): R41.82 - Altered mental status, unspecified (2) Sepsis Current Visit: Yes Status: Acute Assessment and plan: elevated WBC, Low BP, and tachycrdia, normal lactic acid, pending cx, continue Zosyn and Vanco. Qualifiers: Sepsis type: sepsis due to unspecified organism Qualified Code(s): A41.9 - Sepsis, unspecified organism (3) Pneumonia Current Visit: Yes Status: Acute Assessment and plan: On vanco and Zosyn. Qualifiers: Pneumonia type: due to unspecified organism Laterality: unspecified laterality Lung location: unspecified part of lung Qualified Code(s): J18.9 - Pneumonia, unspecified organism (4) Afib Current Visit: No Status: Chronic Assessment and plan: Rate controlled, not on AC due to Hx of bleeding. Qualifiers: Atrial fibrillation type: persistent Qualified Code(s): I48.1 - Persistent atrial fibrillation (5) Lymphoma Current Visit: No Status: Chronic Assessment and plan: on remission. 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 May resume once BP improved. Qualifiers: Hypertension type: essential hypertension Qualified Code(s): I10 - Essential (primary) hypertension (7) CAD (coronary artery disease) Current Visit: No Status: Chronic Assessment and plan: Troponin is negative x1. continue cycling for 2 more sets. Qualifiers: Coronary Disease-Associated Artery/Lesion type: [place] artery [place] vs. transplanted heart: [place] heart Associated angina: without angina Qualified Code(s): I25.10 - Atherosclerotic heart disease of [place] coronary artery without angina pectoris (8) UTI (urinary tract infection) Current Visit: Yes Status: Acute Assessment and plan: pending cx, continue abx. Qualifiers: Urinary tract infection type: acute cystitis Hematuria presence: with hematuria Qualified Code(s): N30.01 - Acute cystitis with hematuria (9) Congestive heart failure Current Visit: No Status: Chronic Assessment and plan: Slightly volume overloaded, hold all BP Meds and lasix due low BP and sepsis for now. Qualifiers: Heart failure type: combined systolic and diastolic Heart failure chronicity: unspecified Qualified Code(s): I50.40 - Unspecified combined systolic (congestive) and diastolic (congestive) heart failure (10) Cerebrovascular disease Current Visit: No Status: Chronic Assessment and plan: continue current treatment. (11) DVT prophylaxis Current Visit: No Status: Acute Assessment and plan: heparin sq. - Time Spent With Patient Total time spent is greater than 50% in coordination of care (as documented) at patient's floor/unit and/or counseling patient: Greater than 35 minutes
[2018-08-29] MEDS: D5% in Water 500 ML IVC SCH (22:05)
[2018-08-30] MEDS ORDERED: Isovue-370 500 ML INFUS..BTL IV ONE (00:34)
[2018-08-30] MEDS ORDERED: *HR* Heparin 5,000 UNIT/ML VIAL IVP ONE (02:09)
[2018-08-30] MEDS ORDERED: *HR* Heparin 5,000 UNIT/ML VIAL IVP PRN (02:09)
--- NOTE | 2018-08-30 02:21 | Event Note ---
Date of Encounter: 08/30/18 Time of Encounter: 21:43 Notified by nurse of patient having multiple DVT's with highly elevated Ddimer. Patient with AMS so unable to communicate bleeding risks, however admission notes history of afib not anticoagulated due to history of bleeding. Contacted patient nursing facility to confirm POA or emergency contact, POA confirmed on file in [facility] as Julia (daughter) at [phone]. Nursing facility also stated patient is DNRCCA and not a full code and would fax document. Will update in [facility] once received. Called POA Julia who confirmed patient is DNRCCA, informed of new DVT's and need for heparin infusion, explained risks and benefits. POA confirmed they want everything done until the patient has pulmonary or cardiac arrest. Confirmed bleeding history preventing anticoagulation for afib is history of nose bleeds with POA but she was unable to elaborate other than that. POA also requested I call her sister Rachael who is second contact on POA document and confirm with her, but to move forward with heparin treatment if unable to contact. Attempted to contact POA sister Rachael but there was no answer. Due to Head CT with continued evolving extensive left MCA territory infarct, neurology Dr Muñoz was consulted to rule out risk with heparin infusion and he agreed to proceed and will follow patient while admitted. Due to Ddimer being extensively elevated and chest CTA not yet completed, it was ordered and demonstrated multiple small bilateral emboli. Due to history of nose bleeds contraindicating anticoagulation for afib and extensive blood clots, vascular was contacted who seen patient in June [address] Rahman also agreed to proceed with heparin infusion as patient previously tolerated a heparin infusion but stated he can not be on eliquis, he also felt there was no need for vascular to follow patient unless there were any complications. Appreciate input from our neurology and vascular teams. Discussed with Dr Cisneros.
[2018-08-30 03:11] LABS: Basophils % 0.1 %; Eosinophils # 0.1 K/mcL (0.0-0.6); Eosinophils % 0.6 %; Hematocrit 29.7 % (37.5-50.1); Hemoglobin 8.8 g/dL (12.9-16.9); Immature Granulocytes % 0.6 % (0-4); Lymphocytes # 0.3 K/mcL (0.6-4.6); Lymphocytes % 2.5 %; Mean Corpuscular HGB Conc 29.6 g/dL (31.6-35.5); Mean Corpuscular Hemoglobin 25.8 pg (28.0-33.3); Mean Corpuscular Volume 87.1 fL (83.0-100.0); Mean Platelet Volume 10.2 fL (9.4-12.4); Monocytes # 0.6 K/mcL (0.0-1.3); Monocytes % 4.8 %; Neutrophils # 11.4 K/mcL (1.6-8.9); Platelet Count 208 K/mcL (140-400); Red Blood Count 3.41 M/mcL (4.19-5.50); Red Cell Distribution Width 15.4 % (11.5-14.5); Segmented Neutrophils % 91.4 %
[2018-08-30 03:28] LABS: Alanine Aminotransferase 20 Units/L (7-52); Albumin 2.3 g/dL (3.5-5.7); Alkaline Phosphatase 72 Units/L (34-104); Aspartate Amino Transferase 25 Units/L (13-39); BUN/Creatinine Ratio 56 (6-26); Bilirubin,Total 0.6 mg/dL (0.3-1.0); Blood Urea Nitrogen 31 mg/dL (8-23); Calcium 7.9 mg/dL (8.6-10.3); Carbon Dioxide 27 mEq/L (23-29); Chloride 116 mEq/L (98-107); Globulin 2.3 g/dL (2.4-3.5); Glucose 131 mg/dL (70-105); Osmolality,Calculated 316 (280-300); Potassium 3.5 mEq/L (3.5-5.1); Sodium 149 mEq/L (136-145); Total Protein 4.6 g/dL (6.4-8.9); eGFR For Non-African Americans > 60 (> 60)
[2018-08-30 03:29] LABS: Troponin I < 0.03 ng/mL (< 0.04)
[2018-08-30 03:45] LABS: Heparin anti-factor XA UFH 0.01 IU/mL (0.30-0.70)
[2018-08-30 03:46] LABS: INR 1.2; Prothrombin Time 13.2 Seconds (9.4-12.1)
[2018-08-30] MEDS: Heparin 25,000 UNIT/500 ML D5W 25,000 UNIT/500 ML BAG IVC SCH (03:55)
[2018-08-30] MEDS: D5% in Water 500 ML IVC SCH (08:35)
--- NOTE | 2018-08-30 09:42 | Neurology - Consult Note ---
Date of Encounter: 08/30/18 Time of Encounter: 09:34 Assessment and Plan (1) Abnormal CT scan, head Current Visit: Yes Status: Acute The CT of head showed evolving large hemispheric infarct occurring around or before 07/28/2018, there is no evidence of cerebral hemorrhage and no midline shift and no mass effects. This looks as evolving large hemipheric infarct without evidene of complications and this is more than one month old therefore the size of the stroke is large and likely would be associated with increased risk of cerebral bleeding however this is already more than one month old i would suggest that this would considered stable condition and due to ongoing significant medical problems requiring anticoagulation therapy, i would agree to start or continue anticoagulation therapy with close clinical monitoring. Currently his neurological examination showed a pattern consistent with large left hemispheric infarct. however this is no mass effect and no midline shift and prognosis of this patient at present time depends on his primary medical conditions. Please continue medical and supportive care. Will sign off at this time please call if any questions. History of Present Illness Chief complaint: alerted mental status, abnormal CT of head HPI: Mr. 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 He was found to have DVT and is about to be anticoagulated. Neurology was consulted regarding the safe use of anticoagulation therapy due to his recent history of large left hemispheric infarct as well as CT of head reporting of 'evolving left hemispheric infarct. Patient is mute currently. Per medical records, he had a large stroke likely occurred around 07/28/[address] of head on 07/28/2018 and then he had another CT of head 08/05/2018 which showed more mature left hemispheric infarct, large but no hemorrhage and no midline shift and no mass effects. And then again yesterday' CT of head showed 'evolving left hemiepheric infarct' certainly no evidence of bleed. No midline shift and no mass effects. So the CT of head showed evolving features of recent infarct, (more than one month ago). Therefor i would consider the CT findings stable result from a recent infarct. Currently the patient is in acute respiratory distress and he is mute and has eye and head deviation to the left side with right hemiparalysis. Past Med Surg Social Fam HX - Past Medical History Medical history: cancer, CHF, coronary artery disease, hyperlipidemia, hypertension, malignancy, RA, valvular heart disease, other Additional medical history: lymphoma Psychiatric history: no psych history - Past Surgical History Surgical History: coronary bypass (CABG), heart valve replacement, other, pacemaker Additional surgical history: aortic valve replacement, liver stents, right arm thrombectomy - Social History Smoking Status: Never smoker Smokeless Tobacco Status: No Alcohol use: none Drug use: none - Family History Mother Adopted: No Family Member Ethnicity: Non- Living Status: Hx Family Cardiac Disorders: Yes Hx Family Cancer: Yes Hx Family Endocrine Disorder: Yes (DM) Father Living Status: Medications and Allergies Diltiazem HCl [Diltiazem 24Hr Cd] 180 mg PO QAM 05/01/15 [History] fentaNYL [Fentanyl] 100 mcg TP Q72H 12/11/17 [History] Cholecalciferol (Vitamin D3) [Vitamin D3] 1,000 unit PO DAILY 07/02/18 [History] Cyanocobalamin (Vitamin B-12) [Vitamin B-12] 1,000 mcg PO DAILY 07/02/18 [History] Furosemide [Lasix] 20 mg PO DAILY 07/02/18 [History] Lactulose 15 ml PO DAILY 07/02/18 [History] Omeprazole [PriLOSEC] 20 mg PO DAILY 07/02/18 [History] Albuterol Neb [Proventil Neb] 2.5 mg IH Q4HR PRN 08/29/18 [History] Aspirin [Lo-Dose Aspirin EC] 81 mg PO DAILY 08/29/18 [History] Atorvastatin [Lipitor] 40 mg PO HS 08/29/18 [History] Carvedilol [Coreg] 6.25 mg PO Q12H 08/29/18 [History] Docusate [Colace] 100 mg PO Q12H 08/29/18 [History] Doxycycline Hyclate 100 mg PO BID 08/29/18 [History] Lisinopril [Zestril] 10 mg PO DAILY 08/29/18 [History] Oxycodone HCl [Roxybond] 15 mg PO Q6H PRN 08/29/18 [History] Terazosin [Hytrin] 1 mg PO HS 08/29/18 [History] predniSONE [PredniSONE] 10 mg PO DAILY 08/29/18 [History] Allergy/AdvReac Type Severity Reaction Status Date / Time No Known Allergies Allergy Verified 04/06/18 11:04 All Systems: The remainder of the systems were reviewed and are negative Physical Examination - Vital Signs Vital Signs: Initial Vital Signs Temp Pulse Resp BP Pulse Ox 98.7 F 77 19 97/63 96 08/29/18 12:59 08/29/18 12:59 08/29/18 12:59 08/29/18 12:59 08/29/18 12:59 - Constitutional General appearance: acutely ill - Neurologic Sensorimotor examination: intact (Unable to assess and the patient is mute) Detailed motor examination: other (Right hemiparalysis noted. Moves right hand freely and withdrawal to pain to the left leg) Detailed sensory examination: intact (Unbale to assess due to aphasia) Posture: other (head and eye deviation to the left side) Reflex and gait examination: other (Not assessed) Reflexes: Biceps: 1+, Triceps: 1+, Brachioradialis: 1+, Patella: 1+, Achilles: 1+ Mental Status Examination: awake, alert, does not follow commands, lethargic, opens eyes to voice, opens eyes to noxious stimulation, makes eye contact, expressive aphasia Cranial nerve examination: PERRL (right eye pupil unable to see due to cataract. ), EOMI (eye deviation to the left side noted. ), visual hernandez intact (Unable to assess), corneal reflexes brisk symmetrically, sensory to face intact (unable to assess), mastication intact, no facial asymmetry is present (right facial flattening noted), soft palate elevates bilaterally upon phonation (Unable to assess), gag reflex intact, flexes SCM and trapezius muscles symmetrically with full power (Unable to assess), tongue protrudes midline (Tongue deviation to the right side) Results - Laboratory Findings CBC and BMP: 08/30/18 02:39 08/30/18 02:39 Abnormal lab findings: Abnormal lab results WBC 12.5 K/mcL (4.3-11.1) H 08/30/18 02:39 RBC 3.41 M/mcL (4.19-5.50) L 08/30/18 02:39 Hgb 8.8 g/dL (12.9-16.9) L D 08/30/18 02:39 Hct 29.7 % (37.5-50.1) L 08/30/18 02:39 MCH 25.8 pg (28.0-33.3) L 08/30/18 02:39 MCHC 29.6 g/dL (31.6-35.5) L 08/30/18 02:39 RDW 15.4 % (11.5-14.5) H 08/30/18 02:39 Neutrophils # 11.4 K/mcL (1.6-8.9) H 08/30/18 02:39 Lymphocytes # 0.3 K/mcL (0.6-4.6) L 08/30/18 02:39 PT 13.2 Seconds (9.4-12.1) H 08/30/18 02:39 D-Dimer [id number] ng/mLFEU (0-500) H 08/29/18 18:33 Heparin Anti-Xa, Unfract 0.01 IU/mL (0.30-0.70) L 08/30/18 02:39 ABG pH 7.50 pH Units (7.32-7.45) H 08/29/18 17:20 ABG pCO2 34 mmHg (35-45) L 08/29/18 17:20 ABG pO2 64 mmHg (85-104) L 08/29/18 17:20 ABG Total CO2 28 mEq/L (20-26) H 08/29/18 17:20 ABG O2 Saturation 94 % (95-98) L 08/29/18 17:20 Sodium 149 mEq/L (136-145) H 08/30/18 02:39 Chloride 116 mEq/L (98-107) H 08/30/18 02:39 BUN 31 mg/dL (8-23) H 08/30/18 02:39 Creatinine 0.55 mg/dL (0.70-1.30) L 08/30/18 02:39 BUN/Creatinine Ratio 56 (6-26) H 08/30/18 02:39 Glucose 131 mg/dL (70-105) H 08/30/18 02:39 POC Glucose 124 mg/dL (70-99) H 08/29/18 22:56 Calculated Osmolality 316 (280-300) H 08/30/18 02:39 Calcium 7.9 mg/dL (8.6-10.3) L 08/30/18 02:39 C-Reactive Protein 227 mg/L (Less than 10) H 08/29/18 13:52 B-Natriuretic Peptide 407 pg/mL (Less than 100) H 08/29/18 13:52 Serum Total Protein 4.6 g/dL (6.4-8.9) L 08/30/18 02:39 Albumin 2.3 g/dL (3.5-5.7) L 08/30/18 02:39 Globulin 2.3 g/dL (2.4-3.5) L 08/30/18 02:39 Albumin/Globulin Ratio 1.0 (1.1-2.2) L 08/30/18 02:39 Urine Color Red (Yellow) A 08/29/18 15:40 Urine Clarity Turbid (Clear) A 08/29/18 15:40 Ur Specific [place] 1.027 (1.010-1.025) H 08/29/18 15:40 Urine Protein 100 mg/dL (Neg-Trace) H 08/29/18 15:40 Urine Blood Large (Negative) H 08/29/18 15:40 Ur Leukocyte Esterase Large (Negative) H 08/29/18 15:40 Urine Microscopic RBC TNTC per hpf (0-3) H 08/29/18 15:40 Urine Microscopic WBC TNTC per hpf (0-3) H 08/29/18 15:40 Ur Squamous Epith Cells Many per lpf (None-Few) H 08/29/18 15:40 Urine Bacteria Many per hpf (None-Few) H 08/29/18 15:40 Ur Culture Indicated? NO. (NO) A 08/29/18 15:40 - Diagnostic Findings Additional findings: EXAMINATION: CT OF THE HEAD WITHOUT CONTRAST 08/29/2018 4:17 pm TECHNIQUE: CT of the head was performed without the administration of intravenous contrast. Dose modulation, iterative reconstruction, and/or weight based adjustment of the mA/kV was utilized to reduce the radiation dose to as low as reasonably achievable. COMPARISON: None. HISTORY: ORDERING SYSTEM PROVIDED HISTORY: Altered mental status FINDINGS: BRAIN/VENTRICLES: Redemonstration of large MCA territory subacute infarct extending from frontal to occipital region and through the left temporal lobe as well. Dense left MCA on prior no longer apparent. No evidence for hemorrhagic transformation. There are some scattered areas of small gyri hyper density air suggestive of developing lamina necrosis. There is periventricular and subcortical white matter discrete and confluent low attenuation, nonspecific, likely representing age-related chronic small vessel ischemic disease. ORBITS: The visualized portion of the orbits demonstrate no acute abnormality. SINUSES: The visualized paranasal sinuses and mastoid air cells demonstrate no acute abnormality. SOFT TISSUES/SKULL: No acute abnormality of the visualized skull or soft tissues. CT/CT head/brain wo con IMPRESSION: No acute intracranial abnormality. Evolving extensive left MCA territory infarct. No acute hemorrhage. D/ / Ashu Mehta MD / Ashu Mehta MD Interpreting Provider: Ashu Mehta MD INATION: CTA OF THE CHEST 08/30/2018 1:02 am TECHNIQUE: CTA of the chest was performed after the administration of intravenous contrast. Multiplanar reformatted images are provided for review. MIP images are provided for review. Dose modulation, iterative reconstruction, and/or weight based adjustment of the mA/kV was utilized to reduce the radiation dose to as low as reasonably achievable. COMPARISON: 07/09/2018 HISTORY: ORDERING SYSTEM PROVIDED HISTORY: Elevated Ddimer 75 ml of ISOVUE 370 Shortness of breath FINDINGS: Pulmonary Arteries: There is mild motion artifact. Regardless, there are small bilateral pulmonary emboli. Dilation of the main pulmonary artery is unchanged. Mediastinum: Mediastinal lymph nodes are unchanged. The heart and pericardium demonstrate no acute abnormality. There is no acute abnormality of the thoracic aorta. Hiatal hernia is again seen. Lungs/pleura: There is no pneumothorax or pleural effusion. Bilateral pleural thickening is again seen. Septal thickening and ground-glass opacities have progressed. There is now airspace disease in the middle lobe and right lower lobe with areas of associated bronchiectasis. There is less pronounced airspace disease in the posterior left upper lobe and the medial left lower lobe. Focal subpleural opacity in the left lower lobe is unchanged. Upper Abdomen: The gallbladder is distended. Cholelithiasis is noted. Common duct stent is in place. Soft Tissues/Bones: There is now a moderate to marked T6 compression fracture which has developed since the prior study. There is minimal retropulsion. CT/CT angio chest IMPRESSION: 1. Multiple small bilateral pulmonary emboli. 2. Pulmonary hypertension. 3. Pulmonary edema with bilateral airspace disease which probably represents pneumonia. 4. Interval development of a moderate to marked T6 compression fracture. 5. Cholelithiasis. Critical results were called by Dr. Mike Swenson MD to Amrit Hardy on 08/30/2018 at 01:31. D/ / Mike Swenson MD / Mike Swenson MD Interpreting Provider: Mike Swenson MD Consult Discharge Plan - Plan Referrals: NONE,PCP [Primary Care Provider] -
[2018-08-30] MEDS ORDERED: Aminoglycoside Consult 1 EACH MC ONE (13:22)
--- NOTE | 2018-08-30 15:56 | Palliative - Consult Note ---
<Radha Louise - Last Filed: 08/30/18 15:48> Date of Encounter: 08/30/18 Time of Encounter: 15:48 - Assessment and Plan (1) Pulmonary emboli Current Visit: Yes Status: Acute Assessment and plan: Patient is currently on supportive oxygen. Due to stroke and PE, patient has increased respiratory secretion. Plan: - would recommend stopping the heparin drip and labs to provide comfort care at this time - due to excessive secretions would recommend stopping all IV fluids - secretions: Atropine opth drops, glycopyrrolate 0.2mg once, scopolamine patch Qualifiers: Pulmonary embolism type: unspecified Chronicity: acute Acute cor pulmonale presence: without acute cor pulmonale Qualified Code(s): I26.99 - Other pulmonary embolism without acute cor pulmonale (2) Cerebral infarction, left hemisphere Current Visit: Yes Status: Acute Assessment and plan: Patient has been unable to speak since cerebral infarction. (3) Altered mental status Current Visit: Yes Status: Acute Assessment and plan: see plan above. Qualifiers: Altered mental status type: unspecified Qualified Code(s): R41.82 - Altered mental status, unspecified (4) Chronic pain Current Visit: Yes Status: Acute Assessment and plan: Patient's home pain medication regiment: Fentanyl patch 100mg TP Q72H and Oxycodone 15mg Q6H prn. Patient looks uncomfortable with irregular breathing pattern. Will restart and continue home regiment. Plan: - Fentanyl patch 100mg TP Q72H -Oxycodone 15mg Q6H prn Qualifiers: Chronic pain type: other chronic pain Qualified Code(s): G89.29 - Other chronic pain (5) Counseling regarding goals of care Current Visit: Yes Status: Acute Assessment and plan: Dr. Doll met with the , Rachael (daughter), and Reina (daughter) today and discussed goals of care. They were in agreement to move forward with hospice at this point. Patient qualifies for hospice due to B-cell lymphoma currently untreated, stroke, and multiple PEs. Reina was in the room while we were present and confirmed that this was the case. Code status was discussed and patient will be changed to DNR-CC. Discussed the gravity of the situation and Reina states that her family does know about the situation. is dependent o n her daughter Rachael to give her a ride, and Reina said she would tell them to come in the morning tomorrow to discuss transfer to hospice care. Palliative-CN HPI - Data of Consult Patient: new to practice Consult date: 08/30/18 Requesting Physician: Lavon Harmon Primary Care Provider: PCP NONE - Consult Narrative Palliative Care/Comfort Measures: Palliative care Reason for consult: evaluation for hospice and comfort care History of present illness: Mr. Tripp is a 87 year old male with a pmh of large left hemispheric infarct, (07/28/2018), PAF, B-cell lymphoma, and chronic pain, who presented from nursing facility with chief complaint of SOB, altered mental status and was found to have multiple bilateral pulmonary emboli. Patient was placed on heparin drip. Patient is currently unable to speak but has been able to nod his head to basic commands. He has been having trouble breathing and frequent breath sounds are wet. Due to the pulmonary emboli and multiple other comorbities the discussion of hospice was brought up to the family and they have agreed that this would be the best option at this time. Code status was discussed and agreed to change code status to DNR-CC by agreeing to hospice care. CC: Lavon Harmon - Time Spent with Patient Time: Total time spent is greater than 50% in coordination of care (as documented) at patient's floor/unit and/or counseling patient: Past Med Surg Social Fam HX - Past Medical History Medical history: cancer, CHF, coronary artery disease, hyperlipidemia, hypertension, malignancy, RA, valvular heart disease, other Additional medical history: lymphoma Psychiatric history: no psych history - Past Surgical History Surgical History: coronary bypass (CABG), heart valve replacement, other, pacemaker Additional surgical history: aortic valve replacement, liver stents, right arm thrombectomy - Social History Smoking Status: Never smoker Smokeless Tobacco Status: No Alcohol use: none Drug use: none - Family History Mother Adopted: No Family Member Ethnicity: Non- Living Status: Hx Family Cardiac Disorders: Yes Hx Family Cancer: Yes Hx Family Endocrine Disorder: Yes (DM) Father Living Status: Medications and Allergies Diltiazem HCl [Diltiazem 24Hr Cd] 180 mg PO QAM 05/01/15 [History] fentaNYL [Fentanyl] 100 mcg TP Q72H 12/11/17 [History] Cholecalciferol (Vitamin D3) [Vitamin D3] 1,000 unit PO DAILY 07/02/18 [History] Cyanocobalamin (Vitamin B-12) [Vitamin B-12] 1,000 mcg PO DAILY 07/02/18 [History] Furosemide [Lasix] 20 mg PO DAILY 07/02/18 [History] Lactulose 15 ml PO DAILY 07/02/18 [History] Omeprazole [PriLOSEC] 20 mg PO DAILY 07/02/18 [History] Albuterol Neb [Proventil Neb] 2.5 mg IH Q4HR PRN 08/29/18 [History] Aspirin [Lo-Dose Aspirin EC] 81 mg PO DAILY 08/29/18 [History] Atorvastatin [Lipitor] 40 mg PO HS 08/29/18 [History] Carvedilol [Coreg] 6.25 mg PO Q12H 08/29/18 [History] Docusate [Colace] 100 mg PO Q12H 08/29/18 [History] Doxycycline Hyclate 100 mg PO BID 08/29/18 [History] Lisinopril [Zestril] 10 mg PO DAILY 08/29/18 [History] Oxycodone HCl [Roxybond] 15 mg PO Q6H PRN 08/29/18 [History] Terazosin [Hytrin] 1 mg PO HS 08/29/18 [History] predniSONE [PredniSONE] 10 mg PO DAILY 08/29/18 [History] Allergy/AdvReac Type Severity Reaction Status Date / Time No Known Allergies Allergy Verified 04/06/18 11:04 Palliative Care-Exam - Constitutional Vitals: Temp Pulse Resp BP Pulse Ox 98.9 F 74 19 126/54 94 08/30/18 15:03 08/30/18 15:03 08/30/18 15:03 08/30/18 15:03 08/30/18 15:03 - Other Additional findings: Constitutional: somnolent, arrousible with mild stimulation, diffuse muscle wasting Head: Normocephalic, atraumatic, Heart: Normal, regular rate and rhythm, murmur present at apex Lungs: nasal cannula 4 L, breathing pattern irregular with gurgling sounds present with each breath, decrease breath sounds bilaterally, crackles Chest: left sided pacemaker, right sided Mediport Abdomen: Soft, nondistended, nontender, and no masses palpable,no guarding or rigidity. Extremities: No clubbing, cyanosis, or edema, radial pulse +2/4, capillary refill <2sec. Skin: no lesions, no rashes, no jaundice Neurologic: unable to assess strength as patient is not following commands well, nodded with questioning, did not verbalize any words Internal Medicine - CN: Reslt - Labs CBC & Chem 7: 08/30/18 02:39 08/30/18 02:39 Labs: Short CBC 08/30/18 Range/Units 02:39 WBC 12.5 H (4.3-11.1) K/mcL Hgb 8.8 L D (12.9-16.9) g/dL Hct 29.7 L (37.5-50.1) % Plt Count 208 (140-400) K/mcL Neutrophils # 11.4 H (1.6-8.9) K/mcL BMP 08/30/18 02:39 Sodium 149 H Potassium 3.5 Chloride 116 H Carbon Dioxide 27 BUN 31 H Creatinine 0.55 L Glucose 131 H Calcium 7.9 L Cardiac Enzymes 08/29/18 08/30/18 Range/Units 20:42 02:39 Troponin I < 0.03 < 0.03 (< 0.04) ng/mL Liver Function 08/30/18 Range/Units 02:39 Total Bilirubin 0.6 (0.3-1.0) mg/dL AST 25 (13-39) Units/L ALT 20 (7-52) Units/L Alkaline Phosphatase 72 (34-104) Units/L Albumin 2.3 L (3.5-5.7) g/dL Urine 08/29/18 Range/Units 15:40 Urine Color Red A (Yellow) Urine Clarity Turbid A (Clear) Urine pH 6.0 (5.0-8.0) pH Units Ur Specific [place] 1.027 H (1.010-1.025) Urine Protein 100 H (Neg-Trace) mg/dL Urine Glucose (UA) Normal (Normal) mg/dL - ABG Interpretation ABG results: ABG ABG pH 7.50 pH Units (7.32-7.45) H 08/29/18 17:20 ABG pCO2 34 mmHg (35-45) L 08/29/18 17:20 ABG pO2 64 mmHg (85-104) L 08/29/18 17:20 ABG O2 Saturation 94 % (95-98) L 08/29/18 17:20 PT/INR, D-dimer PT 13.2 Seconds (9.4-12.1) H 08/30/18 02:39 D-Dimer [id number] ng/mLFEU (0-500) H 08/29/18 18:33 - Impressions Impressions Head CT 08/29/18 15:14 IMPRESSION: No acute intracranial abnormality. Evolving extensive left MCA territory infarct. No acute hemorrhage. D/ / Ashu Mehta MD / Ashu Mehta MD Interpreting Provider: Ashu Mehta MD Chest CTA 08/30/18 00:34 IMPRESSION: 1. Multiple small bilateral pulmonary emboli. 2. Pulmonary hypertension. 3. Pulmonary edema with bilateral airspace disease which probably represents pneumonia. 4. Interval development of a moderate to marked T6 compression fracture. 5. Cholelithiasis. Critical results were called by Dr. Mike Swenson MD to Amrit Hardy on 08/30/2018 at 01:31. D/ / Mike Swenson MD / Mike Swenson MD Interpreting Provider: Mike Swenson MD Consult Discharge Plan - Plan Referrals: NONE,PCP [Primary Care Provider] - Palliative Quality Palliative Quality: Screen for Code Status: Yes, Screen for Goals of Care: Yes, Screen for Pain: Yes Code Status: 08/29/18 17:40 Resuscitation Status: Active [RES] Routine Comment: Resuscitation Status: Full Code 08/30/18 03:05 Resuscitation Status: Active [RES] Routine Comment: Resuscitation Status: DNR-Comfort Care-Arrest <Maranda López - Last Filed: 08/30/18 18:53> Date of Encounter: 08/30/18 Palliative-CN HPI - Data of Consult Requesting Physician: Lavon Harmon Primary Care Provider: PCP NONE - Consult Narrative History of present illness: Mr. Tripp is a 87 year old male CC: Lavon Harmon - Time Spent with Patient Time: Total time spent is greater than 50% in coordination of care (as documented) at patient's floor/unit and/or counseling patient: Palliative Care-Exam - Constitutional Vitals: Temp Pulse Resp BP Pulse Ox 98.9 F 74 19 126/54 94 08/30/18 15:03 08/30/18 15:03 08/30/18 15:03 08/30/18 15:03 08/30/18 15:03 Internal Medicine - CN: Reslt - Labs CBC & Chem 7: 08/30/18 02:39 08/30/18 02:39 Labs: Short CBC 08/30/18 Range/Units 02:39 WBC 12.5 H (4.3-11.1) K/mcL Hgb 8.8 L D (12.9-16.9) g/dL Hct 29.7 L (37.5-50.1) % Plt Count 208 (140-400) K/mcL Neutrophils # 11.4 H (1.6-8.9) K/mcL BMP 08/30/18 02:39 Sodium 149 H Potassium 3.5 Chloride 116 H Carbon Dioxide 27 BUN 31 H Creatinine 0.55 L Glucose 131 H Calcium 7.9 L Cardiac Enzymes 08/29/18 08/30/18 Range/Units 20:42 02:39 Troponin I < 0.03 < 0.03 (< 0.04) ng/mL Liver Function 08/30/18 Range/Units 02:39 Total Bilirubin 0.6 (0.3-1.0) mg/dL AST 25 (13-39) Units/L ALT 20 (7-52) Units/L Alkaline Phosphatase 72 (34-104) Units/L Albumin 2.3 L (3.5-5.7) g/dL - ABG Interpretation ABG results: ABG ABG pH 7.50 pH Units (7.32-7.45) H 08/29/18 17:20 ABG pCO2 34 mmHg (35-45) L 08/29/18 17:20 ABG pO2 64 mmHg (85-104) L 08/29/18 17:20 ABG O2 Saturation 94 % (95-98) L 08/29/18 17:20 PT/INR, D-dimer PT 13.2 Seconds (9.4-12.1) H 08/30/18 02:39 D-Dimer [id number] ng/mLFEU (0-500) H 08/29/18 18:33 - Impressions Impressions Chest CTA 08/30/18 00:34 IMPRESSION: 1. Multiple small bilateral pulmonary emboli. 2. Pulmonary hypertension. 3. Pulmonary edema with bilateral airspace disease which probably represents pneumonia. 4. Interval development of a moderate to marked T6 compression fracture. 5. Cholelithiasis. Critical results were called by Dr. Mike Swenson MD to Amrit Hardy on 08/30/2018 at 01:31. D/ / Mike Swenson MD / Mike Swenson MD Interpreting Provider: Mike Swenson MD - Attending Attestation I performed a history and physical examination of the patient along with the resident Dr. Lousie, and discussed his management with the resident. I reviewed the residents note and agree with the documented findings and plan of care, except as follow: Refer to resident's note for HPI At the time of exam, pt was lethargic, opening eyes to name calling, looked in discomfort. Daughter Reina was present at the bedside. Discussed GOC with Reina, she is not the pt's POA, but she was present today during family meeting with primary hospitalist as well as meeting with LUDY Ivory. She confirmed that it's the family's wishes to transition pt to comfort care only and hospice. Discussed that Pt can be on comfort care in the current unit, with the plan to transition to GIP in the morning. Family agreeable. Patient is hospice apropriate, with hospice diagnosis of CVA, PPS 20%, prognosis hours to days. Hospice care: Pt was restarted on his home dose of fentanyl patch, Oxycodone for breakthrough pain. please assess pt frequently for pain or discomfort, using non-verbal clues for pain. patient has excessive secretions: scopolamine patch and atropine prn continue oxygen nc. Palliative Quality Code Status: 08/29/18 17:40 Resuscitation Status: Active [RES] Routine Comment: Resuscitation Status: Full Code 08/30/18 03:05 Resuscitation Status: Active [RES] Routine Comment: Resuscitation Status: DNR-Comfort Care-Arrest Palliative Scale - Palliative Performance Scale How ambulatory is this patient?: Totally bed bound What is patient's level of activity and evidence of disease?: Unable to do any activity, Extensive disease How much self-care assistance does patient require?: Total care How much oral intake does the patient have?: Mouth care only What is this patient's level of consciousness?: Full or drowsy with or without confusion Palliative Performance Score: 20 %
[2018-08-30] MEDS ORDERED: *HR* FentaNYL PATCH 100 MCG PATCH TD SCH (16:00)
[2018-08-30] MEDS ORDERED: Glycopyrrolate 0.2 MG/ML VIAL IVP ONE (16:05)
[2018-08-30] MEDS ORDERED: Atropine Sulfate 1% 40 DROP/2 ML BOTTLE SL PRN (16:06)
[2018-08-30] MEDS ORDERED: Scopolamine Patch 1.5 MG PATCH.TD72 TD SCH (16:15)
[2018-08-30] MEDS ORDERED: *HR* OxyCODONE Immed Rel 15 MG TABLET PO PRN (16:25)
[2018-08-30] MEDS: Piperacillin/Tazobactam 3.375 GM in 0.9 % Sodium Chloride Mini Bag 100 ML IVPB SCH (17:11)
--- NOTE | 2018-08-30 17:30 | Electrocardiograph Report ---
[address] [address] Test Date: 2018-08-29 Pat Name: Roc Tripp Department: EXAM2 Room: 2NE16 Gender: M Block Tester: : 1930 Requested By: Omero Dupont Order Number: [id number] Reading MD: Jhon Alejandra Measurements Intervals [place] Rate: 77 P: [place]: QRS: -74 QRSD: 168 T: 93 QT: 465 QTc: 527 Interpretive Statements Afib and ventricular-paced rhythm Electronically Signed On 08-30-2018 17:28:44 EST by Jhon Alejandra
[2018-08-30] MEDS: *HR* Heparin 5,000 UNIT/ML VIAL IVP PRN (19:00)
--- NOTE | 2018-08-30 22:13 | Internal Med Progress Note ---
Hospitalist Progress Note - Encounter Date of Encounter: 08/30/18 Time of Encounter: 19:00 - Subjective Interval History: SUBJECTIVE: The patient is not responding to verbal stimuli today. The last time he was interacting with his family was yesterday morning. He ate small amounts of foods at this time. No distress is seen. OBJECTIVE: Skin: Free of rash and discoloration. ENMT: Oral/pharyngeal mucosa is normal in appearance. Eyes: Sclera is white. There is no discharge from eyes. Respiratory: Normal breath sounds; no crackles or wheezes. CV: Heart is regular; no gallop or murmur. GI: Abdomen is soft and not tender. There is no palpable mass or visceromegaly. Neuro: The patient is unresponsive to verbal stimuli. He continues to have profound weakness in the right extremities. ADDITIONAL DATA: CBC shows hemoglobin of 8.8; 10.3 yesterday. WBC is 12.5 thousand; 19.0 thousand yesterday. His BMP is normal. ASSESSMENT AND PLAN: Altered mental status. Secondary to multiple comorbidities. They include pneumonia, possible urinary tract infection, pulmonary emboli and recently experienced cerebral infarction of left hemisphere. He is also hypernatremic. I spent significant amount of time with his family. They feel, that the patient should be comfort measures. We will consult palliative care. Meanwhile, we will keep him on IV fluids and IV vancomycin/IV Zosyn. - Exam Vitals: Temp Pulse Resp BP Pulse Ox 98.7 F 90 20 130/48 95 08/30/18 18:49 08/30/18 18:49 08/30/18 18:49 08/30/18 18:49 08/30/18 20:44 Exam: xx - Assessment and Plan (1) Altered mental status Current Visit: Yes Status: Acute (2) Pneumonia Current Visit: Yes Status: Acute (3) UTI (urinary tract infection) Current Visit: Yes Status: Suspected (4) Pulmonary emboli Current Visit: Yes Status: Acute (5) Cerebral infarction, left hemisphere Current Visit: Yes Status: Acute (6) Hypernatremia Current Visit: Yes Status: Acute - Time Spent with Patient Total time spent is greater than 50% in coordination of care (as documented) at patient's floor/unit and/or counseling patient: Greater than 35 minutes Plan of Care Discussed with: patient (and family..) Internal Medicine: Result - Labs CBC & Chem 7: 08/30/18 02:39 08/30/18 02:39 Labs: Short CBC 08/30/18 Range/Units 02:39 WBC 12.5 H (4.3-11.1) K/mcL Hgb 8.8 L D (12.9-16.9) g/dL Hct 29.7 L (37.5-50.1) % Plt Count 208 (140-400) K/mcL Neutrophils # 11.4 H (1.6-8.9) K/mcL BMP 08/30/18 02:39 Sodium 149 H Potassium 3.5 Chloride 116 H Carbon Dioxide 27 BUN 31 H Creatinine 0.55 L Glucose 131 H Calcium 7.9 L Cardiac Enzymes 08/30/18 Range/Units 02:39 Troponin I < 0.03 (< 0.04) ng/mL Liver Function 08/30/18 Range/Units 02:39 Total Bilirubin 0.6 (0.3-1.0) mg/dL AST 25 (13-39) Units/L ALT 20 (7-52) Units/L Alkaline Phosphatase 72 (34-104) Units/L Albumin 2.3 L (3.5-5.7) g/dL - ABG Interpretation ABG results: ABG ABG pH 7.50 pH Units (7.32-7.45) H 08/29/18 17:20 ABG pCO2 34 mmHg (35-45) L 08/29/18 17:20 ABG pO2 64 mmHg (85-104) L 08/29/18 17:20 ABG O2 Saturation 94 % (95-98) L 08/29/18 17:20 PT/INR, D-dimer PT 13.2 Seconds (9.4-12.1) H 08/30/18 02:39 D-Dimer 29825 ng/mLFEU (0-500) H 08/29/18 18:33 - Impressions Impressions Chest CTA 08/30/18 00:34 IMPRESSION: 1. Multiple small bilateral pulmonary emboli. 2. Pulmonary hypertension. 3. Pulmonary edema with bilateral airspace disease which probably represents pneumonia. 4. Interval development of a moderate to marked T6 compression fracture. 5. Cholelithiasis. Critical results were called by Dr. Mike Swenson MD to Amrit Hardy on 08/30/2018 at 01:31. D/ / Mike Swenson MD / Mike Swenson MD Interpreting Provider: Mike Swenson MD Consult Discharge Plan - Plan Referrals: NONE,PCP [Primary Care Provider] - ____ (1) Altered mental status Qualifiers: Altered mental status type: unspecified Qualified Code(s): R41.82 - Altered mental status, unspecified (2) Pneumonia Qualifiers: Pneumonia type: due to unspecified organism Laterality: unspecified laterality Lung location: unspecified part of lung Qualified Code(s): J18.9 - Pneumonia, unspecified organism (3) UTI (urinary tract infection) Qualifiers: Urinary tract infection type: acute cystitis Hematuria presence: with he maturia Qualified Code(s): N30.01 - Acute cystitis with hematuria (4) Pulmonary emboli Qualifiers: Pulmonary embolism type: unspecified Chronicity: acute Acute cor pulmonale presence: without acute cor pulmonale Qualified Code(s): I26.99 - Other pulmonary embolism without acute cor pulmonale
[2018-08-31] MEDS: *HR* Heparin 5,000 UNIT/ML VIAL IVP PRN (01:20)
[2018-08-31] MEDS: Piperacillin/Tazobactam 3.375 GM in 0.9 % Sodium Chloride Mini Bag 100 ML IVPB SCH ×2 (01:21→12:52)
[2018-08-31] MEDS: Heparin 25,000 UNIT/500 ML D5W 25,000 UNIT/500 ML BAG IVC SCH (06:15)
[2018-08-31 11:14] VITALS: BP 152/66
--- NOTE | 2018-08-31 11:43 | Discharge Summary ---
- NOTES TO OUTPATIENT PROVIDER Notes to Outpatient Provider: DISCHARGE TO HOSPICE.. Orders not resulted at time of discharge: Pending orders 08/29/18 13:52 Culture,Blood [BC] Stat Date of Encounter: 08/31/18 Time of Encounter: 11:43 - Discharge Diagnosis (1) Altered mental status Priority: Primary Status: Acute Qualifiers: Altered mental status type: unspecified Qualified Code(s): R41.82 - Altered mental status, unspecified (2) Pneumonia Priority: Primary Status: Acute Qualifiers: Pneumonia type: due to unspecified organism Laterality: unspecified laterality Lung location: unspecified part of lung Qualified Code(s): J18.9 - Pneumonia, unspecified organism (3) UTI (urinary tract infection) Priority: Primary Status: Suspected Qualifiers: Urinary tract infection type: acute cystitis Hematuria presence: with hematuria Qualified Code(s): N30.01 - Acute cystitis with hematuria (4) Pulmonary emboli Priority: Primary Status: Acute Qualifiers: Pulmonary embolism type: unspecified Chronicity: acute Acute cor pulmonale presence: without acute cor pulmonale Qualified Code(s): I26.99 - Other pulmonary embolism without acute cor pulmonale (5) Cerebral infarction, left hemisphere Priority: Primary Status: Acute (6) Hypernatremia Priority: Primary Status: Acute Hospital course: Mr. Tripp is a 87 year old male Discharge discussed with: family, nurse - Time Spent with Patient Total time spent providing and/or coordinating discharge services: Greater than 30 minutes (40 minutes..) - Discharge Medications Home Medications: Scopolamine Patch [Transderm-Scop] 1.5 mg TD Q72H patch.td72 08/31/18 [Rx] Allergies/Adverse Reactions: Allergy/AdvReac Type Severity Reaction Status Date / Time No Known Allergies Allergy Verified 04/06/18 11:04 Date of admission: 08/29/18 20:09 Primary care physician: PCP NONE Consults: 08/30/18 00:48 Consult to Neurology [CONS] Routine Consulting Provider: Neurology [facility] Reason for Consult: Continued "evolving extensive left MCA territory infract" on Head CT. Discuss risks with heparin and evolving infarct discussed between Dr Cisneros and Dr Muñoz. Call Completed: Yes 08/30/18 08:37 Consult to [employer] [CONS] Routine Reason for SW Consult: follow care of patient for dicharge needs 08/30/18 15:40 Consult to Palliative Care [CONS] Routine Comment: Consulting Provider: Palliative Richard Burger Reason for Consult: COMFORT CARE NEEDED.. Time Notified: 15:30 Call Completed: Yes Discharging clinician: Lavon Harmon Anticipated date of discharge: 08/31/18 - Constitutional Vitals: Temp Pulse Resp BP Pulse Ox 98.0 F 94 20 152/66 90 08/31/18 11:09 08/31/18 11:09 08/31/18 11:09 08/31/18 11:09 08/31/18 11:09 General appearance: Present: A&O X 0, no acute distress Exam: xx - Patient Status Disposition: Transfer Other Condition: Critical Functional capacity at discharge: bed bound Overall status at discharge: other (declining; comfort care..) - Discharge Instructions Follow Up With: NONE,PCP [Primary Care Provider] - Forms: ED Satisfaction Letter - Diet and Activity Activity: other (bed-bound..) Diet: other (npo..) - VTE Deep Vein Thrombosis/Pulmonary Embolism Present on Admission: No
--- NOTE | 2018-08-31 12:01 | Physician Discharge Referral ---
Home Health/Hosp Referral Info Transfer to: Hospice Attending Provider: Alayna Harmon MD Provider in Charge Post Discharge: Electronic Assembler - Diagnosis (1) Altered mental status Priority: Primary Status: Acute (2) Pneumonia Priority: Primary Status: Acute (3) UTI (urinary tract infection) Priority: Primary Status: Suspected (4) Pulmonary emboli Priority: Primary Status: Acute (5) Cerebral infarction, left hemisphere Priority: Primary Status: Acute (6) Hypernatremia Priority: Primary Status: Acute - Respiratory Orders Oxygen / L per min (2 l/min) Smoking Cessation: Smoking cessation has been advised. For more information, call the [place] Tobacco Quit Line at 8-398-DZIJ-NOW. - Activity Activity Orders: Bedrest - Services Needed Following services are medically necessary services: Nursing - Transfer Medications Home Medications: Scopolamine Patch [Transderm-Scop] 1.5 mg TD Q72H patch.td72 08/31/18 [Rx] Allergies/Adverse Reactions: Allergy/AdvReac Type Severity Reaction Status Date / Time No Known Allergies Allergy Verified 04/06/18 11:04 Certification: Further, I certify that my clinical findings support that this patient is homebound (i.e. absences from home require considerable and taxing effort and are for medical reasons or latter day services or infrequently or short duration when for other reasons) because: Homebound Reason: Severity of cardiac or pulmonary status limits activity tolerance Attestation: My signature below is to certify that this patient is under my care and that I, or nurse practitioner, or a physician's periodontal assistant working with me, has a [id number] encounter with this patient.
== END 2018-08-31 13:23 | disposition other institution (70) | DRG 871 ==
LOC: EMEROOARM 12:51 → 2NENU 20:09 → SUATTDRO 20:09 → 2NENU 20:48
PROVIDERS: ADMIT Internal Medicine; ATTEND Internal Medicine